=== PATIENT | female | born 1970 | race Caucasian/White ===

== ENCOUNTER 2020-06-27 12:33 | Outpatient (REF) | payer BC, SELFPAY ==
[2020-06-27 14:04] LABS: Hematocrit 41.5 % (37-47); Hemoglobin 13.4 g/dl (12.0-16.0); Mean Corpuscular HGB Conc 32.3 g/dl (31.0-35.0); Mean Corpuscular Hemoglobin 29.2 pg (27.0-33.0); Mean Corpuscular Volume 90.4 fL (80-98); Platelet Count 253 X10*3/uL (160-400); Red Blood Count 4.59 X10*6/uL (4.20-5.50); Red Cell Distribution Width 13.1 % (11.0-16.0); White Blood Count 9.5 X10*3/uL (4.8-10.8)
[2020-06-27 14:24] LABS: Glucose Urine UA NEG (NEG); Leukocyte Esterase Urine NEG (NEG); Nitrite Urine NEG (NEG); PH 6.5 (5.0-8.0); Urine Blood NEG (NEG); Urine Ketones NEG (NEG); Urine Protein NEG (NEG-TRACE)
[2020-06-27 14:28] LABS: Color Urine YELLOW
[2020-06-27 14:29] LABS: Appearance Urine CLEAR
[2020-06-27 14:31] LABS: Alanine Aminotransferase 30 U/L (0-31); Albumin Level 4.3 g/dL (3.5-5.0); Alkaline Phosphatase 77 U/L (39-117); Anion Gap 12 (12-20); Aspartate Amino Transferase 25 U/L (5-31); Bilirubin Total 0.7 mg/dL (0.0-1.0); Blood Urea Nitrogen 9 mg/dL (9-16); Calcium 8.9 mg/dL (8.4-10.2); Carbon Dioxide 28 mmol/L (22-29); Chloride 103 mmol/L (96-108); Cholesterol 233 mg/dL; Estimated Glomerular Filt Rate > 60; Glucose Fasting 87 mg/dL (60-99); HDL Cholesterol 53 mg/dL; Iron 57 mcg/dL (30-160); LDL Cholesterol Calculated 138 mg/dl; Percent Iron Saturation 12 % (15-50); Potassium 4.3 mmol/l (3.3-5.1); Sodium 139 mmol/L (135-145); Total Iron Binding Capacity 477 mcg/dL (228-428); Total Protein 7.2 g/dL (6.5-8.0); Triglycerides 210 mg/dL; Unsaturated Iron Binding 420 ug/dL
[2020-06-27 14:54] LABS: Ferritin 27 ng/mL (10-250); Free T4 (Free Thyroxine) 1.22 ng/dL (0.71-1.85)
== END 2020-06-27 12:34 | disposition home or self-care (01) ==
LOC: HO.HMGCLDS 12:33
PROVIDERS: PCP Internal Medicine; Visit Provider Internal Medicine
DX: E03.9 Hypothyroidism, unspecified (principal); I10 Essential (primary) hypertension; E78.2 Mixed hyperlipidemia
CPT/HCPCS: 36415; 80053; 80061; 81003; 82728; 83540; 84439; 84443; 85027

== ENCOUNTER 2020-10-15 10:17 | Outpatient (REF) | payer BC, SELFPAY ==
[2020-10-15 11:04] LABS: Hematocrit 41.9 % (37-47); Hemoglobin 13.3 g/dl (12.0-16.0); Mean Corpuscular HGB Conc 31.7 g/dl (31.0-35.0); Mean Corpuscular Hemoglobin 27.9 pg (27.0-33.0); Mean Corpuscular Volume 87.8 fL (80-98); Mean Platelet Volume 10.8 fL (9.4-12.3); Platelet Count 296 X10*3/uL (160-400); Red Blood Count 4.77 X10*6/uL (4.20-5.50); Red Cell Distribution Width 13.3 % (11.0-16.0); White Blood Count 9.6 X10*3/uL (4.8-10.8)
[2020-10-15 12:53] LABS: Alanine Aminotransferase 30 U/L (0-31); Albumin Level 4.3 g/dL (3.5-5.0); Alkaline Phosphatase 81 U/L (39-117); Anion Gap 14 (12-20); Aspartate Amino Transferase 25 U/L (5-31); Bilirubin Total 0.6 mg/dL (0.0-1.0); Blood Urea Nitrogen 11 mg/dL (9-16); Calcium 8.6 mg/dL (8.4-10.2); Carbon Dioxide 24 mmol/L (22-29); Chloride 105 mmol/L (96-108); Cholesterol 199 mg/dL; Estimated Glomerular Filt Rate > 60; Glucose Fasting 94 mg/dL (60-99); HDL Cholesterol 45 mg/dL; Iron 50 mcg/dL (30-160); LDL Cholesterol Calculated 112 mg/dl; Percent Iron Saturation 11 % (15-50); Potassium 4.2 mmol/L (3.3-5.1); Sodium 139 mmol/L (135-145); Total Iron Binding Capacity 461 mcg/dL (228-428); Total Protein 7.1 g/dL (6.5-8.0); Triglycerides 212 mg/dL; Unsaturated Iron Binding 411 ug/dL
[2020-10-15 12:56] LABS: TSH reflex Free T4 1.26 uIU/mL (0.32-4.0)
== END 2020-10-15 10:18 | disposition home or self-care (01) ==
LOC: HO.HMGCLDS 10:17
PROVIDERS: PCP Internal Medicine; Visit Provider Internal Medicine
DX: Z00.00 Encounter for general adult medical examination without abnormal findings (principal); E78.5 Hyperlipidemia, unspecified; I10 Essential (primary) hypertension; D50.9 Iron deficiency anemia, unspecified; E03.9 Hypothyroidism, unspecified
CPT/HCPCS: 36415; 80053; 80061; 83540; 84443; 85027

== ENCOUNTER 2021-02-25 08:42 | Outpatient (REF) | payer BC, SELFPAY ==
[2021-02-25 11:52] LABS: Alanine Aminotransferase 31 U/L (0-31); Albumin Level 4.3 g/dL (3.5-5.0); Alkaline Phosphatase 78 U/L (39-117); Anion Gap 14 (12-20); Aspartate Amino Transferase 23 U/L (5-31); Bilirubin Total 0.5 mg/dL (0.0-1.0); Blood Urea Nitrogen 12 mg/dL (9-16); Calcium 9.3 mg/dL (8.4-10.2); Carbon Dioxide 24 mmol/L (22-29); Chloride 106 mmol/L (96-108); Cholesterol 174 mg/dL; Estimated Glomerular Filt Rate > 60; Glucose Fasting 103 mg/dL (60-99); HDL Cholesterol 40 mg/dL; LDL Cholesterol Calculated 100 mg/dl; Potassium 4.2 mmol/L (3.3-5.1); Sodium 140 mmol/L (135-145); Triglycerides 172 mg/dL
[2021-02-25 12:01] LABS: TSH reflex Free T4 0.21 uIU/mL (0.32-4.0)
[2021-02-25 12:34] LABS: Free T4 (Free Thyroxine) 1.48 ng/dL (0.71-1.85)
== END 2021-02-25 08:43 | disposition home or self-care (01) ==
LOC: HO.HMGCLDS 08:42
PROVIDERS: PCP Internal Medicine; Visit Provider Internal Medicine
DX: E66.9 Obesity, unspecified (principal); E78.5 Hyperlipidemia, unspecified; I10 Essential (primary) hypertension
CPT/HCPCS: 36415; 80053; 80061; 84439; 84443

== ENCOUNTER 2021-07-02 11:32 | Outpatient (REF) | payer BC, SELFPAY ==
[2021-07-02 13:56] LABS: Hematocrit 39.8 % (37.0-47.0); Hemoglobin 12.7 g/dl (12.0-16.0); Mean Corpuscular HGB Conc 31.9 g/dl (31.0-35.0); Mean Corpuscular Hemoglobin 29.3 pg (27.0-33.0); Mean Corpuscular Volume 91.7 fL (80.0-98.0); Mean Platelet Volume 11.9 fL (9.4-12.3); Platelet Count 249 X10*3/uL (160-400); Red Blood Count 4.34 X10*6/uL (4.20-5.50); Red Cell Distribution Width 13.2 % (11.0-16.0); White Blood Count 11.1 X10*3/uL (4.8-10.8)
[2021-07-02 14:10] LABS: Estimated Average Glucose 103 mg/dL; Hemoglobin A1c % 5.2 %
[2021-07-02 14:16] LABS: Alanine Aminotransferase 24 U/L (0-31); Albumin Level 4.1 g/dL (3.5-5.0); Alkaline Phosphatase 78 U/L (39-117); Anion Gap 14 (12-20); Aspartate Amino Transferase 21 U/L (5-31); Bilirubin Total 0.9 mg/dL (0.0-1.0); Blood Urea Nitrogen 13 mg/dL (9-16); Calcium 9.8 mg/dL (8.4-10.2); Carbon Dioxide 27 mmol/L (22-29); Chloride 102 mmol/L (96-108); Cholesterol 220 mg/dL; Estimated Glomerular Filt Rate > 60; Glucose Fasting 85 mg/dL (60-99); HDL Cholesterol 54 mg/dL; LDL Cholesterol Calculated 122 mg/dl; Potassium 3.9 mmol/L (3.3-5.1); Sodium 139 mmol/L (135-145); Triglycerides 222 mg/dL
[2021-07-02 14:38] LABS: TSH reflex Free T4 2.25 uIU/mL (0.32-4.0); Vitamin D 25-OH Total 37.4 ng/mL (>30)
[2021-07-02 16:38] LABS: Appearance Urine CLEAR; Color Urine YELLOW; Glucose Urine UA NEG (NEG); Leukocyte Esterase Urine NEG (NEG); Nitrite Urine NEG (NEG); Urine Blood NEG (NEG); Urine Ketones NEG (NEG); Urine Protein NEG (NEG-TRACE)
[2021-07-02 18:35] LABS: RBC Urine 0 /HPF (0); WBC Urine 0 /HPF (0-4)
== END 2021-07-02 11:33 | disposition home or self-care (01) ==
LOC: HO.HMGCLDS 11:32
PROVIDERS: PCP Internal Medicine; Visit Provider Internal Medicine
DX: Z00.00 Encounter for general adult medical examination without abnormal findings (principal); E78.5 Hyperlipidemia, unspecified; I10 Essential (primary) hypertension
CPT/HCPCS: 36415; 80053; 80061; 81001; 82306; 83036; 84443; 85027

== ENCOUNTER 2022-03-05 08:44 | Outpatient (REF) | payer BC, SELFPAY ==
[2022-03-05 12:23] LABS: Alanine Aminotransferase 32 U/L (0-31); Albumin Level 3.8 g/dL (3.5-5.0); Alkaline Phosphatase 75 U/L (39-117); Anion Gap 16 (12-20); Aspartate Amino Transferase 24 U/L (5-31); Bilirubin Total 0.5 mg/dL (0.0-1.0); Blood Urea Nitrogen 11 mg/dL (9-16); Calcium 8.9 mg/dL (8.4-10.2); Carbon Dioxide 25 mmol/L (22-29); Chloride 102 mmol/L (96-108); Cholesterol 213 mg/dL; Estimated Glomerular Filt Rate > 60; Glucose Fasting 95 mg/dL (60-99); HDL Cholesterol 48 mg/dL; LDL Cholesterol Calculated 120 mg/dl; Potassium 4.2 mmol/L (3.3-5.1); Sodium 139 mmol/L (135-145); Total Protein 6.6 g/dL (6.5-8.0); Triglycerides 228 mg/dL
[2022-03-05 12:28] LABS: TSH reflex Free T4 2.92 uIU/mL (0.32-4.0)
== END 2022-03-05 08:45 | disposition home or self-care (01) ==
LOC: HO.HMGCLDS 08:44
PROVIDERS: PCP Internal Medicine; Visit Provider Internal Medicine
DX: E78.5 Hyperlipidemia, unspecified (principal); I10 Essential (primary) hypertension; E03.9 Hypothyroidism, unspecified
CPT/HCPCS: 36415; 80053; 80061; 84443

== ENCOUNTER 2022-03-20 10:30 | Outpatient (REF) | payer BC, SELFPAY ==
--- NOTE | ~2022-03-20 | US_ITS ---
EXAMINATION: US THYROID CLINICAL INFORMATION: Nontoxic multinodular goiter. COMPARISON: Ultrasound soft tissue head/neck thyroid dated 03/05/2020 and 03/09/2019. TECHNIQUE: Linear transducer grayscale and color Doppler examination with attention to the region of the thyroid. FINDINGS: SIZE: Measurements of the thyroid lobes and nodules are given in sagittal, anteroposterior and transverse dimensions respectively. Right Thyroid Lobe: 4.7 x 1.6 x 1.5 cm, volume 5.9 mL. Previously 4.6 x 1.6 x 1.5 cm, volume 5.8 mL. Parenchyma: The gland echotexture is heterogeneous. Thyroid vascularity is normal. Left Thyroid Lobe: 4.7 x 1.3 x 1.4 cm, volume 4.5 mL. Previously 4.7 x 1.2 x 1.4 cm, volume 4.3 mL. Parenchyma: The gland echotexture is heterogeneous. Thyroid vascularity is normal. Isthmus: 0.5 cm in maximum AP dimension. Previously 0.45 cm. Estimated total number of nodules greater than or equal to 1 cm: 1. Raise Driller nodules are described as follows: 1. Location: Right inferior. Size: 1.2 x 0.8 x 0.8 cm, volume 0.4 mL. Previously: 1.3 x 0.7 x 0.8 cm, volume 0.4 mL. Nodule characteristics: Composition: Solid/almost completely solid (2). Echogenicity: Isoechoic (1). Shape: Not taller than wide (0). Margins: Ill-defined (0). Echogenic Foci: None (0). ACR TI-RADS total points: 3 ACR TI-RADS category: 3 Significant change in size (>/= 20% in 2 dimensions and minimal increase of 2 mm or 50% or greater increase in volume): No Change in features: Yes Change in ACR TI-RADS risk category: Decreased, previously was hypoechoic in appearance (TR 4) and is now isoechoic NODES: No lymphadenopathy is seen in the tissue surrounding the thyroid gland. US/US thyroid IMPRESSION: A 1.2 cm TR 3 right thyroid nodule is unchanged in size from prior however appears more isoechoic on today's exam (previously hypoechoic, TR 4). Heterogeneous thyroid which can be seen in the setting of thyroiditis. ACR TI-RADS RECOMMENDATION REFERENCE: Ultrasound-guided fine-needle aspiration, followup ultrasound, no further follow up. * TR1 (0 point) and TR 2 (2 points): No FNA or follow up * TR3 (3 points): FNA if more than or equal to 2.5 cm in maximum dimension, followup ultrasound in 1, 3 and 5 years if 1.5 to 2.4 cm in maximum dimension. * TR4 (4-6 points): FNA if more than or equal to 1.5 cm in maximum dimension, followup ultrasound in 1, 2, 3 and 5 years if 1 to 1.4 cm in maximum dimension. * TR5 (more than or equal to 7 points): FNA if more than or equal to 1 cm in maximum dimension, followup ultrasound every year for 5 years if 0.5 to 0.9 cm in maximum dimension. * TR3, TR4 or TR5 nodules that are below the size threshold for follow up receive no follow up.
== END 2022-03-20 10:31 | disposition home or self-care (01) ==
LOC: HO.US 10:30
PROVIDERS: Visit Provider Internal Medicine Endocrinology, Diabetes & Metabolism
DX: E04.2 Nontoxic multinodular goiter (principal)
CPT/HCPCS: 76536

== ENCOUNTER 2022-04-25 13:14 | Outpatient (REF) | payer BC, SELFPAY ==
[2022-04-25 15:14] LABS: MANUAL DIFF FLAG NO
[2022-04-25 15:18] LABS: Basophils Absolute Auto 0.1 X10*3/uL (0.0-0.2); Basophils Percent Auto 0.8 % (0-2); Eosinophils Absolute Auto 0.4 X10*3/uL (0.0-0.4); Eosinophils Percent Auto 3.4 % (0-4); Hematocrit 41.2 % (37.0-47.0); Hemoglobin 13.4 g/dl (12.0-16.0); Imm Gran Abs Auto 0.08 X10*3/uL (0.00-0.03); Imm Gran Pct Auto 0.8 % (0.0-0.4); Lymphocytes Absolute Auto 2.6 X10*3/uL (1.2-4.9); Lymphocytes Percent Auto 25.3 % (20-40); Mean Corpuscular HGB Conc 32.5 g/dl (31.0-35.0); Mean Corpuscular Hemoglobin 29.6 pg (27.0-33.0); Mean Corpuscular Volume 90.9 fL (80.0-98.0); Mean Platelet Volume 11.3 fL (9.4-12.3); Monocytes Absolute Auto 0.8 X10*3/uL (0.1-1.2); Neutrophils Absolute Auto 6.5 x10*3/uL (2.0-8.3); Neutrophils Percent Auto 61.7 % (45-73); Platelet Count 243 X10*3/uL (160-400); Red Blood Count 4.53 X10*6/uL (4.20-5.50); Red Cell Distribution Width 13.7 % (11.0-16.0); White Blood Count 10.5 X10*3/uL (4.8-10.8)
[2022-04-25 15:29] LABS: Alanine Aminotransferase 47 U/L (0-31); Albumin Level 4.3 g/dL (3.5-5.0); Alkaline Phosphatase 81 U/L (39-117); Anion Gap 18 (12-20); Aspartate Amino Transferase 41 U/L (5-31); Bilirubin Direct 0.2 mg/dL (0.0-0.5); Bilirubin Total 0.4 mg/dL (0.0-1.0); Blood Urea Nitrogen 10 mg/dL (9-16); Calcium 9.3 mg/dL (8.4-10.2); Carbon Dioxide 25 mmol/L (22-29); Chloride 101 mmol/L (96-108); Estimated Glomerular Filt Rate > 60; Glucose Random 85 mg/dL (60-115); Potassium 4.1 mmol/L (3.3-5.1); Sodium 140 mmol/L (135-145); Total Protein 7.1 g/dL (6.5-8.0)
[2022-04-25 15:33] LABS: Amylase 40 U/L (28-100)
== END 2022-04-25 13:15 | disposition home or self-care (01) ==
LOC: HO.HMGCLDS 13:14
PROVIDERS: PCP Internal Medicine; Visit Provider Physician Assistant
DX: R10.9 Unspecified abdominal pain (principal)
CPT/HCPCS: 36415; 80048; 80076; 82150; 85025

== ENCOUNTER 2022-07-13 10:54 | Outpatient (REF) | payer BC, SELFPAY ==
[2022-07-13 16:49] LABS: MANUAL DIFF FLAG NO
[2022-07-13 16:54] LABS: Basophils Absolute Auto 0.1 X10*3/uL (0.0-0.2); Basophils Percent Auto 0.6 % (0-2); Eosinophils Absolute Auto 0.3 X10*3/uL (0.0-0.4); Eosinophils Percent Auto 2.7 % (0-4); Hematocrit 42.6 % (37.0-47.0); Hemoglobin 13.6 g/dl (12.0-16.0); Imm Gran Abs Auto 0.07 X10*3/uL (0.00-0.03); Imm Gran Pct Auto 0.7 % (0.0-0.4); Lymphocytes Absolute Auto 2.4 X10*3/uL (1.2-4.9); Lymphocytes Percent Auto 23.3 % (20-40); Mean Corpuscular HGB Conc 31.9 g/dl (31.0-35.0); Mean Corpuscular Hemoglobin 29.8 pg (27.0-33.0); Mean Corpuscular Volume 93.2 fL (80.0-98.0); Mean Platelet Volume 11.3 fL (9.4-12.3); Monocytes Absolute Auto 0.8 X10*3/uL (0.1-1.2); Monocytes Percent Auto 7.8 % (2-11); Neutrophils Absolute Auto 6.7 x10*3/uL (2.0-8.3); Neutrophils Percent Auto 64.9 % (45-73); Platelet Count 223 X10*3/uL (160-400); Red Blood Count 4.57 X10*6/uL (4.20-5.50); White Blood Count 10.4 X10*3/uL (4.8-10.8)
[2022-07-13 17:45] LABS: Alanine Aminotransferase 33 U/L (0-31); Albumin Level 4.1 g/dL (3.5-5.0); Alkaline Phosphatase 83 U/L (39-117); Anion Gap 14 (12-20); Aspartate Amino Transferase 28 U/L (5-31); Bilirubin Total 0.7 mg/dL (0.0-1.0); Blood Urea Nitrogen 14 mg/dL (9-16); Calcium 8.9 mg/dL (8.4-10.2); Carbon Dioxide 27 mmol/L (22-29); Chloride 101 mmol/L (96-108); Cholesterol 229 mg/dL; Estimated Glomerular Filt Rate > 60; Glucose Fasting 93 mg/dL (60-99); HDL Cholesterol 50 mg/dL; LDL Cholesterol Calculated 144 mg/dl; Potassium 4.2 mmol/L (3.3-5.1); Sodium 138 mmol/L (135-145); TSH reflex Free T4 2.14 uIU/mL (0.32-4.0); Total Protein 6.7 g/dL (6.5-8.0); Triglycerides 176 mg/dL; Vitamin D 25-OH Total 36.9 ng/mL (>30)
[2022-07-13 17:55] LABS: Folate 19.2 ng/mL (> or = 4.0); Vitamin B12 606 pg/mL (200-900)
== END 2022-07-13 10:55 | disposition home or self-care (01) ==
LOC: HO.HMGCLDS 10:54
PROVIDERS: PCP Internal Medicine; Visit Provider Internal Medicine
DX: E03.9 Hypothyroidism, unspecified (principal); E78.5 Hyperlipidemia, unspecified; I10 Essential (primary) hypertension
CPT/HCPCS: 36415; 80053; 80061; 82306; 82607; 82746; 84443; 85025

== ENCOUNTER 2022-10-01 12:24 | Outpatient (REF) | payer OTHER, SELFPAY ==
[2022-10-01 14:06] LABS: MANUAL DIFF FLAG NO
[2022-10-01 14:09] LABS: Basophils Absolute Auto 0.1 X10*3/uL (0.0-0.2); Basophils Percent Auto 0.7 % (0-2); Eosinophils Absolute Auto 0.2 X10*3/uL (0.0-0.4); Eosinophils Percent Auto 2.4 % (0-4); Hematocrit 41.8 % (37.0-47.0); Hemoglobin 13.7 g/dl (12.0-16.0); Imm Gran Abs Auto 0.04 X10*3/uL (0.00-0.03); Imm Gran Pct Auto 0.4 % (0.0-0.4); Lymphocytes Absolute Auto 2.5 X10*3/uL (1.2-4.9); Mean Corpuscular HGB Conc 32.8 g/dl (31.0-35.0); Mean Corpuscular Hemoglobin 29.5 pg (27.0-33.0); Mean Corpuscular Volume 90.1 fL (80.0-98.0); Mean Platelet Volume 11.1 fL (9.4-12.3); Monocytes Absolute Auto 0.7 X10*3/uL (0.1-1.2); Monocytes Percent Auto 7.6 % (2-11); Neutrophils Absolute Auto 5.7 x10*3/uL (2.0-8.3); Neutrophils Percent Auto 61.9 % (45-73); Platelet Count 280 X10*3/uL (160-400); Red Blood Count 4.64 X10*6/uL (4.20-5.50); Red Cell Distribution Width 12.6 % (11.0-16.0); White Blood Count 9.1 X10*3/uL (4.8-10.8)
[2022-10-01 14:14] LABS: Prothrombin Time 10.9 SEC (10.0-13.1)
[2022-10-01 15:11] LABS: Anion Gap 14 (12-20); Blood Urea Nitrogen 13 mg/dL (9-16); Carbon Dioxide 28 mmol/L (22-29); Chloride 103 mmol/L (96-108); Estimated Glomerular Filt Rate > 60; Glucose Random 83 mg/dL (60-115); Sodium 141 mmol/L (135-145)
== END 2022-10-01 12:25 | disposition home or self-care (01) ==
LOC: HO.HMGCLDS 12:24
PROVIDERS: PCP Internal Medicine; Visit Provider Nurse Practitioner Family
DX: R04.0 Epistaxis (principal)
CPT/HCPCS: 36415; 80048; 85025; 85610

== ENCOUNTER 2022-10-15 08:57 | Outpatient (REF) | payer OTHER, SELFPAY ==
--- NOTE | ~2022-10-15 | US_ITS ---
EXAMINATION: US ABDOMEN LIMITED WITH LIVER ELASTOGRAPHY CLINICAL INFORMATION: Abnormal blood chemistry. COMPARISON: None available. TECHNIQUE: Real-time imaging of the abdominal viscera. Noninvasive ultrasound liver fibrosis assessment is performed using Moiz ElastPQ point quantification shear wave elastography (2D-SWE) with a C5-2 MHz transducer. Multiple elastography samples are obtained. FINDINGS: PANCREAS: Normal. The visualized pancreatic head and body are normal in appearance. The remainder of the pancreas is obscured from visualization by the overlying bowel gas. LIVER: The liver demonstrates normal size, contour and increased echogenicity. No focal lesion or intrahepatic biliary duct dilatation. The right lobe measures 18.2 cm in length. The left lobe measures 15.8 cm in length. Portal flow is hepatopedal Shear wave liver elastography median stiffness is 1.21 m/s (reference: normal median stiffness is 1.3 m/s or less). IQR/median stiffness to assess sampling precision is 0.12 (reference: good quality data set is IQR/median stiffness of 0.15 or less). GALLBLADDER: Normal. The gallbladder is physiologically distended without evidence of stones, sludge, polyps, wall thickening or pericholecystic fluid. COMMON BILE DUCT: Normal in caliber measuring 0.5 cm in diameter. RIGHT KIDNEY: Normal. No hydronephrosis. No renal calculi or focal parenchymal lesions. The kidney measures 11.6 cm in maximum dimension. FREE FLUID: None. US/US abdomen kern w elastography IMPRESSION: 1. Mild hepatic steatosis without focal lesion. 2. Liver elastography: Median liver stiffness measures 1.21m/s corresponding to high probability normal. REFERENCE: Society of Radiologists in Ultrasound Liver Stiffness Thresholds (2020): LIVER STIFFNESS THRESHOLDS: *Liver Stiffness equal or less than 1.3 m/s: High probability of being normal. *Liver Stiffness less than 1.7 m/s: In the absence of other known clinical signs, rules out compensated advanced chronic liver disease. *Liver Stiffness 1.7-2.1 m/s: Suggestive of compensated advanced chronic liver disease but need further test for confirmation. *Liver Stiffness over 2.1 m/s: Rules in compensated advanced chronic liver disease. *Liver Stiffness over 2.4 m/s: Suggestive of clinically significant portal hypertension. QUALITY OF DATA SET: *IQR/Median value equal or less than 0.15 implies a quality data set. *IQR/Median value over 0.15 implies a poor quality data set. SIGNIFICANT CHANGE FROM PRIOR EXAM: Significant change if liver stiffness measurement is 10% or greater from prior exam. OTHER CONSIDERATIONS: The stage of liver fibrosis may be overestimated in the setting of acute hepatitis, liver inflammation, elevated liver function tests, hepatic vascular congestion, obstructive cholestasis, non-fasting state, and infiltrative diseases such as amyloidosis and lymphoma. In some patients with NAFLD, the liver stiffness thresholds for compensated advanced chronic liver disease may be lower. In causes other than viral hepatitis and NAFLD, liver stiffness thresholds are not well established.
== END 2022-10-15 08:58 | disposition home or self-care (01) ==
LOC: HO.US 08:57
PROVIDERS: PCP Internal Medicine; Visit Provider Internal Medicine
DX: R79.89 Other specified abnormal findings of blood chemistry (principal)
CPT/HCPCS: 76705; 76981

== ENCOUNTER 2023-01-05 09:51 | Outpatient (REF) | payer OTHER, SELFPAY ==
--- NOTE | ~2023-01-05 | XR_ITS ---
EXAMINATION: XR FOOT, RIGHT CLINICAL INFORMATION: Pain. COMPARISON: None available. TECHNIQUE: AP, lateral, and oblique views of the right foot. FINDINGS: Bony alignment and mineralization are normal. No fracture, desiccation right ankle joint effusion is seen. Boehler's angle is normal. There are moderate posterior and small plantar calcaneal spurs. No focal soft tissue swelling, gas or foreign body is seen. XR/XR foot RT min 3V IMPRESSION: 1. No fracture, dislocation or right ankle joint effusion is seen. 2. There are moderate posterior and small plantar right calcaneal spurs. EXAMINATION: XR FOOT, LEFT CLINICAL INFORMATION: Pain. COMPARISON: None available. TECHNIQUE: AP, lateral, and oblique views of the left foot. FINDINGS: Bony alignment and mineralization are normal. No fracture, dislocation or left ankle joint effusion is seen. Boehler's angle is normal. There are large posterior and moderate plantar calcaneal spurs. There is no focal soft tissue swelling, gas or foreign body. IMPRESSION: 1. No fracture, dislocation or left ankle joint effusion is seen. 2. There are large posterior and moderate plantar left calcaneal spurs.
--- NOTE | ~2023-01-05 | XR_ITS ---
EXAMINATION: XR FOOT, RIGHT CLINICAL INFORMATION: Pain. COMPARISON: None available. TECHNIQUE: AP, lateral, and oblique views of the right foot. FINDINGS: Bony alignment and mineralization are normal. No fracture, desiccation right ankle joint effusion is seen. Boehler's angle is normal. There are moderate posterior and small plantar calcaneal spurs. No focal soft tissue swelling, gas or foreign body is seen. XR/XR foot LT min 3V IMPRESSION: 1. No fracture, dislocation or right ankle joint effusion is seen. 2. There are moderate posterior and small plantar right calcaneal spurs. EXAMINATION: XR FOOT, LEFT CLINICAL INFORMATION: Pain. COMPARISON: None available. TECHNIQUE: AP, lateral, and oblique views of the left foot. FINDINGS: Bony alignment and mineralization are normal. No fracture, dislocation or left ankle joint effusion is seen. Boehler's angle is normal. There are large posterior and moderate plantar calcaneal spurs. There is no focal soft tissue swelling, gas or foreign body. IMPRESSION: 1. No fracture, dislocation or left ankle joint effusion is seen. 2. There are large posterior and moderate plantar left calcaneal spurs.
== END 2023-01-05 09:52 | disposition home or self-care (01) ==
LOC: HO.HMGCX 09:51
PROVIDERS: PCP Internal Medicine; Visit Provider Internal Medicine
DX: M79.671 Pain in right foot (principal); M79.672 Pain in left foot
CPT/HCPCS: 73630

== ENCOUNTER 2023-05-06 11:41 | Outpatient (AMB) | payer OTHER, SELFPAY ==
[2023-05-06 11:46] VITALS: BP 140/80; PULSE 80; TEMP 37.1; O2SAT 98; BMI 45.0
--- NOTE | 2023-05-06 11:46 | MHC.OFFWIV ---
Intake Vital Signs 05/06/23 11:46 Height 5 ft 4 in Weight 262 lb BMI 45.0 BP 140/80 H Blood Pressure Location Lt brachial Position Sitting Pulse 80 Pulse Source Pulse Oximeter Temp 98.7 F Temp Source Temporal Artery Scan Pulse Oximetry (%) 98 Oxygen Delivery Method Room Air Intake Visit Reasons: EP Fatigue/dizzy/headache Intake Note: pt is here for c/o ear pain, body pain, fatigue, dizziness, headache Patient Tobacco Use Status: Never used Tobacco Allergies meloxicam [MELOXICAM] Allergy (Intermediate, Verified 05/06/23 11:46) HYPERTENSION, flactuating BP, elevated bp Do you need a note to return to daycare/school/sports/work: Yes HPI EP Fatigue/dizzy/headache HPI Details 53-year-old female patient presents today with a 2 week history of right ear pain, and now has been having body aches, fatigue, headaches. Denies any fever, however has been getting the chills at night over the last couple of nights. Denies known exposure to any sick contacts. Denies any respiratory or GI symptoms. [facility] Medical History Thyroid nodule Nevus Annual physical exam (~02/17/22) Normal colonoscopy Hyperlipidemia Sleep apnea Menorrhagia Chronic iron deficiency anemia Multinodular goiter Hypothyroidism Anxiety and depression Obesity HTN (hypertension) Surgical History History of esophagogastroduodenoscopy (EGD) No pertinent past surgical history Family History Father No problems noted. Mother No problems noted. Sister No problems noted. Sister No problems noted. Son No problems noted. Social History Housing: House Alcohol intake: never Patient Tobacco Use Status: Never used Tobacco e-Cigarette/Vaping Use: Never Used Current occupational status: employed Cognitive needs: No Hearing needs: No Vision needs: No Review of Systems Const All systems reviewed & are unremarkable except as noted in HPI and below Physical Exam Vital Signs: Last Vital Signs Temp 98.7 F 05/06/23 11:46 Pulse 80 05/06/23 11:46 BP 140/80 H 05/06/23 11:46 Pulse Ox 98 05/06/23 11:46 Oxygen Delivery Method Room Air 05/06/23 11:46 BMI result Body Mass Index 45.0 Const General: cooperative, healthy appearing, comfortable and no acute distress HEENT Head: Yes normal to inspection Ears: hearing grossly normal bilaterally, external ears normal, TM normal on the left and TM abnormal (Erythematous, purulent effusion R TM) bulging Face and sinus: Yes normal facial exam Mouth: Normal oral and palatal mucosa present and moist mucous membranes Throat: Yes posterior oropharynx normal Neck Neck: Yes no lymphadenopathy Resp Effort & Inspection: normal respiratory effort and able to speak in complete sentences Auscultation: clear to auscultation bilaterally Cardio Jugular venous distension: no JVD Palpation: normal PMI Rate: regular rate Rhythm: regular rhythm Skin General skin exam: no rashes or lesions noted Extrem General: Yes capillary refill normal and Yes no clubbing, cyanosis or edema Psych Appearance: grossly normal Mental Status: mental status grossly normal Speech and movement: Normal speech and movement present Assessment & Plan Assessment & Plan (1) Right otitis media with effusion: Code(s): H65.91 - Unspecified nonsuppurative otitis media, right ear Plan: Augmentin for right OM. Advised to return to clinic or see PCP if she does not improve treatment. May take Tylenol/Motrin for any ongoing discomfort. She agrees to plan. Medications: New amoxicillin-pot clavulanate 875-125 mg 1 tab PO BID 14 tabs 0RF 7 days H65.91 - Unspecified nonsuppurative otitis media, right ear Coding Level of Care Code Est Pt Level 3 (39618) Diagnoses Right otitis media with effusion H65.91
== END 2023-05-06 12:22 | disposition home or self-care (01) ==
PROVIDERS: PCP Internal Medicine; Visit Provider Nurse Practitioner Family
DX: H65.91 Unspecified nonsuppurative otitis media, right ear (principal)
CPT/HCPCS: 99213

== ENCOUNTER 2023-06-30 13:25 | Outpatient (AMB) | payer OTHER, SELFPAY ==
[2023-06-30 13:26] VITALS: BP 146/90; PULSE 80; O2SAT 96; BMI 46.0
--- NOTE | 2023-06-30 13:26 | A.OFFPC_ITS ---
Vital Signs 06/30/23 13:26 Height 5 ft 4 in Weight 268 lb BMI 46.0 BP 146/90 H Blood Pressure Location Lt brachial Position Sitting Pulse 80 Pulse Source Pulse Oximeter Pulse Oximetry (%) 96 Oxygen Delivery Method Room Air Intake Visit Reasons: Ongoing cough Intake Note: Pt is here today for a follow up visit. Pt states that she has on going dry cough. Pt also c/o sinus pain and pressure and nose bleeds. Allergies meloxicam [MELOXICAM] Allergy (Intermediate, Verified 06/30/23 13:30) HYPERTENSION, flactuating BP, elevated bp Medication List - Last Reconciled 06/30/23 by Mackenzie Duncan MD cetirizine (Zyrtec) 10 mg PO DAILY PRN lorazepam 0.5 mg PO DAILY PRN metoprolol succinate ER 75 mg (1.5 x 50 mg) PO DAILY olmesartan-hydrochlorothiazide 40-25 mg 1 tab PO DAILY omega-3 acid ethyl esters PO oxymetazoline 0.05% (Afrin No Drip (oxymetazoline)) 3 sprays intranasal .q20min PRN pravastatin 20 mg PO DAILY Synthroid (levothyroxine) 175 mcg PO QAM NS Tobacco use date assessed: 06/30/23 Dental Screening Dental Screen Date: 06/30/23 Did you have a dental visit in the last 12 months?: Yes Did you have a dental problem in the last 6 months where you did not have access to dental care?: No Was dental information given to patient?: Patient has dentist HPI Ongoing cough HPI Details Pt presents for f/u HTN, hypothyroid, hyperlipid, stable on meds. Pt c/o anxiety and hot flashes, irregular menses. She gained another 10 lb and has not been physically active. [facility] Medical History Thyroid nodule Nevus Annual physical exam (~02/17/22) Normal colonoscopy Hyperlipidemia Sleep apnea Menorrhagia Chronic iron deficiency anemia Multinodular goiter Hypothyroidism Anxiety and depression Obesity HTN (hypertension) Surgical History History of esophagogastroduodenoscopy (EGD) No pertinent past surgical history Family History Father No problems noted. Mother No problems noted. Sister No problems noted. Sister No problems noted. Son No problems noted. Social History Housing: House Alcohol intake: never Patient Tobacco Use Status: Never used Tobacco e-Cigarette/Vaping Use: Never Used Current occupational status: employed Cognitive needs: No Hearing needs: No Vision needs: No Questionnaire PHQ-9 Over the last 2 weeks, how often have you been bothered by any of the following problems? 1. Little interest or pleasure in doing things: not at all 2. Feeling down, depressed, or hopeless: not at all 3. Trouble falling or staying asleep, or sleeping too much: not at all 4. Feeling tired or having little energy: not at all 5. Poor appetite or overeating: not at all 6. Feeling bad about yourself - or that you are a failure or have let yourself or your family down: not at all 7. Trouble concentrating on things, such as reading the newspaper or watching television: not at all 8. Moving or speaking so slowly that other people could have noticed. Or the opposite - being so fidgety or restless that you have been moving around a lot m ore than usual: not at all 9. Thoughts that you would be better off or of hurting yourself in some way: not at all Total score: 0 Depression Screening Interpretation: Negative Depression Screening Done: Yes 11988 - PHQ-9 Billing: Patient declined-do not bill Source: Developed by Drs. Dominik Avelar, Lauryn Royal, Sundar Mukherjee and colleagues, with an educational belia from [employer]. Thrive Questionnaire Date Thrive assessed: 06/30/23 I am a: Patient What is your living situation today?: I have a steady place to live Within the past 12 months, did the food you bought not last and you didn't have the money to get more?: Never true Within the past 12 months, did you worry whether your food would run out before you got money to buy more?: Never true Do you have trouble paying for medicines?: No Do you have trouble getting transportation to medical appointments?: No Do you have trouble paying your heating and electricity bill?: No Do you have trouble taking care of your child, family member or friend?: No Do you have trouble with day-to-day activities such as bathing, preparing meals, shopping, managing finances, etc.?: No Are you currently unemployed and looking for a job?: No Are you interested in more education?: No Please select the resources that you would like help with: None Currently or been in a relationship where the following occur: no concerns reported TITO-7 AMB Questionnaire TITO-7 Date TITO - 7 assessed: 06/30/23 Feeling nervous, anxious, or on edge: 0 = Not at all Not being able to stop or control worryin = Not at all Worrying too much about different things: 0 = Not at all Trouble relaxin = Not at all Being so restless that it is hard to sit still: 0 = Not at all Becoming easily annoyed or irritable: 0 = Not at all Feeling afraid as if something awful might happen: 0 = Not at all Total TITO-7 score (0-4 normal; 5-9 mild; 10-14 moderate; 15-21 severe): 0 Source: Developed by Drs. Dominik Avelar, Lauryn Royal, Sundar Mukherjee and colleagues, with an educational belia from [employer]. Review of Systems Const All systems reviewed & are unremarkable except as noted in HPI and below Reports no additional complaints Eyes Reports no additional complaints ENT Reports no additional complaints Card Reports no additional complaints Resp Reports no additional complaints GI Reports no additional complaints Reports no additional complaints Physical exam (Primary Care) Vital Signs: Last Vital Signs Pulse 80 06/30/23 13:26 BP 146/90 H 06/30/23 13:26 Pulse Ox 96 06/30/23 13:26 Oxygen Delivery Method Room Air 06/30/23 13:26 BMI result Body Mass Index 46.0 Tobacco/Smoking Status: Tobacco use Status Tobacco use date assessed 06/30/23 06/30/23 13:36 Patient Tobacco Use Status Never used Tobacco 06/30/23 13:30 e-Cigarette/Vaping Use Never Used 06/30/23 13:30 PHQ-9: PHQ-9 Score PHQ-9: Total score 0 06/30/23 13:38 Depression Screening Interpretation: Negative Thrive Assessment: Date of Thrive Assessment Date Thrive assessed 06/30/23 06/30/23 13:38 Currently or been in a relationship where the following occur: no concerns reported Const General: no acute distress HENMT Head: Yes normal to inspection Ears: hearing grossly normal bilaterally Face and sinus: Yes normal facial exam Mouth: Normal oral and palatal mucosa present Throat: Yes posterior oropharynx normal Eyes General: appearance normal, both eyes and all related structures Neck Neck: Yes no lymphadenopathy and Yes supple Resp Effort & Inspection: normal respiratory effort Auscultation: clear to auscultation bilaterally Cardio Rhythm: regular rhythm Heart sounds: S1 normal heart sound present and S2 normal heart sound present GI Inspection: Yes normal to inspection Palpation (GI): Soft to palpation Percussion: Yes normal to percussion Auscultation: normal bowel sounds Assessment and Plan Assessment & Plan (1) HTN (hypertension): Code(s): I10 - Essential (primary) hypertension Plan: Increase metoprolol to 100 mg a day and continue olmesartan with hydrochlorothiazide, increase physical activity weight loss discussed with the patient (2) Hyperlipidemia: Code(s): E78.5 - Hyperlipidemia, unspecified Plan: Continue statin (3) Hypothyroidism: Comment: follow up with Endo Code(s): E03.9 - Hypothyroidism, unspecified Plan: Continue levothyroxine (4) Perimenopause: Code(s): N95.1 - Menopausal and female climacteric states Plan: Patient will 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 Three sprays to each naris as needed for nosebleeds. You may repeat 3 times in a 20 minute period. Discontinued Reason: Doctor's Order 3 sprays intranasal .q20min PRN 15 mL 2RF nasal congestion Coding Level of Care Code Est Pt Level 4 (37308) Diagnoses HTN (hypertension) I10 Hyperlipidemia E78.5 Hypothyroidism E03.9 Perimenopause N95.1
== END 2023-06-30 14:33 | disposition home or self-care (01) ==
LOC: HO.HMGC 13:25
PROVIDERS: PCP Internal Medicine; Visit Provider Internal Medicine
DX: I10 Essential (primary) hypertension (principal); E78.5 Hyperlipidemia, unspecified; E03.9 Hypothyroidism, unspecified; N95.1 Menopausal and female climacteric states
CPT/HCPCS: 99214

== ENCOUNTER 2023-07-09 09:49 | Outpatient (REF) | payer OTHER, SELFPAY ==
[2023-07-09 13:28] LABS: MANUAL DIFF FLAG NO
[2023-07-09 13:38] LABS: Basophils Absolute Auto 0.1 X10*3/uL (0.0-0.2); Basophils Percent Auto 0.5 % (0-2); Eosinophils Absolute Auto 0.3 X10*3/uL (0.0-0.4); Eosinophils Percent Auto 3.2 % (0-4); Hemoglobin 12.8 g/dl (12.0-16.0); Imm Gran Abs Auto 0.07 X10*3/uL (0.00-0.03); Imm Gran Pct Auto 0.7 % (0.0-0.4); Lymphocytes Absolute Auto 2.5 X10*3/uL (1.2-4.9); Lymphocytes Percent Auto 25.1 % (20-40); Mean Corpuscular Hemoglobin 28.4 pg (27.0-33.0); Mean Corpuscular Volume 88.7 fL (80.0-98.0); Mean Platelet Volume 11.5 fL (9.4-12.3); Monocytes Absolute Auto 0.8 X10*3/uL (0.1-1.2); Neutrophils Absolute Auto 6.3 x10*3/uL (2.0-8.3); Neutrophils Percent Auto 62.5 % (45-73); Platelet Count 252 X10*3/uL (160-400); Red Blood Count 4.51 X10*6/uL (4.20-5.50); Red Cell Distribution Width 13.8 % (11.0-16.0)
[2023-07-09 13:52] LABS: Appearance Urine Clear; Color Urine Yellow; Glucose Urine UA Negative (Negative); Leukocyte Esterase Urine Trace (Negative); Nitrite Urine Negative (Negative); Specific Gravity - Urine 1.015 (1.005-1.025); UMIC TRIGGER UACC YES; Urine Blood Negative (Negative); Urine Ketones Negative (Negative); Urine Protein Negative (Neg-Trace)
[2023-07-09 13:59] LABS: Bacteria Urine None Seen (None Seen); Hyaline Casts Urine 0-2 /LPF (0-2); RBC Urine 0-2 /HPF (0-2); WBC Urine 0-5 /HPF (0-5)
[2023-07-09 14:08] LABS: Alanine Aminotransferase 14 U/L (0-31); Albumin Level 3.9 g/dL (3.5-5.0); Alkaline Phosphatase 76 U/L (39-117); Anion Gap 15 (12-20); Aspartate Amino Transferase 16 U/L (5-31); Bilirubin Total 0.5 mg/dL (0.0-1.0); Blood Urea Nitrogen 14 mg/dL (9-16); Carbon Dioxide 25 mmol/L (22-29); Chloride 104 mmol/L (96-108); Cholesterol 222 mg/dL (<200); Estimated Glomerular Filt Rate > 60; Glucose Random 91 mg/dL (60-115); HDL Cholesterol 54 mg/dL (>40); Iron 75 mcg/dL (30-160); LDL Cholesterol Calculated 121 mg/dL (<100); Percent Iron Saturation 19 % (15-50); Sodium 140 mmol/L (135-145); Total Iron Binding Capacity 392 mcg/dL (228-428); Total Protein 7.1 g/dL (6.5-8.0); Triglycerides 238 mg/dL (<150); Unsaturated Iron Binding 317 ug/dL
[2023-07-09 14:27] LABS: TSH reflex Free T4 1.28 uIU/mL (0.32-4.0)
== END 2023-07-09 09:50 | disposition home or self-care (01) ==
LOC: HO.HMGCLDS 09:49
PROVIDERS: PCP Internal Medicine; Visit Provider Internal Medicine
DX: Z00.00 Encounter for general adult medical examination without abnormal findings (principal); M79.671 Pain in right foot; M79.672 Pain in left foot; I10 Essential (primary) hypertension; D50.9 Iron deficiency anemia, unspecified; E78.5 Hyperlipidemia, unspecified
CPT/HCPCS: 36415; 80053; 80061; 81001; 83540; 84443; 85025

== ENCOUNTER 2023-08-03 13:24 | Outpatient (AMB) | payer OTHER, SELFPAY ==
[2023-08-03 14:17] VITALS: BP 140/80; PULSE 78; O2SAT 96; BMI 45.7
--- NOTE | 2023-08-03 14:17 | A.OFFPC_ITS ---
Vital Signs 08/03/23 14:17 Height 5 ft 4 in Weight 266 lb BMI 45.7 BP 140/80 H Blood Pressure Location Lt brachial Position Sitting Pulse 78 Pulse Source Pulse Oximeter Pulse Oximetry (%) 96 Oxygen Delivery Method Room Air Intake Visit Reasons: Annual PE Intake Note: Pt is here today for PE. Allergies meloxicam [MELOXICAM] Allergy (Intermediate, Verified 08/03/23 14:18) HYPERTENSION, flactuating BP, elevated bp Medication List - Last Reconciled 08/03/23 by Mackenzie Duncan MD cetirizine (Zyrtec) 10 mg PO DAILY PRN lorazepam 0.5 mg PO DAILY PRN metoprolol succinate ER 75 mg (1.5 x 50 mg) PO DAILY olmesartan-hydrochlorothiazide 40-25 mg 1 tab PO DAILY omega-3 acid ethyl esters PO pravastatin 20 mg PO DAILY Synthroid (levothyroxine) 175 mcg PO QAM NS Tobacco use date assessed: 08/03/23 Dental Screening Dental Screen Date: 08/03/23 Did you have a dental visit in the last 12 months?: Yes Did you have a dental problem in the last 6 months where you did not have access to dental care?: No Was dental information given to patient?: Patient has dentist HPI Annual PE HPI Details Patient presents for physical. She reports lower abdominal and pelvic pressure discomfort during her menses and heavy flow every other month. Patient has a history of uterine fibroids and had negative Pap smear last month by obstetrics gyn. [facility] Medical History Thyroid nodule Nevus Annual physical exam (~02/17/22) Normal colonoscopy Hyperlipidemia Sleep apnea Menorrhagia Chronic iron deficiency anemia Multinodular goiter Hypothyroidism Anxiety and depression Obesity HTN (hypertension) Surgical History History of esophagogastroduodenoscopy (EGD) No pertinent past surgical history Family History Father No problems noted. Mother No problems noted. Sister No problems noted. Sister No problems noted. Son No problems noted. Social History Housing: House Alcohol intake: never Patient Tobacco Use Status: Never used Tobacco e-Cigarette/Vaping Use: Never Used Current occupational status: employed Cognitive needs: No Hearing needs: No Vision needs: No Questionnaire PHQ-9 Over the last 2 weeks, how often have you been bothered by any of the following problems? 1. Little interest or pleasure in doing things: not at all 2. Feeling down, depressed, or hopeless: not at all 3. Trouble falling or staying asleep, or sleeping too much: not at all 4. Feeling tired or having little energy: not at all 5. Poor appetite or overeating: not at all 6. Feeling bad about yourself - or that you are a failure or have let yourself or your family down: not at all 7. Trouble concentrating on things, such as reading the newspaper or watching television: not at all 8. Moving or speaking so slowly that other people could have noticed. Or the opposite - being so fidgety or restless that you have been moving around a lot more than usual: not at all 9. Thoughts that you would be better off or of hurting yourself in some way: not at all Total score: 0 Depression Screening Interpretation: Negative Depression Screening Done: Yes Source: Developed by Drs. Dominik Avelar, Lauryn Royal, Sundar Mukherjee and colleagues, with an educational belia from [employer]. Thrive Questionnaire Date Thrive assessed: 08/03/23 I am a: Patient What is your living situation today?: I have a steady place to live Within the past 12 months, did the food you bought not last and you didn't have the money to get more?: Never true Within the past 12 months, did you worry whether your food would run out before you got money to buy more?: Never true Do you have trouble paying for medicines?: No Do you have trouble getting transportation to medical appointments?: No Do you have trouble paying your heating and electricity bill?: No Do you have trouble taking care of your child, family member or friend?: No Do you have trouble with day-to-day activities such as bathing, preparing meals, shopping, managing finances, etc.?: No Are you currently unemployed and looking for a job?: No Are you interested in more education?: No Please select the resources that you would like help with: None Currently or been in a relationship where the following occur: no concerns reported AUDIT C Alcohol Use Questionnaire (AUDIT-C) 1. How often do you have a drink containing alcohol?: Monthly or less 2. How many drinks containing alcohol do you have on a typical day when you are drinking?: 1 or 2 3. How often do you have six or more drinks on one occasion?: Never Total Score: 1 TITO-7 AMB Questionnaire TITO-7 Date TITO - 7 assessed: 08/03/23 Feeling nervous, anxious, or on edge: 2 = More than half the days Not being able to stop or control worryin = Several days Worrying too much about different things: 1 = Several days Trouble relaxin = Several days Being so restless that it is hard to sit still: 0 = Not at all Becoming easily annoyed or irritable: 1 = Several days Feeling afraid as if something awful might happen: 1 = Several days Total TITO-7 score (0-4 normal; 5-9 mild; 10-14 moderate; 15-21 severe): 7 Source: Developed by Drs. Dominik Avelar, Lauryn Royal, Sundar Mukherjee and colleagues, with an educational belia from [employer]. Review of Systems Const All systems reviewed & are unremarkable except as noted in HPI and below Reports no additional complaints Eyes Reports no additional complaints ENT Reports no additional complaints Card Reports no additional complaints Resp Reports no additional complaints GI Reports no additional complaints Reports no additional complaints Physical exam (Primary Care) Vital Signs: Last Vital Signs Pulse 78 08/03/23 14:17 BP 140/80 H 08/03/23 14:17 Pulse Ox 96 08/03/23 14:17 Oxygen Delivery Method Room Air 08/03/23 14:17 BMI result Body Mass Index 45.7 Tobacco/Smoking Status: Tobacco use Status Tobacco use date assessed 08/03/23 08/03/23 14:21 Patient Tobacco Use Status Never used Tobacco 08/03/23 14:21 e-Cigarette/Vaping Use Never Used 08/03/23 14:21 PHQ-9: PHQ-9 Score PHQ-9: Total score 0 08/03/23 14:38 Depression Screening Interpretation: Negative Thrive Assessment: Date of Thrive Assessment Date Thrive assessed 08/03/23 08/03/23 14:38 Currently or been in a relationship where the following occur: no concerns reported Const General: no acute distress HENMT Head: Yes normal to inspection Ears: hearing grossly normal bilaterally Face and sinus: Yes normal facial exam Mouth: Normal oral and palatal mucosa present Throat: Yes posterior oropharynx normal Eyes General: appearance normal, both eyes and all related structures Neck Neck: Yes no lymphadenopathy and Yes supple Resp Effort & Inspection: normal respiratory effort Auscultation: clear to auscultation bilaterally Cardio Rhythm: regular rhythm Heart sounds: S1 normal heart sound present and S2 normal heart sound present GI Inspection: Yes normal to inspection and Yes obesity Palpation (GI): Soft to palpation Percussion: Yes normal to percussion Auscultation: normal bowel sounds Assessment and Plan Assessment & Plan (1) Menorrhagia: Comment: follow up with obstetrics gyn Code(s): N92.0 - Excessive and frequent menstruation with regular cycle Plan: Obtain pelvic ultrasound to evaluate (2) Hyperlipidemia: Code(s): E78.5 - Hyperlipidemia, unspecified Plan: Continue statin low-cholesterol low-fat diet increase exercise weight loss discussed with the patient. she will continue pravastatin (3) Obesity: Code(s): E66.9 - Obesity, unspecified Plan: Weight loss discussed with the patient (4) HTN (hypertension): Code(s): I10 - Essential (primary) hypertension Plan: Add 2.5 mg of amlodipine to current medications follow-up in 2 months (5) Annual physical exam: Onset Date: ~02/17/22 Code(s): Z00.00 - Encounter for general adult medical examination without abnormal findings Plan: Well-balanced diet regular exercise weight loss discussed with the patient. She is up-to-date with the mammogram and colonoscopy (6) Normal colonoscopy: Comment: 03/2020Silas Haji, recheck 10 yrs Orders: Orders US pelvic and transvaginal Today N92.0 - Excessive and frequent menstruation with regular cycle Lipid Panel 6 Months E66.9 - Obesity, unspecified, E78.5 - Hyperlipidemia, unspecified, I10 - Essential (primary) hypertension Comprehensive [place]. Panel Fast 6 Months E66.9 - Obesity, unspecified, E78.5 - Hyperlipidemia, unspecified, I10 - Essential (primary) hypertension Medications: New amlodipine 2.5 mg PO DAILY 90 tabs 1RF Coding Level of Care Code Est Pt Prev Care 40-64y(58610) Diagnoses Menorrhagia N92.0 Hyperlipidemia E78.5 Obesity E66.9 HTN (hypertension) I10 Annual physical exam Z00.00 Normal colonoscopy
== END 2023-08-03 16:09 | disposition home or self-care (01) ==
PROVIDERS: PCP Internal Medicine; Visit Provider Internal Medicine
DX: Z00.00 Encounter for general adult medical examination without abnormal findings (principal); E66.9 Obesity, unspecified; Z68.42 Body mass index [BMI] 45.0-49.9, adult; N92.0 Excessive and frequent menstruation with regular cycle; E78.5 Hyperlipidemia, unspecified; I10 Essential (primary) hypertension
CPT/HCPCS: 99396

== ENCOUNTER 2023-08-14 13:22 | Outpatient (REF) | payer OTHER, SELFPAY ==
[2023-08-14 15:15] LABS: Appearance Urine Clear; Color Urine Yellow; Glucose Urine UA Negative (Negative); Leukocyte Esterase Urine Negative (Negative); Nitrite Urine Negative (Negative); PH 6.5 (5.0-9.0); Specific Gravity - Urine <= 1.005 (1.005-1.025); Urine Blood Negative (Negative); Urine Ketones Negative (Negative); Urine Protein Negative (Neg-Trace)
== END 2023-08-14 13:23 | disposition home or self-care (01) ==
LOC: HO.HMGCLDS 13:22
PROVIDERS: PCP Internal Medicine; Visit Provider Internal Medicine
DX: R30.0 Dysuria (principal)
CPT/HCPCS: 81003

== ENCOUNTER 2023-08-17 14:27 | Outpatient (REF) | payer OTHER, SELFPAY ==
--- NOTE | ~2023-08-17 | US_ITS ---
EXAMINATION: US PELVIS COMPLETE TRANSVAGINAL PELVIC ULTRASOUND: CLINICAL INFORMATION: Excessive and frequent menstruation COMPARISON: None TECHNIQUE: Transabdominal imaging initially performed. For more definitive evaluation of the endometrium and ovaries, transvaginal technique was employed. Limited examination due to body habitus. FINDINGS: Uterus is anteverted measuring 10.0 x 7.3 x 8.2cm. Uterine volume is 313.1 mL. 5.5 x 5.1 x 4.7 and 2.7 x 2.5 x 1.8 cm uterine fibroids are seen. Endometrium measures 1.4 cm. Multiple nabothian cysts. Right ovary measures 1.9 x 2.1 x 1.9 cm for a volume of 4.0 mL. 3.9 x 1.5 x 2.0 cm right adnexal cystic structure is seen. The left ovary was not identified transabdominally or transvaginally. There is no pelvic free fluid. US/US pelvic and transvaginal IMPRESSION: Study limitations. Fibroid uterus. Thickened endometrium measuring 1.4 cm. 3.9 cm right adnexal cyst, question paraovarian. Nonvisualization left ovary.
== END 2023-08-17 14:28 | disposition home or self-care (01) ==
LOC: HO.HMGCX 14:27
PROVIDERS: PCP Internal Medicine; Visit Provider Internal Medicine
DX: N92.0 Excessive and frequent menstruation with regular cycle (principal)
CPT/HCPCS: 76830; 76856

== ENCOUNTER 2023-08-19 14:11 | Outpatient (AMB) | payer OTHER, SELFPAY ==
[2023-08-19 14:47] VITALS: BP 126/70; PULSE 78; O2SAT 97; BMI 45.3
--- NOTE | 2023-08-19 14:47 | A.OFFPC_ITS ---
Vital Signs 08/19/23 14:47 Height 5 ft 4 in Weight 264 lb BMI 45.3 BP 126/70 Blood Pressure Location Lt brachial Position Sitting Pulse 78 Pulse Source Pulse Oximeter Pulse Oximetry (%) 97 Oxygen Delivery Method Room Air Intake Visit Reasons: abd pain Intake Note: Pt is here today for a sick visit. Pt c/o blood in her stool. Pt also states that she also noticed spots of blood in her urine. Allergies meloxicam [MELOXICAM] Allergy (Intermediate, Verified 08/19/23 14:49) HYPERTENSION, flactuating BP, elevated bp Medication List - Last Reconciled 08/19/23 by Mackenzie Duncan MD cetirizine (Zyrtec) 10 mg PO DAILY PRN dicyclomine 10 mg PO TID hydrocortisone 2.5% (Proctosol HC) 1 appl [place] BEDTIME PRN lorazepam 0.5 mg PO DAILY PRN metoprolol succinate ER 75 mg (1.5 x 50 mg) PO DAILY olmesartan-hydrochlorothiazide 40-25 mg 1 tab PO DAILY pravastatin 20 mg PO DAILY Synthroid (levothyroxine) 175 mcg PO QAM NS Tobacco use date assessed: 08/03/23 HPI abd pain HPI Details Pt complains of increased abdominal gas bloating intermittent constipation and diarrhea for 3 weeks. Patient noticed some blood on toilet paper after bowel movement but no blood mixed with the stool. The patient change her diet has been eating more vegetables like cabbage or broccoli and trying to lose weight. She denies fever chills nausea vomiting PFSH Medical History Thyroid nodule Nevus Annual physical exam (~02/17/22) Normal colonoscopy Hyperlipidemia Sleep apnea Menorrhagia Chronic iron deficiency anemia Multinodular goiter Hypothyroidism Anxiety and depression Obesity HTN (hypertension) Surgical History History of esophagogastroduodenoscopy (EGD) No pertinent past surgical history Family History Father No problems noted. Mother No problems noted. Sister No problems noted. Sister No problems noted. Son No problems noted. Social History Housing: House Alcohol intake: never Patient Tobacco Use Status: Never used Tobacco e-Cigarette/Vaping Use: Never Used Current occupational status: employed Cognitive needs: No Hearing needs: No Vision needs: No Questionnaire Thrive Questionnaire Date Thrive assessed: 08/03/23 TITO-7 AMB Questionnaire TITO-7 Date TITO - 7 assessed: 08/03/23 Source: Developed by Drs. Dominik Avelar, Lauryn Royal, Sundar Mukherjee and colleagues, with an educational belia from [employer]. Review of Systems Const All systems reviewed & are unremarkable except as noted in HPI and below Reports no additional complaints Eyes Reports no additional complaints ENT Reports no additional complaints Card Reports no additional complaints Resp Reports no additional complaints GI Reports no additional complaints Reports no additional complaints Physical exam (Primary Care) Vital Signs: Last Vital Signs Pulse 78 08/19/23 14:47 BP 126/70 08/19/23 14:47 Pulse Ox 97 08/19/23 14:47 Oxygen Delivery Method Room Air 08/19/23 14:47 BMI result Body Mass Index 45.3 Tobacco/Smoking Status: Tobacco use Status Tobacco use date assessed 08/03/23 08/19/23 14:47 Patient Tobacco Use Status Never used Tobacco 08/19/23 14:47 e-Cigarette/Vaping Use Never Used 08/19/23 14:47 Thrive Assessment: Date of Thrive Assessment Date Thrive assessed 08/03/23 08/19/23 14:47 Const General: no acute distress HENMT Head: Yes normal to inspection Resp Effort & Inspection: normal respiratory effort Auscultation: clear to auscultation bilaterally Cardio Rhythm: regular rhythm Heart sounds: S1 normal heart sound present and S2 normal heart sound present GI Inspection: Yes normal to inspection Palpation (GI): Soft to palpation Percussion: Yes normal to percussion Auscultation: normal bowel sounds Assessment and Plan Assessment & Plan (1) IBS (irritable bowel syndrome): Code(s): K58.9 - Irritable bowel syndrome without diarrhea Plan: Increasing fiber intake and probiotics was recommended, dicyclomine 10 mg 3 times a day will be tried (2) Bleeding internal hemorrhoids: Comment: COLONOSCOPY 2019 Code(s): K64.8 - Other hemorrhoids Plan: Proctocol cream and adding fiber to her diet (3) HTN (hypertension): Code(s): I10 - Essential (primary) hypertension Plan: Continue current medications Medications: New hydrocortisone 2.5% (Proctosol HC) 1 appl [place] BEDTIME PRN 30 grams 3RF hemorrhoids dicyclomine 10 mg PO TID 90 caps 1RF Coding Level of Care Code Est Pt Level 4 (88801) Diagnoses IBS (irritable bowel syndrome) K58.9 Bleeding internal hemorrhoids K64.8 HTN (hypertension) I10
== END 2023-08-19 15:37 | disposition home or self-care (01) ==
PROVIDERS: PCP Internal Medicine; Visit Provider Internal Medicine
DX: K58.9 Irritable bowel syndrome, unspecified (principal); K64.8 Other hemorrhoids; I10 Essential (primary) hypertension
CPT/HCPCS: 99214

== ENCOUNTER 2023-09-14 12:21 | Outpatient (AMB) | payer OTHER, SELFPAY ==
[2023-09-14 12:53] VITALS: BP 120/78; PULSE 78; O2SAT 97; BMI 44.5
--- NOTE | 2023-09-14 12:53 | A.OFFPC_ITS ---
Vital Signs 09/14/23 12:53 Height 5 ft 4 in Weight 259 lb BMI 44.5 BP 120/78 Blood Pressure Location Lt brachial Position Sitting Pulse 78 Pulse Source Pulse Oximeter Pulse Oximetry (%) 97 Oxygen Delivery Method Room Air Intake Visit Reasons: 6 week follow up Allergies meloxicam [MELOXICAM] Allergy (Intermediate, Verified 09/14/23 13:06) HYPERTENSION, flactuating BP, elevated bp Medication List - Last Reconciled 09/14/23 by Mackenzie Duncan MD cetirizine (Zyrtec) 10 mg PO DAILY PRN dicyclomine 10 mg PO TID hydrocortisone 2.5% (Proctosol HC) 1 appl [place] BEDTIME PRN lorazepam 0.5 mg PO DAILY PRN metoprolol succinate ER 75 mg (1.5 x 50 mg) PO DAILY olmesartan-hydrochlorothiazide 40-25 mg 1 tab PO DAILY pravastatin 20 mg PO DAILY Synthroid (levothyroxine) 175 mcg PO QAM NS Tobacco use date assessed: 08/03/23 HPI 6 week follow up HPI Details Pt presents for HTN, hyperlipid, hypothyroid stable on meds. IBS improved with probiotics. [facility] Medical History (Updated 09/14/23 @ 14:22 by Mackenzie Duncan MD) Thyroid nodule Annual physical exam (~02/17/22) Normal colonoscopy Hyperlipidemia Sleep apnea Menorrhagia Chronic iron deficiency anemia Multinodular goiter Hypothyroidism Anxiety and depression Obesity HTN (hypertension) Surgical History History of esophagogastroduodenoscopy (EGD) No pertinent past surgical history Family History Father No problems noted. Mother No problems noted. Sister No problems noted. Sister No problems noted. Son No problems noted. Social History Housing: House Alcohol intake: never Patient Tobacco Use Status: Never used Tobacco e-Cigarette/Vaping Use: Never Used Current occupational status: employed Cognitive needs: No Hearing needs: No Vision needs: No Questionnaire Thrive Questionnaire Date Thrive assessed: 08/03/23 TITO-7 AMB Questionnaire TITO-7 Date TITO - 7 assessed: 08/03/23 Source: Developed by Drs. Dominik Avelar, Lauryn Royal, Sundar Mukherjee and colleagues, with an educational belia from [employer]. Review of Systems Const All systems reviewed & are unremarkable except as noted in HPI and below Reports no additional complaints Eyes Reports no additional complaints ENT Reports no additional complaints Card Reports no additional complaints Resp Reports no additional complaints GI Reports no additional complaints Physical exam (Primary Care) Vital Signs: Last Vital Signs Pulse 78 09/14/23 12:53 BP 136/78 09/14/23 12:53 Pulse Ox 97 09/14/23 12:53 Oxygen Delivery Method Room Air 09/14/23 12:53 BMI result Body Mass Index 44.5 Tobacco/Smoking Status: Tobacco use Status Tobacco use date assessed 08/03/23 09/14/23 12:53 Patient Tobacco Use Status Never used Tobacco 09/14/23 12:53 e-Cigarette/Vaping Use Never Used 09/14/23 12:53 Thrive Assessment: Date of Thrive Assessment Date Thrive assessed 08/03/23 09/14/23 12:53 Const General: no acute distress HENMT Head: Yes normal to inspection Mouth: Normal oral and palatal mucosa present Eyes General: appearance normal, both eyes and all related structures Neck Neck: Yes no lymphadenopathy Resp Effort & Inspection: normal respiratory effort Auscultation: clear to auscultation bilaterally Cardio Rhythm: regular rhythm Heart sounds: S1 normal heart sound present and S2 normal heart sound present GI Inspection: Yes normal to inspection Palpation (GI): Soft to palpation Assessment and Plan Assessment & Plan (1) Hyperlipidemia: Code(s): E78.5 - Hyperlipidemia, unspecified Plan: Continue statin (2) HTN (hypertension): Code(s): I10 - Essential (primary) hypertension Plan: Continue current medications (3) Hypothyroidism: Comment: follow up with Endo Code(s): E03.9 - Hypothyroidism, unspecified Plan: Continue Levothyroid (4) Obesity: Code(s): E66.9 - Obesity, unspecified Plan: Increase physical activity decrease caloric intake follow-up with extractions technologist discussed with the patient follow-up in 3 months with a fasting labs before Orders: Orders Complete Blood Count Auto Diff 3 Months E03.9 - Hypothyroidism, unspecified, E78.5 - Hyperlipidemia, unspecified, I10 - Essential (primary) hypertension TSH reflex Free T4 3 Months E03.9 - Hypothyroidism, unspecified, E78.5 - Hyperlipidemia, unspecified, I10 - Essential (primary) hypertension Comprehensive [place]. Panel Fast 3 Months E03.9 - Hypothyroidism, unspecified, E78.5 - Hyperlipidemia, unspecified, I10 - Essential (primary) hypertension Lipid Panel 3 Months E03.9 - Hypothyroidism, unspecified, E78.5 - Hyperlipidemia, unspecified, I10 - Essential (primary) hypertension Medications: New ciclopirox 8% (Ciclodan) 1 appl topical BEDTIME 6.6 mL 0RF Refilled lorazepam 0.5 mg PO DAILY PRN 3 tabs 0RF anxiety Coding Level of Care Code Est Pt Level 3 (03512) Diagnoses Hyperlipidemia E78.5 HTN (hypertension) I10 Hypothyroidism E03.9 Obesity E66.9
== END 2023-09-14 14:11 | disposition home or self-care (01) ==
PROVIDERS: PCP Internal Medicine; Visit Provider Internal Medicine
DX: E78.5 Hyperlipidemia, unspecified (principal); E66.9 Obesity, unspecified; Z68.41 Body mass index [BMI] 40.0-44.9, adult; I10 Essential (primary) hypertension; E03.9 Hypothyroidism, unspecified
CPT/HCPCS: 99213

== ENCOUNTER 2023-10-15 10:50 | Outpatient (AMB) | payer OTHER, SELFPAY ==
[2023-10-15 11:02] VITALS: BMI 42.9
--- NOTE | 2023-10-15 11:02 | AM.OFFWIN_ITS ---
Intake Vital Signs 10/15/23 11:02 10/15/23 11:05 Height 5 ft 4 in Weight 250 lb 255 lb BMI 42.9 BP 126/78 Blood Pressure Location Rt brachial Position Sitting Pulse 83 Pulse Source Pulse Oximeter Pulse Oximetry (%) 96 Oxygen Delivery Method Room Air Intake Visit Reasons: EP Lft arm muscle pain (lobby) Intake Note: Patient here for left arm pain that has been present since wednesday. she states she is unable to lift arm and has been having a hard time sleeping due to pain/pulsing. no known injuries. Patient Tobacco Use Status: Never used Tobacco Allergies meloxicam [MELOXICAM] Allergy (Intermediate, Verified 10/15/23 11:07) HYPERTENSION, flactuating BP, elevated bp Do you need a note to return to daycare/school/sports/work: No HPI HPI Comments History of Present Illness Details 53 y/o female patient who presents to [facility] in clinic with c/o left arm/shoulder pain since Wednesday. Pt reports waking up in the morning and noticed Sharp pain left shoulder radiating down to arm/hand. Denies any injury or trauma to the shoulder. Limited ROM of Shoulder due to pain. Rates the pain at 8/10 on painscale. [facility] Medical History (Updated 09/14/23 @ 14:22 by Mackenzie Duncan MD) Thyroid nodule Annual physical exam (~02/17/22) Normal colonoscopy Hyperlipidemia Sleep apnea Menorrhagia Chronic iron deficiency anemia Multinodular goiter Hypothyroidism Anxiety and depression Obesity HTN (hypertension) Surgical History History of esophagogastroduodenoscopy (EGD) No pertinent past surgical history Family History Father No problems noted. Mother No problems noted. Sister No problems noted. Sister No problems noted. Son No problems noted. Social History Housing: House Alcohol intake: never Patient Tobacco Use Status: Never used Tobacco e-Cigarette/Vaping Use: Never Used Current occupational status: employed Cognitive needs: No Hearing needs: No Vision needs: No Review of Systems Const All systems reviewed & are unremarkable except as noted in HPI and below Physical Exam Vital Signs: Last Vital Signs Pulse 83 10/15/23 11:05 BP 126/78 10/15/23 11:05 Pulse Ox 96 10/15/23 11:05 Oxygen Delivery Method Room Air 10/15/23 11:05 BMI result Body Mass Index 42.9 Const General: comfortable and no acute distress Nutritional Appearance: obese Orientation/consciousness: patient oriented x3 Neuro General: patient oriented x3, gait normal and moves all extremities Extrem Right upper extremity: normal to inspection Left upper extremity: normal capillary refill and shoulder/upper arm Details: tenderness Location: of the A-C joint, of the proximal humerus and over the deltoid bursa and abnormal ROM Details: pain with active ROM and pain with passive ROM; no cyanosis and no edema Psych Speech and movement: Normal speech and movement present Attitude: cooperative Assessment & Plan Assessment & Plan (1) Left shoulder strain: Code(s): S46.912A - Strain of unspecified muscle, fascia and tendon at shoulder and upper arm level, left arm, initial encounter Qualifiers: Encounter type: initial encounter Qualified Code(s): S46.912A - Strain of unspecified muscle, fascia and tendon at shoulder and upper arm level, left arm, initial encounter Plan: - Rest the joint - Acetaminophen for pain relief -IceHot - Provided Shoulder Immobilizer Orders: Orders XR shoulder LT min 2V Today S46.919A - Strain of unspecified muscle, fascia and tendon at shoulder and upper arm level, unspecified arm, initial encounter Medications: New acetaminophen 1,000 mg (2 x 500 mg) PO Q6H PRN 60 caps 0RF pain (scale score 7- 10) S46.912A - Strain of unspecified muscle, fascia and tendon at shoulder and upper arm level, left arm, initial encounter lidocaine 5% leave on most painful area for up to 12 hrs 1 patch topical DAILY 15 ea 1RF S46.912A - Strain of unspecified muscle, fascia and tendon at shoulder and upper arm level, left arm, initial encounter cyclobenzaprine 10 mg PO BEDTIME 20 tabs 0RF S46.912A - Strain of unspecified muscle, fascia and tendon at shoulder and upper arm level, left arm, initial encounter Coding Level of Care Code Est Pt Level 3 (24116) Diagnoses Strain of left shoulder, initial encounter S46.912A Encounter type: initial encounter Time Spent (min) 15
[2023-10-15 11:05] VITALS: BP 126/78; PULSE 83; O2SAT 96
== END 2023-10-15 12:46 | disposition home or self-care (01) ==
PROVIDERS: PCP Internal Medicine; Visit Provider Nurse Practitioner Family
DX: S46.912A Strain of unspecified muscle, fascia and tendon at shoulder and upper arm level, left arm, initial encounter (principal)
CPT/HCPCS: 99213

== ENCOUNTER 2023-10-15 11:36 | Outpatient (REF) | payer OTHER, SELFPAY ==
--- NOTE | ~2023-10-15 | XR_ITS ---
EXAMINATION: XR SHOULDER, LEFT CLINICAL INFORMATION: Left shoulder pain COMPARISON: None available. TECHNIQUE: AP external rotation, Grashey, scapular Y, and axillary views of the left shoulder. FINDINGS: There is mild loss of left AC joint with inferior periarticular spurring. The glenohumeral joint space is preserved. No acute fracture, loose bodies or subluxation seen. The soft tissues are normal. XR/XR shoulder LT min 2V IMPRESSION: Mild degenerative changes left AC joint. No visible acute fracture or dislocation seen.
== END 2023-10-15 11:37 | disposition home or self-care (01) ==
LOC: HO.HMGCX 11:36
PROVIDERS: PCP Internal Medicine; Visit Provider Nurse Practitioner Family
DX: S46.912A Strain of unspecified muscle, fascia and tendon at shoulder and upper arm level, left arm, initial encounter (principal)
CPT/HCPCS: 73030

== ENCOUNTER 2023-10-29 14:36 | Outpatient (AMB) | payer OTHER, SELFPAY ==
[2023-10-29 15:16] VITALS: BP 122/86; PULSE 66; O2SAT 96
--- NOTE | 2023-10-29 15:16 | AM.OFFWIN_ITS ---
Intake Vital Signs 10/29/23 15:16 Height 5 ft 4 in BP 122/86 Blood Pressure Location Rt brachial Position Sitting Pulse 66 Pulse Source Pulse Oximeter Pulse Oximetry (%) 96 Oxygen Delivery Method Room Air Intake Visit Reasons: EP lft arm swollen/pain no strength Intake Note: pt said 10/15/23 she started with left arm pain and swelling and she was seen and now it is back and her hand is swollen again but is throbbing in her left hand and her arm and she says she has swelling in her feet Patient Tobacco Use Status: Never used Tobacco Allergies meloxicam [MELOXICAM] Allergy (Intermediate, Verified 10/29/23 15:19) HYPERTENSION, flactuating BP, elevated bp HPI HPI Comments History of Present Illness Details This is a 53-year-old female who presented to the office complaining of left hand/wrist pain and swelling. Patient was seen here on 10/15/2023 in the setting of atraumatic left shoulder pain and she was diagnosed with a muscular sprain/strain of the left shoulder and sent home with p.o. acetaminophen 1000 mg every 6 hours as needed and PO cyclobenzaprine 10 mg every night at bedtime as needed. Patient states that her left shoulder pain did improve with symptomatic management; however, she started to develop left hand/wrist pain, swelling, and erythema proximally 2 days ago. She denies any fevers or chills. She denies any trauma or injury to the left hand/wrist. She is otherwise feeling well. [facility] Medical History (Updated 09/14/23 @ 14:22 by Mackenzie Duncan MD) Thyroid nodule Annual physical exam (~02/17/22) Normal colonoscopy Hyperlipidemia Sleep apnea Menorrhagia Chronic iron deficiency anemia Multinodular goiter Hypothyroidism Anxiety and depression Obesity HTN (hypertension) Surgical History History of esophagogastroduodenoscopy (EGD) No pertinent past surgical history Family History Father No problems noted. Mother No problems noted. Sister No problems noted. Sister No problems noted. Son No problems noted. Social History Housing: House Alcohol intake: never Patient Tobacco Use Status: Never used Tobacco e-Cigarette/Vaping Use: Never Used Current occupational status: employed Cognitive needs: No Hearing needs: No Vision needs: No Review of Systems Const All systems reviewed & are unremarkable except as noted in HPI and below Reports no additional complaints Eyes Reports no additional complaints ENT Reports no additional complaints Card Reports no additional complaints Resp Reports no additional complaints GI Reports no additional complaints Reports no additional complaints Musc Reports no additional complaints Skin/Breast Reports system reviewed and no additional complaints, except as documented Neuro Reports no additional complaints Psych Reports no additional complaints Endo Reports no additional complaints Mauricio/Lymph Reports no additional complaints Aller/Immun Reports no additional complaints Physical Exam Vital Signs: Last Vital Signs Pulse 66 10/29/23 15:16 BP 122/86 10/29/23 15:16 Pulse Ox 96 10/29/23 15:16 Oxygen Delivery Method Room Air 10/29/23 15:16 Const Other: Vital signs reviewed. Constitutional: Non-toxic appearing. No acute distress. Well-developed and well-nourished. HEENT: Normocephalic and atraumatic. Skin: Warm and dry. No rashes or lesions noted. Neck: Full and painless range of motion. No cervical lymphadenopathy. Cardio: Regular rate and rhythm. No murmurs, gallops, or rubs. Minimal pedal edema bilaterally. No JVD. Pulmonary: No respiratory distress. No accessory muscle usage. Clear to auscultation bilaterally without wheezing, crackles, or rhonchi. Gastrointestinal: Soft, nontender, and nondistended in all 4 quadrants. Musculoskeletal: There is diffuse swelling and tenderness to palpation of the left hand/wrist without ecchymosis and with some erythema to the dorsal aspect of her left hand. Patient is able to flex and extend her left wrist as well as flex and extend her 5 fingers; however, she does have limited range of motion due to swelling. Neuro: Alert and oriented x4. Cranial nerves 2-12 grossly intact. No focal deficits appreciated. Psych: Normal mood and affect. Assessment & Plan Assessment & Plan (1) Acute gouty arthritis: Code(s): M10.9 - Gout, unspecified Plan: This is a 53-year-old female who presented to the walk-in clinic complaining of atraumatic left hand/wrist pain, swelling, and erythema. History and physical appears to be most consistent with an acute gouty arthritis. There does not appear to be any evidence of cellulitis or septic arthritis. I have low suspicion for fracture or sprain/strain as patient denies any trauma or injury to the left wrist/hand. Patient was sent home on a PO prednisone taper as directed. Patient was advised to follow-up here or proceed to the emergency room if she were to develop any persistent or worsening symptoms or if she were to develop any fever/chills. Patient verbalized her understanding and she is in agreement with the plan. Medications: New prednisone Take 4 tablets daily x4 days followed by 3 tablets daily x3 days followed by 2 tablets daily x3 days followed by 1 tablet daily x3 days followed by 1/2 tablet daily x2 days. 10 mg PO DIRECTED 35 tabs 0RF Coding Level of Care Code Est Pt Level 3 (56789) Diagnoses Acute gouty arthritis M10.9
== END 2023-10-29 16:32 | disposition home or self-care (01) ==
PROVIDERS: PCP Internal Medicine; Visit Provider Physician Assistant Medical
DX: M10.9 Gout, unspecified (principal)
CPT/HCPCS: 99213

== ENCOUNTER 2023-11-11 09:41 | Outpatient (REF) | payer OTHER, SELFPAY ==
[2023-11-11 13:13] LABS: MANUAL DIFF FLAG NO
[2023-11-11 13:31] LABS: Basophils Absolute Auto 0.1 X10*3/uL (0.0-0.2); Basophils Percent Auto 0.5 % (0-2); Eosinophils Absolute Auto 0.3 X10*3/uL (0.0-0.4); Eosinophils Percent Auto 2.6 % (0-4); Hematocrit 40.5 % (37.0-47.0); Hemoglobin 13.2 g/dl (12.0-16.0); Imm Gran Abs Auto 0.08 X10*3/uL (0.00-0.03); Imm Gran Pct Auto 0.8 % (0.0-0.4); Lymphocytes Absolute Auto 2.1 X10*3/uL (1.2-4.9); Lymphocytes Percent Auto 19.9 % (20-40); Mean Corpuscular HGB Conc 32.6 g/dl (31.0-35.0); Mean Corpuscular Hemoglobin 27.9 pg (27.0-33.0); Mean Corpuscular Volume 85.6 fL (80.0-98.0); Mean Platelet Volume 11.3 fL (9.4-12.3); Monocytes Absolute Auto 0.8 X10*3/uL (0.1-1.2); Monocytes Percent Auto 7.3 % (2-11); Neutrophils Absolute Auto 7.3 x10*3/uL (2.0-8.3); Neutrophils Percent Auto 68.9 % (45-73); Platelet Count 254 X10*3/uL (160-400); Red Blood Count 4.73 X10*6/uL (4.20-5.50); Red Cell Distribution Width 14.8 % (11.0-16.0); White Blood Count 10.6 X10*3/uL (4.8-10.8)
[2023-11-11 13:48] LABS: Rheumatoid Factor < 13.0 IU/mL (<15.0)
[2023-11-11 14:01] LABS: Alanine Aminotransferase 14 U/L (0-31); Alkaline Phosphatase 78 U/L (39-117); Anion Gap 9 (12-20); Aspartate Amino Transferase 16 U/L (5-31); Bilirubin Total 0.6 mg/dL (0.0-1.0); Blood Urea Nitrogen 11 mg/dL (9-16); Calcium 9.2 mg/dL (8.4-10.2); Carbon Dioxide 27 mmol/L (22-29); Chloride 106 mmol/L (96-108); Cholesterol 206 mg/dL (<200); Estimated Glomerular Filt Rate > 60; Glucose Fasting 94 mg/dL (60-99); HDL Cholesterol 47 mg/dL (>40); LDL Cholesterol Calculated 121 mg/dL (<100); Potassium 3.7 mmol/L (3.3-5.1); Sodium 138 mmol/L (135-145); Triglycerides 191 mg/dL (<150); Uric Acid 6.6 mg/dL (2.4-5.7)
[2023-11-11 14:06] LABS: TSH reflex Free T4 0.57 uIU/mL (0.32-4.0)
[2023-11-11 14:20] LABS: Erythrocyte Sedimentation Rate 23 MM/HR (0-20)
[2023-11-12 14:39] LABS: Cyclic Citrullinated Peptide <16 UNITS
== END 2023-11-11 09:42 | disposition home or self-care (01) ==
LOC: HO.HMGCLDS 09:41
PROVIDERS: PCP Internal Medicine; Visit Provider Internal Medicine
DX: I10 Essential (primary) hypertension (principal); E03.9 Hypothyroidism, unspecified; M25.50 Pain in unspecified joint; E78.5 Hyperlipidemia, unspecified
CPT/HCPCS: 36415; 80053; 80061; 84443; 84550; 85025; 85652; 86200; 86431

== ENCOUNTER 2023-11-12 11:57 | Outpatient (AMB) | payer OTHER, SELFPAY ==
--- NOTE | 2023-11-12 12:11 | MHC.PC.OV ---
Vital Signs 11/12/23 12:13 Weight 251 lb BP 130/80 Blood Pressure Location Lt brachial Position Sitting Pulse 80 Pulse Source Pulse Oximeter Pulse Oximetry (%) 95 Oxygen Delivery Method Room Air Intake Visit Reasons: Follow up after walk in and on labs Allergies meloxicam [MELOXICAM] Allergy (Intermediate, Verified 11/12/23 12:13) HYPERTENSION, flactuating BP, elevated bp amlodipine Adverse Reaction (Intermediate, Verified 11/12/23 13:07) Edema Medication List - Last Reconciled 11/12/23 by Mackenzie Duncan MD acetaminophen 1,000 mg (2 x 500 mg) PO Q6H PRN cyclobenzaprine 10 mg PO BEDTIME levothyroxine (Synthroid) 175 mcg PO DAILY lidocaine 5% 1 patch topical DAILY metoprolol tartrate 75 mg PO DAILY olmesartan-hydrochlorothiazide 40-25 mg 1 tab PO DAILY pravastatin 20 mg PO DAILY prednisone 10 mg PO DIRECTED Tobacco use date assessed: 08/03/23 Dental Screening Dental Screen Date: 08/03/23 HPI Follow up after walk in and on labs HPI Details PATIENT PRESENTS FOR THE FOLLOW-UP ON HYPERTENSION HYPERLIPIDEMIA. Patient had an episode of acute left shoulder and left wrist pain and was seen in walk in. Patient was started on Tylenol and was prescribed prednisone that she never took. The pain resolved after 24 hr. Patient reports chronic lower extremity edema worse at the end of the day. she had negative cardiac work. She was diagnosed with venous insufficiency was advised to wear compression stockings that she never does. Patient complains of bilateral feet pain intermittent tingling sensation and heaviness and follow-up with podiatry. [facility] Medical History (Updated 11/12/23 @ 13:08 by Mackenzie Duncan MD) Thyroid nodule Annual physical exam (~02/17/22) Normal colonoscopy Hyperlipidemia Sleep apnea Menorrhagia Chronic iron deficiency anemia Multinodular goiter Hypothyroidism Anxiety and depression Obesity HTN (hypertension) Surgical History History of esophagogastroduodenoscopy (EGD) No pertinent past surgical history Family History Father No problems noted. Mother No problems noted. Sister No problems noted. Sister No problems noted. Son No problems noted. Social History Housing: House Alcohol intake: never Patient Tobacco Use Status: Never used Tobacco e-Cigarette/Vaping Use: Never Used Current occupational status: employed Cognitive needs: No Hearing needs: No Vision needs: No Questionnaire Thrive Questionnaire Date Thrive assessed: 08/03/23 TITO-7 AMB Questionnaire TITO-7 Date TITO - 7 assessed: 08/03/23 Source: Developed by Drs. Dominik Avelar, Lauryn Royal, Sundar Mukherjee and colleagues, with an educational belia from [employer]. Review of Systems Const All systems reviewed & are unremarkable except as noted in HPI and below Eyes Reports no additional complaints ENT Reports no additional complaints Card Reports no additional complaints Resp Reports no additional complaints GI Reports no additional complaints Reports no additional complaints Physical exam (Primary Care) Vital Signs: Last Vital Signs Pulse 80 11/12/23 12:13 BP 130/80 11/12/23 12:13 Pulse Ox 95 11/12/23 12:13 Oxygen Delivery Method Room Air 11/12/23 12:13 Tobacco/Smoking Status: Tobacco use Status Tobacco use date assessed 08/03/23 11/12/23 12:12 Patient Tobacco Use Status Never used Tobacco 11/12/23 12:12 e-Cigarette/Vaping Use Never Used 11/12/23 12:12 Thrive Assessment: Date of Thrive Assessment Date Thrive assessed 08/03/23 11/12/23 12:12 Const General: no acute distress Eyes General: appearance normal, both eyes and all related structures Resp Effort & Inspection: normal respiratory effort Auscultation: clear to auscultation bilaterally Cardio Rhythm: regular rhythm Heart sounds: S1 normal heart sound present and S2 normal heart sound present GI Inspection: Yes normal to inspection Palpation (GI): Soft to palpation Percussion: Yes normal to percussion Auscultation: normal bowel sounds Extrem Other: Trace pitting edema bilaterally in lower extremities Assessment and Plan Assessment & Plan (1) Numbness and tingling of both feet: Comment: Normal B12 and vitamin-D Code(s): R20.0 - Anesthesia of skin; R20.2 - Paresthesia of skin Plan: Follow-up with podiatry (2) HTN (hypertension): Code(s): I10 - Essential (primary) hypertension Plan: Continue current medications (3) Obesity: Code(s): E66.9 - Obesity, unspecified Plan: Patient lost 18 lb since June, continue weight loss program (4) Hyperlipidemia: Code(s): E78.5 - Hyperlipidemia, unspecified Plan: Continue pravastatin every other other day and low-cholesterol diet (5) Arthralgia: Comment: Uric acid level 6.6 Code(s): M25.50 - Pain in unspecified joint Plan: Low purine diet increase physical activity discussed with the patient (6) Venous insufficiency of both lower extremities: Code(s): I87.2 - Venous insufficiency (chronic) (peripheral) Plan: Patient was advised to wear compression knee-highs, elevate lower extremities and lose weight Orders: Orders Comprehensive [place]. Panel Fast 3 Months E66.9 - Obesity, unspecified, E78.5 - Hyperlipidemia, unspecified, I10 - Essential (primary) hypertension, M25.50 - Pain in unspecified joint Uric Acid 3 Months E66.9 - Obesity, unspecified, E78.5 - Hyperlipidemia, unspecified, I10 - Essential (primary) hypertension, M25.50 - Pain in unspecified joint C Reactive Protein 3 Months E66.9 - Obesity, unspecified, E78.5 - Hyperlipidemia, unspecified, I10 - Essential (primary) hypertension, M25.50 - Pain in unspecified joint Vitamin D 25-OH Total 3 Months E66.9 - Obesity, unspecified, E78.5 - Hyperlipidemia, unspecified, I10 - Essential (primary) hypertension, M25.50 - Pain in unspecified joint Lipid Panel 3 Months E66.9 - Obesity, unspecified, E78.5 - Hyperlipidemia, unspecified, I10 - Essential (primary) hypertension, M25.50 - Pain in unspecified joint Vitamin B12 and Folate 3 Months E66.9 - Obesity, unspecified, E78.5 - Hyperlipidemia, unspecified, I10 - Essential (primary) hypertension, M25.50 - Pain in unspecified joint Referrals Podiatry Referral R20.0 - Anesthesia of skin, R20.2 - Paresthesia of skin Medications: Discontinued prednisone Take 4 tablets daily x4 days followed by 3 tablets daily x3 days followed by 2 tablets daily x3 days followed by 1 tablet daily x3 days followed by 1/2 tablet daily x2 days. Discontinued Reason: Doctor's Order 10 mg PO DIRECTED 35 tabs 0RF Coding Level of Care Code Est Pt Level 4 (92003) Diagnoses Numbness and tingling of both feet R20.0; R20.2 HTN (hypertension) I10 Obesity E66.9 Hyperlipidemia E78.5 Arthralgia M25.50 Venous insufficiency of both lower extremities I87.2
[2023-11-12 12:13] VITALS: BP 130/80; PULSE 80; O2SAT 95
== END 2023-11-12 13:09 | disposition home or self-care (01) ==
PROVIDERS: PCP Internal Medicine; Visit Provider Internal Medicine
DX: R20.0 Anesthesia of skin (principal); R20.2 Paresthesia of skin; I10 Essential (primary) hypertension; E66.9 Obesity, unspecified; E78.5 Hyperlipidemia, unspecified; M25.50 Pain in unspecified joint; I87.2 Venous insufficiency (chronic) (peripheral)
CPT/HCPCS: 99214

== ENCOUNTER 2023-12-24 10:34 | Outpatient (AMB) | payer OTHER, SELFPAY ==
[2023-12-24 10:36] VITALS: BP 118/68; PULSE 78; O2SAT 97; BMI 44.6
--- NOTE | 2023-12-24 10:36 | A.OFFPC_ITS ---
Vital Signs 12/24/23 10:36 Height 5 ft 4 in Weight 260 lb BMI 44.6 BP 118/68 Blood Pressure Location Rt brachial Position Sitting Pulse 78 Pulse Source Pulse Oximeter Pulse Oximetry (%) 97 Oxygen Delivery Method Room Air Intake Visit Reasons: sore throat cough Intake Note: Pt is here today for a sick visit. Pt c/o scratchy throat and cough.Pt states that she also has R ear discomfort. Pt also c/o swelling in her ankles and hands. Allergies meloxicam [MELOXICAM] Allergy (Intermediate, Verified 12/24/23 10:40) HYPERTENSION, flactuating BP, elevated bp amlodipine Adverse Reaction (Intermediate, Verified 12/24/23 10:40) Edema Medication List - Last Reconciled 12/24/23 by Mackenzie Duncan MD acetaminophen 1,000 mg (2 x 500 mg) PO Q6H PRN levothyroxine (Synthroid) 175 mcg PO DAILY lidocaine 5% 1 patch topical DAILY metoprolol tartrate 75 mg PO DAILY olmesartan-hydrochlorothiazide 40-25 mg 1 tab PO DAILY pravastatin 20 mg PO DAILY Tobacco use date assessed: 08/03/23 Dental Screening Dental Screen Date: 08/03/23 HPI sore throat cough HPI Details Patient developed feeling of a swollen sore throat and difficulty swallowing when spending time outside when there was a lot of pollen in the air. Patient denies difficulty breathing wheezing or coughing. She took Zyrtec with some relief. Patient reports persistent lower extremity swelling worse at the end of the day or after sitting or standing for long time. Hypertension is controlled on current medications. Patient denies exertional shortness or breath [facility]ND orthopnea [facility] Medical History (Updated 12/24/23 @ 11:05 by Mackenzie Duncan MD) Thyroid nodule Annual physical exam (~02/17/22) Normal colonoscopy Hyperlipidemia Sleep apnea Menorrhagia Chronic iron deficiency anemia Multinodular goiter Hypothyroidism Anxiety and depression Obesity HTN (hypertension) Surgical History History of esophagogastroduodenoscopy (EGD) No pertinent past surgical history Family History Father No problems noted. Mother No problems noted. Sister No problems noted. Sister No problems noted. Son No problems noted. Social History Housing: House Alcohol intake: never Patient Tobacco Use Status: Never used Tobacco e-Cigarette/Vaping Use: Never Used Current occupational status: employed Cognitive needs: No Hearing needs: No Vision needs: No Questionnaire Thrive Questionnaire Date Thrive assessed: 08/03/23 TITO-7 AMB Questionnaire TITO-7 Date TITO - 7 assessed: 08/03/23 Source: Developed by Drs. Dominik Avelar, Lauryn Royal, Sundar Mukherjee and colleagues, with an educational belia from [employer]. Review of Systems Const All systems reviewed & are unremarkable except as noted in HPI and below Eyes Reports no additional complaints ENT Reports no additional complaints Card Reports no additional complaints Resp Reports no additional complaints GI Reports no additional complaints Physical exam (Primary Care) Vital Signs: Last Vital Signs Pulse 78 12/24/23 10:36 BP 118/68 12/24/23 10:36 Pulse Ox 97 12/24/23 10:36 Oxygen Delivery Method Room Air 12/24/23 10:36 BMI result Body Mass Index 44.6 Tobacco/Smoking Status: Tobacco use Status Tobacco use date assessed 08/03/23 12/24/23 10:42 Patient Tobacco Use Status Never used Tobacco 12/24/23 10:42 e-Cigarette/Vaping Use Never Used 12/24/23 10:42 Thrive Assessment: Date of Thrive Assessment Date Thrive assessed 08/03/23 12/24/23 10:42 Const General: no acute distress HENMT Head: Yes normal to inspection Ears: hearing grossly normal bilaterally Face and sinus: Yes normal facial exam Mouth: Normal oral and palatal mucosa present, lip normal, tongue normal and oropharynx normal Throat: Yes posterior oropharynx normal Eyes General: appearance normal, both eyes and all related structures Neck Neck: Yes no lymphadenopathy and Yes supple Resp Effort & Inspection: normal respiratory effort Auscultation: clear to auscultation bilaterally Cardio Rhythm: regular rhythm Heart sounds: S1 normal heart sound present and S2 normal heart sound present GI Inspection: Yes normal to inspection Palpation (GI): Soft to palpation Auscultation: normal bowel sounds Extrem Other: 1+ no pitting edema bilaterally Assessment and Plan Assessment & Plan (1) Allergic rhinitis: Code(s): J30.9 - Allergic rhinitis, unspecified Plan: Patient was advised to continue taking Zyrtec and will 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 chipping 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 (2) CALDERA (dyspnea on exertion): Code(s): R06.09 - Other forms of dyspnea Plan: Obtain echocardiogram (3) Venous insufficiency of both lower extremities: Code(s): I87.2 - Venous insufficiency (chronic) (peripheral) Plan: Try furosemide 20 mg as needed, patient was advised to elevate lower extremities and were compression pantyhose (4) HTN (hypertension): Code(s): I10 - Essential (primary) hypertension Plan: Continue current medications Orders: Orders CA echo transthoracic complete Today R06.09 - Other forms of dyspnea Referrals Allergy & Immunology Referral J30.9 - Allergic rhinitis, unspecified Medications: New furosemide (Lasix) 20 mg PO Q OTHER DAY 90 tabs 0RF Coding Level of Care Code Est Pt Level 4 (77159) Diagnoses Allergic rhinitis J30.9 CALDERA (dyspnea on exertion) R06.09 Venous insufficiency of both lower extremities I87.2 HTN (hypertension) I10
== END 2023-12-24 11:24 | disposition home or self-care (01) ==
PROVIDERS: PCP Internal Medicine; Visit Provider Internal Medicine
DX: J30.9 Allergic rhinitis, unspecified (principal); R06.09 Other forms of dyspnea; I87.2 Venous insufficiency (chronic) (peripheral); I10 Essential (primary) hypertension
CPT/HCPCS: 99214

== ENCOUNTER 2024-01-10 09:58 | Outpatient (AMB) | payer OTHER, SELFPAY ==
[2024-01-10 09:58] VITALS: BP 138/78; PULSE 86; TEMP 36.3; O2SAT 96; BMI 45.0
--- NOTE | 2024-01-10 09:58 | AM.OFFWIN_ITS ---
Intake Vital Signs 01/10/24 09:58 Height 5 ft 4 in Weight 262 lb BMI 45.0 BP 138/78 Blood Pressure Location Lt brachial Position Sitting Pulse 86 Pulse Source Pulse Oximeter Temp 97.4 F Temp Source Temporal Artery Scan Pulse Oximetry (%) 96 Oxygen Delivery Method Room Air Intake Visit Reasons: EP ?Right Eye Pain/Sinus pressure Intake Note: pt is here today for rt eye pain sinus pressure started Patient Tobacco Use Status: Never used Tobacco Allergies meloxicam [MELOXICAM] Allergy (Intermediate, Verified 01/10/24 10:06) HYPERTENSION, flactuating BP, elevated bp amlodipine Adverse Reaction (Intermediate, Verified 01/10/24 10:06) Edema Do you need a note to return to daycare/school/sports/work: Yes HPI HPI Comments History of Present Illness Details presents to the walkin today for sick visit Complaining of irritation to the right eye for last 2 days. Also endorses recent URI symptoms including nasal congestion, sinus pressure, dental pressure Has been using saline nasal spray Last week had sore throat and right-sided earache which has since resolved Has inflammation to right lower eyelid, has been using warm tea bags without improvement Denies vision changes, foreign body sensation, trauma, injury or pain with extraocular movements [facility] Medical History (Updated 01/10/24 @ 11:02 by Katherine Stein APRN, IRON CASTER) Thyroid nodule Annual physical exam (~02/17/22) Normal colonoscopy Hyperlipidemia Sleep apnea Menorrhagia Chronic iron deficiency anemia Multinodular goiter Hypothyroidism Anxiety and depression Obesity HTN (hypertension) Surgical History History of esophagogastroduodenoscopy (EGD) No pertinent past surgical history Family History Father No problems noted. Mother No problems noted. Sister No problems noted. Sister No problems noted. Son No problems noted. Social History Housing: House Alcohol intake: never Patient Tobacco Use Status: Never used Tobacco e-Cigarette/Vaping Use: Never Used Current occupational status: employed Cognitive needs: No Hearing needs: No Vision needs: No Review of Systems Const All systems reviewed & are unremarkable except as noted in HPI and below Physical Exam Vital Signs: Last Vital Signs Temp 97.4 F 01/10/24 09:58 Pulse 86 01/10/24 09:58 BP 138/78 01/10/24 09:58 Pulse Ox 96 01/10/24 09:58 Oxygen Delivery Method Room Air 01/10/24 09:58 BMI result Body Mass Index 45.0 General: awake, alert, oriented. Answers questions appropriately. Fully engaged in examination. Skin: warm, dry, intact HEENT: Normocephalic. Hearing intact. right eye: + lower lid hordeolum. Bilateral TMs intact. Tenderness to percussion right frontal and ethmoid sinuses Cardiac: External chest normal in appearance. Respiratory: No cough, audible wheezing or stridor. Abdomen: without gross distension. MS: No obvious swelling or deformities. Neurological: Oriented to person, place, time and situation. Thought process intact. Psychiatric: Appropriate mood and affect. Good judgment and insight. Assessment & Plan Assessment & Plan (1) Sinusitis: Code(s): J32.9 - Chronic sinusitis, unspecified (2) Hordeolum externum of right lower eyelid: Code(s): H00.012 - Hordeolum externum right lower eyelid Plan Z-Eliazar as prescribed Antibiotic eyedrops as prescribed Continue with warm compresses to the right eye Avoid touching, rubbing the eye Follow up with PCP or return here for any new or worsening symptoms Medications: New azithromycin For 250 mg dose pack: take 500 mg today (day 1), then 250 mg for 4 days (days 2-5) PO 6 tabs 0RF polymyxin B sulf-trimethoprim 10,000 unit- 1 mg/mL while awake; do not exceed 6 doses in 24 hours 1 drp ophthalmic (eye) QID 7 days 10 mL 0RF Coding Level of Care Code Est Pt Level 3 (35930) Diagnoses Sinusitis J32.9 Hordeolum externum of right lower eyelid H00.012
== END 2024-01-10 11:21 | disposition home or self-care (01) ==
PROVIDERS: PCP Internal Medicine; Visit Provider Registered Nurse Emergency
DX: J32.9 Chronic sinusitis, unspecified (principal); H00.012 Hordeolum externum right lower eyelid
CPT/HCPCS: 99213

== ENCOUNTER → 2024-01-20 10:02 | Outpatient (REF) | payer OTHER, SELFPAY ==
--- NOTE | 2024-01-20 10:05 | CA_ITS ---
Transthoracic Echocardiogram Patient (Last, First, Middle): Denisse Schmitt, Gender: Female Date of : 1970 Age: 54 Procedure Date: 01/20/2024 Procedure Type: Transthoracic Echocardiogram Location: OP Height: 162.56 cm Weight: 117.03 kg BSA: 2.18 m2 Heart Rate: bpm BP: 130 / 80 mmHg Inside Sales Representative: TO Referring MD: Mackenzie Duncan MD Symptoms: R06.09 - Other forms of dyspnea Study Quality: Fair/Contrast Conclusions: - 1. Normal LV ejection fraction with impaired relaxation filling pattern next 2. Cardiac valvular Doppler within normal limits 3. Upper limits of normal RV systolic pressure 4. No gross pericardial effusion Findings Procedure Information Contrast agent, definity, is being given per protocol without apparent complications. Left Ventricle Normal left ventricular size, thickness, and systolic function. The visually estimated ejection fraction is between 60-65%. Spectral Doppler is indicative of an impaired relaxation filling pattern. E/E prime ratio is between 8 and 15 consistent with indeterminate filling pressures. Right Ventricle The right ventricle was not well visualized. Atria The left atrium is normal in size. Interatrial shunt cannot be excluded. The right atrium was not well visualized. Aortic Valve The aortic valve structure and function is likely normal. There is no aortic valve stenosis. There is no aortic valve regurgitation. Mitral Valve Normal mitral valve structure and function. There is trace mitral valve regurgitation. There is no mitral valve stenosis. Pulmonic Valve The pulmonic valve was not well visualized. Tricuspid Valve Likely normal tricuspid valve structure and function. Tricuspid regurgitation envelope is inadequate for calculation of right ventricular systolic pressure. Normal right atrial pressure. Great Vessels All visible segments of the aorta are normal in size. The pulmonary artery was not well visualized. There is no dilatation of the ascending aorta measuring 3.50 cm. Venous The inferior vena cava is normal in size and collapses greater than 50% with inspiration. Pericardium/Pleural There is no evidence of pericardial effusion. Measurements 2D Linear Measurements IVSd: 1.19 0.6-0.9/0.6-1.0 cm LVIDd: 4.38 3.9-5.3/4.2-5.9 cm LVIDd Index: 2.01 2.4-3.2/2.2-3.1 cm/m2 LVIDs: 2.80 2.0-3.6 cm LVPWd: 0.95 0.7-1.1 cm LA Diam: 4.00 2.7-3.8/3.0-4.0 cm LAIDs Index: 1.83 1.5-2.3 cm/m2 LV Mass: 200.20 67-162/88-224 g LV Mass Index: 91.84 43-95/49-115 g/m2 LVOT Diam: 2.30 3.0+(-)1.3 cm 2D Systolic Function EF 4C: 56.50 >55% Mitral Valve MV Pk E: 0.74 MV PK A: 0.86 MV Decel Time: 215.00 E/A: 0.90 E'Lateral: 7.40 E'Medial: 6.64 E/E' Med: 11.10 E/E' Lat: 10.00 PHT: 63.00 MVA PHT: 3.49 Decel [place]: 3.43 Aortic Valve AoV Pk Cooper: 1.76 AoV Mn Cooper: 1.18 AoV VTI: 0.34 AoV Pk Grad: 12.00 Aov Mn Grad: 6.00 SHREE Cont.VTI: 3.64 LVOT LVOT Pk Cooper: 1.47 LVOT Mn Cooper: 0.97 LVOT VTI: 0.30 LVOT Pk Grad: 9.00 LVOT Mn Grad: 4.00 LVOT Diam: 2.30 LVOT Area: 4.15 Diastolic Function MV Pk E: 0.74 MV Pk A: 0.86 E/A: 0.90 E'Medial: 6.64 E/E' Med: 11.10 E' Laterial: 7.40 E/E' Lat: 10.00 Right Ventricle TAPSE (mm): 21.70 TVS' Cooper: 11.90 Tricuspid Valve RA Press: 8.00 Great Vessels Aorta Sinus of Valsalva: 3.23 2.0-3.5 cm Ao Asc: 3.50 2.1-3.4 cm Ao Arch: 3.10 Updated in Other Vendor System with Status of Final Shane Resendez MD electronically signed on 01/21/2024 9:29:45 AM with status of Final
== END ==
LOC: HO.CARD 10:02
PROVIDERS: PCP Internal Medicine; Visit Provider Internal Medicine
DX: R06.09 Other forms of dyspnea (principal)
CPT/HCPCS: 93306; Q9957

== ENCOUNTER → 2024-01-20 10:05 | Outpatient (BNV) | payer OTHER, SELFPAY | PROVIDERS: PCP Internal Medicine; Visit Provider Internal Medicine Cardiovascular Disease | DX: R06.09 Other forms of dyspnea (principal) | CPT/HCPCS: 93306 ==

== ENCOUNTER 2024-02-17 08:17 | Outpatient (REF) | payer OTHER, SELFPAY ==
[2024-02-17 11:55] LABS: Alanine Aminotransferase 20 U/L (0-31); Albumin Level 4.1 g/dL (3.5-5.0); Alkaline Phosphatase 80 U/L (39-117); Anion Gap 16 (12-20); Aspartate Amino Transferase 19 U/L (5-31); Bilirubin Total 0.6 mg/dL (0.0-1.0); Blood Urea Nitrogen 13 mg/dL (9-16); C Reactive Protein 0.78 mg/dL (< or = 0.50); Calcium 10.1 mg/dL (8.4-10.2); Carbon Dioxide 24 mmol/L (22-29); Chloride 103 mmol/L (96-108); Cholesterol 233 mg/dL (<200); Estimated Glomerular Filt Rate > 60; Glucose Fasting 109 mg/dL (60-99); HDL Cholesterol 54 mg/dL (>40); LDL Cholesterol Calculated 145 mg/dL (<100); Potassium 4.3 mmol/L (3.3-5.1); Sodium 139 mmol/L (135-145); Total Protein 7.3 g/dL (6.5-8.0); Triglycerides 170 mg/dL (<150); Uric Acid 6.9 mg/dL (2.4-5.7); Vitamin D 25-OH Total 49.2 ng/mL (>30)
[2024-02-17 12:10] LABS: Folate 9.4 ng/mL (> or = 4.0); Vitamin B12 361 pg/mL (200-900)
== END 2024-02-17 08:18 | disposition home or self-care (01) ==
LOC: HO.HMGCLDS 08:17
PROVIDERS: PCP Internal Medicine; Visit Provider Internal Medicine
DX: I10 Essential (primary) hypertension (principal); E78.5 Hyperlipidemia, unspecified; E66.9 Obesity, unspecified; M25.50 Pain in unspecified joint
CPT/HCPCS: 36415; 80053; 80061; 82306; 82607; 82746; 84550; 86140

== ENCOUNTER 2024-02-18 11:58 | Outpatient (AMB) | payer OTHER, SELFPAY ==
--- NOTE | 2024-02-18 12:18 | MHC.PC.OV ---
Vital Signs 02/18/24 12:25 Height 5 ft 4 in Weight 260 lb BMI 44.6 BP 122/84 Blood Pressure Location Rt brachial Position Sitting Pulse 81 Pulse Source Pulse Oximeter Pulse Oximetry (%) 96 Oxygen Delivery Method Room Air Intake Visit Reasons: 3 month follow up Allergies meloxicam [MELOXICAM] Allergy (Intermediate, Verified 02/18/24 12:26) HYPERTENSION, flactuating BP, elevated bp amlodipine Adverse Reaction (Intermediate, Verified 02/18/24 12:26) Edema Medication List - Last Reconciled 02/18/24 by Mackenzie Duncan MD acetaminophen 1,000 mg (2 x 500 mg) PO Q6H PRN doxycycline hyclate 50 mg PO DAILY levothyroxine (Synthroid) 175 mcg PO DAILY lidocaine 5% 1 patch topical DAILY metoprolol tartrate 75 mg PO DAILY olmesartan-hydrochlorothiazide 40-25 mg 1 tab PO DAILY polymyxin B sulf-trimethoprim 10,000 unit- 1 mg/mL 1 drp ophthalmic (eye) QID 7 days pravastatin 20 mg PO DAILY Wegovy (semaglutide (weight loss)) 0.25 mg (0.5 mL) subcut QWEEK NS Tobacco use date assessed: 08/03/23 Dental Screening Dental Screen Date: 08/03/23 HPI 3 month follow up HPI Details Pt presents for HTN, hyperlipid, stable on meds. Pt has been decreasing caloric intake and increasing physical activity for the last 6 months and has not been able to lose weight. She is interested in trying Wegovy to facilitate weight loss FORMERLY [facility] Medical History Thyroid nodule Annual physical exam (~02/17/22) Normal colonoscopy Hyperlipidemia Sleep apnea Menorrhagia Chronic iron deficiency anemia Multinodular goiter Hypothyroidism Anxiety and depression Obesity HTN (hypertension) Surgical History History of esophagogastroduodenoscopy (EGD) No pertinent past surgical history Family History Father No problems noted. Mother No problems noted. Sister No problems noted. Sister No problems noted. Son No problems noted. Social History Housing: House Alcohol intake: never Patient Tobacco Use Status: Never used Tobacco e-Cigarette/Vaping Use: Never Used Current occupational status: employed Cognitive needs: No Hearing needs: No Vision needs: No Questionnaire PHQ-9 Over the last 2 weeks, how often have you been bothered by any of the following problems? 1. Little interest or pleasure in doing things: not at all 2. Feeling down, depressed, or hopeless: not at all 3. Trouble falling or staying asleep, or sleeping too much: not at all 4. Feeling tired or having little energy: several days 5. Poor appetite or overeating: not at all 6. Feeling bad about yourself - or that you are a failure or have let yourself or your family down: not at all 7. Trouble concentrating on things, such as reading the newspaper or watching television: not at all 8. Moving or speaking so slowly that other people could have noticed. Or the opposite - being so fidgety or restless that you have been moving around a lot more than usual: not at all 9. Thoughts that you would be better off or of hurting yourself in some way: not at all Total score: 1 Depression Screening Interpretation: Negative Depression Screening Done: Yes 68358 - PHQ-9 Billing: Yes Source: Developed by Drs. Dominik Avelar, Lauryn Royal, Sundar Mukherjee and colleagues, with an educational belia from [employer]. Thrive Questionnaire Date Thrive assessed: 02/18/24 I am a: Patient What is your living situation today?: I have a steady place to live Within the past 12 months, did the food you bought not last and you didn't have the money to get more?: I choose not to answer this question Within the past 12 months, did you worry whether your food would run out before you got money to buy more?: Never true Do you have trouble paying for medicines?: No Do you have trouble getting transportation to medical appointments?: No Do you have trouble paying your heating and electricity bill?: No Do you have trouble taking care of your child, family member or friend?: No Do you have trouble with day-to-day activities such as bathing, preparing meals, shopping, managing finances, etc.?: No Are you currently unemployed and looking for a job?: No Are you interested in more education?: I choose not to answer this question Please select the resources that you would like help with: Housing/Fdc Currently or been in a relationship where the following occur: No concerns reported THRIVE Score: 0 AUDIT C Alcohol Use Questionnaire (AUDIT-C) 1. How often do you have a drink containing alcohol?: Monthly or less 2. How many drinks containing alcohol do you have on a typical day when you are drinking?: 1 or 2 3. How often do you have six or more drinks on one occasion?: Never Total Score: 1 TITO-7 AMB Questionnaire TITO-7 Date TITO - 7 assessed: 02/18/24 Feeling nervous, anxious, or on edge: 0 = Not at all Not being able to stop or control worryin = Not at all Worrying too much about different things: 0 = Not at all Trouble relaxin = Not at all Being so restless that it is hard to sit still: 0 = Not at all Becoming easily annoyed or irritable: 0 = Not at all Feeling afraid as if something awful might happen: 0 = Not at all Total TITO-7 score (0-4 normal; 5-9 mild; 10-14 moderate; 15-21 severe): 0 Source: Developed by Drs. Dominik Avelar, Lauryn Royal, Sundar Mukherjee and colleagues, with an educational belia from [employer]. TITO-7 Assessment Billing TITO-7 Assessment Tool: TITO-7 Assessment 34362 Review of Systems Const All systems reviewed & are unremarkable except as noted in HPI and below ENT Reports no additional complaints Card Reports no additional complaints Resp Reports no additional complaints GI Reports no additional complaints Reports no additional complaints Physical exam (Primary Care) Vital Signs: Last Vital Signs Pulse 81 02/18/24 12:25 BP 122/84 02/18/24 12:25 Pulse Ox 96 02/18/24 12:25 Oxygen Delivery Method Room Air 02/18/24 12:25 BMI result Body Mass Index 44.6 Tobacco/Smoking Status: Tobacco use Status Tobacco use date assessed 08/03/23 02/18/24 12:19 Patient Tobacco Use Status Never used Tobacco 02/18/24 12:19 e-Cigarette/Vaping Use Never Used 07/26/24 12:19 PHQ-9: PHQ-9 Score PHQ-9: Total score 1 02/18/24 12:19 Depression Screening Interpretation: Negative Thrive Assessment: Date of Thrive Assessment Date Thrive assessed 02/18/24 02/18/24 12:19 Currently or been in a relationship where the following occur: No concerns reported Const General: no acute distress Resp Effort & Inspection: normal respiratory effort Auscultation: clear to auscultation bilaterally Cardio Rhythm: regular rhythm Heart sounds: S1 normal heart sound present and S2 normal heart sound present GI Inspection: Yes normal to inspection Palpation (GI): Soft to palpation Percussion: Yes normal to percussion Auscultation: normal bowel sounds Assessment and Plan Assessment & Plan (1) HTN (hypertension): Code(s): I10 - Essential (primary) hypertension Plan: Continue current medications (2) Obesity: Code(s): E66.9 - Obesity, unspecified Plan: Continue decreasing caloric intake well-balanced diet regular exercise Wegovy 0.25 mg weekly will be tried 1st. Side effects discussed with the patient. She will follow-up in 1-2 month to monitor weight and increase the dose if indicated (3) Hypothyroidism: Comment: follow up with Endo Code(s): E03.9 - Hypothyroidism, unspecified Plan: Continue Levothyroxine (4) Hyperlipidemia: Code(s): E78.5 - Hyperlipidemia, unspecified Plan: Continue statin Orders: Orders Complete Blood Count Auto Diff 6 Months E03.9 - Hypothyroidism, unspecified, E66.9 - Obesity, unspecified, E78.5 - Hyperlipidemia, unspecified, I10 - Essential (primary) hypertension Hemoglobin A1c 6 Months E03.9 - Hypothyroidism, unspecified, E66.9 - Obesity, unspecified, E78.5 - Hyperlipidemia, unspecified, I10 - Essential (primary) hypertension Comprehensive [place]. Panel Fast 6 Months E03.9 - Hypothyroidism, unspecified, E66.9 - Obesity, unspecified, E78.5 - Hyperlipidemia, unspecified, I10 - Essential (primary) hypertension Lipid Panel 6 Months E03.9 - Hypothyroidism, unspecified, E66.9 - Obesity, unspecified, E78.5 - Hyperlipidemia, unspecified, I10 - Essential (primary) hypertension TSH reflex Free T4 6 Months E03.9 - Hypothyroidism, unspecified, E66.9 - Obesity, unspecified, E78.5 - Hyperlipidemia, unspecified, I10 - Essential (primary) hypertension Medications: New Wegovy (semaglutide (weight loss)) administer weeks 1 through 4 of therapy 0.25 mg (0.5 mL) subcut QWEEK 2 mL 3RF NS Coding Level of Care Code Est Pt Level 4 (29960) Diagnoses HTN (hypertension) I10 Obesity E66.9 Hypothyroidism E03.9 Hyperlipidemia E78.5 Additional Codes TITO-7 Assessment Billing - TITO-7 Assessment Tool: TITO-7 Assessment 65511 ([id number])
[2024-02-18 12:25] VITALS: BP 122/84; PULSE 81; O2SAT 96; BMI 44.6
== END 2024-02-18 13:44 | disposition home or self-care (01) ==
PROVIDERS: PCP Internal Medicine; Visit Provider Internal Medicine
DX: I10 Essential (primary) hypertension (principal); E66.9 Obesity, unspecified; Z68.41 Body mass index [BMI] 40.0-44.9, adult; E03.9 Hypothyroidism, unspecified; E78.5 Hyperlipidemia, unspecified
CPT/HCPCS: 99214

== ENCOUNTER 2024-03-16 10:24 | Outpatient (AMB) | payer OTHER, SELFPAY ==
--- NOTE | 2024-03-16 10:23 | MHC.PC.OV ---
Vital Signs 03/16/24 10:24 Height 5 ft 4 in Weight 254 lb BMI 43.6 BP 126/80 Blood Pressure Location Lt brachial Position Sitting Pulse 81 Pulse Source Pulse Oximeter Pulse Oximetry (%) 96 Oxygen Delivery Method Room Air Intake Visit Reasons: Was seen at [facility] for High BP Allergies meloxicam [MELOXICAM] Allergy (Intermediate, Verified 03/16/24 10:25) HYPERTENSION, flactuating BP, elevated bp amlodipine Adverse Reaction (Intermediate, Verified 03/16/24 10:25) Edema Medication List - Last Reconciled 03/16/24 by Mackenize Duncan MD acetaminophen 1,000 mg (2 x 500 mg) PO Q6H PRN amlodipine 2.5 mg PO DAILY metoprolol succinate ER 50 mg PO DAILY metoprolol tartrate 75 mg PO DAILY olmesartan-hydrochlorothiazide 40-25 mg 1 tab PO DAILY polymyxin B sulf-trimethoprim 10,000 unit- 1 mg/mL 1 drp ophthalmic (eye) QID 7 days pravastatin 20 mg PO DAILY Synthroid (levothyroxine) 175 mcg PO QAM NS Wegovy (semaglutide (weight loss)) 0.25 mg (0.5 mL) subcut QWEEK NS Tobacco use date assessed: 03/16/24 Dental Screening Dental Screen Date: 03/16/24 Did you have a dental visit in the last 12 months?: Yes Did you have a dental problem in the last 6 months where you did not have access to dental care?: No Was dental information given to patient?: Patient has dentist HPI Was seen at [facility] for High BP HPI Details pt presents for f/u hospitalization for elevated BP and chest pain, due to medication noncompliance. Cardiac w/u including Echo was normal. Patient reports blood pressure well controlled at home while taking her blood pressure medications. She has not been using her CPAP machine and would like to sleep medicine specialist for evaluation. [facility]LY [facility] Medical History Thyroid nodule Annual physical exam (~02/17/22) Normal colonoscopy Hyperlipidemia Sleep apnea Menorrhagia Chronic iron deficiency anemia Multinodular goiter Hypothyroidism Anxiety and depression Obesity HTN (hypertension) Surgical History History of esophagogastroduodenoscopy (EGD) No pertinent past surgical history Family History Father No problems noted. Mother No problems noted. Sister No problems noted. Sister No problems noted. Son No problems noted. Social History Housing: House Alcohol intake: never Patient Tobacco Use Status: Never used Tobacco e-Cigarette/Vaping Use: Never Used service: No Current occupational status: employed Cognitive needs: No Hearing needs: No Vision needs: No Questionnaire Thrive Questionnaire Date Thrive assessed: 02/18/24 AUDIT C Alcohol Use Questionnaire (AUDIT-C) 1. How often do you have a drink containing alcohol?: Never 3. How often do you have six or more drinks on one occasion?: Never Total Score: 0 TITO-7 AMB Questionnaire TITO-7 Date TITO - 7 assessed: 02/18/24 Source: Developed by Drs. Dominik Avelar, Lauryn Royal, Sundar Mukherjee and colleagues, with an educational belia from [employer]. Review of Systems Const All systems reviewed & are unremarkable except as noted in HPI and below Eyes Reports no additional complaints ENT Reports no additional complaints Card Reports no additional complaints Resp Reports no additional complaints GI Reports no additional complaints Reports no additional complaints Physical exam (Primary Care) Vital Signs: Last Vital Signs Pulse 81 03/16/24 10:24 BP 126/80 03/16/24 10:24 Pulse Ox 96 03/16/24 10:24 Oxygen Delivery Method Room Air 03/16/24 10:24 BMI result Body Mass Index 43.6 Tobacco/Smoking Status: Tobacco use Status Tobacco use date assessed 03/16/24 03/16/24 10:29 Patient Tobacco Use Status Never used Tobacco 03/16/24 10:29 e-Cigarette/Vaping Use Never Used 03/16/24 10:24 Thrive Assessment: Date of Thrive Assessment Date Thrive assessed 02/18/24 03/16/24 10:24 Const General: no acute distress HENMT Face and sinus: Yes normal facial exam Mouth: Normal oral and palatal mucosa present Throat: Yes posterior oropharynx normal Eyes General: appearance normal, both eyes and all related structures Neck Neck: Yes supple Resp Effort & Inspection: normal respiratory effort Auscultation: clear to auscultation bilaterally Cardio Rhythm: regular rhythm Heart sounds: S1 normal heart sound present and S2 normal heart sound present GI Inspection: Yes normal to inspection Palpation (GI): Soft to palpation Percussion: Yes normal to percussion Auscultation: normal bowel sounds Assessment and Plan Assessment & Plan (1) HTN (hypertension): Code(s): I10 - Essential (primary) hypertension Plan: cont meds, medication compliance discussed (2) Hyperlipidemia: Code(s): E78.5 - Hyperlipidemia, unspecified Plan: cont Pravastatin (3) Sleep apnea: Comment: not compliant with CPAP Code(s): G47.30 - Sleep apnea, unspecified Plan: Referred to sleep Medicine (4) Obesity: Code(s): E66.9 - Obesity, unspecified Plan: Decrease caloric intake increase physical activity discussed with the patient. She has been trying to lose weight for at least 6 months unsuccessfully. She is contemplating to try Wegovy Orders: Orders Vitamin B12 and Folate 1 Month E78.5 - Hyperlipidemia, unspecified, I10 - Essential (primary) hypertension Complete Blood Count Auto Diff 1 Month E78.5 - Hyperlipidemia, unspecified, I10 - Essential (primary) hypertension Comprehensive [place]. Panel Fast 1 Month E78.5 - Hyperlipidemia, unspecified, I10 - Essential (primary) hypertension Lipid Panel 1 Month E78.5 - Hyperlipidemia, unspecified, I10 - Essential (primary) hypertension Referrals Sleep Medicine Referral G47.30 - Sleep apnea, unspecified Medications: New metoprolol succinate ER 75 mg PO DAILY Changed From Wegovy (semaglutide (weight loss)) administer weeks 1 through 4 of therapy 0.25 mg (0.5 mL) subcut QWEEK 2 mL 3RF NS To Wegovy (semaglutide (weight loss)) administer weeks 1 through 4 of therapy, then 0.5 mg weekly 0.25 mg (0.5 mL) subcut QWEEK 2 mL 3RF NS Coding Level of Care Code Est Pt Level 4 (37092) Complex EM visit Add On G2211 Diagnoses HTN (hypertension) I10 Hyperlipidemia E78.5 Sleep apnea G47.30 Obesity E66.9
[2024-03-16 10:24] VITALS: BP 126/80; PULSE 81; O2SAT 96; BMI 43.6
--- OUTSIDE RECORDS SUMMARY | 2024-03-18 23:41 | XMS_ITS | Continuity of Care Document ---
Author Organization [facility] ter Address [address] [place] [id number] Care Team Providers Care Baker Chef Name Role Phone Mackenzie Duncan MD Primary Care Physician Encounter [facility] Date(s): 03/13/24 - 03/15/[address] [id number]- Encounter Diagnosis Pulmonary edema(Final) - 03/13/24 Discharge Disposition: A-D/C Home Attending Physician: Emerson Connor MD, Nga Admitting Physician: Emerald Ramsey MD Referring Physician: Not on Staff, Referring MD Allergies, Adverse Reactions, Alerts Substance Reaction Severity Status lisinopril ?reaction Active Serevent chest pain Active Augmentin ?reaction Active meloxicam blood pressure changes Activ e Medications amLODIPine 2.5 mg oral tablet 2.5 mg, 1, tablet, By Mouth, Daily, # 30 tablet, Refills 0, Tot. Refills 0, Maintenance, 03/15/24 10:28:00 EDT, Route to Pharmacy Electronically, [facility], Partial fill upon patient request if the prescription is for a schedule II opio... Start Date: 03/15/24 Status: Ordered hydrochlorothiazide-olmesartan 25 mg-40 mg oral tablet TAKE 1 TABLET BY MOUTH EVERY DAY Start Date: 03/14/24 Status: Ordered losartan 50 mg oral tablet 100 mg, Tablet, By Mouth, 03/15/24 9:00:00 EDT Start Date: 03/15/24 Stop Date: 03/15/24 Status: Completed Metoprolol Succinate ER 100 mg oral tablet, extended release 100 mg, XL Tablet, By Mouth, 03/15/24 9:00:00 EDT Start Date: 03/15/24 Stop Date: 03/15/24 Status: Completed Metoprolol Succinate ER 50 mg oral tablet, extended release TAKE 1 + 1/2 TABLETS (75 MG) BY MOUTH EVERY DAY Start Date: 03/14/24 Status: Ordered pravastatin 20 mg oral tablet TAKE 1 TABLET BY MOUTH EVERY DAY Start Date: 03/14/24 Status: Ordered Refresh - solution 1 drops, Eyes, Both, Daily, PRN for dry eyes, 0 Refills, Maintenance, 03/14/24 11:01:00 EDT, Solution, Partial fill upon patient request if the prescription is for a schedule II opioid drug. Start Date: 03/14/24 Status: Ordered Synthroid 0.175 mg oral tablet 1 tablet = 175 mcg, By Mouth, Daily, # 30 tablet, 0 Refills, Maintenance, 03/14/24 3:00:00 EDT, Tablet, Partial fill upon patient request if the prescription is for a schedule II opioid drug. Start Date: 03/14/24 Status: Ordered Problem List Condition Confirmation Course Effective Dates Status Health St atus Informant Hypothyroidism Confirmed Active Nodular goiter Confirmed Active Severe obesity Confirmed Active Results Radiology Reports * Exam Date Time Procedure Performing Provider Status 03/13/24 2:25 PM Chest 2 Views Frontal and Lat Shelly Clay; Raoul (Verified) Notes: (Chest 2 Views Frontal and Lat) Reason For Exam: CHF RESULT: Chest 2 Views Frontal and Lat Examination: Chest performed on 03/13/2024. History: Sudden onset chest pain. Findings: Frontal and lateral views of the chest are compared to a prior study dated 09/18/2006. The cardiac and mediastinal silhouettes are within normal limits. Pulmonary vascular congestion is noted. The osseous and soft tissue structures are unremarkable. Impression: Pulmonary vascular congestion. WSN: [id number] Ordering Physician: Fortino Hawkins Dictated By: Margot Diaz MD Dictated Date/Time: 03/13/24 2:28 pm Reviewed By: Margot Diaz MD Signed By: Margot Diaz MD Signed Date/Time: 03/13/24 2:28 pm Transcribed By: KERI Transcribed Date/Time: 03/13/24 2:28 pm Vital Signs Most recent to oldest [Reference Range]: 1 2 3 Height 164 cm (03/15/24 8:50 AM) 164 cm (03/14/24 3:09 PM) 164 cm (03/14/24 12:41 PM) Weight 115.9 kg (03/14/24 12:38 PM) Oxygen Saturation [94-100 %] 99 % (03/15/24 8:50 AM) 98 % (03/15/24 3:00 AM) 98 % (03/14/24 11:00 PM) Pulse Rate [55-90 bpm] 70 bpm (03/15/24 8:50 AM) 100 bpm *H* (03/15/24 8:44 AM) 73 bpm (03/15/24 3:00 AM) Body Mass Index [18.5-24.99 kg/m2] 43.09 kg/m2 *>HHI* (03/14/24 12:38 PM) Blood Pressure [90-138/55-84 mm Hg] 137/99mm Hg (03/15/24 8:50 AM) 121/75mm Hg (03/15/24 8:44 AM) 121/75mm Hg (03/15/24 8:44 AM) Respiratory Rate [16-30 br/min] 20 br/min (03/15/24 8:50 AM) 18 br/min (03/15/24 3:00 AM) 20 br/min (03/14/24 11:00 PM) Temperature [96.8-100.4 DegF] 97.7 DegF (03/15/24 8:50 AM) 98.1 DegF (03/15/24 3:00 AM) 98 DegF (03/14/24 11:00 PM) Mode of Delivery (Oxygen) Room air (03/15/24 8:50 AM) Room air (03/15/24 3:00 AM) Room air (03/14/24 11:00 PM) Blood pressure sites Arm, right (03/15/24 8:50 AM) Arm, right (03/15/24 3:00 AM) Arm, left (03/14/24 11:00 PM) Temperature Route Oral (03/15/24 8:50 AM) Oral (03/15/24 3:00 AM) Oral (03/14/24 11:00 PM) Dry Weight 115.9 kg (03/14/24 12:38 PM) 117.8 kg (03/14/24 5:04 AM) 117.8 kg (03/14/24 2:24 AM) Weight Obtained Via Standing scale (03/14/24 12:38 PM) Dry Weight Obtained Via Standing scale (03/14/24 12:38 PM) Admission evaluation note * Triston DACOSTA, Renee Cobian: PERFORM, MODIFY, MODIFY, MODIFY Event Display: Admission Note Authored Date: [id number] Patient: ??DENISSE DERAS ? Age:??54 Years?Sex:??Female?:??1970?? Chief Complaint/Reason for Consultation Was at work when she had sudden onset of 5/10 chest pain. states she became cool, pale, diaphoreticat the time. BP was in the 170's. History of Present Illness 54-year-old female with PMH of HTN, HLD, has a diagnosis of obstructive sleep apnea but not compliant with CPAP, obesity came to the ED with complaints of elevated blood pressure with an episode of chest pain and shortness of breath. ?? Patient's medical chart reviewed, seen and examined at bedside.?? Patient states that she is compliant with her medications but yesterday forgot to take 1 dose of her blood pressure medication and later on when she checked it she found to have high blood pressures in the 180s and 190s.?? She did not feel good at that time with some malaise and uneasy sensation in her chest and abdomen with some headache and felt very clammy and so came to the ED for evaluation.?? Also endorses mild shortness ofbreath with exertion and recently has been noticing worsening bilateral lower extremity swellings.?? Patient by time of my evaluation sleeping with loud snoring and apneic spells.?? When asked if she mentions that she has a diagnosis of GUY but not able to tolerate CPAP in the past.?? She also endorses that she is going through menstrual irregularities likely approaching menopause since last 2 months.?? Denies having any recent fevers, chills, cough, sore throat, runny nose, nausea, vomiting, palpitations, dizziness, weakness, abdominal pain, constipation, diarrhea, dysuria, hematuria, hematochezia/melena.?? Compliant with her medications. ?? Initially in the ED patient was afebrile, HR 79, RR 16, BP 127/80 saturation 96% on room air.?? No leukocytosis, H&H stable, platelets 213, electrolytes normal, BUN/creatinine 13/0.70, blood glucose 92, magnesium 2.1, alk phos 81, AST/ALT 24/24, T. bili 0.5, troponin x 2 negative, proBNP normal, TSH normal.?? Patient was given Lasix 20 mg IV once and lorazepam 1 mg.?? Patient will be admitted to inpatient medicine service for further management Review of Systems All systems reviewed and are negative except as mentioned in HPI Objective Measurements?? Height: 164 cm (03/14/24) Dry Weight: 117.8 kg (03/14/24) ? Vital Signs?? Temperature: 98.6 DegF (03/13/24 13:30:00) Temperature Route: Oral (03/13/24 13:30:00) Pulse Rate: 69 bpm (03/14/24 02:24:00) Respiratory Rate: 24 br/min (03/14/24 02:24:00) Systolic Blood Pressure: 114 mm Hg (03/14/24 02:24:00) Diastolic Blood Pressure: 61 mm Hg (03/14/24 02:24:00) Blood pressure sites: Arm, right (03/13/24 19:37:00) Mean Arterial Pressure: 79 mm Hg (03/14/24 02:24:00) Pulse Pressure: 53 mm Hg (03/14/24 02:24:00) Oxygen Saturation:??93 %??Low (03/14/24 02:24:00) Mode of Delivery (Oxygen): Room air (03/14/24 02:24:00) Early Warning Score: 4 (03/14/24 02:25:11) ? Pain Scores 1 - 10 Pain Scale Score: 0 (14:17) ?? Intake/Output? No Data Available ?? Precautions No Precautions documented.? Physical Exam Gen- not in acute distress,comfortabily lying on bed, speaking in full sentences. HEENT- Normocephalic, Atraumatic, No pallor, icterus Neck-supple, no JVD Heart-S1S2(+),??regular, no murmurs. lungs- Clear, b/l air entry, no wheezing. Abdomen-soft, nontender,nondistended,??bowel sounds present, No guarding. Extremities-pulses palpable. ??1+ pitting edema, no calf tenderness Neurological- AAO??3. No gross focal neurological deficits noted. Psychiatric-patient???s mood is stable. ? (03/13/2024 14:25 EDT Chest 2 Views Frontal and Lat) mpression: ?? Pulmonary vascular congestion. Assessment/Plan 54-year-old female with PMH of HTN, HLD, has a diagnosis of obstructive sleep apnea but not compliant with CPAP, obesity came to the ED with complaints of elevated blood pressure with an episode of chest pain and shortness of breath.Initially in the ED patient was afebrile, HR 79, RR 16, BP 127/80 s aturation 96% on room air.?? No leukocytosis, H&H stable, platelets 213, electrolytes normal, BUN/creatinine 13/0.70, blood glucose 92, magnesium 2.1, alk phos 81, AST/ALT 24/24, T. bili 0.5, troponin x 2 negative, proBNP normal, TSH normal.?? Patient was given Lasix 20 mg IV once and lorazepam1 mg.?? Patient will be admitted to inpatient medicine service for further management ?? 1.shortness of breath 2. ??Pulmonary edema ??(J81.1) 3. ??Hypertension ??(I10)??patient states SBP in 180s to 190s. ??Stable blood pressures all night Vitals as per unit standards Telemetry monitoring S/p Lasix 20 mg IV once I's and O's Daily weights Echocardiogram to assess??EF and for any valvular or wall motion abnormalities Outpatient cardiology follow-up??if needed??after echocardiogram Dose Lasix accordingly Will continue with hydrochlorothiazide 25 mg daily, olmesartan 40 mg daily Metoprolol succinate milligrams daily ?? 4. ??Obstructive sleep apnea ??(G47.33)??definitely??important contributor for??hypertension and??pulmonary edema. ??Discussed the importance of compliant with CPAP, patient verbalized understanding and??request follow-up with pulmonology/sleep medicine??to??readdress her sleep apnea ??diet controlled obesity management. ??Patient was prescribed with Wegovy??but was hesitant to start??treatment??with a concern for??side effects.?? Addressed her issues and patient??states she willconsider and??discuss with??PCP 5. ??Hyperlipidemia ??(E78.5)??pravastatin 20 mg daily 6. ??Hypothyroidism ??(E03.9)??levothyroxine 100 mcg daily ?? Code Status:??Full resuscitation, confirmed with patient ?Order Code Status:??Code Status Ordered ?? VTE Prophylaxis:??Subcu Lovenox ?VTE Prophylaxis Assessment:??VTE Prophylaxis Ordered ?? Diet???cardiac diet ?? Patient seen and examined on 03/13/2024 ? Histories Allergies Allergies ?(Active and Proposed Allergies Only) meloxicam? (Severity: Unknown severity, Onset: Unknown) ?Reactions: blood pressure changes Serevent? (Severity: Unknown severity, Onset: Unknown) ?Reactions: chest pain Augmentin? (Severity: Unknown severity, Onset: Unknown) ?Reactions: ?reaction lisinopril? (Severity: Unknown severity, Onset: Unknown) ?Reactions: ?reaction ? Past Medical History/Problem List Active Problems(2) Hypothyroidism Nodular goiter ? Past Surgical History No surgery history documented. ? Social History No social history documented. ? Family History No Family History documented. ? Medications Home Medications hydrochlorothiazide-olmesartan (hydrochlorothiazide-olmesartan 25 mg-40 mg oral tablet)?TAKE 1 TABLET BY MOUTH EVERY DAY Levothyroxine (Synthroid 0.175 mg oral tablet)?1?tab(s)?175?Microgram?By Mouth?Daily Metoprolol (Metoprolol Succinate ER 50 mg oral tablet, extended release)?TAKE 1 + 1/2 TABLETS (75 MG) BY MOUTH EVERY DAY Pravastatin (pravastatin 20 mg oral tablet)?TAKE 1 TABLET BY MOUTH EVERY DAY ? Inpatient Medications Medications (15) Active SCHEDULED: (7) Enoxaparin 40 mg Inj (Enoxaparin Inj) ??40 mg 0.4 mL, Subcutaneous Injection, Daily Hydrochlorothiazide 25 mg Tablet (hydrochlorothiazide 25 mg oral tablet) ??25 mg, By Mouth, Daily Levothyroxine 175 mcg Tablet (Synthroid 0.175 mg oral tablet) ??175 mcg, By Mouth, Daily Metoprolol 25 mg XL Tablet (Metoprolol Succinate ER 50 mg oral tablet, extended release) ??75 mg, By Mouth, Daily NaCl 0.9% Flush 3ml (NaCL 0.9% Flush) ??3 mL, IV Push, Every 8 hours Pravastatin (pravastatin 20 mg oral tablet) ??20 mg/24hr, By Mouth, Daily Vitamin B-12 ??1000 mcg Tablet (Vitamin B12 1000 mcg oral tablet) ??1,000 mcg, By Mouth, Daily CONTINUOUS: (0) PRN: (8) Acetaminophen 325 mg Tablet (Acetaminophen Tablet) ??650 mg, By Mouth, Every 4 hours Dextromethorphan-Guaifenesin 20 mg-200 mg/10 mL Liqu UD (Robitussin DM Liquid) ??10 mL, By Mouth, Every 4 hours Docusate Sodium 100 mg Capsule (Docusate Sodium Capsule) ??100 mg 1 capsule, By Mouth, 2 times a day Melatonin 3 mg Tablet (Melatonin Tablet) ??3 mg, By Mouth, Daily at bedtime NaCl 0.9% Flush 3ml (NaCL 0.9% Flush) ??3 mL, IV Push, Every 8 hours Polyethylene Glycol 17 Gm Powder (MiraLax Powder) ??17 Gm 1 pack/packet, By Mouth, Daily Senna Tablet ??8.6 mg 1 tablet, By Mouth, 2 times a day Simethicone 80 mg Chewable Tablet (Simethicone Tablet) ??80 mg, Chew, 3 times a day ? Results Recent Labs BLOOD COUNT & DIFF WBC 10.6 k/mm3 ()?? 03/13/2024 13:45 RBC 4.72 m/mm3 ()?? 03/13/2024 13:45 Hgb 13.6 Gm/dL ()?? 03/13/2024 13:45 Hct 41.9 % ()?? 03/13/2024 13:45 MCV 88.8 femtoliters ()?? 03/13/2024 13:45 MCH 28.8 pg ()?? 03/13/2024 13:45 MCHC 32.5 g/dL (Low)?? 03/13/2024 13:45 Platelet Count 213 k/mm3 ()?? 03/13/2024 13:45 RDW-SD 46.5 femtoliters ()?? 03/13/2024 13:45 MPV 10.7 femtoliters ()?? 03/13/2024 13:45 Nucleated RBC (Automated) 0.0 #/100 WBC'S ()?? 03/13/2024 13:45 Abs. NRBC 0.0 k/mm3 ()?? 03/13/2024 13:45 Abs. Neut 7.1 k/mm3 (High)?? 03/13/2024 13:45 Abs. Lymph 2.2 k/mm3 ()?? 03/13/2024 13:45 Abs. Taylor 1.0 k/mm3 (High)?? 03/13/2024 13:45 Abs. Eo 0.3 k/mm3 ()?? 03/13/2024 13:45 Abs. Baso 0.0 k/mm3 ()?? 03/13/2024 13:45 Neut % 66.8 % ()?? 03/13/2024 13:45 Lymph % 20.5 % ()?? 03/13/2024 13:45 Taylor % 8.9 % ()?? 03/13/2024 13:45 Eos % 2.5 % ()?? 03/13/2024 13:45 Baso % 0.4 % ()?? 03/13/2024 13:45 Imm Gran 0.9 % ()?? 03/13/2024 13:45 Abs. Imm Gran 0.1 k/mm3 ()?? 03/13/2024 13:45 ?? CARDIAC Nt-Probnp 46 pg/mL ()?? 03/13/2024 13:45 High Sensitivity Troponin (HSTnT) <6 ng/L ()?? 03/13/2024 16:34 ?? CHEM GENERAL Sodium 137 mmol/L ()?? 03/13/2024 13:45 Potassium 3.9 mmol/L ()?? 03/13/2024 13:45 Chloride 100 mmol/L ()?? 03/13/2024 13:45 Bicarbonate Level 25 mmol/L ()?? 03/13/2024 13:45 Anion Gap 12 ()?? 03/13/2024 13:45 Glucose Level 92 mg/dL ()?? 03/13/2024 13:45 BUN 13 mg/dL ()?? 03/13/2024 13:45 Creatinine-Blood 0.70 mg/dL ()?? 03/13/2024 13:45 Estimated GFR Creatinine 103 ML/MIN/1.73 M2 ()?? 03/13/2024 13:45 Calcium 9.0 mg/dL ()?? 03/13/2024 13:45 Magnesium 2.1 mg/dL ()?? 03/13/2024 13:45 Protein, Total 6.9 Gm/dL ()?? 03/13/2024 13:45 Albumin 4.4 Gm/dL ()?? 03/13/2024 13:45 AG Ratio 1.8 ()?? 03/13/2024 13:45 Alkaline Phosphatase 81 units/L ()?? 03/13/2024 13:45 AST (SGOT) 24 units/L ()?? 03/13/2024 13:45 ALT (SGPT) 24 units/L ()?? 03/13/2024 13:45 Bilirubin, Total 0.5 mg/dL ()?? 03/13/2024 13:45 ?? ENDOCRINE/TUMOR MARKER TSH 1.11 uIU/mL ()?? 03/13/2024 13:45 ?? HEME OTHER Hold Blue Top SPECIMEN DISCARDED AFTER 4 HOURS. ()?? 03/13/2024 13:45 ?? URINE OTHER Est Creatinine Clearance 81.23 mL/min ()?? 03/13/2024 14:32 ? Urinalysis Est Creatinine Clearance: 81.23 mL/min (14:32) ? Cardiology Labs Nt-Probnp: 46 pg/mL (03/13/24 13:45:00) High Sensitivity Troponin (HSTnT): <6 (03/13/24 16:34:00) High Sensitivity Troponin (HSTnT): <6 (03/13/24 13:45:00) ? [1]??Chest 2 Views Frontal and Lat; Margot Diaz MD 03/13/2024 14:25 EDT EKG study * Event Display: ECG 12-Lead Authored Date: [id number] Please click on pdf link to open report * Event Display: ECG 12-Lead Authored Date: [id number] Ventricular Rate: 66 BPM Atrial Rate: 66 BPM P-R Interval: 180 ms QRS Duration: 94 ms Q-T Interval: 404 ms QTC Calculation(Bazett): 423 ms P Sumrall: 47 degrees R Sumrall: 13 degrees T Sumrall: 13 degrees Normal sinus rhythm Normal ECG When compared with ECG of 02-JUN-2012 09:38, No significant change was found Confirmed by RONALD MOLINA ([id number]) on 03/13/2024 4:36:47 PM [facility] [place]: RONALD MOLINA Heart * Event Display: Echocardiogram - Complete Authored Date: [id number] Transthoracic Echocardiography Report (TTE) Patient Demographics Patient Name DENISSE DERAS Date of Study 03/14/2024 Corporate Gender Female Facility Race .[id number] Ethnicity Date of 1970 Height: 64.57 inches Age 54 year(s) Weight: 233.69 pounds Accession Number [id number] BSA: 2.1 m2 Room Number [id number] BMI: 39.41 kg/m2 Referring Not on Staff Referring Interpreting Fortino Physician Triston Cobian MD Physician MD [facility] Prashant Lee Indications Heart failure. Clinical History Hypertension. Hyperlipidemia. obesity Study Data Type of Study TTE procedure:Echo Complete-(Doppler, Colorflow) with Contrast. Procedure Information:Definity was administered by Stem Crusher . Study Date03/14/2024 Start Time: 08:20 AM Study Location: [facility] Adult Echo Study Status: Echo lab Patient Status: Routine Technical Quality: Technically difficult due to body habitus. Blood Pressure:158/68 mmHg EKG: Normal sinus rhythm HR: 71 bpm Contrast Medium: Definity. Amount - 2 ml 2D Measurements LV Diastolic Dimension: 4.3 cm LV Systolic Dimension: 2.3 cm LV Septum Diastolic: 1 cm LV PW Diastolic: 0.9 cm AO Root Dimension: 2.9 cm LA Dimension: 4.3 cm LA ESV (BP):67.7 ml LVOT Stroke Volume: 106.28 ml LA ESV Index: 32 ml/m2 Stroke Volume Index50.61 ml/m2 LVOT: 2.1 cm Cardiac Index:3.6 l/min/m2 Ascending Aorta:3.4 cm Doppler Measurements AV Peak Velocity: 183 cm/s MV Peak E-Wave: 91.2 cm/s AV Peak Gradient: 13.4 mmHg MV Peak A-Wave: 87.9 cm/s AV Mean Gradient: 7 mmHg MV E/A Ratio: 1.04 AV VTI:38.7 cm MV P1/2t: 67 msec LVOT Peak Velocity: 137 cm/s LVOT VTI30.7 cm MV Deceleration Time: 230 msec AV Area (Continuity):2.75 cm2 MV Area (PHT): 3.28 cm2 PV Peak Velocity: 98.7 cm/s PV Peak Gradient: 3.9 mmHg E' Septal Velocity: 9.14 cm/s E' Lateral Velocity: 10 cm/s E/Med E':[id number] E/Lat E':9.12 Cardiac Anatomy Left Ventricle/Interventricular Septum The left ventricle is normal in size and wall thickness. Overall left ventricular systolic function is vigorous. LVEF visually estimated at 70-75%. There are no definite wall motion abnormalities. Normal diastolic function. Left Atrium/Interatrial Septum The left atrial size is at the upper limit of normal. Aortic Valve The aortic valve is poorly visualized. No significant aortic stenosis or regurgitation. Mitral Valve The mitral valve appears mildly thickened. Mitral valve opening is normal. No significant mitral stenosis or regurgitation. Aorta The ascending aorta and aortic root are normal in size (for age and sex when indexed to body surface area). Right Ventricle The right ventricle is normal in size and systolic function. Right Atrium The right atrium is normal in size. Pulmonic Valve The pulmonic valve is poorly visualized. Tricuspid Valve The tricuspid valve is poorly visualized. There is trace tricuspid regurgitation. Pumonary Artery Unable to estimate pulmonary artery systolic pressure. Venous Structures The inferior vena cava size is normal with normal inspiratory collapse. The central venous pressure estimation is normal, 3mmHg. Pericardium/Extracardiac There is no significant pericardial effusion. Summary Technically difficult study. The left ventricle is normal in size and wall thickness. Overall left ventricular systolic function is vigorous. LVEF visually estimated at 70-75%. There are no definite wall motion abnormalities. Normal diastolic function. The right ventricle is normal in size and systolic function. Normal biatrial size. No obvious valve dysfunction on available images. The central venous pressure estimation is normal, 3mmHg. Unable to estimate pulmonary artery systolic pressure. Comparison No prior study available for comparison. Signature * Event Display: Echocardiogram - Complete Authored Date: [facility] Progress note * Apoorva Lou RN: PERFORM, SIGN, VERIFY, MODIFY, SIGN Event Display: Progress Note Hospital Authored Date: Patient: DENISSE DERAS Age: 54 years Sex: Female : 1970 Associated Diagnoses: None Author: Apoorva Lou RN Findings Problem Related to Alteration in Cardiac Function (new) : Alteration in Cardiac Function/new 03/14/2024 17:00 EDT Alteration in Cardiac Status Related to Hypertension Goals & Outcomes, Cardiac Status Pt will resume/maintain adequate cardiac output, Pt will resume/maintain adequate hemodynamic status, Pt will resume/maintain adequate respiratory function, Pt/caregiver will state strategies to reduce risk factors Cardiac Interventions Implemented Assess/monitor cardiac status, Assess/monitor respiratory status,Call/Report variances in ECG to provider, Document & Monitor O2 Sats; Administer O2 as ordered Goals/Interventions, Cardiac Yes Cardiac, Problem Start 03/14/2024 17:42 Reviewed Plan with, Cardiac Status Patient Patient Progression, Cardiac Status Plan Initiation . Alteration in Respiratory Function (new) : Alteration in Respiratory Function/new 03/14/2024 17:00 EDT Alteration in Resp Status Related to Other: pulmonary edema Goals & Outcomes, Respiratory Pt will maintain/resume baseline physical assessment Interventions, Respiratory Assess for and report S&S of respiratory distress Goals/Interventions, Respiratory Yes Respiratory, Problem Start 03/14/2024 17:43 Reviewed Plan with, Respiratory Patient Patient Progression, Respiratory Plan Initiation . Narrative/Incidental Pt arrived to W4 from ED, pt is AOx4. Pt denies any chest pain or SOB. Upon arriving on the floor, BP was 164/88. MD was notified and losartan, metoprolol, and hydrocholorothiazide was given as ordered. Rechecked BP 1 hour later, it was 137/71. Pt is on tele, NSR and continuous O2 monitoring at 97%. Maintain comfort and safety. Call locke within reach. See CIS for full assessment. . * Sandrine DACOSTA, Rox: PERFORM Event Display: Progress Note Hospital Authored Date: Patient: ??DENISSE DERAS ? Age:??54 Years?Sex:??Female?:??1970?? Subjective seen and examined at bedside BP better, though slightly high no chest pain or sob still feels off bp high later in the day and c/o some dizziness ?? Review of Systems Objective Vital Signs?? Temperature: 98.1 DegF (03/14/24 15:09:00) Temperature Route: Oral (03/14/24 15:09:00) Pulse Rate: 75 bpm (03/14/24 15:09:00) Respiratory Rate: 18 br/min (03/14/24 15:09:00) Systolic Blood Pressure: 137 mm Hg (03/14/24 15:09:00) Diastolic Blood Pressure: 71 mm Hg (03/14/24 15:09:00) Blood pressure sites: Arm, left (03/14/24 15:09:00) Mean Arterial Pressure: 93 mm Hg (03/14/24 15:09:00) Pulse Pressure: 66 mm Hg (03/14/24 15:09:00) Oxygen Saturation: 97 % (03/14/24 15:09:00) Mode of Delivery (Oxygen): Room air (03/14/24 15:09:00) Early Warning Score: 0 (03/14/24 15:10:11) ? Intake/Output? No Data Available ? Physical Exam General:??No acute distress, AAOx3. HEENT:??Atruamatic/normocephalic Cardio:??Regular rate, no r/g/m, JVD not appreciated.?? Respiratory:??CTA bilaterally w/ no audible wheezes or rales. Abdomen:??Soft, NT, nondistended, Extremities:??No peripheral cyanosis or edema. Skin:??No rashes or hematomas appreciated. Vascular:??Pulses present and equal distally. Neuro:??No focal deficits Results Recent Labs BLOOD COUNT & DIFF WBC 10.6 k/mm3 ()?? 03/13/2024 13:45 RBC 4.72 m/mm3 ()?? 03/13/2024 13:45 Hgb 13.6 Gm/dL ()?? 03/13/2024 13:45 Hct 41.9 % ()?? 03/13/2024 13:45 MCV 88.8 femtoliters ()?? 03/13/2024 13:45 MCH 28.8 pg ()?? 03/13/2024 13:45 MCHC 32.5 g/dL (Low)?? 03/13/2024 13:45 Platelet Count 213 k/mm3 ()?? 03/13/2024 13:45 RDW-SD 46.5 femtoliters ()?? 03/13/2024 13:45 MPV 10.7 femtoliters ()?? 03/13/2024 13:45 Nucleated RBC (Automated) 0.0 #/100 WBC'S ()?? 03/13/2024 13:45 Abs. NRBC 0.0 k/mm3 ()?? 03/13/2024 13:45 Abs. Neut 7.1 k/mm3 (High)?? 03/13/2024 13:45 Abs. Lymph 2.2 k/mm3 ()?? 03/13/2024 13:45 Abs. Taylor 1.0 k/mm3 (High)?? 03/13/2024 13:45 Abs. Eo 0.3 k/mm3 ()?? 03/13/2024 13:45 Abs. Baso 0.0 k/mm3 ()?? 03/13/2024 13:45 Neut % 66.8 % ()?? 03/13/2024 13:45 Lymph % 20.5 % ()?? 03/13/2024 13:45 Taylor % 8.9 % ()?? 03/13/2024 13:45 Eos % 2.5 % ()?? 03/13/2024 13:45 Baso % 0.4 % ()?? 03/13/2024 13:45 Imm Gran 0.9 % ()?? 03/13/2024 13:45 Abs. Imm Gran 0.1 k/mm3 ()?? 03/13/2024 13:45 ?? CARDIAC Nt-Probnp 46 pg/mL ()?? 03/13/2024 13:45 High Sensitivity Troponin (HSTnT) <6 ng/L ()?? 03/13/2024 16:34 ?? CHEM GENERAL Sodium 138 mmol/L ()?? 03/14/2024 05:22 Potassium 3.5 mmol/L (Low)?? 03/14/2024 05:22 Chloride 100 mmol/L ()?? 03/14/2024 05:22 Bicarbonate Level 24 mmol/L ()?? 03/14/2024 05:22 Anion Gap 14 ()?? 03/14/2024 05:22 Glucose Level 99 mg/dL ()?? 03/14/2024 05:22 BUN 13 mg/dL ()?? 03/14/2024 05:22 Creatinine-Blood 0.67 mg/dL ()?? 03/14/2024 05:22 Estimated GFR Creatinine 104 ML/MIN/1.73 M2 ()?? 03/14/2024 05:22 Calcium 8.9 mg/dL ()?? 03/14/2024 05:22 Phosphorus 4.1 mg/dL ()?? 03/14/2024 05:22 Magnesium 2.2 mg/dL ()?? 03/14/2024 05:22 Protein, Total 6.9 Gm/dL ()?? 03/13/2024 13:45 Albumin 4.4 Gm/dL ()?? 03/13/2024 13:45 AG Ratio 1.8 ()?? 03/13/2024 13:45 Alkaline Phosphatase 81 units/L ()?? 03/13/2024 13:45 AST (SGOT) 24 units/L ()?? 03/13/2024 13:45 ALT (SGPT) 24 units/L ()?? 03/13/2024 13:45 Bilirubin, Total 0.5 mg/dL ()?? 03/13/2024 13:45 ?? ENDOCRINE/TUMOR MARKER TSH 1.11 uIU/mL ()?? 03/13/2024 13:45 ?? HEME OTHER Hold Blue Top SPECIMEN DISCARDED AFTER 4 HOURS. ()?? 03/13/2024 13:45 ?? URINE OTHER Est Creatinine Clearance 84.87 mL/min ()?? 03/14/2024 06:09 ? Assessment/Plan Diagnoses 2. ??Pulmonary edema ??(J81.1) 3. ??Hypertension ??(I10) 4. ??Obstructive sleep apnea ??(G47.33) 5. ??Hyperlipidemia ??(E78.5) 6. ??Hypothyroidism ??(E03.9) ?? Denisse Deras is a 54-year-old female with PMH of HTN, HLD, has a diagnosis of obstructive sleep apnea but not compliant with CPAP, obesity came to the ED with complaints of elevated blood pressure with an episode of chest pain and shortness of breath.Initially in the ED patient was afebrile, HR 79, RR 16, BP 127/80 saturation 96% on room air.?? No leukocytosis, H&H stable, platelets 213, electrolytes normal, BUN/creatinine 13/0.70, blood glucose 92, magnesium 2.1, alk phos 81, AST/ALT 24/24, T. bili 0.5, troponin x 2 negative, proBNP normal, TSH normal.?? Patient was given Lasix 20 mg IV once and lorazepam 1 mg.?? Patient will be admitted to inpatient medicine service for further management ?? Shortness of of breath resolved Pulmonary edema ??(J81.1) Hypertension ??(I10)??patient states SBP in 180s to 190s. ??Stable blood pressures all night Vitals as per unit standards Telemetry monitoring S/p Lasix 20 mg IV once I's and O's Daily weights Echocardiogram without abnormalities Holding off further lasix, lungs are clear today BPs labile, when elevated patient is symptomatic Adjusting meds - increased HCTZ to 37.5, Metoprolol to 100mg . Olmesartan non formulary, will give Losartan while here PUlm edema likely 2/2 uncontrolled HTN, patient did also mention she missed meds and likely has severe sleep apnea on top of it. ?? Obstructive sleep apnea ??(G47.33)??definitely??important contributor for??hypertension and??pulmonary edema. ??Discussed the importance of compliant with CPAP, patient verbalized understanding and??request follow-up with pulmonology/sleep medicine??to??readdress her sleep apnea ??diet controlled obesity management. ??Patient was prescribed with Wegovy??but was hesitant to start??treatment??with a concern for??side effects.?? Addressed her issues and patient??states she willconsider and??discuss with??PCP While here, will put on O2 monitoring while asleep to assess for nighttime hypoxia episodes ?? Hyperlipidemia ??(E78.5)??pravastatin 20 mg daily Hypothyroidism ??(E03.9)??levothyroxine 100 mcg daily ?? Code Status:??Full resuscitation, confirmed with patient ?Order Code Status:??Code Status Ordered ?? VTE Prophylaxis:??Subcu Lovenox ?VTE Prophylaxis Assessment:??VTE Prophylaxis Ordered ?? Diet???cardiac diet ?? d/c home tomorrow if BP remains stable ?? Note * Chadd Royal RN: PERFORM Event Display: Discharge/Transfer Note Hospital Authored Date: [id number] Nursing Discharge Note Entered On: 03/15/2024 12:11 EDT Performed On: 03/15/2024 12:10 EDT by Chadd Royal RN Nursing Discharge Note 2 Discharge Time : 03/15/2024 11:45 EDT Discharge Level of Care at Discharge : Home/Skilled Nursing/Foster Care Patient Left Unit Via : Ambulatory Patient Accompanied Off Unit with : Significant other DC Instructions Provided & Signed by Pt : Yes Patient Understands D/C Instructions : Yes Patient Instructions Discharge Signed : Yes Did Pt have Specialty Bed or Wound Vac : No Chadd Royal RN - 03/15/2024 12:10 EDT * Nga Schwab MD: PERFORM Event Display: Discharge/Transfer Note Hospital Authored Date: [id number] Patient: ??DENISSE DERAS ? Age:??54 Years?Sex:??Female?:??1970?? Patient Information Discharge Location: Primary Care Physician: Mackenzie Duncan MD Admit Date/Time: 03/13/24 17:56 Discharge Disposition Discharge Disposition: Home: No Services Discharge Diagnosis Pulmonary edema (J81.1) Hypertension (I10) Obstructive sleep apnea (G47.33) Hyperlipidemia (E78.5) Hypothyroidism (E03.9) _ Discharge Medications Amlodipine (amLODIPine 2.5 mg oral tablet)?2.5?Milligram?1?tablet?By Mouth?Daily hydrochlorothiazide-olmesartan (hydrochlorothiazide-olmesartan 25 mg-40 mg oral tablet)?TAKE 1 TABLET BY MOUTH EVERY DAY Levothyroxine (Synthroid 0.175 mg oral tablet)?1?tab(s)?175?Microgram?By Mouth?Daily Metoprolol (Metoprolol Succinate ER 50 mg oral tablet, extended release)?TAKE 1 + 1/2 TABLETS (75 MG) BY MOUTH EVERY DAY Ocular Lubricant (Refresh - solution)?1?Drops?Eyes, Both?Daily?as needed?for dry eyes Pravastatin (pravastatin 20 mg oral tablet)?TAKE 1 TABLET BY MOUTH EVERY DAY ?? Medications Started amlodipine Medications Discontinued None Doses Changed None PCP Follow-Up/Heads-Up Follow-up in about 1 to 2 weeks Objective 54-year-old female with PMH of HTN, HLD, has a diagnosis of obstructive sleep apnea but not compliant with CPAP, obesity came to the ED with complaints of elevated blood pressure with an episode of chest pain and shortness of breath .Initially in the ED patient was afebrile, HR 79, RR 16, BP 127/80saturation 96% on room air.?? No leukocytosis, H&H stable, platelets 213, electrolytes normal, BUN/creatinine 13/0.70, blood glucose 92, magnesium 2.1, alk phos 81, AST/ALT 24/24, T. bili 0.5, troponin x 2 negative, proBNP normal, TSH normal.?? Patient was given Lasix 20 mg IV once and lorazepam 1 mg.?? Patient will be admitted to inpatient medicine service for further management ?? Shortness of of breath resolved Pulmonary edema ??(J81.1) Hypertension ??(I10)?? PUlm edema likely 2/2 uncontrolled HTN (SBP in 180s to 190s on admission) owing to missed meds and severe sleep apnea Telemetry monitoring -no signs of dysrhythmia. Echo without abnormality BPs labile, when elevated patient is symptomatic Patient required 1 dose of IV Lasix on admission. Holding off further lasix, lungs are clear today Resume home medication which includes metoprolol, thiazide- olmesartan combination. ?? Added 2.5 mg of amlodipine daily. PCP follow up 1-2 weeks Outpatient??sleep study eval ?? Obstructive sleep apnea ??(G47.33)?? Definitely??important contributor for??hypertension and??pulmonary edema. Discussed the importance of compliant with CPAP, patient verbalized understanding and??request follow-up with pulmonology/sleep medicine??to??readdress her sleep apnea Diet controlled obesity management. ??Patient was prescribed with Wegovy??but was hesitant to start??treatment??with a concern for??side effects.?? Addressed her issues and patient??states she will consider and??discuss with??PCP ?? Hyperlipidemia ??(E78.5)??pravastatin 20 mg daily Hypothyroidism ??(E03.9)??levothyroxine 100 mcg daily ?? Code Status:??Full resuscitation, confirmed with patient ?Order Code Status:??Code Status Ordered ?? D/c home today PCP- sep 6 follow up ? Vital Signs?? Temperature: 97.7 DegF (03/15/24 08:50:00) Temperature Route: Oral (03/15/24 08:50:00) Pulse Rate: 70 bpm (03/15/24 08:50:00) Respiratory Rate: 20 br/min (03/15/24 08:50:00) Systolic Blood Pressure: 137 mm Hg (03/15/24 08:50:00) Diastolic Blood Pressure:??99 mm Hg??High (03/15/24 08:50:00) Blood pressure sites: Arm, right (03/15/24 08:50:00) Mean Arterial Pressure: 112 mm Hg (03/15/24 08:50:00) Pulse Pressure: 38 mm Hg (03/15/24 08:50:00) Oxygen Saturation: 99 % (03/15/24 08:50:00) Mode of Delivery (Oxygen): Room air (03/15/24 08:50:00) Early Warning Score: 2 (03/15/24 10:02:49) ? . Physical Exam General: Well nourished, appears stated age, anxious in moderate distress. HEENT: moist oral mucosa. PERRLA, EOMI.?? NECK: No JVD. No bruits. Heart: Regular rate. S1 and s2 heard. No murmer, rub or gallop. Lungs: Clear to auscultation. No wheeze, crackles or rhonchi Abdomen : Soft, nondistended, nontender and bowel sounds are active. ??No organomegaly.?? Extremities: No pedal edema, swelling or cyanosis. peripheral pulses 2+ Neurological : grossly non focal. AA0 X3.? Pscy: Mood and affect appropriate.? Pending Results Add On Lab Order ordered on 03/13/2024 Follow-Up Appointments Added Follow Up ?Time Frame ?Comments Mackenzie Duncan?1 to 2 days Patient Instructions Maintain a blood pressure log. Please take your blood pressure log to primary care appointment??on March 31. Amlodipine 2.5 mg daily??is a new blood pressure medicine??added. Please??take your blood pressure medicine??regularly. Post Discharge Care Diet: ??Low Sodium (2 Gram) Diet ?? Activity: ??Ambulate with assistance 3 times a day unless otherwise specified ?? Code Status: ??Full Resuscitation ?? Discharge ?03/15/24 10:27:00 EDT Discharge Prescriptions ?ePrescribed, 03/15/24 10:27:00 EDT Home Health Face to Face ^HomeHealthFTF Results Discharge Labs BLOOD COUNT & DIFF WBC 10.6 k/mm3 ()?? 03/13/2024 13:45 RBC 4.72 m/mm3 ()?? 03/13/2024 13:45 Hgb 13.6 Gm/dL ()?? 03/13/2024 13:45 Hct 41.9 % ()?? 03/13/2024 13:45 MCV 88.8 femtoliters ()?? 03/13/2024 13:45 MCH 28.8 pg ()?? 03/13/2024 13:45 MCHC 32.5 g/dL (Low)?? 03/13/2024 13:45 Platelet Count 213 k/mm3 ()?? 03/13/2024 13:45 RDW-SD 46.5 femtoliters ()?? 03/13/2024 13:45 MPV 10.7 femtoliters ()?? 03/13/2024 13:45 Nucleated RBC (Automated) 0.0 #/100 WBC'S ()?? 03/13/2024 13:45 Abs. NRBC 0.0 k/mm3 ()?? 03/13/2024 13:45 Abs. Neut 7.1 k/mm3 (High)?? 03/13/2024 13:45 Abs. Lymph 2.2 k/mm3 ()?? 03/13/2024 13:45 Abs. Taylor 1.0 k/mm3 (High)?? 03/13/2024 13:45 Abs. Eo 0.3 k/mm3 ()?? 03/13/2024 13:45 Abs. Baso 0.0 k/mm3 ()?? 03/13/2024 13:45 Neut % 66.8 % ()?? 03/13/2024 13:45 Lymph % 20.5 % ()?? 03/13/2024 13:45 Taylor % 8.9 % ()?? 03/13/2024 13:45 Eos % 2.5 % ()?? 03/13/2024 13:45 Baso % 0.4 % ()?? 03/13/2024 13:45 Imm Gran 0.9 % ()?? 03/13/2024 13:45 Abs. Imm Gran 0.1 k/mm3 ()?? 03/13/2024 13:45 ?? CARDIAC Nt-Probnp 46 pg/mL ()?? 03/13/2024 13:45 High Sensitivity Troponin (HSTnT) <6 ng/L ()?? 03/13/2024 16:34 ?? CHEM GENERAL Sodium 140 mmol/L ()?? 03/15/2024 09:00 Potassium 3.9 mmol/L ()?? 03/15/2024 09:00 Chloride 100 mmol/L ()?? 03/15/2024 09:00 Bicarbonate Level 24 mmol/L ()?? 03/15/2024 09:00 Anion Gap 16 ()?? 03/15/2024 09:00 Glucose Level 99 mg/dL ()?? 03/14/2024 05:22 BUN 13 mg/dL ()?? 03/14/2024 05:22 Creatinine-Blood 0.67 mg/dL ()?? 03/14/2024 05:22 Estimated GFR Creatinine 104 ML/MIN/1.73 M2 ()?? 03/14/2024 05:22 Calcium 8.9 mg/dL ()?? 03/14/2024 05:22 Phosphorus 4.1 mg/dL ()?? 03/14/2024 05:22 Magnesium 2.2 mg/dL ()?? 03/14/2024 05:22 Protein, Total 6.9 Gm/dL ()?? 03/13/2024 13:45 Albumin 4.4 Gm/dL ()?? 03/13/2024 13:45 AG Ratio 1.8 ()?? 03/13/2024 13:45 Alkaline Phosphatase 81 units/L ()?? 03/13/2024 13:45 AST (SGOT) 24 units/L ()?? 03/13/2024 13:45 ALT (SGPT) 24 units/L ()?? 03/13/2024 13:45 Bilirubin, Total 0.5 mg/dL ()?? 03/13/2024 13:45 ? ENDOCRINE/TUMOR MARKER TSH 1.11 uIU/mL ()?? 03/13/2024 13:45 ? HEME OTHER Hold Lavender Top SPECIMEN DISCARDED AFTER 24 HOURS. ()?? 03/15/2024 09:00 Hold Blue Top SPECIMEN DISCARDED AFTER 4 HOURS. ()?? 03/13/2024 13:45 ?? URINE OTHER Est Creatinine Clearance 84.87 mL/min ()?? 03/14/2024 06:09 ? VIROLOGY COVID-19 by RT-PCR NEGATIVE ()?? 03/15/2024 01:03 ? 45 minutes spent on discharge * Lele CHONG, Chadd: PERFORM Event Display: Patient Education/Instruction Authored Date: [id number] Inpatient Adult Discharge Instructions. [address] [address] Name: DENISSE COMERKATHERINCORINE : 1970?? Visit: 03/13/2024 17:56?? Current Date: 03/15/2024 10:55 ?? Account: [id number]?? Inpatient Adult Discharge Instructions We would like to thank you for allowing us to assist you with your healthcare needs. The following includes patient education materials and information regarding your injury/illness. Our entire staffstrives to provide an excellent experience for our patients and their families. PLEASE ENSURE YOU FOLLOW-UP PER THE INSTRUCTIONS BELOW! ?? YOUR OPINION IS IMPORTANT TO US! Please complete the survey you may receive by mail or email. Your feedback will be used to make improvements to the healthcare experiences of our patients and their families. Surveys are administered by [employer] ?? If further treatment with your primary care physician or another doctor is recommended, it is important for you to keep the appointment. Call your primary care physician or return to the Emergency Department immediately if your condition worsens, fails to improve, or new symptoms develop. If you need to find a doctor, you can call [facility] Link for a referral at [phone] or toll free at [phone] or log in to [email or web address].. ?? [facility], in keeping with [facility] guidance, no longer requires face masks for staff, patientsor visitors in most situations. Similiar to time spent indoors at other locations, there is the chance that you were exposed to repiratory viruses during your time with us (such as flu or COVID-19). If you develop symptoms concerning for a viral respiratory infection, please seek testing (and treatment if indicated) from your medical provider or home test kit. ?? You can view and manage your care through the patient portal or by using a health care sangita of your choosing. [email or web address] is a website that allows you to securely view your medical information including your hospital discharge summary, office visit summaries, medications and follow-up visits. You can also request appointments, renew medications, and request access to your medical information using a health care sangita of your choosing, or just ask a question. You can enroll at [email or web address] or register during your next office visit. You have been discharged from [facility], Patient Care Unit: W4??. If you have any questions regarding these instructions, including results of studies pending, afteryou leave, please call us and we will be happy to assist you 15/02. [facility] Your Care Team Attending Physician Nga Schwab MD?? Consulting Providers Nga Schwab MD?? Discharging Providers Nga Schwab MD Reason for Your Visit Was at work when she had sudden onset of 5/10 chest pain. states she became cool, pale, diaphoreticat the time. BP was in the 170's.?? Your Diagnosis Shortness of breath Hypertension Obstructive sleep apnea Hyperlipidemia Hypothyroidism Tests Performed Below is a partial list of the tests performed during your hospitalization. You may have had other tests and procedures not included in this list. Please discuss all test results with your provider. Basic Metabolic Panel CBC w/ Differential Comprehensive Metabolic Panel COVID-19 (Novel Coronavirus), Rapid PCR Electrolytes High??Sensitivity??Troponin T Hold Blue Top Tube HOLD LAVENDER TUBE Magnesium Level Phosphorus Level ProBNP TSH CXR W/ Frontal and Lat Add On Lab Order?? B Type Natriuretic Peptide (ProBNP)?? Basic Metabolic Panel?? CBC w/ Differential?? COVID-19 (Novel Coronavirus), Rapid PCR?? Comprehensive Metabolic Panel?? Electrolytes?? High??Sensitivity??Troponin T?? Hold Blue Top Tube?? Hold Lavender Top Tube (HOLD LAVENDER TUBE)?? Magnesium Level?? Phosphorus Level?? TSH?? Chest 2 Views Frontal and Lat (CXR W/ Frontal and Lat)?? Primary Care Provider Mackenzie Duncan MD? Advance Directive Health Care Proxy on File No Patient refuses to discuss Discharge Vitals Temperature: 97.7 DegF Height: 164 cm Pulse Rate: 70 bpm Weight: 115.9 kg Respiratory Rate: 20 br/min Body Mass Index:??43.09 kg/m2??Critical Systolic Blood Pressure: 137 mm Hg Body surface area: 2.3 Diastolic Blood Pressure:??99 mm Hg??High ?? Oxygen Saturation: 99 % ?? Studies Pending All studies ordered during this hospital stay have been completed unless listed below. Please discuss all pending results with your provider listed above in these instructions. ?? Add On Lab Order?? What to do next Instructions From Your Doctor Maintain a blood pressure log. Please take your blood pressure log to primary care appointment??on March 31. Amlodipine 2.5 mg daily??is a new blood pressure medicine??added. Please??take your blood pressure medicine??regularly. ?? Orders??:Low Sodium (2 Gram) Diet :Ambulate with assistance ??3 times a day ??unless otherwise specified Status: ??Full Resuscitation? 03/15/24 10:27:00 EDT?? Prescriptions??, ??03/15/24 10:27:00 EDT?? You Need to Schedule the Following Appointments Follow Up with??Mackenzie Duncan When:??Within 1 to 2 days Where: [address] [place] [address]- Business (1) Discharge Medications DENISSE DERAS :1970 Visit Date:03/13/2024 Medications: Please continue your medications until treatment is completed or stopped by your provider. Medications not listed below should be discontinued. Discuss any questions related to medications with your provider. What How Much When Instructions Next Dose New Amlodipine (amLODIPine 2.5 mg oral tablet) 1 tab(s) Oral Daily 9am Pickup at [facility] 3 03/16/24 9am Changed Levothyroxine (Synthroid 0.175 mg oral tablet) 1 tab(s) Oral Daily Changed Metoprolol (Metoprolol Succinate ER 50 mg oral tablet, extended release) daily 9am TAKE 1 + 1/ 2 TABLETS (75 MG) BY MOUTH EVERY DAY ?? 03/16/24 9am Changed hydrochlorothiazide-olmesartan (hydrochlorothiazide-olmesartan 25 mg-40 mg oral tablet) Daily 9am TAKE 1 TABLET BY MOUTH EVERY DAY ?? 03/16/24 9am Unchanged Ocular Lubricant (Refresh - solution) 1 Drops Both eyes Daily as needed for for dry eyes Unchanged Pravastatin (pravastatin 20 mg oral tablet) TAKE 1 TABLET BY MOUTH EVERY DAY ?? Pharmacy Information [facility] 3: [address], [place] [id number] [phone] ?? What How Much When Comments Stop Taking Ascorbic Acid (Vitamin C) Oral Daily Stop Taking Lorazepam (Ativan Tablet) Oral Daily as needed for as needed for anxiety Stop Taking Multivitamin Oral Daily Stop Taking Multivitamin (B-Complex with B-12 oral tablet) 1 tab(s) Oral Daily Stop Taking Ogden-3 Polyunsaturated Fatty Acids ([employer] Red Krill Oil) 1,000 Milligram Oral Twice a day Stop Taking Ubiquinone (Co Q-10) 100 Milligram Oral Daily Prescription Given During Visit Amlodipine (amLODIPine 2.5 mg oral tablet) - 1 tablet = 2.5 mg, By Mouth, Daily, # 30 tablet, 0 Refills, [facility] 3, [address] [place] [phone]?? Laboratory Results Below is a partial list of the most recent Laboratory test results done prior to this discharge. You may have had other tests and procedures not included in this list. Please discuss all test resultswith your provider. Est Creatinine Clearance - 84.87 mL/min (03/14/2024) Basic Metabolic Panel (03/14/2024) ???Sodium - 138 mmol/L???Potassium - 3.5 mmol/L???Chloride - 100 mmol/L???Bicarbonate Level - 24 mmol/L???Anion Gap - 14???Glucose Level - 99 mg/dL???BUN - 13 mg/dL???Creatinine-Blood - 0.67 mg/dL???Estimated GFR Creatinine - 104 ML/MIN/1.73 M2???Calcium - 8.9 mg/dL CBC w/ Differential (03/13/2024) ???WBC - 10.6 k/mm3???RBC - 4.72 m/mm3???Hgb - 13.6 Gm/dL???Hct - 41.9 %???MCV - 88.8 femtoliters???MCH - 28.8 pg???MCHC - 32.5 g/dL???Platelet Count - 213 k/mm3???RDW-SD - 46.5 femtoliters???MPV - 10.7 femtoliters???Nucleated RBC (Automated) - 0.0 #/100 WBC'S???Abs. NRBC - 0.0 k/mm3???Abs. Neut - 7.1 k/mm3???Abs. Lymph - 2.2 k/mm3???Abs. Taylor - 1.0 k/mm3???Abs. Eo - 0.3 k/mm3???Abs. Baso - 0.0 k/mm3???Neut % - 66.8 %???Lymph % - 20.5 %???Taylor % - 8.9 %???Eos % - 2.5 %???Baso % - 0.4 %???Imm Gran - 0.9 %???Abs. Imm Gran - 0.1 k/mm3 Comprehensive Metabolic Panel (03/13/2024) ???Sodium - 137 mmol/L???Potassium - 3.9 mmol/L???Chloride - 100 mmol/L???Bicarbonate Level - 25 mmol/L???Anion Gap - 12???Glucose Level - 92 mg/dL???BUN - 13 mg/dL???Creatinine-Blood - 0.70 mg/dL???Estimated GFR Creatinine - 103 ML/MIN/1.73 M2???Calcium - 9.0 mg/dL???Protein, Total - 6.9 Gm/dL???Albumin - 4.4 Gm/dL???AG Ratio - 1.8???Alkaline Phosphatase - 81 units/L???AST (SGOT) - 24 units/L???ALT (SGPT) - 24 units/L???Bilirubin, Total - 0.5 mg/dL COVID-19 (Novel Coronavirus), Rapid PCR (03/15/2024) ???COVID-19 by RT-PCR - NEGATIVE Electrolytes (03/15/2024) ???Sodium - 140 mmol/L???Potassium - 3.9 mmol/L???Chloride - 100 mmol/L???Bicarbonate Level - 24 mmol/L???Anion Gap - 16 High??Sensitivity??Troponin T (03/13/2024) ? ?High Sensitivity Troponin (HSTnT) - <6 ng/L Hold Blue Top Tube (03/13/2024) ???Hold Blue Top - SPECIMEN DISCARDED AFTER 4 HOURS. HOLD LAVENDER TUBE (03/15/2024) ???Hold Lavender Top - SPECIMEN DISCARDED AFTER 24 HOURS. Magnesium Level (03/14/2024) ???Magnesium - 2.2 mg/dL Phosphorus Level (03/14/2024) ???Phosphorus - 4.1 mg/dL ProBNP (03/13/2024) ???Nt-Probnp - 46 pg/mL TSH (03/13/2024) ???TSH - 1.11 uIU/mL You will be contacted within 72 hours with your results. Allergies (NKA means No Known Allergies) Augmentin??(?reaction) Serevent??(chest pain) lisinopril??(?reaction) meloxicam??(blood pressure changes) Problems Active Problems??(3) Hypothyroidism?? Nodular goiter?? Severe obesity?? Education Materials Below is the list of Educational Leaflet Providered with your Discharge Instructions. Valuables and Belongings I fully understand and agree that [facility] accepts no responsibility for all my personal property including clothing, toilet articles, radios, jewelry, dentures, hearing aids, rings, money, or any other property that is in my possession or is brought to me after admission. I understand certain valuables may be placed in a hospital safe for a short period of time. I understand that the hospital is not liable for loss or damage due to accident, fire, or other natural occurrence while said property is in the safe. I accept full responsibility for any personal property that I keep with me, and will not hold the hospital responsible in case of loss or disappearance. I acknowledge that i have been encouraged to send valuables and belongings home. ?? Review of Valuable and Belonging List: With patient Date for Pt to Sign Valuables/Belongings: 03/14/24 12:44:00 ?? Other Discharge Information ? Pulmonary Rehab Status?? Pulmonary Rehab Discharge Status?? Respiratory Rate: 20 br/min ? Common Emergency Awareness Tips IS IT A STROKE? Act FAST and Check for these signs: FACE Does the face look uneven? ARM Does one arm drift down? SPEECH Does their speech sound strange? TIME Call at any sign of stroke ?? Heart Attack Signs Chest discomfort: Most heart attacks involve discomfort in the center of the chest and lasts more than a few minutes, or goes away and comes back. It can feel like uncomfortable pressure, squeezing, fullness or pain. Discomfort in upper body: Symptoms can include pain or discomfort in one or both arms, back, neck, jaw or stomach. Shortness of breath: With or without discomfort. Other signs: Breaking out in a cold sweat, nausea, or lightheaded. Remember, MINUTES DO MATTER. If you experience any of these heart attack warning signs, call to get immediate medical attention! ?? Smoking can increase your chances of developing chronic health problems and can cause harmful effects to other family members in your house. If you smoke, you are strongly encouraged to quit. Please call [facility] [employer] [facility] at [phone] or [phone] or log in to [email or web address] for referrals to smoking cessation programs. ?? 790 Suicide & Crisis Lifeline is available 15/02 if you or someone you know needs to find a reason to keep living. By calling 459 you'll be connected to a skilled, trained counselor at a crisis center in your area. INPATIENT DISCHARGE INSTRUCTIONS SIGNATURE PAGE DENISSE DERAS Location:[facility] Registration Date and Time:03/13/2024 17:56 EDT Primary Care Physician: Mackenzie Duncan MD, Attending Physician: Emerson Connor MD, [facility], I DENISSE DERAS, have received the above patient education materials/instructions and have verbalized understanding. If ambulance or transport services are being used I further acknowledge being given a choice of service. ?? If you need to contact me, please call me at this number: . Patient/Employment Service Specialist Name: Patient/Employment Service Specialist Signature: Relationship to Patient: Witness Name/Signature: Date: * Emerson Connor MD, Nga: PERFORM, SIGN, VERIFY Event Display: Patient Education Handout Authored Date: Patient Care team information Care Team Personnel Name: Guevara Elizalde MD Position: [facility] WIDE LOAD ESCORT MD Member Role: [employer]etime WIDE LOAD ESCORT Physician Address: Address: [address] [place], [place] [address] [place], [place] [address] Name: Mackenzie Duncan MD Position: [facility] Physician - Primary Care Member Role: PCP Address: Address: [address] [place], [place] [address] Name: Tad Michelle RN Position: [facility] RN Member Role: Primary Care Nurse Name: Chadd Royal RN Position: [facility] RN Member Role: Primary Care Nurse Care Team Related Persons Name: MALENA DERAS Address: [address] [address] Name: SAJAN RAY Address: [place] [address]
--- OUTSIDE RECORDS SUMMARY | 2024-03-18 23:41 | XMS_ITS | Continuity of Care Document ---
Author Organization [facility] Address [address] [facility] [place] [address]- Care Team Providers Care Dairy Husbandry Worker Name Role Phone Dakota DACOSTA, Mackenzie Primary Care Physician [phone] Encounter 07/22/21 - 07/29/21 [facility] [address], [address] [place] [address]- Attending Physician: Mackenzie Duncan MD Admitting Physician: Mackenzie Duncan MD Referring Physician: Mackenzie Duncan MD Allergies, Adverse Reactions, Alerts Substance Reaction Severity Status lisinopril ?reaction Active Serevent chest pain Active Augmentin ?reaction Active meloxicam blood pressure changes Activ e Medications Ativan Tablet By Mouth, Daily, PRN as needed for anxiety, 0 Refills, Maintenance Start Date: 06/30/12 Status: Ordered B-Complex with B-12 oral tablet 1 tablet, By Mouth, Daily, # 30 tablet, 0 Refills, Maintenance, 05/18/19 11:53:46 EDT, Tablet Start Date: 05/18/19 Status: Ordered Co Q-10 = 100 mg, By Mouth, Daily, 0 Refills, Maintenance, 05/18/19 11:54:50 EDT Start Date: 05/18/19 Status: Ordered hydrochlorothiazide-olmesartan 25 mg-40 mg oral tablet 1 tablet, By Mouth, Daily, # 30 tablet, 0 Refills, Maintenance, 05/18/19 11:40:24 EDT, Tablet Start Date: 05/18/19 Status: Ordered levothyroxine 0.1 mg oral tablet 1 tablet = 0.1 mg, By Mouth, Daily, Please call [facility] [phone] to schedule a follow up appointment, # 30 tablet, 1 Refills, Maintenance, 10/15/14 9:33:20, Tablet, 1 tablet By Mouth Daily,x30 days,Instr:Please call [facility]... Start Date: 10/15/14 Stop Date: 12/14/14 Status: Ordered metoprolol 50 mg oral tablet 50 mg, 1, tablet, By Mouth, Daily before breakfast, Refills 0, Maintenance, 05/18/19 11:38:47 EDT Start Date: 05/18/19 Status: Ordered Multivitamin By Mouth, Daily, 0 Refills, Maintenance Start Date: 06/30/12 Status: Ordered Nature's Bounty Red Krill Oil = 1,000 mg, By Mouth, 2 times a day, 0 Refills, Maintenance, 05/18/19 11:54:04 EDT Start Date: 05/18/19 Status: Ordered Vitamin C By Mouth, Daily, 0 Refills, Maintenance, 05/18/19 11:54:38 EDT Start Date: 05/18/19 Status: Ordered Problem List Condition Effective Dates Status Health Status Inform ant Hypothyroidism(Confirmed) Active Nodular goiter(Confirmed) Active
== END 2024-03-16 11:17 | disposition home or self-care (01) ==
PROVIDERS: PCP Internal Medicine; Visit Provider Internal Medicine
DX: I10 Essential (primary) hypertension (principal); E66.9 Obesity, unspecified; Z68.41 Body mass index [BMI] 40.0-44.9, adult; E78.5 Hyperlipidemia, unspecified; G47.30 Sleep apnea, unspecified
CPT/HCPCS: 99214; G2211

== ENCOUNTER 2024-04-27 11:37 | Outpatient (REF) | payer OTHER, SELFPAY ==
[2024-04-27 13:04] LABS: MANUAL DIFF FLAG NO
[2024-04-27 13:08] LABS: Basophils Absolute Auto 0.1 X10*3/uL (0.0-0.2); Basophils Percent Auto 0.6 % (0-2); Eosinophils Absolute Auto 0.4 X10*3/uL (0.0-0.4); Hematocrit 42.4 % (37.0-47.0); Hemoglobin 13.9 g/dl (12.0-16.0); Imm Gran Abs Auto 0.09 X10*3/uL (0.00-0.03); Imm Gran Pct Auto 0.8 % (0.0-0.4); Lymphocytes Absolute Auto 2.4 X10*3/uL (1.2-4.9); Mean Corpuscular HGB Conc 32.8 g/dl (31.0-35.0); Mean Corpuscular Hemoglobin 28.7 pg (27.0-33.0); Mean Corpuscular Volume 87.6 fL (80.0-98.0); Mean Platelet Volume 11.1 fL (9.4-12.3); Monocytes Absolute Auto 0.8 X10*3/uL (0.1-1.2); Monocytes Percent Auto 7.1 % (2-11); Neutrophils Absolute Auto 7.8 x10*3/uL (2.0-8.3); Neutrophils Percent Auto 67.5 % (45-73); Platelet Count 224 X10*3/uL (160-400); Red Blood Count 4.84 X10*6/uL (4.20-5.50); Red Cell Distribution Width 14.1 % (11.0-16.0); White Blood Count 11.6 X10*3/uL (4.8-10.8)
[2024-04-27 13:21] LABS: Alanine Aminotransferase 19 U/L (0-31); Albumin Level 4.1 g/dL (3.5-5.0); Alkaline Phosphatase 81 U/L (39-117); Anion Gap 13 (12-20); Aspartate Amino Transferase 17 U/L (5-31); Bilirubin Total 0.7 mg/dL (0.0-1.0); Blood Urea Nitrogen 11 mg/dL (9-16); Calcium 9.5 mg/dL (8.4-10.2); Carbon Dioxide 26 mmol/L (22-29); Chloride 103 mmol/L (96-108); Cholesterol 245 mg/dL (<200); Estimated Glomerular Filt Rate > 60; Glucose Fasting 107 mg/dL (60-99); HDL Cholesterol 55 mg/dL (>40); LDL Cholesterol Calculated 152 mg/dL (<100); Potassium 3.9 mmol/L (3.3-5.1); Sodium 138 mmol/L (135-145); Total Protein 7.3 g/dL (6.5-8.0); Triglycerides 193 mg/dL (<150)
[2024-04-27 13:55] LABS: Folate 7.5 ng/mL (> or = 4.0); Vitamin B12 314 pg/mL (200-900)
== END 2024-04-27 11:38 | disposition home or self-care (01) ==
LOC: HO.HMGCLDS 11:37
PROVIDERS: PCP Internal Medicine; Visit Provider Internal Medicine
DX: E78.5 Hyperlipidemia, unspecified (principal); I10 Essential (primary) hypertension
CPT/HCPCS: 36415; 80053; 80061; 82607; 82746; 85025

== ENCOUNTER 2024-04-28 12:58 | Outpatient (AMB) | payer OTHER, SELFPAY ==
--- NOTE | 2024-04-28 12:58 | MHC.PC.OV ---
Vital Signs 04/28/24 13:00 Height 5 ft 4 in Weight 260 lb BMI 44.6 BP 122/72 Blood Pressure Location Lt brachial Position Sitting Pulse 87 Pulse Source Pulse Oximeter Pulse Oximetry (%) 98 Oxygen Delivery Method Room Air Intake Visit Reasons: Follow up Allergies meloxicam [MELOXICAM] Allergy (Intermediate, Verified 04/28/24 13:04) HYPERTENSION, flactuating BP, elevated bp amlodipine Adverse Reaction (Intermediate, Verified 04/28/24 13:04) Edema Medication List - Last Reconciled 04/28/24 by Mackenzie Duncan MD acetaminophen 1,000 mg (2 x 500 mg) PO Q6H PRN amlodipine 2.5 mg PO DAILY lorazepam 0.5 mg PO DAILY PRN metoprolol succinate ER 75 mg PO DAILY olmesartan-hydrochlorothiazide 40-25 mg 1 tab PO DAILY polymyxin B sulf-trimethoprim 10,000 unit- 1 mg/mL 1 drp ophthalmic (eye) QID 7 days pravastatin 20 mg PO DAILY semaglutide (weight loss) (Wegovy) 0.25 mg subcut QWEEK Synthroid (levothyroxine) 175 mcg PO QAM NS Tobacco use date assessed: 04/28/24 Dental Screening Dental Screen Date: 03/16/24 HPI Follow up HPI Details Patient presents for the follow-up on hypertension hyperlipidemia hypothyroidism. Patient has a very high copayment for We[employer] but has been trying to decrease caloric intake, increase physical activity to facilitate weight loss PFSH Medical History Thyroid nodule Annual physical exam (~02/17/22) Normal colonoscopy Hyperlipidemia Sleep apnea Menorrhagia Chronic iron deficiency anemia Multinodular goiter Hypothyroidism Anxiety and depression Obesity HTN (hypertension) Surgical History History of esophagogastroduodenoscopy (EGD) No pertinent past surgical history Family History Father No problems noted. Mother No problems noted. Sister No problems noted. Sister No problems noted. Son No problems noted. Social History Housing: House Alcohol intake: never Patient Tobacco Use Status: Never used Tobacco e-Cigarette/Vaping Use: Never Used service: No Current occupational status: employed Cognitive needs: No Hearing needs: No Vision needs: No Questionnaire Thrive Questionnaire Date Thrive assessed: 02/18/24 I am a: Patient What is your living situation today?: I have a steady place to live Within the past 12 months, did the food you bought not last and you didn't have the money to get more?: I choose not to answer this question Within the past 12 months, did you worry whether your food would run out before you got money to buy more?: Never true Do you have trouble paying for medicines?: No Do you have trouble getting transportation to medical appointments?: No Do you have trouble paying your heating and electricity bill?: No Do you have trouble taking care of your child, family member or friend?: No Do you have trouble with day-to-day activities such as bathing, preparing meals, shopping, managing finances, etc.?: No Are you currently unemployed and looking for a job?: No Are you interested in more education?: I choose not to answer this question Please select the resources that you would like help with: None Currently or been in a relationship where the following occur: No concerns reported THRIVE Score: 0 TITO-7 AMB Questionnaire TITO-7 Date TITO - 7 assessed: 02/18/24 Source: Developed by Drs. Dominik Avelar, Lauryn [place], Sundar Mukherjee and colleagues, with an educational belia from [employer]. Review of Systems Const All systems reviewed & are unremarkable except as noted in HPI and below ENT Reports no additional complaints Card Reports no additional complaints Resp Reports no additional complaints GI Reports no additional complaints Reports no additional complaints Physical exam (Primary Care) Vital Signs: Last Vital Signs Pulse 87 04/28/24 13:00 BP 122/72 04/28/24 13:00 Pulse Ox 98 04/28/24 13:00 Oxygen Delivery Method Room Air 04/28/24 13:00 BMI result Body Mass Index 44.6 Tobacco/Smoking Status: Tobacco use Status Tobacco use date assessed 04/28/24 04/28/24 13:07 Patient Tobacco Use Status Never used Tobacco 04/28/24 12:59 e-Cigarette/Vaping Use Never Used 04/28/24 12:59 Thrive Assessment: Date of Thrive Assessment Date Thrive assessed 02/18/24 04/28/24 12:59 Currently or been in a relationship where the following occur: No concerns reported Const General: no acute distress HENMT Head: Yes normal to inspection Face and sinus: Yes normal facial exam Resp Effort & Inspection: normal respiratory effort Auscultation: clear to auscultation bilaterally Cardio Rhythm: regular rhythm Heart sounds: S1 normal heart sound present and S2 normal heart sound present GI Inspection: Yes normal to inspection Palpation (GI): Soft to palpation Coding Level of Care Code Est Pt Level 4 (51701) Diagnoses Hypothyroidism E03.9 HTN (hypertension) I10 Hyperlipidemia E78.5 Assessment & Plan Assessment & Plan (1) Hypothyroidism: Comment: follow up with Endo Code(s): E03.9 - Hypothyroidism, unspecified Category: Medical Plan: Continue levothyroxine (2) HTN (hypertension): Code(s): I10 - Essential (primary) hypertension Category: Medical Plan: Continue current medications (3) Hyperlipidemia: Code(s): E78.5 - Hyperlipidemia, unspecified Category: Medical Plan: Pravastatin is not effective. Crestor 20 mg daily will be prescribed and patient will continue low-cholesterol diet and will return for physical in 3 months with a fasting labs before Orders: Orders Lipid Panel 3 Months E03.9 - Hypothyroidism, unspecified, E78.5 - Hyperlipidemia, unspecified, I10 - Essential (primary) hypertension, R73.9 - Hyperglycemia, unspecified TSH reflex Free T4 3 Months E03.9 - Hypothyroidism, unspecified, E78.5 - Hyperlipidemia, unspecified, I10 - Essential (primary) hypertension, R73.9 - Hyperglycemia, unspecified Vitamin B12 and Folate 3 Months E03.9 - Hypothyroidism, unspecified, E78.5 - Hyperlipidemia, unspecified, I10 - Essential (primary) hypertension, R73.9 - Hyperglycemia, unspecified Comprehensive [place]. Panel Fast 3 Months E03.9 - Hypothyroidism, unspecified, E78.5 - Hyperlipidemia, unspecified, I10 - Essential (primary) hypertension, R73.9 - Hyperglycemia, unspecified Complete Blood Count Auto Diff 3 Months E03.9 - Hypothyroidism, unspecified, E78.5 - Hyperlipidemia, unspecified, I10 - Essential (primary) hypertension, R73.9 - Hyperglycemia, unspecified Hemoglobin A1c 3 Months E03.9 - Hypothyroidism, unspecified, E78.5 - Hyperlipidemia, unspecified, I10 - Essential (primary) hypertension, R73.9 - Hyperglycemia, unspecified UA w Microscopic 3 Months E03.9 - Hypothyroidism, unspecified, E78.5 - Hyperlipidemia, unspecified, I10 - Essential (primary) hypertension, R73.9 - Hyperglycemia, unspecified Medications: New rosuvastatin 20 mg PO DAILY 90 tabs 3RF
[2024-04-28 13:00] VITALS: BP 122/72; PULSE 87; O2SAT 98; BMI 44.6
== END 2024-04-28 13:50 | disposition home or self-care (01) ==
PROVIDERS: PCP Internal Medicine; Visit Provider Internal Medicine
DX: E03.9 Hypothyroidism, unspecified (principal); I10 Essential (primary) hypertension; E78.5 Hyperlipidemia, unspecified

== ENCOUNTER → 2024-04-28 12:58 | Outpatient (BNVA) | payer OTHER, SELFPAY | PROVIDERS: PCP Internal Medicine; Visit Provider Internal Medicine ==

== ENCOUNTER 2024-08-11 08:38 | Outpatient (REF) | payer OTHER, SELFPAY ==
[2024-08-11 10:20] LABS: MANUAL DIFF FLAG NO
[2024-08-11 10:23] LABS: Appearance Urine Clear; Color Urine Yellow; Glucose Urine UA Negative (Negative); Leukocyte Esterase Urine Negative (Negative); Nitrite Urine Negative (Negative); Urine Blood Negative (Negative); Urine Ketones Negative (Negative); Urine Protein Negative (Neg-Trace)
[2024-08-11 10:29] LABS: Bacteria Urine None Seen (None Seen); Hyaline Casts Urine 0-2 /LPF (0-2); RBC Urine 0-2 /HPF (0-2); Squamous Epithelial Cell Urine 0-2 /HPF (0-2); WBC Urine 0-5 /HPF (0-5)
[2024-08-11 10:29] LABS: Basophils Absolute Auto 0.1 X10*3/uL (0.0-0.2); Basophils Percent Auto 0.7 % (0-2); Eosinophils Absolute Auto 0.3 X10*3/uL (0.0-0.4); Eosinophils Percent Auto 3.5 % (0-4); Hematocrit 41.7 % (37.0-47.0); Hemoglobin 13.6 g/dl (12.0-16.0); Imm Gran Abs Auto 0.05 X10*3/uL (0.00-0.03); Imm Gran Pct Auto 0.6 % (0.0-0.4); Lymphocytes Absolute Auto 2.2 X10*3/uL (1.2-4.9); Lymphocytes Percent Auto 24.8 % (20-40); Mean Corpuscular HGB Conc 32.6 g/dl (31.0-35.0); Mean Corpuscular Hemoglobin 28.8 pg (27.0-33.0); Mean Corpuscular Volume 88.3 fL (80.0-98.0); Mean Platelet Volume 10.6 fL (9.4-12.3); Monocytes Absolute Auto 0.8 X10*3/uL (0.1-1.2); Monocytes Percent Auto 9.5 % (2-11); Neutrophils Absolute Auto 5.3 x10*3/uL (2.0-8.3); Neutrophils Percent Auto 60.9 % (45-73); Platelet Count 213 X10*3/uL (160-400); Red Blood Count 4.72 X10*6/uL (4.20-5.50); Red Cell Distribution Width 13.3 % (11.0-16.0); White Blood Count 8.7 X10*3/uL (4.8-10.8)
[2024-08-11 10:37] LABS: Estimated Average Glucose 114 mg/dL; Hemoglobin A1C 134.2884 umol/L; Hemoglobin A1c % 5.6 % (<6.0); Total Hemoglobin (HGBA1C) 3566.8084 umol/L
[2024-08-11 10:45] LABS: Alanine Aminotransferase 15 U/L (0-31); Albumin Level 3.9 g/dL (3.5-5.0); Alkaline Phosphatase 85 U/L (39-117); Anion Gap 10 (12-20); Aspartate Amino Transferase 22 U/L (5-31); Bilirubin Total 0.7 mg/dL (0.0-1.0); Blood Urea Nitrogen 14 mg/dL (9-16); Calcium 8.6 mg/dL (8.4-10.2); Carbon Dioxide 28 mmol/L (22-29); Chloride 103 mmol/L (96-108); Cholesterol 182 mg/dL (<200); Estimated Glomerular Filt Rate > 60; Glucose Fasting 101 mg/dL (60-99); HDL Cholesterol 42 mg/dL (>40); LDL Cholesterol Calculated 82 mg/dL (<100); Potassium 3.9 mmol/L (3.3-5.1); Sodium 137 mmol/L (135-145); Total Protein 7.2 g/dL (6.5-8.0); Triglycerides 291 mg/dL (<150)
[2024-08-11 11:09] LABS: Folate 7.6 ng/mL (> or = 4.0); Vitamin B12 359 pg/mL (200-900)
== END 2024-08-11 08:39 | disposition home or self-care (01) ==
LOC: HO.HMGCLDS 08:38
PROVIDERS: PCP Internal Medicine; Visit Provider Internal Medicine
DX: E03.9 Hypothyroidism, unspecified (principal); I10 Essential (primary) hypertension; E78.5 Hyperlipidemia, unspecified; R73.9 Hyperglycemia, unspecified
CPT/HCPCS: 36415; 80053; 80061; 81001; 82607; 82746; 83036; 84443; 85025

== ENCOUNTER 2024-08-18 12:54 | Outpatient (REF) | payer OTHER, SELFPAY ==
--- NOTE | ~2024-08-18 | XR_ITS ---
EXAMINATION: XR CHEST CLINICAL INFORMATION: R05.9 - Cough, unspecified COMPARISON: None available. TECHNIQUE: 2 views of the chest were obtained. FINDINGS: The lungs are well-expanded and clear acute process. Heart size and pulmonary vascularity is normal. No gross bony abnormality seen. XR/XR chest 2V IMPRESSION: Unremarkable chest exam. Electronically signed by: Usman Wilks MD 08/21/2024 07:19 AM [facility]
--- OUTSIDE RECORDS SUMMARY | 2024-08-18 15:25 | XMS_ITS ---
Author Organization [facility] Address [address] [place] [address] Care Team Providers Care Special Police Name Role Phone Mackenzie Duncan MD Primary Care Provider Unavaila timothy Rodriguez Amy Unavailable [phone] REASON FOR VISIT BUY Pedag Mini #[id number] / [id number] Encounters Encounter Location Date Provider Diagnosis [address] [address] 04/27/2024 Amy Rodriguez Plan Of Treatment Next Appt Details Provider Name:Amy Rodriguez , 09/21/2024 01:45:00 PM, [address] [place], [address], Progress Notes * Denisse SCHMITTDOB: (54 yo F)Acc No.[id number]:04/27/2024 Patient:?Gómez Schmitt :1970???Age:54 Y???Sex:Female Address:[address] [place], [address] * true * Date:? Generated for Printi ng/Faxing/eTransmitting on:?08/18/2024 03:25 PM EST
--- OUTSIDE RECORDS SUMMARY | 2024-08-18 15:26 | XMS_ITS | Patient Health Record ---
[facility] Address [address] [facility] [place] [address] Care Team Providers Care Bpm Architect Name Role Phone Mackenzie Duncan MD Primary Care Provider Unavaila ble Black, Amy Unavailable [phone] Allergies Allergen (clinical drug ingredient) Drug/Non Drug Allergy documented on EMR Reaction Allergy Type Onset Date Status amoxicillin / clavulanate Augmentin rash Drug Allergy Active lisinopril Lisinopril cough Drug Allergy Activ e meloxicam Meloxicam elevated hypertension Drug Allergy Active salmeterol Serevent Diskus chest pain/sob Drug Allergy Active amlodipine Amlodipine edema Drug Allergy Activ e Results Component Value Reference Range Notes X ray : Foot, left 3V Reviewed date:04/27/2024 12:42:13 PM Interpretation:See Examination above Performing Lab: Notes/Report: See Examination above X ray : Foot, right 3V Reviewed date:04/27/2024 12:42:04 PM Interpretation:See Examination above Performing Lab: Notes/Report: See Examination above Reason For Referral No Information Medications Medication SIG (Take, Route, Frequency, Duration) Notes Start Date End Date Status Pravastatin Sodium 20 MG 1 tablet Orally Once a day Active Olmesartan Medoxomil-HCTZ 40-25 MG 1 tablet Orally Once a day Active Levothyroxine Sodium 175 MCG 1 tablet in the morning on an empty stomach Orally Once a day for 30 day(s) 02/07/2024 Active Gabapentin 300 MG 1 capsule Orally at bedtime for 30 days 08/10/2024 Active amLODIPine Besylate 2.5 MG Oral for 30 Days Active Metoprolol & Diet Manage Prod Active Social History Tobacco Use: Social History Observation Description Date Details (start date - stop date) Never Smoker NA - NA Tobacco Use/Smoking Question Answer Notes Are you a: nonsmoker Additional Findings: Tobacco Non-User Current no n-smoker Alcohol Screen Question Answer Notes Did you have a drink containing alcohol in the p ast year? No Points 0 Interpretation Negative Problems Problem Type SNOMED Code ICD Code Onset Dates Problem Status W/U Status Risk Notes Problem Acquired hammer toe of right foot (4859775157454819) Hammer toe of right foot (M20.41) Active confirmed Problem Acquired hammer toe of left foot (7430352277105513) Hammer toe of left foot (M20.42) Active confirmed Problem 443938257 Neuropathy (G62.9) Active confirmed Problem Mononeuropathy of lower limb (506678257) Neuritis of left foot (G57.92) Active confirmed Vital Signs Blood pressure diastolic 80 mm Hg 08/10/2024 Height 5ft4in in 08/10/2024 Blood pressure systolic 140 mm Hg 08/10/2024 Weight 265 lbs 08/10/2024 BMI 45.48 kg/m2 08/10/2024 Encounters Encounter Location Date Provider Diagnosis [facility] [address] [address] 04/27/2024 Amy Black Ingrown nail L60.0 ; Neuritis M79.2 ; Metatarsalgia of left foot M77.42 ; Metatarsalgia of right foot M77.41 ; Hammer toe of left foot M20.42 ; Hammer toe of right foot M20.41 ; Pain in right foot M79.671 ; Pain in left toe(s) M79.675 ; Pain in right toe(s) M79.674 and Pain in left foot M79.672 [facility] [address] [address] 08/10/2024 Amy Black Neuritis M79.2 ; Neuropathy G62.9 ; Pain in right foot M79.671 ; Pain in left foot M79.672 ; Neuropathic pain M79.2 ; Metatarsalgia of left foot M77.42 and Metatarsalgia of right foot M77.41 [facility] [address] [place] [address] 01/13/2024 Amy Rodriguez [facility] [address] [address] 04/27/2024 Amy Rodriguez Assessments Encounter Date Diagnosis (ICD Code) Assessment Notes Treatment Notes Treatment Clinical Notes Section Notes 04/27/2024 Ingrown nail (ICD-10 - L60.0) 04/27/2024 Neuritis (ICD-10 - M79.2) 08/10/2024 Neuritis (ICD-10 - M79.2) 08/10/2024 Neuropathy (ICD-10 - G62.9) 04/27/2024 Metatarsalgia of left foot (ICD-10 - M77.42) 08/10/2024 Pain in right foot (ICD-10 - M79.671) 04/27/2024 Metatarsalgia of right foot (ICD-10 - M77.41) 08/10/2024 Pain in left foot (ICD-10 - M79.672) 08/10/2024 Neuropathic pain (ICD-10 - M79.2) 04/27/2024 Hammer toe of left foot (ICD-10 - M20.42) 04/27/2024 Hammer toe of right foot (ICD-10 - M20.41) 08/10/2024 Metatarsalgia of left foot (ICD-10 - M77.42) 08/10/2024 Metatarsalgia of right foot (ICD-10 - M77.41) 04/27/2024 Pain in right foot (ICD-10 - M79.671) 04/27/2024 Pain in left toe(s) (ICD-10 - M79.675) 04/27/2024 Pain in right toe(s) (ICD-10 - M79.674) 04/27/2024 Pain in left foot (ICD-10 - M79.672) Plan Of Treatment Pending Test Test Name Order Date [id number] Plate 05/02/2013 82030-Objdwker Plate 11/22/2013 49435-Nymhebdv Plate 02/01/2014 31470- Debride <25 sq cm 05/15/2013 80731 I&D ABSCESS- SIMPLE,SINGLE 014 77999 I&D ABSCESS- SIMPLE,SINGLE 013 Next Appt Details Provider Name:Amy Rodriguez , 09/21/2024 01:45:00 PM, [address] [place], [address], Insurance Providers Payer Name Payer Address Payer Phone Subscriber Number Group Number Insured Name Patient Relationship to Insured Coverage Start Date Coverage End Date [facility] [address] [place] [address] [id number] Luc Hurley Spouse - patient is the spouse of the insured Medical (General) History Medical History History ICD Code gall bladder problems hypertension thyroid disorder chicken pox Anemia Knee Pain covid-19 Surgical History Surgery Date(Month/Year) gall stones 06/2012 gall bladder 2020
--- OUTSIDE RECORDS SUMMARY | 2024-08-18 15:26 | XMS_ITS ---
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 Role Phone Mackenzie Duncan MD Primary Care Provider Unavaila ble Black, Amy Unavailable [phone] Allergies Allergen (clinical drug ingredient) Drug/Non Drug Allergy documented on EMR Reaction Allergy Type Onset Date Status amoxicillin / clavulanate Augmentin rash Drug Allergy Active lisinopril Lisinopril cough Drug Allergy Activ e meloxicam Meloxicam elevated hypertension Drug Allergy Active salmeterol Serevent Diskus chest pain/sob Drug Allergy Active amlodipine Amlodipine edema Drug Allergy Activ e REASON FOR VISIT Foot pain Medications Medication SIG (Take, Route, Frequency, Duration) Notes Start Date End Date Status Olmesartan Medoxomil-HCTZ 40-25 MG 1 tablet Orally Once a day Active Levothyroxine Sodium 175 MCG 1 tablet in the morning on an empty stomach Orally Once a day for 30 day(s) 02/07/2024 Active Gabapentin 300 MG 1 capsule Orally at bedtime for 30 days 08/10/2024 Active amLODIPine Besylate 2.5 MG Oral for 30 Days Active Metoprolol & Diet Manage Prod Active Pravastatin Sodium 20 MG 1 tablet Orally Once a day Active Social History Tobacco Use: Social History Observation Description Date Details (start date - stop date) Never Smoker NA - NA Tobacco Use/Smoking Question Answer Notes Are you a: nonsmoker Additional Findings: Tobacco Non-User Current no n-smoker Problems Problem Type SNOMED Code ICD Code Onset Dates Problem Status W/U Status Risk Notes Problem [id number] Neuropathy (G62.9) Active confirmed Vital Signs Height 5ft4in in 08/10/2024 Weight 265 lbs 08/10/2024 BMI 45.48 kg/m2 08/10/2024 Blood pressure systolic 140 mm Hg 08/10/19 25 Blood pressure diastolic 80 mm Hg 025 Encounters Encounter Location Date Provider Diagnosis [facility] [address] [place] [address] 08/10/2024 Amy Rodriguez Neuritis M79.2 ; Neuropathy G62.9 ; Pain in right foot M79.671 ; Pain in left foot M79.672 ; Neuropathic pain M79.2 ; Metatarsalgia of left foot M77.42 and Metatarsalgia of right foot M77.41 Assessments Encounter Date Diagnosis (ICD Code) Assessment Notes Treatment Notes Treatment Clinical Notes Section Notes 08/10/2024 Neuritis (ICD-10 - M79.2) 08/10/2024 Neuropathy (ICD-10 - G62.9) 08/10/2024 Pain in right foot (ICD-10 - M79.671) 08/10/2024 Pain in left foot (ICD-10 - M79.672) 08/10/2024 Neuropathic pain (ICD-10 - M79.2) 08/10/2024 Metatarsalgia of left foot (ICD-10 - M77.42) 08/10/2024 Metatarsalgia of right foot (ICD-10 - M77.41) Plan Of Treatment Medication Medication Name Sig Start Date Stop Date Notes Gabapentin 300 MG 1 capsule Orally at bedtime for 30 days 08/10/2024 Next Appt Details Follow Up: 2 Months, Reason: Provider Name:Amy Rodriguez , 09/21/2024 01:45:00 PM, [address] [place], [address], Progress Notes * Gorge SCHMITT: (54 yo F)Acc No.[id number]:08/10/2024 Progress Note Patient:?Gómez SCHMITT Provider:?DAMIÁN Barfield:1970???Age:54 Y???Sex:Female D ate:08/10/2024 Address:[address], [place] , [place]-[id number] Pcp:Mackenzie Duncan MD Subjective: * Chief Complaints: * ???Foot pain * HPI: ???Foot Pain:?Nature:?burning, tingling, shooting, radiating.?Location:?, B/L , Ball of foot.?Duration:?, several months.?Onset:?unknown.?Course:?worse.?Aggravated:?any pressure.?Treatments:?rest/alter normal daily activity,pedag inserts,topical pain medication (voltaren gel and biofreeze).?Severity/Quality:?severe.?Misc:?Pt States Last PCP Visit -01/28/2024.? Pt relates pain did start after a reoccurrence of back pain Hx of herniated disc. * ROS:?General/Constitutional:?Nausea?denies.?Vomiting?denies.?Hunger Thirst?denies.?Loss appetite?denies.?Chills?denies.?Fatigue?denies.?Fever?denies.?Night Sweats?admits.?Unexplained weight loss?denies.?Unexplained weight gain?denies.?HEENTM:?Dentures?denies.?Dizziness?denies.?Glasses/contacts?denies.?Retinopathy?de nies.?Blurred/double vision?denies.?TMJ?denies.?Discharge/drainage?denies.?Implants?denies.?Sore throat?denies.?Dental implants?admits.?Hard of hearing ?denies.?Difficulty chewing/swallowing/speaking?denies.?Nose bleeds?admits.?Sore mouth?denies.?Respiratory:?On Oxygen?denies.?Pneumonia/pleurisy?denies.?Bronchitis?denies.?Emphysema?denies.?C oughing?denies.?Cough blood?denies.?Shortness of breath?denies.?Wheezing?denies.?Cardiovascular:?Pacemaker?denies.?MVP?denies.?WPW?denies.?CHF?denies.?Heart attack?denies.?Septal defect?denies.?Rapid beat?denies.?Chest pain ?denies.?Atrial Fib.?denies.?Murmur/Palpitations?denies.?Gastrointestinal:?Hemorrhoids?denies.?Stomach/Abdominal pain?denies.?Dark blood stool?denies.?Irritable bowel ?denies.?Constipation?denies.?Diarrhea?denies.?Hematology:?Swelling?denies.?Clots?denies.?Varicose Veins?denies.?Bruising?denies.?Bleeding problem?denies.?Genitourinary:?Blood urine?denies.?Frequent/Painfu/urination/bladder control?denies.?Kidney stones?denies.?Infection (UTI)?denies.?Nephropathy?denies.?sex trans dis (STD)?denies.?Prostate?denies.?Musculoskeletal:?Hammertoes?denies.?Bunions?denies.?Back Pain?denies.?Muscle Cramps/ Resting?denies.?Muscle cramps / walking?denies.?Generalized aches and pains?admits.?Weakness?denies.?Integ.:?Cloud?denies.?Scars?denies.?Corns/calluses?denies.?Ingrown nails?admits.?Painful nails?admits.?Open Sores?denies.?Rashes?denies.?Neurologic:?Difficulty sleeping?denies.?Brain disorder?denies.?Numbness?denies.?Balance trouble?denies.?Confusion?denies.?Fainting/blackouts?denies.?Tingling?denies.?Tr emors?denies.? * Medical History:? * Surgical History:?gall stone s 06/2012gall bladder 2019 * Hospitalization/Major Diagno stic Procedure:?Denies Past Hospitalization * Family History:?Mother: nava ordonez, poor circulation, diagnosed with Diabetic - NIDDM, Unspecified essential hypertension, Unspecified cerebral artery occlusion with cerebral infarction.?Father: , diagnosed with Unspecified essential hypertension.?Siblings: hypertension, cancer.?Spouse: diagnosed with Other malignant neoplasm of unspecified site, Unspecified essential hypertension.? * Social History:?Tobacco Use:?Tobacco Use/Smoking?Are you a:?nonsmoker ?Additional Findings: Tobacco Non-User?Current non-smoker * Medications:?TakingPravastat in Sodium 20 MG Tablet 1 tablet Orally Once a day Olmesartan Medoxomil-HCTZ 40-25 MG Tablet 1 tablet Orally Once a day Metoprolol & Diet Manage Prod Levothyroxine Sodium 175 MCG Tablet 1 tablet in the morning on an empty stomach Orally Once a day amLODIPine Besylate 2.5 MG Tablet Oral Medication List reviewed and reconciled with the patientTaking Pravastatin Sodium 20 MG Tablet 1 tablet Orally Once a day Taking Olmesartan Medoxomil-HCTZ 40-25 MG Tablet 1 tablet Orally Once a day Taking Metoprolol & Diet Manage Prod Taking Levothyroxine Sodium 175 MCG Tablet 1 tablet in the morning on an empty stomach Orally Once a day Taking amLODIPine Besylate 2.5 MG Tablet Oral Medication List reviewed and reconciled with the patient * Allergies:?Lisinopril: cough Serevent Diskus: chest pain/sobAugmentin: rashAmlodipine: edemaMeloxicam: elevated hypertensionyes[Allergies Verified] Objective: * Vitals:?Ht: 5ft4in, Wt:265, BMI:45.48, Shoe size: 8-8.5, BP:140/80mm Hg, Ht-cm: 162.56 cm, Wt-k.2 kg. * Examination: ???General Examination: ?GENERAL APPEARANCE:?Reveals a pleasant, alert, well nourished, well- developed, well hydrated individual, who demonstrates proper attention to hygiene/body habitus, and is in no acute distress, Pt serves as own historian for office visit today.?ORIENTED:?person, place, and time.?Neurological: ?SENSORY:?Neurological exam demonstrates reduced sharp/dull pin prick discrimination reduced light touch sensation reduced vibration sensation reduced proprioception sensation in a stocking fashion 5.07 monofilament test performed at plantar aspects of 5 varied sites per foot shows sensation plantar aspects absent at Forefoot B/L, burning, hyperesthesia, paresthesia, pins and needles sensation, shooting/radiating sensation, B/L.?TINEL'S COMPRESSION:? Positive, Medial dorsal cutaneous nerve distribution, Intermediate dorsal cutaneous nerve distribution, Left.?Neuroma Pain: ?PALPATION:?No interspace pain noted on palpation.?Orthopedic: ?MUSCLE STRENGTH:?5/5 all groups in a symmetrical fashion, B/L.?GAIT ABNORMALITY:?Pronated , abducted angle and base of gate , B/L.?FOOT MORPHOLOGY:?Pes Planus structure , , Semi-rigid , B/L.?DIGITAL DEFORMITIES:?Digital contracture, PIPJ, 2-5 B/L, incompl-reducible with WB, or to push-up test, no over, nor underlapping.?MPJ PATHOLOGY:?Pain, swelling, and inflammation to plantar MPJ(s) 2-5 b/l.?FOOTWEAR:?shoe gear properties exacerbate patients foot/toe deformity.? Assessment: * Assessment: 1.?Neuritis - M79.2???Specif y :Acute problem, Complicated w/ Multiple Tx Options(4)???2.?Neuropathy - G62.9 (Primary)???3.?Pain in right foot - M79.671???4.?Pain in left foot - M79.672???5.?Neuropathic pain - M79.2???6.?Metatarsalgia of left foot - M77.42???Specify :Response to treatment - Improvement???7.?Metatarsalgia of right foot - M77.41???Specify :Response to treatment - Improvement??? Plan: * Treatment: * Procedure Codes:? * Preventive Medicine:? ??Counseling:?Discussion:?-14: Office or other outpatient visit for the evaluation and management of an established patient, which required a medically appropriate history and/or examination and MODERATE level of DECISION MAKING for: 1 OR MORE CHRONIC PROBLEM(S) THATS WORSENING, 2 STABLE CHRONIC PROBLEMS, A NEWLY DIAGNOSED PROBLEM WITH UNCERTAIN PROGNOSIS, AN ACUTE COMPLICATED INJURY WITH MULTIPLE TREATMENT OPTIONS, OR AN ACUTE PROBLEM WITH ACCOMPANYING SYSTEMIC SYMPTOMS, THAT POSE(S) A MODERATE RISK OF MORBIDITY. THIS CONDITION MAY ALSO INCLUDE RX DRUG MANAGEMENT, OR A DECISON FOR MINOR SURGERY. The visit on the day of the encounter encompassed interpreting the data and educating the patient as to the nature of their condition, treatment options available according to their individual PMH, meds, allergies, and overall health/living conditions, as well as any potential risks or complications that may occur from a failure to adhere to, and participate in, the recommended course of therapy. The discussion included a complete verbal, and/or written explanation of the examination results, any x-rays taken, the proposed diagnosis, and outline of the treatment plan. A schedule for future care needs was also explained. The patient verbalized an understanding of the instructions at this time and agreed to be an active participant in their treatment. If the patient should think of any questions or concerns after the visit, I have encouraged the patient to call the office.?Metatarsalgea:?Discussed other tx options for the patients condition, given recent successful results to treatment, the patient wishes to continue with the present plan for their condition.?Neuritis/Neuropathy:?The patient was counseled on the diagnosis, possible etiologies (including mechanical stress, injury, entrapment, chemotherapy, diabetes, vertebral disk herniation if hx), treatment options, and importance for adherence to recommendations in order to address the patients Neuritis/Neuropathy. The advantages and disadvantages re: Accomidative mechanical support/offloading, Topical vs PO analgesics including aspercream/Voltaren gel/Lidoderm patches/Neurontin/Lyrica along with their potential side effects were discussed with the patient to their satisfaction. Also discussed the use of therapeutic injectable cortisone if needed. Surgical treatment, if considered an option, was discussed as well. If surgery is warranted, we discussed the potential successful outcomes as well as the possible complications such as failure, painful scar, permanent tingling/numbness/neuralgea/or intractable pain. Patient questions re: medication use, dosage, and possible side effects and drug interactions were reviewed and the answers to each understood. If the condition worsens, the patient was instructed to contact the office for an appointment. The patient verbally confirmed a full understanding of the above, Discussed that neuropathy could be related to back arthritis/injury, recommend follow up with PCP, Discussed Neurontin.? * Follow Up:?2 Months * Images: * Sign off status: Completed true * Provider:?Amy Rodriguez DPM Date:?2024 Generated for Zan lopez/Valentin/Sanjana on:?08/18/2024 03:25 PM EST History and Physical Notes * HPI (History of Present Illness) Category Sub-Category Detail Notes Category Not es Foot Pain Nature: burning, tingling, shooting, radiating Pt relates pain did start after a reoccurrence of back pain Hx of herniated disc Location: , B/L , Ball of foot Duration: , several months Onset: unknown Course: worse Aggravated: any pressure Treatments: rest/alter normal da ariel activity,pedag inserts,topical pain medication (voltaren gel and biofreeze) Severity/Quality: severe Misc: Pt States Last PCP V isit -01/28/2024 Examination Category Sub-Category Detail Notes Category Not es Ingrown Nail INSPECTION: Neuroma Pain PALPATION: No interspace pain noted on palpation Neurological SENSORY: Neurological exa m demonstrates reduced sharp/dull pin prick discrimination reduced light touch sensation reduced vibration sensation reduced proprioception sensation in a stocking fashion 5.07 monofilament test performed at plantar aspects of 5 varied sites per foot shows sensation plantar aspects absent at Forefoot B/L, burning, hyperesthesia, paresthesia, pins and needles sensation, shooting/radiating sensation, B/L TINEL'S COMPRESSION: Positive, Medial do rsal cutaneous nerve distribution, Intermediate dorsal cutaneous nerve distribution, Left Orthopedic GAIT ABNORMALITY: Pronated , abducted ang le and base of gate , B/L FOOT MORPHOLOGY: Pes Planus structure , , Semi-rigid , B/L FOOTWEAR: shoe gear properties exacerbate patients foot/toe deformity DIGITAL DEFORMITIES: Digital contracture , PIPJ, 2-5 B/L, incompl-reducible with WB, or to push-up test, no over, nor underlapping MPJ PATHOLOGY: Pain, swelling, and inflammation to plantar MPJ(s) 2-5 b/l MUSCLE STRENGTH: 5/5 all groups in a symmetrical fashion, B/L General Examination GENERAL APPEARANCE: Reveals a pleasant, alert, well nourished, well-developed, well hydrated individual, who demonstrates proper attention to hygiene/body habitus, and is in no acute distress, Pt serves as own historian for office visit today ORIENTED: person, place, and t neida
--- OUTSIDE RECORDS SUMMARY | 2024-08-18 15:26 | XMS_ITS ---
Author Organization [facility] [employer] [facility] [employer] [facility] Address [address] [place] [address] Care Team Providers Care Custodial Aide Name Role Phone Mackenzie Duncan MD Primary Care Provider Unavaila ble Black, Amy Unavailable [phone] Allergies Allergen (clinical drug ingredient) Drug/Non Drug [...] above Performing Lab: Notes/Report: See Examination above REASON FOR VISIT Pcp-11/16, Ingrown nail(s), Foot pain Medications Medication SIG (Take, Route, Frequency, Duration) Notes Start Date End Date Status amLODIPine Besylate 2.5 MG Oral for 30 Days Active Levothyroxine Sodium 175 MCG 1 tablet in the morning on an empty stomach Orally Once a day for 30 day(s) 02/07/2024 Active Olmesartan Medoxomil-HCTZ 40-25 MG 1 tablet Orally Once a day Active Metoprolol & Diet Manage Prod Active [...] Problem Status W/U Status Risk Notes Problem Mononeuropathy of lower limb (610313311) Neuritis of left foot (G57.92) Active confirmed Problem Acquired hammer toe of left foot ([id number]) Hammer toe of left foot (M20.42) Active confirmed Problem Acquired hammer toe of right foot (4169348684204928) Hammer toe of right foot (M20.41) Active confirmed Vital Signs Height 5 ft 4 in in 04/27/2024 Weight 256 lbs lbs 04/27/2024 BMI 43.94 kg/m2 04/27/2024 Blood pressure systolic 120 mm Hg 04/27/20 24 Blood pressure diastolic 80 mm Hg 024 Encounters Encounter Location Date Provider Diagnosis [facility] [address] [address] 04/27/2024 Amy Black Ingrown nail L60.0 ; Neuritis M79.2 ; Metatarsalgia of left foot M77.42 ; Metatarsalgia of right foot M77.41 ; Hammer toe of left foot M20.42 ; Hammer toe of right foot M20.41 ; Pain in right foot M79.671 ; Pain in left toe(s) M79.675 ; Pain in right toe(s) M79.674 and Pain in left foot M79.672 Assessments Encounter Date Diagnosis (ICD Code) Assessment Notes Treatment Notes Treatment Clinical Notes Section Notes 04/27/2024 Ingrown nail (ICD-10 - L60.0) 04/27/2024 Neuritis (ICD-10 - M79.2) 04/27/2024 Metatarsalgia of left foot (ICD-10 - M77.42) 04/27/2024 Metatarsalgia of right foot (ICD-10 - M77.41) 04/27/2024 Hammer toe of left foot (ICD-10 - M20.42) 04/27/2024 Hammer toe of right foot (ICD-10 - M20.41) 04/27/2024 Pain in right foot (ICD-10 - M79.671) 04/27/2024 Pain in left toe(s) (ICD-10 - M79.675) 04/27/2024 Pain in right toe(s) (ICD-10 - M79.674) 04/27/2024 Pain in left foot (ICD-10 - M79.672) Plan Of Treatment Next Appt Details Follow Up: 2 Months, Reason: Provider Name:Amy Rodriguez , 09/21/2024 01:45:00 PM, [address] [place] [address], [id number], Progress Notes * Naty SCHMITTB: (54 yo F)Acc No.[id number]:04/27/2024 Progress Notes Patient:?Gómez Schmitt Provider:?Amy Rodriguez DPM :1970???Age:54 Y???Sex:Female D ate:04/27/2024 Address: [facility] Pcp:Mackenzie Duncan MD Subjective: * Chief Complaints: * ???Pcp-11/16Ingrown nail(s)F oot pain * HPI: ???Foot Pain:?Nature:?burning, tingling, shooting, radiating.?Location:?, B/L , Ball of foot.?Duration:?, several months.?Onset:?unknown.?Course:?worse.?Aggravated:?any pressure.?Treatments:?rest/alter normal daily activity.? * ROS:?General/Constitutional:?Nausea?denies.?Vomiting?denies.?Hunger Thirst?denies.?Loss appetite?denies.?Chills?denies.?Fatigue?denies.?Fever?denies.?Night Sweats?admits.?Unexplained weight loss?denies.?Unexplained [...] Unspecified essential hypertension.?Siblings: hypertension, cancer.?Spouse: diagnosed with Unspecified essential hypertension, Other malignant neoplasm of unspecified site.? * Social History:?Tobacco Use:?Tobacco Use/Smoking?Are you a:?nonsmoker ?Additional Findings: Tobacco Non-User?Current non-smoker ???Drugs/Alcohol:?Drugs?Have you used drugs other than those for medical reasons in the past 12 months??No ?Alcohol Screen?Did you have a drink containing alcohol in the past year??No ?Points?0 ?Interpretation?Negative ???Miscellaneous:?Caffeine: yes. ?Children: yes, One. ?no Exercise, none. ?Marital status: . 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 * Medications:?TakingPravastat in Sodium 20 MG Tablet 1 tablet Orally Once a dayOlmesartan Medoxomil-HCTZ 40-25 MG Tablet 1 tablet Orally Once a dayMetoprolol & Diet Manage Prod Levothyroxine Sodium 175 MCG Tablet 1 tablet in the morning on an empty stomach Orally Once a dayamLODIPine Besylate 2.5 MG Tablet Oral Medication List reviewed and reconciled with the patientTaking Pravastatin Sodium 20 MG Tablet 1 tablet Orally Once a dayTaking Olmesartan Medoxomil-HCTZ 40-25 MG Tablet 1 tablet Orally Once a dayTaking Metoprolol & Diet Manage Prod Taking Levothyroxine Sodium 175 MCG Tablet 1 tablet in the morning on an empty stomach Orally Once a dayTaking amLODIPine Besylate 2.5 MG Tablet Oral Medication List reviewed and reconciled with the patient * Allergies:?Lisinopril: cough Serevent Diskus: chest pain/sobAugmentin: rashAmlodipine: edemaMeloxicam: elevated hypertensionyes[Allergies Verified] Objective: * Vitals:?Ht: 5 ft 4 in, Wt:25 6 lbs, BMI:43.94, Shoe size: 8 - 8.5, BP:120/80 mm Hg, Ht-cm: 162.56 cm, Wt-k.12 kg. * Examination: ???General Examination: ?GENERAL APPEARANCE:?Reveals a pleasant, alert, well nourished, well- developed, well hydrated individual, who demonstrates proper attention to hygiene/body habitus, and is in no acute distress, Pt serves as own historian for office visit today.?ORIENTED:?person, place, and time.?Ingrown Nail: ?INSPECTION:?Reveals nail incurvation, pain on palpation, groove hypertrophy , groove ischemia , Bilateral nail borders , TA , T5.?Neurological: ?SENSORY:?Neurological exam reveals intact sensorium, pain sensation normal, vibration sensation intact, pinprick sensation is normal in the lower extremities, , Pt relates , burning , pins and needles sensation , shooting/radiating sensation , B/L.?TINEL'S COMPRESSION:? Positive, Medial dorsal cutaneous nerve [...] 2-5 b/l.?FOOTWEAR:?shoe gear properties exacerbate patients foot/toe deformity.?X-Rays - IMAGING REPORT: ?Clinical Indication(s):?Evaluate Biomechanical Deformity , Evaluate for Fracture.?Views:? 3 views of Foot, AP, LAT, LO,, B/L.?Findings:?normal bone and soft tissue density consistent for patients age and sex, dorsal degenerative changes of the tarsal joints , positive infra-calcaneal exostosis , positive retro-calcaneal exostosis.?Foot structure:?reveals excess pronation with , anterior break in cyme line.?Digits:?show asymmetrical joint space narrowing at the PIPJ consistent with clinical finding of hammertoe deformity, show enlarged/hypertrophied phalangeal head(s) consistent for clinical finding of hammertoe deformity.?Fracture:?Negative fractures identified.?Nails: ?NAILS are:?Elongated, overgrown, dystrophic , , TA , T5.? * Physical Examination:?L2999 Supplies:?Insoles-pedag?#39.? Assessment: * Assessment: 1.?Ingrown nail - L60.0?2.?N euritis - M79.2?3.?Metatarsalgia of left foot - M77.42?4.?Metatarsalgia of right foot - M77.41?5.?Hammer toe of left foot - M20.42?6.?Hammer toe of right foot - M20.41?7.?Pain in right foot - M79.671?8.?Pain in left toe(s) - M79.675?9.?Pain in right toe(s) - M79.674?10.?Pain in left foot - M79.672? Plan: * Treatment: 2.?Pain in left foot?Imaging: X ray : Foot, left 3V?See Examination above * Procedure Codes:?59323 X-RAY EXAM OF LEFT FOOT 3V, Modifiers: 26 , [id number] X- RAY EXAM OF RIGHT FOOT 3V, Modifiers: 26 , RT * Preventive Medicine:? ??Counseling:?Discussion:?-04: Office or other outpatient visit for the evaluation and management of a new patient, which required a medically appropriate history [...] have encouraged the patient to call the office.?Abscess/Paraonychia/Ingrown Nails:?We discussed the possible etiologies (genetic, improper nail care, shoe gear, nail trauma) which may lead to ingrown nails and/or paronychial infections. We discussed and reviewed palliative/nonsurgical/deferring definitive treatment (vs) undergoing the treatment procedures of nail avulsion(s) or PNA, which may prevent recurrence and give more lasting results. The possible risks/complications such as worsened condition/delayed healing/nonhealing/failure/recurrence/infection, the potential benefits/advantages of decreased pain/deformity, as well as alterative treatment options including applying nail softening agents/nail groove packing were discussed. No guarantees were given regarding any outcome for any procedure. The patient was educated in the length of time for the affected nail to regrow once completely healed from a nail avulsion procedure. Once the condition has completely healed, the patient was consulted on proper nail care. Patient questions such as details of each procedure, varying time to heal, activity post procedure, and shoe gear were discussed and the answers were verbally confirmed fully understood, Pt will consider PNA if nail cont to regrow ingrown. recomm. Urea nail gel 40 %.?BioMech.:?I discussed the Pts foot biomechanics with them and how it relates to their problem, Discussed and reviewed the X-rays with the patient. We discussed how the findings relate to the patients symptoms/complaints. Answered any and all questions., Pt is fitted for an OC orthotic to help address their issues., The patient and I reviewed the types of shoes they should be wearing; my recommendation includes obtaining a shoe with a good firm sole, plenty of toe room, and proper arch support, Recommended Topical analgesics including biofreeze/aspercream/Voltaren gel.?Metatarsalgea:?I explained to the patient the possible etiologies of their Metatarsalgea Foot pain, including foot type/shoegear/activity level/exercise routine and the risks/benefits of all the different treatment options for pain including: No treatment at all, Rest, Ice, NSAIDs(only if well tolerated after meals), New/supportive Shoegear, Strappings and Tapings, Foot/Ankle AFO Bracing, Stretching exercises, Deep Tissue Massage, Arch support/shoe inserts, Custom orthoses, Topical analgesics including Aspercream/Voltaren gel, Physical Therapy, Cortisone injection therapy, EPAT/ESWT. Advantages and disadvantages of each option were discussed and the patients questions re: shoegear, custom vs prefabricated inserts, activity level, PO vs Topical medications (and their respective potential complications/drug interactions/side effects), and consistency in home treatment regimens for optimal success were answered to their verbally confirmed satisfaction.?Neuritis/Neuropathy:?Discussed that neuritis could be related to back arthritis/injury, recommend follow up with PCP.?Orthotic Dispensing:?The OTC inserts are properly fitted to the patient's feet in both weight-bearing and non-weight bearing attitudes. The patient was instructed to gradually increase the amount of time they are wearing the orthoses, starting with one hour the first day and thereon progressively increasing the amount of time used until they are comfortable to be worn all day and with all activities. They were asked to call the office if any signs of skin irritation were noted including redness, blistering or callous formation. The patient verbally indicated a full understanding of all the above information.? * Follow Up:?2 Months * Images: * Sign off status: Completed true * Provider:?Amy Rodriguez DPM Date:?2023 Generated for Zan lopez/Valentin/Sanjana on:?08/18/2024 03:25 PM EST History and Physical Notes * HPI (History of Present Illness) Category Sub-Category Detail Notes Category Not es Foot Pain Nature: burning, tingling, shooting, radiating Location: , B/L , Ball of foot Duration: , several months Onset: unknown Course: worse Aggravated: any pressure Treatments: rest/alter normal da ariel activity Physical Examination Category Sub-Category Detail Notes Section Note s L2999 Supplies Insoles-pedag #39 Examination Category Sub-Category Detail Notes Category Not es Ingrown Nail INSPECTION: Reveals nail inc urvation, pain on palpation, groove hypertrophy , groove ischemia , Bilateral nail borders , TA , T5 Neuroma Pain PALPATION: No interspace pain noted on palpation Neurological SENSORY: Neurological exa m reveals intact sensorium, pain sensation normal, vibration sensation intact, pinprick sensation is normal in the lower extremities, , Pt relates , burning , pins and needles sensation , shooting/radiating sensation , B/L TINEL'S COMPRESSION: Positive, Medial do rsal [...] today ORIENTED: person, place, and t neida Nails NAILS are: Elongated, overgrown, dystro phic , , TA , T5 X-Rays - IMAGING REPORT Findings: normal b one and soft tissue density consistent for patients age and sex, dorsal degenerative changes of the tarsal joints , positive infra-calcaneal exostosis , positive retro-calcaneal exostosis Fracture: Negative fractures i dentified Digits: show asymmetrical sophia int space narrowing at the PIPJ consistent with clinical finding of hammertoe deformity, show enlarged/hypertrophied phalangeal head(s) consistent for clinical finding of hammertoe deformity Foot structure: reveals excess prona tion with , anterior break in cyme line Views: 3 views of Foot, AP, LAT, LO,, B/L Clinical Indication(s): Evaluate Biomech anical Deformity , Evaluate for Fracture
== END 2024-08-18 12:55 | disposition home or self-care (01) ==
LOC: HO.HMGCX 12:54
PROVIDERS: PCP Internal Medicine; Visit Provider Internal Medicine
DX: Z00.01 Encounter for general adult medical examination with abnormal findings (principal); R05.9 Cough, unspecified; R73.9 Hyperglycemia, unspecified; E03.9 Hypothyroidism, unspecified; I10 Essential (primary) hypertension; E78.5 Hyperlipidemia, unspecified; R20.0 Anesthesia of skin; R20.2 Paresthesia of skin
CPT/HCPCS: 71046; 96127

== ENCOUNTER → 2024-08-18 13:46 | Outpatient (BNV) | payer OTHER, SELFPAY | PROVIDERS: PCP Internal Medicine; Visit Provider Radiology Diagnostic Radiology | DX: R05.9 Cough, unspecified (principal) | CPT/HCPCS: 71046 ==

== ENCOUNTER 2024-10-25 | Outpatient (REF) | payer OTHER, SELFPAY ==
--- NOTE | ~2024-10-25 | XR_ITS ---
EXAMINATION: XR LUMBOSACRAL SPINE CLINICAL INFORMATION: M25.562 - Pain in left knee COMPARISON: None available. TECHNIQUE: Three views of the lumbosacral spine. FINDINGS: Endplate sclerosis at L5-S1. Facet joint hypertrophy at L5-S1. No acute cortical disruption. No gross malalignment. Vascular calcifications, abdominal aorta. Vascular clips right hemiabdomen. No lytic or blastic lesions. XR/XR lumbar spine 2-3V IMPRESSION: Spondylosis, L5-S1. Electronically signed by: Prem Patton MD 10/26/2024 02:49 PM EDT
--- NOTE | ~2024-10-25 | XR_ITS ---
EXAMINATION: XR KNEES ANTEROPOSTERIOR STANDING BILATERAL HISTORY: M25.561 - Pain in right knee COMPARISON: Comparison is made with the prior examination dated 10/25/2018. FINDINGS: Three standing views of each knee are submitted. Osseous mineralization is normal. There is no fracture or dislocation. There is moderate narrowing of the medial compartment of the right knee and mild narrowing of the medial compartment of the left knee. There is a small left knee joint effusion. XR/XR knee standing BI IMPRESSION: Narrowing of the medial compartments of both knees, moderate on the right and mild on the left. Small left knee joint effusion. Electronically signed by: Dominik Bui MD 10/27/2024 08:27 AM EDT
--- OUTSIDE RECORDS SUMMARY | 2025-01-18 17:53 | XMS_ITS | Patient Health Record ---
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 Name Role Phone Mackenzie Duncan MD Primary Care Provider Unavaila ble Black, Amy Unavailable [phone] Allergies Allergen (clinical drug ingredient) Drug/Non Drug [...] Gabapentin 300 MG 1 capsule Orally at bedtime; Duration: 30 days 08/10/2024 Not-Taking Vitamin B12 3000 MCG/ML as directed Sublingual Active Vitamin D3 Active amLODIPine Besylate 2.5 MG Oral; Duration: 30 Days Acti ve Levothyroxine Sodium 175 MCG 1 tablet in the morning on an empty stomach Orally Once a day; Duration: 30 day(s) 02/07/2024 Active Metoprolol & Diet Manage Prod Active Medrol 4 MG as directed Orally daily; Duration: 6 days 09/21/2024 Active Ciclopirox 8 % 1 application Externally Once a day- remove mediation once a week with nail german remover or rubbing alcohol; Duration: 30 days 09/21/2024 Active Olmesartan Medoxomil-HCTZ 40-25 [...] Problem Acquired hammer toe of right foot (0808364891638049) Hammer toe of right foot (M20.41) Active confirmed Problem Acquired hammer toe of left foot (9012703608767202) Hammer toe of left foot (M20.42) Active confirmed Problem Neuropathy (454308031) Neuropathy (G62.9) Active confirmed Problem Mononeuropathy of lower limb (755899020) Neuritis of left foot (G57.92) Active confirmed Vital Signs Blood pressure diastolic 85 mm Hg 12/05/2024 Height 5ft 4in in 12/05/2024 Blood pressure systolic 135 mm Hg 12/05/2024 Weight 265 lbs 12/05/2024 BMI 45.48 kg/m2 12/05/2024 Procedures Procedure Date Ordered Date Performed Result Body Sit e 64260-QMJBAXZ NAIL, 6 OR MORE 12/05/2024 N/A Encounters Encounter Location Date Provider Diagnosis [facility] [place] [address] [place] [address] 04/27/2024 Amy Black Ingrown nail L60.0 ; Neuritis M79.2 ; Metatarsalgia of left foot M77.42 ; Metatarsalgia of right foot M77.41 ; Hammer toe of left foot M20.42 ; Hammer toe of right foot M20.41 ; Pain in right foot M79.671 ; Pain in left toe(s) M79.675 ; Pain in right toe(s) M79.674 and Pain in left foot M79.[address] [address] 08/10/2024 Amy Black Neuritis M79.2 ; Neuropathy G62.9 ; Pain in right foot M79.671 ; Pain in left foot M79.672 ; Neuropathic pain M79.2 ; Metatarsalgia of left foot M77.42 and Metatarsalgia of right foot M77.[address] [address] 09/21/2024 Amy Black Neuritis M79.2 ; Neuropathy G62.9 ; Pain in right foot M79.671 ; Pain in left foot M79.672 ; Neuropathic pain M79.2 ; Pain in right toe(s) M79.674 ; Onychomycosis B35.1 ; Pain in left toe(s) M79.675 ; Metatarsalgia of left foot M77.42 and Metatarsalgia of right foot M77.[address] [address] 12/05/2024 Amy Black Neuritis M79.2 ; Neuropathy G62.9 ; Pain in right foot M79.671 ; Pain in left foot M79.672 ; Neuropathic pain M79.2 ; Pain in right toe(s) M79.674 ; Onychomycosis B35.1 ; Pain in left toe(s) M79.675 and Ingrown nail L60.[address] [address] 04/27/2024 Amy Black [address] [address] 09/21/2024 Amy Black Assessments Encounter Date Diagnosis [...] Treatment Pending Test Test Name Order Date [id number] NAIL, 6 OR MORE 12/05/2024 87327-Whwymprf Plate 11/22/2013 73954-Ijddczwg Plate 02/01/2014 49932-Pbazvlvs Plate 05/02/2013 83609- Debride <25 sq cm 05/15/2013 01213 I&D ABSCESS- SIMPLE,SINGLE 014 09123 I&D ABSCESS- SIMPLE,SINGLE 013 Next Appt Details Provider Name:Amy Rodriguez , 03/15/2025 09:30:00 AM, [address] [place], [address], Insurance Providers Payer Name Payer Address Payer Phone Subscriber Number Group Number Insured Name Patient Relationship to Insured Coverage Start Date Coverage End Date [facility] [address] [place] More[place] [phone] [id number] Luc Hurley Spouse - patient is the spouse of the insured Medical (General) History Medical History History ICD Code gall bladder problems hypertension thyroid disorder chicken pox Anemia Knee Pain covid-19 Surgical History Surgery Date(Month/Year) gall stones 06/2012 gall bladder 2020
== END 2024-10-25 00:01 | disposition home or self-care (01) ==
LOC: HO.CHCLR
PROVIDERS: PCP Internal Medicine; Visit Provider Internal Medicine
DX: M25.561 Pain in right knee (principal); M25.562 Pain in left knee; M47.817 Spondylosis without myelopathy or radiculopathy, lumbosacral region
CPT/HCPCS: 72100; 73565

== ENCOUNTER 2024-10-25 11:23 | Outpatient (AMB) | payer OTHER, SELFPAY ==
[2024-10-25 11:24] VITALS: BP 132/80; PULSE 76; RESP 20; TEMP 36.7; O2SAT 97; BMI 45.7
--- NOTE | 2024-10-25 11:24 | A.OFFPC_ITS ---
Vital Signs 10/25/24 11:24 Height 5 ft 4 in Weight 266 lb BMI 45.7 BP 132/80 Blood Pressure Location Lt brachial Position Sitting Respiration 20 Pulse 76 Pulse Source Pulse Oximeter Temp 98.1 F Temp Source Oral Pulse Oximetry (%) 97 Oxygen Delivery Method Room Air Intake Visit Reasons: knee pain Intake Note: Pt is here today for a sick visit. Pt c/o L knee pain. Pt also c/o pain in her feet. Allergies meloxicam [MELOXICAM] Allergy (Intermediate, Verified 10/25/24 11:32) HYPERTENSION, flactuating BP, elevated bp amlodipine Adverse Reaction (Intermediate, Verified 10/25/24 11:32) Edema Medication List - Last Reconciled 10/25/24 by Mackenzie Duncan MD acetaminophen 1,000 mg (2 x 500 mg) PO Q6H PRN amlodipine 2.5 mg PO DAILY lorazepam 0.5 mg PO DAILY PRN metoprolol succinate ER 75 mg (1.5 x 50 mg) PO DAILY olmesartan-hydrochlorothiazide 40-25 mg 1 tab PO DAILY rosuvastatin 20 mg PO DAILY rosuvastatin (Crestor) 10 mg PO DAILY Synthroid (levothyroxine) 175 mcg PO QAM NS [vitamin b12 1,000 mg 5 tablets a day] Zepbound (tirzepatide (weight loss)) 2.5 mg (0.5 mL) subcut QWEEK NS Tobacco use date assessed: 10/25/24 Dental Screening Dental Screen Date: 10/25/24 Did you have a dental visit in the last 12 months?: Yes Did you have a dental problem in the last 6 months where you did not have access to dental care?: No Was dental information given to patient?: Patient has dentist HPI knee pain HPI Details Pt c/o new onset L knee pain x 3 weeks. She denies any injury joint swelling erythema or warmth but reports stiffness and worse pain when walking. Patient complains of bilateral feet numbness tingling sensation worse in the morning when getting up patient denies any difficulty with the balance. She reports chronic lower back pain occasionally radiating to lower extremities but denies weakness in extremities change in bowel or bladder function. Patient complains of lower extremity pain worse after walking longer distance relief with the rest. She has been increasing physical activity decreasing caloric intake and has been trying to lose weight for over 6 months unsuccessfully. She would like to try GLP 1 agonist to facilitate weight loss. [facility] Medical History Thyroid nodule Annual physical exam (~02/17/22) Normal colonoscopy Hyperlipidemia Sleep apnea Menorrhagia Chronic iron deficiency anemia Multinodular goiter Hypothyroidism Anxiety and depression Obesity HTN (hypertension) Surgical History History of esophagogastroduodenoscopy (EGD) No pertinent past surgical history Family History Father No problems noted. Mother No problems noted. Sister No problems noted. Sister No problems noted. Son No problems noted. Social History Housing: House Alcohol intake: never Patient Tobacco Use Status: Never used Tobacco e-Cigarette/Vaping Use: Never Used service: No Current occupational status: employed Cognitive needs: No Hearing needs: No Vision needs: No Questionnaire Thrive Questionnaire Date Thrive assessed: 08/18/24 I am a: Patient What is your living situation today?: I have a steady place to live Within the past 12 months, did the food you bought not last and you didn't have the money to get more?: I choose not to answer this question Within the past 12 months, did you worry whether your food would run out before you got money to buy more?: I choose not to answer this question Do you have trouble paying for medicines?: I choose not to answer this question Do you have trouble getting transportation to medical appointments?: No Do you have trouble paying your heating and electricity bill?: No Do you have trouble taking care of your child, family member or friend?: No Do you have trouble with day-to-day activities such as bathing, preparing meals, shopping, managing finances, etc.?: No Are you currently unemployed and looking for a job?: No Are you interested in more education?: No Please select the resources that you would like help with: None Currently or been in a relationship where the following occur: I choose not to answer THRIVE Score: 0 TITO-7 AMB Questionnaire TITO-7 Date TITO - 7 assessed: 08/18/24 Source: Developed by Drs. Dominik Avelar, Lauryn Royal, Sundar Mukherjee and colleagues, with an educational belia from [employer]. Review of Systems Const All systems reviewed & are unremarkable except as noted in HPI and below Eyes Reports no additional complaints ENT Reports no additional complaints Resp Reports no additional complaints GI Reports no additional complaints Reports no additional complaints Physical exam (Primary Care) Vital Signs: Last Vital Signs Temp 98.1 F 10/25/24 11:24 Pulse 76 10/25/24 11:24 Resp 20 10/25/24 11:24 BP 132/80 10/25/24 11:24 Pulse Ox 97 10/25/24 11:24 Oxygen Delivery Method Room Air 10/25/24 11:24 BMI result Body Mass Index 45.7 Tobacco/Smoking Status: Tobacco use Status Tobacco use date assessed 10/25/24 10/25/24 11:34 Patient Tobacco Use Status Never used Tobacco 10/25/24 11:24 e-Cigarette/Vaping Use Never Used 10/25/24 11:24 Thrive Assessment: Date of Thrive Assessment Date Thrive assessed 08/18/24 10/25/24 11:24 Currently or been in a relationship where the following occur: I choose not to answer Const General: no acute distress HENMT Head: Yes normal to inspection Throat: Yes posterior oropharynx normal Resp Effort & Inspection: normal respiratory effort Auscultation: clear to auscultation bilaterally Cardio Rhythm: regular rhythm Heart sounds: S1 normal heart sound present and S2 normal heart sound present Back/Spine/Pelvis Other: Lower lumbar spinal paraspinal tenderness slight right rising 90 degrees bilaterally. There is decreased range of motion and crepitus in left knee no soft tissue swelling erythema or warmth Coding Level of Care Code Est Pt Level 4 (68044) Diagnoses Knee pain, bilateral M25.561; M25.562 Knee pain, left M25.562 DJD (degenerative joint disease), lumbosacral M47.817 Neuropathy of both feet G57.93 Obesity E66.9 Assessment & Plan Assessment & Plan (1) Knee pain, bilateral: Code(s): M25.561 - Pain in right knee; M25.562 - Pain in left knee Category: Medical Plan: Obtain x-rays of both knees (2) Knee pain, left: Code(s): M25.562 - Pain in left knee Category: Medical Plan: Check x-ray patient has advanced osteoarthritis she will 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 orthopedic surgeon for cortisone injection, otherwise physical therapy was recommended, meloxicam 7.5 mg daily as prescribed (3) DJD (degenerative joint disease), lumbosacral: Code(s): M47.817 - Spondylosis without myelopathy or radiculopathy, lumbosacral region Category: Medical Plan: Check x-ray of lumbar spine patient declined physical therepy (4) Neuropathy of both feet: Code(s): G57.93 - Unspecified mononeuropathy of bilateral lower limbs Category: Medical Plan: Check nerve conduction study to evaluate for peripheral neuropathy (5) Obesity: Comment: BMI 45.7 10/2024 Code(s): E66.9 - Obesity, unspecified Category: Medical Plan: For morbid obesity Zepbound 2.5 mg weekly will be started. Side effects discussed with the patient. Orders: Orders XR knee standing BI Today M25.561 - Pain in right knee, M25.562 - Pain in left knee XR lumbar spine 2-3V Today M25.562 - Pain in left knee, M47.817 - Spondylosis without myelopathy or radiculopathy, lumbosacral region US arterial duplex LE BI Today M25.561 - Pain in right knee, M25.562 - Pain in left knee XR knee LT 3V Today M25.562 - Pain in left knee, M47.817 - Spondylosis without myelopathy or radiculopathy, lumbosacral region Vitamin B12 and Folate Today E53.8 - Deficiency of other specified B group vitamins NE nerve conduction velocity Today G57.93 - Unspecified mononeuropathy of bilateral lower limbs Medications: New Zepbound (tirzepatide (weight loss)) 2.5 mg (0.5 mL) subcut QWEEK 2 mL 1RF NS meloxicam 7.5 mg PO DAILY 30 tabs 0RF
--- OUTSIDE RECORDS SUMMARY | 2024-10-25 13:56 | XMS_ITS | Patient Health Record ---
Author Organization [facility] Address [address] [facility] [place] [address] Care Team Providers Care Bacteriology Research Assistant Name Role Phone Mackenzie Duncan MD Primary Care Provider Unavaila ble Black, Amy Unavailable [phone] Allergies Allergen (clinical drug ingredient) Drug/Non Drug [...] 2.5 MG Oral for 30 Days Active Gabapentin 300 MG 1 capsule Orally at bedtime for 30 days 08/10/2024 Not-Taking Metoprolol & Diet Manage Prod Active Levothyroxine Sodium 175 MCG 1 tablet in the morning on an empty stomach Orally Once a day for 30 day(s) 02/07/2024 Active Pravastatin Sodium 20 MG 1 tablet Orally Once a day Active Olmesartan Medoxomil-HCTZ 40-25 MG 1 tablet Orally Once a day Active Ciclopirox 8 % 1 application Externally Once a day- remove mediation once a week with nail sinhala remover or rubbing alcohol for 30 days 09/21/2024 Active Medrol 4 MG as directed Orally daily for 6 days 09/21/2024 Active Social History Tobacco Use: Social History [...] Problem Acquired hammer toe of right foot (3190956580453606) Hammer toe of right foot (M20.41) Active confirmed Problem Acquired hammer toe of left foot (7784156248460122) Hammer toe of left foot (M20.42) Active confirmed Problem [id number] Neuropathy (G62.9) Active confirmed Problem Mononeuropathy of lower limb (967484796) Neuritis of left foot (G57.92) Active confirmed Vital Signs Blood pressure diastolic 80 mm Hg 09/21/2024 Height 5ft4in in 09/21/2024 Blood pressure systolic 140 mm Hg 09/21/2024 Weight 265 lbs 09/21/2024 BMI 45.48 kg/m2 09/21/2024 Encounters Encounter Location Date Provider Diagnosis [facility] [address] 04/27/2024 Amy Black Ingrown nail L60.0 ; Neuritis M79.2 ; Metatarsalgia of left foot M77.42 ; Metatarsalgia of right foot M77.41 ; Hammer toe of left foot M20.42 ; Hammer toe of right foot M20.41 ; Pain in right foot M79.671 ; Pain in left toe(s) M79.675 ; Pain in right toe(s) M79.674 and Pain in left foot M79.[address] [facility] [address] 08/10/2024 Amy Black Neuritis M79.2 ; Neuropathy G62.9 ; Pain in right foot M79.671 ; Pain in left foot M79.672 ; Neuropathic pain M79.2 ; Metatarsalgia of left foot M77.42 and Metatarsalgia of right foot M77.[address] [facility] [address] 09/21/2024 Amy Black Neuritis M79.2 ; Neuropathy G62.9 ; Pain in right foot M79.671 ; Pain in left foot M79.672 ; Neuropathic pain M79.2 ; Pain in right toe(s) M79.674 ; Onychomycosis B35.1 ; Pain in left toe(s) M79.675 ; Metatarsalgia of left foot M77.42 and Metatarsalgia of right foot M77.[address] [address] 01/13/2024 Amyjosé luis Rodriguez [address] [address] 04/27/2024 Amyjosé luis Rodriguez [address] [address] 09/21/2024 Amy Rodriguez Assessments Encounter Date Diagnosis (ICD Code) Assessment Notes Treatment Notes Treatment Clinical Notes Section Notes 04/27/2024 Ingrown nail (ICD-10 - L60.0) 04/27/2024 Neuritis (ICD-10 - M79.2) 08/10/2024 Neuritis (ICD-10 - M79.2) 08/10/2024 Neuropathy (ICD-10 - G62.9) 09/21/2024 Neuritis (ICD-10 - M79.2) 09/21/2024 Neuropathy (ICD-10 - G62.9) 04/27/2024 Metatarsalgia of left foot (ICD-10 - M77.42) 09/21/2024 Pain in right foot (ICD-10 - M79.671) 08/10/2024 Pain in right foot (ICD-10 - M79.671) 04/27/2024 Metatarsalgia of right foot (ICD-10 - M77.41) 08/10/2024 Pain in left foot (ICD-10 - M79.672) 09/21/2024 Pain in left foot (ICD-10 - M79.672) 08/10/2024 Neuropathic pain (ICD-10 - M79.2) 04/27/2024 Hammer toe of left foot (ICD-10 - M20.42) 09/21/2024 Neuropathic pain (ICD-10 - M79.2) 04/27/2024 Hammer toe of right foot (ICD-10 - M20.41) 08/10/2024 Metatarsalgia of left foot (ICD-10 - M77.42) 09/21/2024 Pain in right toe(s) (ICD-10 - M79.674) 09/21/2024 Onychomycosis (ICD-10 - B35.1) 08/10/2024 Metatarsalgia of right foot (ICD-10 - M77.41) 04/27/2024 Pain in right foot (ICD-10 - M79.671) 04/27/2024 Pain in left toe(s) (ICD-10 - M79.675) 09/21/2024 Pain in left toe(s) (ICD-10 - M79.675) 09/21/2024 Metatarsalgia of left foot (ICD-10 - M77.42) 04/27/2024 Pain in right toe(s) (ICD-10 - M79.674) 04/27/2024 Pain in left foot (ICD-10 - M79.672) 09/21/2024 Metatarsalgia of right foot (ICD-10 - M77.41) Plan Of Treatment Pending Test Test Name Order Date 31905-Azylzosv Plate 05/02/2013 [id number]-Ndyclpco Plate 11/22/2013 [id number]-Qfvgzvwt Plate 02/01/2014 94828- Debride <25 sq cm 05/15/2013 96054 I&D ABSCESS- SIMPLE,SINGLE 014 78318 I&D ABSCESS- SIMPLE,SINGLE 013 Next Appt Details Provider Name:Amy Campbell Michael , 12/05/2024 03:30:00 PM, [address] [place] [address], [place], [address], Insurance Providers Payer Name Payer Address Payer Phone Subscriber Number Group Number Insured Name Patient Relationship to Insured Coverage Start Date Coverage End Date [facility] [address] [place] [phone] [id number] Luc Hurley Spouse - patient is the spouse of the insured Medical (General) History Medical History History ICD Code gall bladder problems hypertension thyroid disorder chicken pox Anemia Knee Pain covid-19 Surgical History Surgery Date(Month/Year) gall stones 06/2012 gall bladder 2020
--- OUTSIDE RECORDS SUMMARY | 2024-10-25 13:56 | XMS_ITS ---
Author Organization [facility] Address [address] [facility] [address] Care Team Providers Care Pulverizing And Sifting Operator Name Role Phone Mackenzie Duncan MD Primary Care Provider Unavaila Amy Michelle Unavailable [phone] REASON FOR VISIT BUY Pedag Viva Mini (moss) #39 / L9 Encounters Encounter Location Date Provider Diagnosis [facility] [address] [place] [address] 09/21/2024 Amy Rodriguez Plan Of Treatment Next Appt Details Provider Name:Amy Rodriguez , 12/05/2024 03:30:00 PM, [address], [place], [address], Progress Notes * Denisse SCHMITTDOB: (54 yo F)Acc No.[id number]:09/21/2024 Patient:?Gómez SCHMITT :1970???Age:54 Y???Sex:Female [address] [place], [address] * true * Date:? Generated for Printi ng/Faxing/eTransmitting on:?10/25/2024 01:56 PM EDT
--- OUTSIDE RECORDS SUMMARY | 2024-10-25 13:56 | XMS_ITS ---
Author Organization [facility] Address [address] [facility] [address] Care Team Providers Care Breastfeeding Educator Name Role Phone Mackenzie Duncan MD Primary Care Provider Unavaila ble Black, Amy Unavailable [phone] Allergies Allergen (clinical drug ingredient) Drug/Non Drug Allergy documented on EMR Reaction Allergy Type Onset Date Status amoxicillin / clavulanate Augmentin rash Drug Allergy Active lisinopril Lisinopril cough Drug Allergy Activ e meloxicam Meloxicam elevated hypertension Drug Allergy Active salmeterol Serevent Diskus chest pain/sob Drug Allergy Active amlodipine Amlodipine edema Drug Allergy Activ e REASON FOR VISIT Foot pain, Painful Nail(s) aggrevated by shoes and causing difficulty standing/walking. Medications Medication SIG (Take, Route, Frequency, Duration) [...] 1 tablet Orally Once a day Active Pravastatin Sodium 20 MG 1 tablet Orally Once a day Active Ciclopirox 8 % 1 application Externally Once a day- remove mediation once a week with nail andorran remover or rubbing alcohol for 30 days 09/21/2024 Active Medrol 4 MG as directed Orally daily for 6 days 09/21/2024 Active Social History Tobacco Use: Social History Observation Description Date Details (start date - stop date) Never Smoker NA - NA Tobacco Use/Smoking Question Answer Notes Are you a: nonsmoker Additional Findings: Tobacco Non-User Current no n-smoker Vital Signs Height 5ft4in in 09/21/2024 Weight 265 lbs 09/21/2024 BMI 45.48 kg/m2 09/21/2024 Blood pressure systolic 140 mm Hg 09/21/19 25 Blood pressure diastolic 80 mm Hg 025 Encounters Encounter Location Date Provider Diagnosis [facility] [address] [place] [address] 09/21/2024 Amy Black Neuritis M79.2 ; Neuropathy [...] Treatment Notes Treatment Clinical Notes Section Notes 09/21/2024 Neuritis (ICD-10 - M79.2) 09/21/2024 Neuropathy (ICD-10 - G62.9) 09/21/2024 Pain in right foot (ICD-10 - M79.671) 09/21/2024 Pain in left foot (ICD-10 - M79.672) 09/21/2024 Neuropathic pain (ICD-10 - M79.2) 09/21/2024 Pain in right toe(s) (ICD-10 - M79.674) 09/21/2024 Onychomycosis (ICD-10 - B35.1) 09/21/2024 Pain in left toe(s) (ICD-10 - M79.675) 09/21/2024 Metatarsalgia of left foot (ICD-10 - M77.42) 09/21/2024 Metatarsalgia of right foot (ICD-10 - M77.41) Plan Of Treatment Medication Medication Name Sig Start Date Stop Date Notes Ciclopirox 8 % 1 application [employer] Associate ally Once a day- remove mediation once a week with nail andorran remover or rubbing alcohol for 30 days 09/21/2024 Medrol 4 MG as directed Orally daily for 6 days 09/21/2024 Next Appt Details Follow Up: 6 Weeks, Reason: Provider Name:Amy Rodriguez , 12/05/2024 03:30:00 PM, [address], [place], [address], Progress Notes * Denisse SCHMITTDOB: (54 yo F)Acc No.[id number]:09/21/2024 Progress Notes Patient:?Gómez SCHMITT Provider:?Amy Rodriguez DPM :1970???Age:54 Y???Sex:Female D ate:09/21/2024 Address: [address] [facility] Pcp:Mackenzie Duncan MD Subjective: * Chief Complaints: * ???Foot painPainful Nail(s) aggrevated by shoes and causing difficulty standing/walking. * HPI: ???Foot Pain:?Nature:?burning, tingling, shooting, radiating.?Location:?, B/L , Ball of foot.?Duration:?, several months.?Onset:?unknown.?Course:?worse.?Aggravated:?any pressure.?Treatments:?rest/alter normal daily activity,pedag inserts,topical pain medication (voltaren gel and biofreeze) Pt did not take recomm. gabapentin(due to her PCP did not advise it) Pt not wearing her inserts.?Severity/Quality:?severe.?Misc:?Pt States Last PCP Visit -01/28/2024.?Bcck pain still present. ???Painful Nails:?Pt States Last PCP Visit:?Date:?08/09/2024 * ROS:?General/Constitutional:?Nausea?denies.?Vomiting?denies.?Hunger Thirst?denies.?Loss appetite?denies.?Chills?denies.?Fatigue?denies.?Fever?denies.?Night Sweats?admits.?Unexplained weight loss?denies.?Unexplained [...] Procedure:?Denies Past Hospitalization * Family History:?Mother: nava e, poor circulation, diagnosed with Unspecified essential hypertension, Unspecified cerebral artery occlusion with cerebral infarction, Diabetic - NIDDM.?Father: , diagnosed with Unspecified essential hypertension.?Siblings: hypertension, cancer.?Spouse: diagnosed with Other malignant neoplasm of unspecified site, Unspecified essential hypertension.? * Social History:?Tobacco Use:?Tobacco Use/Smoking?Are you a:?nonsmoker ?Additional Findings: Tobacco Non-User?Current non-smoker ???Miscellaneous:?Caffeine: yes. ?Children: yes, One. ?Exercise: no, none. ?Marital status: . 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 * Medications:?TakingPravastat in Sodium 20 MG Tablet 1 tablet Orally Once a day Olmesartan Medoxomil-HCTZ 40-25 MG Tablet 1 tablet Orally Once a day Metoprolol & Diet Manage Prod Levothyroxine Sodium 175 MCG Tablet 1 tablet in the morning on an empty stomach Orally Once a day amLODIPine Besylate 2.5 MG Tablet Oral Taking Pravastatin Sodium 20 MG Tablet 1 tablet Orally Once a day Taking Olmesartan Medoxomil-HCTZ 40-25 MG Tablet 1 tablet Orally Once a day Taking Metoprolol & Diet Manage Prod Taking Levothyroxine Sodium 175 MCG Tablet 1 tablet in the morning on an empty stomach Orally Once a day Taking amLODIPine Besylate 2.5 MG Tablet Oral Not-Taking/PRNGabapentin 300 MG Capsule 1 capsule Orally at bedtime Medication List reviewed and reconciled with the patientNot-Taking/PRN Gabapentin 300 MG Capsule 1 capsule Orally at bedtime Medication List reviewed and reconciled with the [...] 2-5 b/l.?FOOTWEAR:?shoe gear properties exacerbate patients foot/toe deformity.?Nails: ?NAILS are:?Elongated, overgrown, dystrophic, lytic, greater than 3mm thick, discolored and friable with crumbly malodorous subungual debris, with pain on palpation, TA, T1, T2, T3, T4, T5, T6, T7, T8, T9.? Assessment: * Assessment: 1.?Neuritis - M79.2???Specif y :Acute problem, Complicated w/ Multiple Tx Options(4)???2.?Neuropathy - G62.9 (Primary)???3.?Pain in right foot - M79.671???Specify :Chronic problem, Worse (4) Rx Management (4)???4.?Pain in left foot - M79.672???5.?Neuropathic pain - M79.2???6.?Pain in right toe(s) - M79.674???7.?Onychomycosis - B35.1???8.?Pain in left toe(s) - M79.675???9.?Metatarsalgia of left foot - M77.42???Specify :Nonadherent to recommendations???10.?Metatarsalgia of right foot - M77.41???Specify :Nonadherent to recommendations??? Plan: * Treatment: 2.?Onychomycosis? Start Ciclopirox Solution, 8 %, 1 application, Externally, Once a day- remove mediation once a week with nail andorran remover or rubbing alcohol, 30 days, 6.6, Refills 3.?? * Procedure Codes:? * Preventive Medicine:? ??Counseling:?Discussion:?-14: [...] have encouraged the patient to call the office.?Fungal Nail Counseling:?The patient was counseled on the diagnosis, potential etiologies (including, but not limited to, environmental factors, genetic, immune deficiency), and the multiple treatment options for Onychomycosis. We discussed the risks and benefits of each option from performing no treatment, to ultraviolet light shoe treatment, to laser nail treatment, to applying topical antifungals, to taking oral antifungal medication, to surgical removal of the involved nail(s) with or without performing a matricectomy, or any combination thereof. We discussed the advantages and disadvantages of each of possible treatment and importance for adherence to all the recommended therapies for optimum success. This includes the necessity for weekly emery board self nail home debridements, and control the nail and skin environment as much as possible by only using a fresh, dry pair of shoes/socks each day, as well as keeping the skin as dry as possible through the use of sprays/powders if necessary. The patient was instructed to discard the emery board after use to prevent reinfection of the involved nail(s). We discussed the mycological and visual clinical effectiveness of topical vs oral antifungal treatments as well as each ones potential side effects and/or any patient- specific medication interactions. We discussed the reasons behind the important requirement of regular liver function testing with oral antifungal therapy for safety. Patient questions regarding use, dosage, successful outcomes, blood tests, and possible pharmaceutical interactions were reviewed and the patient verbalized that all answers were clearly understood, Ciclopirox Solution 8 percent 1 application daily, remove once a week was sent to the pharmacy.?Neuritis/Neuropathy:?Discussed other tx options for the patients condition, given recent successful results to treatment, the patient wishes to continue with the present plan for their condition, Recommended Topical analgesics including aspercream/Voltaren gel/Lidoderm patches.?Orthotics:?I explained to the patient the benefits of OT use. I explained that orthoses are medically necessary to decrease the foot pain through proper mechanical control, support of their foot, decrease pain under the painful metatarsal by supplementing the soft tissue, possibly prevent surgery. Pt is refitted for inserts due to she lost them.?Treatment:?The plan is to treat this patient with conservative and restorative nonsurgical treatment to help alleviate the patient's symptomatology by utilizing some or all of the standard podiatric medical care - e.g.- palliation, orthotics, injections, physical therapy and the use of padding and strapping.Short term goals: Our plan is to decrease pain and inflammation, to improve ambulation, to allow the patient to return to normal activities and work, and to prevent further disability.oysterman goals: Our plan is for the patient to resume normal foot function, be weight bearing, and to prevent surgical intervention. We will reevaluate the patients progress as needed until symptoms complex subsides or is resolved.? ??Screening/Special Tests:?Fall Risk?Screening:?No falls in the past year ?FALLS: Screening for Future Fall Risk?Have you had any falls with injury in the past year??No * Follow Up:?6 Weeks * Images: * Sign off status: Completed true * Provider:?Amy Rodriguez DPM Date:?2024 Generated for Zan lopez/Valentin/Sanjana on:?10/25/2024 01:56 PM EDT History and Physical Notes * HPI (History of Present Illness) Category Sub-Category Detail Notes Category Not es Painful Nails Pt States Last PCP Visit: Date:: 08/09/2024 Foot Pain Nature: burning, tinglin g, shooting, radiating Bcck pain still present Location: , B/L , Ball of foot Duration: , several months Onset: unknown Course: worse Aggravated: any pressure Treatments: rest/alter normal da ariel activity,pedag inserts,topical pain medication (voltaren gel and biofreeze) Pt did not take recomm. gabapentin(due to her PCP did not advise it) Pt not wearing her inserts Severity/Quality: severe Misc: Pt States Last PCP [...] Planus structure , , Semi-rigid , B/L FOOTWEAR EVALUATION: shoe gear propertie s exacerbate patients foot/toe deformity DIGITAL DEFORMITIES: Digital [...] and t neida Nails NAILS are: Elongated, overg rown, dystrophic, lytic, greater than 3mm thick, discolored and friable with crumbly malodorous subungual debris, with pain on palpation, TA, T1, T2, T3, T4, T5, T6, T7, T8, T9
--- OUTSIDE RECORDS SUMMARY | 2024-10-25 13:57 | XMS_ITS ---
Author Organization [facility] Address [address] [facility] [place] [address] Care Team Providers Care Administration Vice President Name Role Phone Mackenzie Duncan MD Primary Care Provider Unavaila ble Black, Amy Unavailable [phone] Allergies Allergen (clinical drug ingredient) Drug/Non Drug [...] Problem Status W/U Status Risk Notes Problem [id number] Neuropathy (G62.9) Active confirmed Vital Signs Height 5ft4in in 08/10/2024 Weight 265 lbs 08/10/2024 BMI 45.48 kg/m2 08/10/2024 Blood pressure systolic 140 mm Hg 08/10/19 25 Blood pressure diastolic 80 mm Hg 025 Encounters Encounter Location Date Provider Diagnosis [facility] [address] [address] 08/10/2024 Amy Rodriguez Neuritis M79.2 ; Neuropathy [...] 2 Months, Reason: Provider Name:Amy Rodriguez , 12/05/2024 03:30:00 PM, [address] [facility], [place], [address], Progress Notes * Gorge SCHMITT: (54 yo F)Acc No.[id number]:08/10/2024 Progress Note Patient:?Gómez SCHMITT Provider:?Amy Rodriguez DPM :1970???Age:54 Y???Sex:Female D ate:08/10/2024 Address:[address], [place] , [place] Pcp:Mackenzie Duncan MD Subjective: * Chief Complaints: [...]
== END 2024-10-25 12:31 | disposition home or self-care (01) ==
LOC: HO.HMCC 11:23
PROVIDERS: PCP Internal Medicine; Visit Provider Internal Medicine
DX: M25.561 Pain in right knee (principal); M25.562 Pain in left knee; E66.9 Obesity, unspecified; Z68.42 Body mass index [BMI] 45.0-49.9, adult; M47.817 Spondylosis without myelopathy or radiculopathy, lumbosacral region; G57.93 Unspecified mononeuropathy of bilateral lower limbs

== ENCOUNTER → 2024-10-25 11:23 | Outpatient (BNVA) | payer OTHER, SELFPAY | PROVIDERS: PCP Internal Medicine; Visit Provider Internal Medicine ==

== ENCOUNTER → 2024-10-25 16:47 | Outpatient (BNV) | payer OTHER, SELFPAY | PROVIDERS: PCP Internal Medicine; Visit Provider Radiology Diagnostic Radiology | DX: M47.817 Spondylosis without myelopathy or radiculopathy, lumbosacral region (principal) | CPT/HCPCS: 72100 ==

== ENCOUNTER 2024-11-16 14:21 | Outpatient (REF) | payer OTHER, SELFPAY ==
[2024-11-16 16:15] LABS: Uric Acid 5.4 mg/dL (2.4-5.7)
[2024-11-16 16:47] LABS: Folate 8.5 ng/mL (> or = 4.0); Vitamin B12 717 pg/mL (200-900)
--- OUTSIDE RECORDS SUMMARY | 2024-11-16 16:52 | XMS_ITS ---
Author Organization [facility] Address [address] [facility] [place] [address] Care Team Providers Care Pulley Maintainer Name Role Phone Mackenzie Duncan MD Primary Care Provider Unavaila Amy Michelle Unavailable [phone] REASON FOR VISIT BUY Pedag Viva Mini (moss) #39 / L9 Encounters Encounter Location Date Provider Diagnosis [facility] [address] [place] [address] 09/21/2024 Amy Rodriguez Plan Of Treatment Next Appt Details Provider Name:Amy Rodriguez , 12/05/2024 03:30:00 PM, [address] [facility], [place], [address], Progress Notes * Denisse SCHMITTDOB: (54 yo F)Acc No.[id number]:09/21/2024 Patient:?Gómez SCHMITT :1970???Age:54 Y???Sex:Female [address] [place], [address] * true * Date:? Generated for Printi ng/Faxing/eTransmitting on:?11/16/2024 04:52 PM EDT
--- OUTSIDE RECORDS SUMMARY | 2024-11-16 16:52 | XMS_ITS ---
Author Organization [facility] Address [address] [facility] [place] [address] Care Team Providers Care Study Hall Supervisor Name Role Phone Mackenzie Duncan MD Primary Care Provider Unavaila ble Black, Amy Unavailable [phone] Allergies Allergen (clinical drug ingredient) Drug/Non Drug Allergy documented on EMR Reaction Allergy Type Onset Date Status amoxicillin / clavulanate Augmentin rash Drug Allergy Active Lisinopril cough Drug Allergy Active meloxicam Meloxicam elevated hypertension Drug Allergy Active [...] remove mediation once a week with nail kosovan remover or rubbing alcohol for 30 days [...] 025 Encounters Encounter Location Date Provider Diagnosis [facility] [address] [place] [address] 09/21/2024 Amy Black Neuritis M79.2 ; Neuropathy [...] Date Notes Ciclopirox 8 % 1 application Recorder Helper [employer] ally Once a day- remove mediation once a week with nail kosovan remover or rubbing alcohol for 30 days 09/21/2024 Medrol 4 MG as directed Orally daily for 6 days 09/21/2024 Next Appt Details Follow Up: 6 Weeks, Reason: Provider Name:Amy Rodriguez , 12/05/2024 03:30:00 PM, [address] [facility], [place], [address], Progress Notes * Denisse SCHMITTDOB: (54 yo F)Acc No.[id number]:09/21/2024 Progress Notes Patient:?Gómez SCHMITT ta Provider:?Amy DAMIÁN Rodriguez :1970???Age:54 Y???Sex:Female D ate:09/21/2024 Address:[address] [place] [address] [address] [facility] Pcp:Mackenzie Duncan MD Subjective: * Chief [...] stic Procedure:?Denies Past Hospitalization * Family History:?Mother: aliester e, poor circulation, diagnosed with Unspecified essential hypertension, Unspecified cerebral artery occlusion with cerebral infarction, Diabetic - NIDDM.?Father: , diagnosed with Unspecified essential hypertension.?Siblings: hypertension, cancer.?Spouse: diagnosed with Other malignant neoplasm of unspecified site, Unspecified essential hypertension.? * Social History:?Tobacco Use:?Tobacco Use/Smoking?Are you a:?nonsmoker ?Additional Findings: Tobacco Non-User?Current non-smoker ???Miscellaneous:?Caffeine: yes. ?Children: yes, One. ?Exercise: no, none. ?Marital status: . 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 * Medications:?TakingPravastat in Sodium 20 MG Tablet [...] remove mediation once a week with nail kosovan remover or rubbing alcohol, 30 days, 6.6, [...] activities and work, and to prevent further disability.keno terminal operator goals: Our plan is for the patient [...] Rodriguez DPM Date:?2024 Generated for Zan lopez/Valentin/Sanjana on:?11/16/2024 04:52 PM EDT History and Physical Notes * [...]
--- OUTSIDE RECORDS SUMMARY | 2024-11-16 16:53 | XMS_ITS | Patient Health Record ---
Author Organization [facility] Address [address] [facility] [place] [address] Care Team Providers Care English And Reading Instructor Name Role Phone Mackenzie Duncan MD Primary Care Provider Unavaila ble Black, Amy Unavailable [phone] Allergies Allergen (clinical drug ingredient) Drug/Non Drug Allergy documented on EMR Reaction Allergy Type Onset Date Status amoxicillin / clavulanate Augmentin rash Drug Allergy Active Lisinopril cough Drug Allergy Active meloxicam Meloxicam elevated hypertension Drug Allergy Active salmeterol Serevent Diskus chest pain/sob Drug Allergy Active amlodipine Amlodipine edema Drug Allergy Activ e Results Component Value Reference Range Notes X ray : Foot, right 3V Reviewed date:04/27/2024 12:42:04 PM Interpretation:See Examination above Performing Lab: Notes/Report: See Examination above X ray : Foot, left 3V Reviewed [...] remove mediation once a week with nail australian remover or rubbing alcohol for 30 days [...] Problem Acquired hammer toe of right foot (7529147798466186) Hammer toe of right foot (M20.41) Active confirmed Problem Acquired hammer toe of left foot (3490329137176356) Hammer toe of left foot (M20.42) Active confirmed Problem 812758653 Neuropathy (G62.9) Active confirmed Problem Mononeuropathy of lower limb (459038042) Neuritis of left foot (G57.92) Active confirmed Vital Signs Blood pressure diastolic 80 mm Hg 09/21/2024 Height 5ft4in in 09/21/2024 Blood pressure systolic 140 mm Hg 09/21/2024 Weight 265 lbs 09/21/2024 BMI 45.48 kg/m2 09/21/2024 Encounters Encounter Location Date Provider Diagnosis [facility] [address] 04/27/2024 Amy Black Ingrown nail L60.0 ; Neuritis M79.2 ; Metatarsalgia of left foot M77.42 ; Metatarsalgia of right foot M77.41 ; Hammer toe of left foot M20.42 ; Hammer toe of right foot M20.41 ; Pain in right foot M79.671 ; Pain in left toe(s) M79.675 ; Pain in right toe(s) M79.674 and Pain in left foot M79.[address] [facility] [address] 08/10/2024 Amy Black Neuritis M79.2 ; Neuropathy G62.9 ; Pain in right foot M79.671 ; Pain in left foot M79.672 ; Neuropathic pain M79.2 ; Metatarsalgia of left foot M77.42 and Metatarsalgia of right foot M77.[address] [facility] [address] 09/21/2024 Amy Black Neuritis M79.2 ; Neuropathy G62.9 ; Pain in right foot M79.671 ; Pain in left foot M79.672 ; Neuropathic pain M79.2 ; Pain in right toe(s) M79.674 ; Onychomycosis B35.1 ; Pain in left toe(s) M79.675 ; Metatarsalgia of left foot M77.42 and Metatarsalgia of right foot M77.[address] [address] 01/13/2024 Amyjosé luis Rodriguez [address] [address] 04/27/2024 Amy Rodriguez [address] [address] 09/21/2024 Amy Rodriguez Assessments Encounter Date Diagnosis [...] Treatment Pending Test Test Name Order Date 88810-Fmhphffq Plate 05/02/2013 48843-Chbagocp Plate 11/22/2013 25652-Iabciftv Plate 02/01/2014 64095- Debride <25 sq cm 05/15/2013 16054 I&D ABSCESS- SIMPLE,SINGLE 014 40990 I&D ABSCESS- SIMPLE,SINGLE 013 Next Appt Details Provider Name:Amy Campbell Michael , 12/05/2024 03:30:00 PM, [address] [place] [address], [place], [address], Insurance Providers Payer Name Payer Address Payer Phone Subscriber Number Group Number Insured Name Patient Relationship to Insured Coverage Start Date Coverage End Date [facility] [address] TOSIN Moreno [phone] [id number] Luc Hurley Spouse - patient is the spouse of the insured Medical (General) History Medical History History ICD Code gall bladder problems hypertension thyroid disorder chicken pox Anemia Knee Pain covid-19 Surgical History Surgery Date(Month/Year) gall stones 06/2012 gall bladder 2020
--- OUTSIDE RECORDS SUMMARY | 2024-11-16 16:53 | XMS_ITS ---
Author Organization [facility] Address [address] [facility] [place] [address] Care Team Providers Care Catalyst Plant Supervisor Name Role Phone Mackenzie Duncan MD Primary Care Provider Unavaila ble Black, Amy Unavailable [phone] Allergies Allergen (clinical drug ingredient) Drug/Non Drug [...] Problem Status W/U Status Risk Notes Problem 875608466 Neuropathy (G62.9) Active confirmed Vital Signs Height 5ft4in in 08/10/2024 Weight 265 lbs 08/10/2024 BMI 45.48 kg/m2 08/10/2024 Blood pressure systolic 140 mm Hg 08/10/19 25 Blood pressure diastolic 80 mm Hg 025 Encounters Encounter Location Date Provider Diagnosis [facility] [place] [address] [place] [address] 08/10/2024 Amy Rodriguez Neuritis M79.2 ; Neuropathy [...] Name:Amy Rodriguez , 12/05/2024 03:30:00 PM, [address] [facility], [place], [address], Progress Notes * Gorge SCHMITT: (54 yo F)Acc No.[id number]:08/10/2024 Progress Note Patient:?Gómez SCHMITT Provider:?Amy Rodriguez DPM :1970???Age:54 Y???Sex:Female D ate:08/10/2024 Address:[address], [place] , [id number] Pcp:Mackenzie Duncan MD Subjective: * Chief Complaints: [...] stic Procedure:?Denies Past Hospitalization * Family History:?Mother: nvaa ordonez, poor circulation, diagnosed with Diabetic - [...]
== END 2024-11-16 14:22 | disposition home or self-care (01) ==
LOC: HO.HMGCLDS 14:21
PROVIDERS: PCP Internal Medicine; Visit Provider Internal Medicine
DX: E53.8 Deficiency of other specified B group vitamins (principal); M10.9 Gout, unspecified
CPT/HCPCS: 36415; 82607; 82746; 84550

== ENCOUNTER 2024-11-30 13:23 | Outpatient (REF) | payer OTHER, SELFPAY ==
--- NOTE | ~2024-11-30 | XR_ITS ---
EXAMINATION: XR KNEE, LEFT CLINICAL INFORMATION: M25.562 - Pain in left knee COMPARISON: 10/25/2024 TECHNIQUE: Three views of the left knee. FINDINGS: Normal bone mineralization. No fracture, dislocation, or suspicious bone lesion. Normal alignment. There is minimal medial patellofemoral compartment osteoarthrosis. The lateral compartment appears preserved. There is mild lateral patellar tilt present. There is a prominent suprapatellar joint effusion. Soft tissues otherwise appear normal. XR/XR knee LT 3V IMPRESSION: 1. No acute bony abnormalities. Suprapatellar joint effusion. 2. Mild osteoarthrosis in the medial and patellofemoral compartments. Electronically signed by: Michale Dumont MD 11/30/2024 02:28 PM EDT
--- NOTE | ~2024-11-30 | US_ITS ---
EXAMINATION: COLOR-FLOW DUPLEX IMAGING OF THE BILATERAL LOWER EXTREMITY ARTERIAL SYSTEM. VELOCITY MEASUREMENTS THROUGHOUT THE FEMORAL ARTERIES. CLINICAL INFORMATION: Pain in right knee. Hypertension, hyperlipidemia. FINDINGS: Atheromatous Plaque: Plaque is evident in the left common femoral artery. RIGHT FEMORAL RUNOFF VELOCITIES: The right common femoral artery measures 134 cm/s and triphasic. The right profunda femoral artery is 62 cm/s and is triphasic. The right proximal superficial femoral artery measures 87 cm/s and triphasic. The right mid superficial femoral artery is 77 cm/s and triphasic. The right distal right superficial femoral artery measures 109 cm/s and is triphasic. The right popliteal velocity measures 88 cm/s and is triphasic. The right posterior tibial artery velocity measures 110 cm/s and is biphasic. The right peroneal artery velocity measures 59 cm/s and is biphasic. The right anterior tibial artery velocity measures 41 cm/s, and is biphasic. The right dorsalis pedis artery measures 94 cm/s, and is biphasic. LEFT FEMORAL RUNOFF VELOCITIES: The left common femoral artery measures 134 cm/s and triphasic. The left profunda femoral artery is 83 cm/s and is likely biphasic. The left proximal superficial femoral artery measures 117 cm/s and triphasic. The left mid superficial femoral artery is 110 cm/s and triphasic. The left distal right superficial femoral artery measures 109 cm/s and is triphasic. The left popliteal velocity measures 80 cm/s and is triphasic. The left posterior tibial artery velocity measures 106 cm/s and is monophasic. The left peroneal artery measures 43 cm/s, and is triphasic. The left anterior tibial artery velocity measures 93 cm/s and is triphasic. The left dorsalis pedis artery measures 79 cm/s and is triphasic. US/US arterial duplex LE BI IMPRESSION: 1. Mild atheromatous plaque identified in the left common femoral artery. 2. No hemodynamically significant arterial stenosis bilaterally based upon velocity measurements and waveforms. See above for details. Electronically signed by: Michael Dumont MD 11/30/2024 03:28 PM EDT
--- OUTSIDE RECORDS SUMMARY | 2024-11-30 14:27 | XMS_ITS ---
Author Organization [facility] Address [address] [place] [address] Care Team Providers Care Tight Barrel Inspector Name Role Phone Mackenzie Duncan MD Primary Care Provider Unavaila ble Black, Amy Unavailable [phone] Allergies Allergen (clinical drug ingredient) Drug/Non Drug [...] Problem Status W/U Status Risk Notes Problem 513843571 Neuropathy (G62.9) Active confirmed Vital Signs Height 5ft4in in 08/10/2024 Weight 265 lbs 08/10/2024 BMI 45.48 kg/m2 08/10/2024 Blood pressure systolic 140 mm Hg 08/10/19 25 Blood pressure diastolic 80 mm Hg 025 Encounters Encounter Location Date Provider Diagnosis [facility] [address] [address] 08/10/2024 Amy Rodriguez Neuritis M79.2 ; Neuropathy [...] Name:Amy Rodriguez , 12/05/2024 03:30:00 PM, [address] [facility], [place], [address], Progress Notes * Gorge SCHMITT: (54 yo F)Acc No.[id number]:08/10/2024 Progress Note Patient:?Gómez SCHMITT Provider:?Amy Rodriguez DPM :1970???Age:54 Y???Sex:Female D ate:08/10/2024 Address:[address], [place] , [id number] Pcp:Mackenzie Duncan MD Subjective: * Chief Complaints: [...] Rodriguez DPM Date:?2024 Generated for Zan lopez/Valentin/Sanjana on:?11/30/2024 02:27 PM EDT History and Physical Notes * [...]
--- OUTSIDE RECORDS SUMMARY | 2024-11-30 14:27 | XMS_ITS | Patient Health Record ---
Author Organization [facility] Address [address] [facility] [place] [address] Care Team Providers Care Shoe Clerk Name Role Phone Mackenzie Duncan MD Primary Care Provider Unavaila ble Black, Amy Unavailable [phone] Allergies Allergen (clinical drug ingredient) Drug/Non Drug [...] remove mediation once a week with nail slovak remover or rubbing alcohol for 30 days [...] Problem Acquired hammer toe of right foot (1950185800205468) Hammer toe of right foot (M20.41) Active confirmed Problem Acquired hammer toe of left foot (1725107630226113) Hammer toe of left foot (M20.42) Active confirmed Problem 208160520 Neuropathy (G62.9) Active confirmed Problem Mononeuropathy of lower limb (196982992) Neuritis of left foot (G57.92) Active confirmed Vital Signs Blood pressure diastolic 80 mm Hg 09/21/2024 Height 5ft4in in 09/21/2024 Blood pressure systolic 140 mm Hg 09/21/2024 Weight 265 lbs 09/21/2024 BMI 45.48 kg/m2 09/21/2024 Encounters Encounter Location Date Provider Diagnosis [facility] [address] 04/27/2024 Amy Black Ingrown nail L60.0 ; Neuritis M79.2 ; Metatarsalgia of left foot M77.42 ; Metatarsalgia of right foot M77.41 ; Hammer toe of left foot M20.42 ; Hammer toe of right foot M20.41 ; Pain in right foot M79.671 ; Pain in left toe(s) M79.675 ; Pain in right toe(s) M79.674 and Pain in left foot M79.[address] [facility] [address] 08/10/2024 Amy Black Neuritis M79.2 ; Neuropathy G62.9 ; Pain in right foot M79.671 ; Pain in left foot M79.672 ; Neuropathic pain M79.2 ; Metatarsalgia of left foot M77.42 and Metatarsalgia of right foot M77.[address] [facility] [address] 09/21/2024 Amy Black Neuritis M79.2 ; Neuropathy G62.9 ; Pain in right foot M79.671 ; Pain in left foot M79.672 ; Neuropathic pain M79.2 ; Pain in right toe(s) M79.674 ; Onychomycosis B35.1 ; Pain in left toe(s) M79.675 ; Metatarsalgia of left foot M77.42 and Metatarsalgia of right foot M77.[address] [address] 01/13/2024 Amyjosé luis Rodriguez [address] [address] 04/27/2024 Amyjosé luis Rodriguez [address] [address] 09/21/2024 Amy Rodriguez Assessments Encounter Date Diagnosis [...] Treatment Pending Test Test Name Order Date [id number]-Nlbtnkzn Plate 05/02/2013 80751-Vgurbobq Plate 11/22/2013 90935-Vxaeehtj Plate 02/01/2014 21551- Debride <25 sq cm 05/15/2013 47425 I&D ABSCESS- SIMPLE,SINGLE 014 06775 I&D ABSCESS- SIMPLE,SINGLE 013 Next Appt Details Provider Name:Amy Campbell Michael , 12/05/2024 03:30:00 PM, [address] [place] [address], [place], [address], Insurance Providers Payer Name Payer Address Payer Phone Subscriber Number Group Number Insured Name Patient Relationship to Insured Coverage Start Date Coverage End Date [facility] [address] T[place] More[place] [phone] [id number] Luc Hurley Spouse - patient is the spouse of the insured Medical (General) History Medical History History ICD Code gall bladder problems hypertension thyroid disorder chicken pox Anemia Knee Pain covid-19 Surgical History Surgery Date(Month/Year) gall stones 06/2012 gall bladder 2020
--- OUTSIDE RECORDS SUMMARY | 2024-11-30 14:27 | XMS_ITS ---
Author Organization [facility] Address [address] [facility] [address] Care Team Providers Care Party Plan Sales Director Name Role Phone Mackenzie Duncan MD Primary Care Provider Unavaila ble Black, Amy Unavailable [phone] Allergies Allergen (clinical drug ingredient) Drug/Non Drug [...] remove mediation once a week with nail lao remover or rubbing alcohol for 30 days [...] 025 Encounters Encounter Location Date Provider Diagnosis [facility] [place] [address] [place] [address] 09/21/2024 Amy Black Neuritis M79.2 ; Neuropathy [...] Date Notes Ciclopirox 8 % 1 application Scrubber Operator ally Once a day- remove mediation once a week with nail lao remover or rubbing alcohol for 30 days 09/21/2024 Medrol 4 MG as directed Orally daily for 6 days 09/21/2024 Next Appt Details Follow Up: 6 Weeks, Reason: Provider Name:Amy Rodriguez , 12/05/2024 03:30:00 PM, [address], [place], [address], Progress Notes * Denisse SCHMITTDOB: (54 yo F)Acc No.[id number]:09/21/2024 Progress Notes Patient:?Gómez SCHMITT Provider:?Amy Rodriguez DPM :1970???Age:54 Y???Sex:Female D ate:09/21/2024 Address: [address], [facility] Pcp:Mackenzie Duncan MD Subjective: * Chief [...] ?Exercise: no, none. ?Marital status: . 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 * Medications:?TakingPravastat in Sodium 20 MG Tablet [...] remove mediation once a week with nail lao remover or rubbing alcohol, 30 days, 6.6, [...] activities and work, and to prevent further disability.FDC goals: Our plan is for the patient [...]
--- OUTSIDE RECORDS SUMMARY | 2024-11-30 14:27 | XMS_ITS ---
Author Organization [facility] Address [address] [facility] [place] [address] Care Team Providers Care Winch Stripper Name Role Phone Mackenzie Duncan MD Primary Care Provider Unavaila Amy Michelle Unavailable [phone] REASON FOR VISIT BUY Pedag Viva Mini (moss) #[id number] / L9 Encounters Encounter Location Date Provider Diagnosis [facility] [address] [place] [address] 09/21/2024 Amy Rodriguez Plan Of Treatment Next Appt Details Provider Name:Amy Rodriguez , 12/05/2024 03:30:00 PM, [address] [facility], [place], [address], Progress Notes * Denisse SCHMITTDOB: (54 yo F)Acc No.[id number]:09/21/2024 Patient:?Gómez SCHMITT :1970???Age:54 Y???Sex:Female [address] [place], [address] * true * Date:? Generated for Printi ng/Faxing/eTransmitting on:?11/30/2024 02:27 PM EDT
== END 2024-11-30 13:24 | disposition home or self-care (01) ==
LOC: HO.US 13:23
PROVIDERS: PCP Internal Medicine; Visit Provider Internal Medicine
DX: G57.93 Unspecified mononeuropathy of bilateral lower limbs (principal); M25.561 Pain in right knee; M25.562 Pain in left knee; M47.817 Spondylosis without myelopathy or radiculopathy, lumbosacral region; I70.202 Unspecified atherosclerosis of native arteries of extremities, left leg
CPT/HCPCS: 73562; 93925

== ENCOUNTER → 2024-11-30 13:29 | Outpatient (BNV) | payer OTHER, SELFPAY | PROVIDERS: PCP Internal Medicine; Visit Provider Radiology Diagnostic Radiology | DX: M25.562 Pain in left knee (principal); I10 Essential (primary) hypertension; E78.5 Hyperlipidemia, unspecified | CPT/HCPCS: 73562; 93925 ==

== ENCOUNTER 2024-12-07 13:56 | Outpatient (AMB) | payer OTHER, SELFPAY ==
--- NOTE | 2024-12-07 14:02 | MHC.OFFVIS ---
Vital Signs 12/07/24 14:03 Height 5 ft 4 in Weight 266 lb BMI 45.7 Intake Visit Reasons: Bilateral knee pain Intake Note: Denisse is a 54 year female who presents with complaints of bilateral knee pains, left greater than right. She describes her pains as sharp in nature. Her pain is worse when she is sitting or standing for long periods of time. She has tried physical therapy, Tylenol and naproxen which gave her mild relief. She has not had an injection. She is going to [place] next week for vacation. Allergies meloxicam [MELOXICAM] Allergy (Intermediate, Verified 12/07/24 14:03) HYPERTENSION, flactuating BP, elevated bp amlodipine Adverse Reaction (Intermediate, Verified 12/07/24 14:03) Edema Medication List - Last Reconciled 12/07/24 by Holland Monahan MD acetaminophen 1,000 mg (2 x 500 mg) PO Q6H PRN amlodipine 2.5 mg PO DAILY metoprolol succinate ER 75 mg (1.5 x 50 mg) PO DAILY naproxen 500 mg PO BID olmesartan-hydrochlorothiazide 40-25 mg 1 tab PO DAILY rosuvastatin (Crestor) 10 mg PO DAILY Synthroid (levothyroxine) 175 mcg PO QAM NS [vitamin b12 1,000 mg 5 tablets a day] Zepbound (tirzepatide (weight loss)) 2.5 mg (0.5 mL) subcut QWEEK NS [facility] Medical History Thyroid nodule Annual physical exam (~02/17/22) Normal colonoscopy Hyperlipidemia Sleep apnea Menorrhagia Chronic iron deficiency anemia Multinodular goiter Hypothyroidism Anxiety and depression Obesity HTN (hypertension) Surgical History History of esophagogastroduodenoscopy (EGD) No pertinent past surgical history Family History Father No problems noted. Mother No problems noted. Sister No problems noted. Sister No problems noted. Son No problems noted. 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 [employer] Cognitive needs: No Hearing needs: No Vision needs: No Physical Exam Vital Signs: BMI result Body Mass Index 45.7 Const Other: Well-nourished well-developed very friendly female awake alert and oriented x3 in no acute distress Extrem Other: Bilateral lower extremity examination shows good capillary refill, no skin lesions noted, normal sensation light touch Bilateral knee examination shows minimal effusions, palpable crepitus with range of motion, positive Betty's test Results Reviewed Results Reviewed: X-rays of the patient's bilateral knee show mild diffuse joint space narrowing, no acute bony abnormalities Assessment & Plan Assessment & Plan (1) Knee pain, bilateral: Code(s): M25.561 - Pain in right knee; M25.562 - Pain in left knee Category: Medical Plan Denisse presents with bilateral knee pains due to early degenerative joint disease as well as possible meniscus tearing. I had a lengthy discussion with the patient regarding the treatment options. We will hold off on a cortisone injection at this time. I did give her a prescription for a Medrol Dosepak. She will follow up with me after her trip to [place]. Feel free to call me at any time should questions regarding her orthopedic management arise. I spent 21 minutes in reviewing the patient's records and imaging studies, seeing the patient and documenting in the medical record. Medications: New methylprednisolone (Medrol (Eliazar)) PO PER PKG DIR 21 ea 0RF Coding Level of Care Code New Pt Level 3 (89067) Complex EM visit Add On G2211 Diagnoses Knee pain, bilateral M25.561; M25.562
[2024-12-07 14:03] VITALS: BMI 45.7
--- OUTSIDE RECORDS SUMMARY | 2024-12-07 14:37 | XMS_ITS ---
Author [facility] Address [address] [facility] [place] [address] Care Team Providers Care Production Sound Mixer Name Role Phone Mackenzie Duncan MD Primary Care Provider Unavaila ble Black, Amy Unavailable [phone] Allergies Allergen (clinical drug ingredient) Drug/Non Drug [...] remove mediation once a week with nail swazi remover or rubbing alcohol for 30 days [...] 025 Encounters Encounter Location Date Provider Diagnosis [facility] [place] [address] [place] [address] 09/21/2024 Amy Black Neuritis M79.2 ; Neuropathy [...] Date Notes Ciclopirox 8 % 1 application Fire Boat Engineer ally Once a day- remove mediation once a week with nail swazi remover or rubbing alcohol for 30 days 09/21/2024 Medrol 4 MG as directed Orally daily for 6 days 09/21/2024 Next Appt Details Follow Up: 6 Weeks, Reason: Provider Name:Amy Rodriguez , 03/15/2025 09:30:00 AM, [address] [place], [address], Progress Notes * Denisse SCHMITTDOB: (54 yo F)Acc No.[id number]:09/21/2024 Progress Notes Patient:?Gómez SCHMITT Provider:?Amy Rodriguez DPM :1970???Age:54 Y???Sex:Female D ate:09/21/2024 [facility] Pcp:Mackenzie Duncan MD Subjective: * Chief Complaints: [...] ?Exercise: no, none. ?Marital status: . 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 * Medications:?TakingPravastat in Sodium 20 MG Tablet [...] remove mediation once a week with nail swazi remover or rubbing alcohol, 30 days, 6.6, [...] activities and work, and to prevent further disability.residential goals: Our plan is for the patient [...] Rodriguez DPM Date:?2024 Generated for Zan lopez/Valentin/Sanjana on:?12/07/2024 02:37 PM EDT History and Physical Notes * [...]
--- OUTSIDE RECORDS SUMMARY | 2024-12-07 14:38 | XMS_ITS ---
[facility] Organization [facility] Address [address] [facility] [place] [address] Care Team Providers Care Cryptologic Support Specialist Name Role Phone Mackenzie Duncan MD Primary Care Provider Unavaila ble Black, Amy Unavailable [phone] Allergies Allergen (clinical drug ingredient) Drug/Non Drug [...] Duration) Notes Start Date End Date Status Gabapentin 300 MG 1 capsule Orally at bedtime for 30 days 08/10/2024 Not-Taking amLODIPine Besylate 2.5 MG Oral for 30 Days Active Levothyroxine Sodium 175 MCG 1 tablet in the morning on an empty stomach Orally Once a day for 30 day(s) 02/07/2024 Active Metoprolol & Diet Manage Prod Active Olmesartan Medoxomil-HCTZ 40-25 MG 1 tablet Orally Once a day Active Vitamin B12 3000 MCG/ML as directed Sublingual Active Vitamin D3 Active Medrol 4 MG as directed Orally daily for 6 days 09/21/2024 Active Ciclopirox 8 % 1 application Externally Once a day- remove mediation once a week with nail syrian remover or rubbing alcohol for 30 days 09/21/2024 Active Pravastatin Sodium 20 MG 1 tablet Orally Once a day Active Social History Tobacco Use: Social History Observation Description Date Details (start date - stop date) Never Smoker NA - NA Tobacco use other than smoking: Question Answer Notes Are you an other tobacco user? No Tobacco Control (Standard) Question Answer Notes Tobacco use: Nonsmoker Additional Findings: Tobacco non-user Current no nsmoker AUDIT-C (Standard) Question Answer Notes Did you have a drink containing alcohol in the p ast year? No Points 0 Interpretation Negative Vital Signs Height 5ft 4in in 12/05/2024 Weight 265 lbs 12/05/2024 BMI 45.48 kg/m2 12/05/2024 Blood pressure systolic 135 mm Hg 12/06/19 25 Blood pressure diastolic 85 mm Hg 025 Procedures Procedure Date Ordered Date Performed Result Body Sit e 49394-SBGPCFW NAIL, 6 OR MORE 12/05/2024 N/A Encounters Encounter Location Date Provider Diagnosis [facility] [address] 12/05/2024 Amy Black Neuritis M79.2 ; Neuropathy G62.9 ; Pain in right foot M79.671 ; Pain in left foot M79.672 ; Neuropathic pain M79.2 ; Pain in right toe(s) M79.674 ; Onychomycosis B35.1 ; Pain in left toe(s) M79.675 and Ingrown nail L60.0 Assessments Encounter Date Diagnosis (ICD Code) Assessment Notes Treatment Notes Treatment Clinical Notes Section Notes 12/05/2024 Neuritis (ICD-10 - M79.2) 12/05/2024 Neuropathy (ICD-10 - G62.9) 12/05/2024 Pain in right foot (ICD-10 - M79.671) 12/05/2024 Pain in left foot (ICD-10 - M79.672) 12/05/2024 Neuropathic pain (ICD-10 - M79.2) 12/05/2024 Pain in right toe(s) (ICD-10 - M79.674) 12/05/2024 Onychomycosis (ICD-10 - B35.1) 12/05/2024 Pain in left toe(s) (ICD-10 - M79.675) 12/05/2024 Ingrown nail (ICD-10 - L60.0) Plan Of Treatment Pending Test Test Name Order Date [id number] NAIL, 6 OR MORE 12/05/2024 Next Appt Details Follow Up: 6 Weeks, Reason: Provider Name:Amy Rodriguez , 03/15/2025 09:30:00 AM, [address] [place] [address], [phone], Procedure Notes * Category Sub-Category Detail Notes Debride Nail 6-10 Nail debridement Due to the cl inical pathology outlined in the exam findings, performance of this nail treatment is medically necessary as its management by an unskilled/untrained nonprofessional would put this patients foot and overall health at risk. Therefore, debridement to affected nail(s), as described in exam ( TA, T1, T2, T3, T4, T5, T6, T7, T8, T9, ___ ), was performed exclusively by the physician of record to reduce/remove overall nail length, girth, thickness, subungual debris, and necrotic tissue, by manual and/or electrical means through the use of a nail nipper and/or dremel-type lens grinder apprentice, to a more viable healthy nail plate or bed tissue 6-10 nails in total. Silver nitrate was used for any petechial bleeding as necessary. Definitive antifungal treatment options, both pharmaceutical and surgical, have been reviewed and discussed with the patient. The patient solely prefers the use of intermittent/as needed professional debridement services for their nail condition and understands the need for additional periodic treatments to maintain effectiveness in symptomatic relief - Progress Notes * Denisse SCHMITTDOB: (54 yo F)Acc No.[id number]:12/05/2024 Progress Note Patient:?Gómez SCHMITT Provider:Cayetano Rodriguez DPM :1970???Age:54 Y???Sex:Female D ate:12/05/2024 Address: [address], [facility] Pcp:Mackenzie Duncan MD Subjective: * Chief Complaints: * ???Foot painPainful Nail(s) aggrevated by shoes and causing difficulty standing/walking. * HPI: ???Painful Nails:?Pt States Last PCP Visit:?Date:?12/01/2024 ???Foot Pain:?Nature:?burning, tingling, shooting, radiating.?Location:?, B/L , Ball of foot.?Duration:?, several months.?Onset:?unknown.?Course:?, improved.?Aggravated:?any pressure.?Treatments:?rest/alter normal daily activity,pedag inserts,topical pain medication (voltaren gel and biofreeze)in serts, physical therapy, - Vitamins (B12, D,K ,magnesium) Spondylosis L5-S1, medrol nena helped when she was taking it pain returned after.?Severity/Quality:?, moderate.?Misc:?Pt has a nerve conduction test scheduled for December 29.? * ROS:?General/Constitutional:?Nausea?denies.?Vomiting?denies.?Hunger Thirst?denies.?Loss appetite?denies.?Chills?denies.?Fatigue?denies.?Fever?denies.?Night Sweats?admits.?Unexplained weight loss?denies.?Unexplained [...] Unspecified essential hypertension.? * Social History:?Tobacco Use:?Tobacco use other than smoking?Are you an other tobacco user??No ?Tobacco Control (Standard)?Tobacco use:?Nonsmoker ?Additional Findings: Tobacco non-user?Current nonsmoker ???Drugs/Alcohol:?Drugs?Have you used drugs other than those for medical reasons in the past 12 months??No ???Miscellaneous:?Caffeine: yes. ?Children: yes, One. ?Exercise: no, none. ?Marital status: . 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 ???Drug/Alcohol:?AUDIT-C (Standard)?Did you have a drink containing alcohol in the past year??No ?Points?0 ?Interpretation?Negative * Medications:?TakingVitamin D 3 Vitamin B12 3000 MCG/ML Liquid as directed Sublingual Ciclopirox 8 % Solution 1 application Externally Once a day- remove mediation once a week with nail syrian remover or rubbing alcohol Medrol 4 MG Tablet Therapy Pack as directed Orally daily Pravastatin Sodium 20 MG Tablet 1 tablet Orally Once a day Olmesartan Medoxomil-HCTZ 40-25 MG Tablet 1 tablet Orally Once a day Metoprolol & Diet Manage Prod Levothyroxine Sodium 175 MCG Tablet 1 tablet in the morning on an empty stomach Orally Once a day amLODIPine Besylate 2.5 MG Tablet Oral Taking Vitamin D3 Taking Vitamin B12 3000 MCG/ML Liquid as directed Sublingual Taking Ciclopirox 8 % Solution 1 application Externally Once a day- remove mediation once a week with nail syrian remover or rubbing alcohol Taking Medrol 4 MG Tablet Therapy Pack as directed Orally daily Taking Pravastatin Sodium 20 MG Tablet 1 [...] edemaMeloxicam: elevated hypertensionyes[Allergies Verified] Objective: * Vitals:?Ht: 5ft 4in, Wt:265, BMI:45.48, Shoe size: 8-8.5, BP:135/85mm Hg, Ht-cm: 162.56 cm, Wt-k.2 kg. * [...] swelling, and inflammation to plantar MPJ(s) 2-5 b/l.?FOOTWEAR EVALUATION:?shoe gear properties exacerbate patients foot/toe deformity.?Nails: ?NAILS are:?Elongated, overgrown, dystrophic, lytic, greater than 3mm thick, discolored and friable with crumbly malodorous subungual debris, with pain on palpation, TA, T1, T2, T3, T4, T5, T6, T7, T8, T9.?Ingrown Nail: ?INSPECTION:?Reveals nail incurvation, pain on palpation, groove hypertrophy, groove ischemia, Medial nail border, TA, T5.? Assessment: * Assessment: 1.?Neuritis - M79.2???2.?Francisco Javier ropathy - G62.9 (Primary)???3.?Pain in right foot - M79.671???4.?Pain in left foot - M79.672???5.?Neuropathic pain - M79.2???6.?Pain in right toe(s) - M79.674? ?7.?Onychomycosis - B35.1???8.?Pain in left toe(s) - M79.675???9.?Ingrown nail - L60.0??? Plan: * Treatment: * Procedures:?Debride Nail 6-10:?Nail debridement?Due to the clinical pathology outlined in the exam findings, performance of this nail treatment is medically necessary as its management by an unskilled/untrained nonprofessional would put this patients foot and overall health at risk. Therefore, debridement to affected nail(s), as described in exam ( TA, T1, T2, T3, T4, T5, T6, T7, T8, T9, ___ ), was performed exclusively by the physician of record to reduce/remove overall nail length, girth, thickness, subungual debris, and necrotic tissue, by manual and/or electrical means through the use of a nail nipper and/or dremel-type lens grinder apprentice, to a more viable healthy nail plate or bed tissue 6- 10 nails in total. Silver nitrate was used for any petechial bleeding as necessary. Definitive antifungal treatment options, both pharmaceutical and surgical, have been reviewed and discussed with the patient. The patient solely prefers the use of intermittent/as needed professional debridement services for their nail condition and understands the need for additional periodic treatments to maintain effectiveness in symptomatic relief - 26714.? * Procedure Codes:?20775 DEBRI DE NAIL, 6 OR MORE, Modifiers: XS * Preventive Medicine:? ??Counseling:?Discussion:?-13: Office or other outpatient visit for the evaluation and management of an established patient, which required a medically appropriate history and/or examination and LOW level of DECISION MAKING for: 1 STABLE ACUTE UNCOMPLICATED PROBLEM, 2 OR MORE MINOR PROBLEMS, OR 1 STABLE CHRONIC PROBLEM, THAT POSE(S) A LOW RISK FOR MORBIDITY/MORTALITY. The visit on the day of the [...] the answers were verbally confirmed fully understood, slant back performed with good relief of pain, pt to monitor for any signs of infection, pt should soak in warm water and epsom salts and apply antibotic ointment, call with any issues, Pt defers PNA at this time due to vacatrion scheduled for next week.?Neuritis/Neuropathy:?Discussed other tx options for the patients condition, Reviewed x-ray reort - recomm pt continue with Physical therapy and scheduled nerve conduction test.? * Follow Up:?6 Weeks * Images: * Sign off status: Completed true * Provider:?Amy Rodriguez DPM Date:?2024 Generated for Zan lopez/Valentin/Edisonitting on:?12/07/2024 02:37 PM EDT History and Physical Notes * HPI (History of Present Illness) Category Sub-Category Detail Notes Category Not es Painful Nails Pt States Last PCP Visit: Date:: 12/01/2024 Foot Pain Nature: burning, tinglin g, shooting, radiating Location: , B/L , Ball of foot Duration: , several months Onset: unknown Course: , improved Aggravated: any pressure Treatments: rest/alter normal da ariel activity,pedag inserts,topical pain medication (voltaren gel and biofreeze)in serts, physical therapy, - Vitamins (B12, D,K ,magnesium) Spondylosis L5-S1, medrol nena helped when she was taking it pain returned after Severity/Quality: , moderate Misc: Pt has a nerve condu ction test scheduled for December 29 Examination Category Sub-Category Detail Notes Category Not es Ingrown Nail INSPECTION: Reveals nail inc urvation, pain on palpation, groove hypertrophy, groove ischemia, Medial nail border, TA, T5 Neuroma Pain PALPATION: No interspace pain [...]
--- OUTSIDE RECORDS SUMMARY | 2024-12-07 14:38 | XMS_ITS ---
Author Organization [facility] Address [address] [place] [address] Care Team Providers Care Foot Orthopedist Name Role Phone Mackenzie Duncan MD Primary Care Provider Unavaila timothy Rodriguez Amy Unavailable [phone] REASON FOR VISIT BUY Pedag Viva Mini (moss) #39 / L9 Encounters Encounter Location Date Provider Diagnosis [address] [address] 09/21/2024 Amy Rodriguez Plan Of Treatment Next Appt Details Provider Name:Amy Rodriguez , 03/15/2025 09:30:00 AM, [address] [place], [address], Progress Notes * Denisse SCHMITTDOB: (54 yo F)Acc No.[id number]:09/21/2024 Patient:?Gómez SCHMITT :1970???Age:54 Y???Sex:Female Address:[address] [place] [place], [address] * true * Date:? Generated for Printi ng/Faxing/eTransmitting on:?12/07/2024 02:37 PM EDT
--- OUTSIDE RECORDS SUMMARY | 2024-12-07 14:38 | XMS_ITS | Patient Health Record ---
Author [facility] Address [address] [facility] [place] [address] Care Team Providers Care Director [employer] Name Role Phone Mackenzie Duncan MD Primary Care Provider Unavaila ble Black, Amy Unavailable [phone] Allergies Allergen (clinical drug ingredient) Drug/Non Drug [...] at bedtime for 30 days 08/10/2024 Not-Taking Vitamin B12 3000 MCG/ML as directed Sublingual Active Vitamin D3 Active amLODIPine Besylate 2.5 MG Oral for 30 Days Active Levothyroxine Sodium 175 MCG 1 tablet in the morning on an empty stomach Orally Once a day for 30 day(s) 02/07/2024 Active Metoprolol & Diet Manage Prod Active Medrol 4 MG as directed Orally daily for 6 days 09/21/2024 Active Ciclopirox 8 % 1 application Externally Once a day- remove mediation once a week with nail citizen of [place] remover or rubbing alcohol for 30 days 09/21/2024 Active Olmesartan Medoxomil-HCTZ 40-25 MG 1 tablet [...] Problem Acquired hammer toe of right foot ([id number]) Hammer toe of right foot (M20.41) Active confirmed Problem Acquired hammer toe of left foot (2459228314394740) Hammer toe of left foot (M20.42) Active confirmed Problem [id number] Neuropathy (G62.9) Active confirmed Problem Mononeuropathy of lower limb (505597620) Neuritis of left foot (G57.92) Active confirmed Vital Signs Blood pressure diastolic 85 mm Hg 12/05/2024 Height 5ft 4in in 12/05/2024 Blood pressure systolic 135 mm Hg 12/05/2024 Weight 265 lbs 12/05/2024 BMI 45.48 kg/m2 12/05/2024 Procedures Procedure Date Ordered Date Performed Result Body Sit e 85459-LENBWOS NAIL, 6 OR MORE 12/05/2024 N/A Encounters Encounter Location Date Provider Diagnosis [facility] [place] [address] [place] [address] 04/27/2024 Amy Black Ingrown nail L60.0 ; Neuritis M79.2 ; Metatarsalgia of left foot M77.42 ; Metatarsalgia of right foot M77.41 ; Hammer toe of left foot M20.42 ; Hammer toe of right foot M20.41 ; Pain in right foot M79.671 ; Pain in left toe(s) M79.675 ; Pain in right toe(s) M79.674 and Pain in left foot M79.[address] [address] 08/10/2024 Amy Black Neuritis M79.2 ; Neuropathy G62.9 ; Pain in right foot M79.671 ; Pain in left foot M79.672 ; Neuropathic pain M79.2 ; Metatarsalgia of left foot M77.42 and Metatarsalgia of right foot M77.[address] [address] 09/21/2024 Amy Black Neuritis M79.2 ; Neuropathy G62.9 ; Pain in right foot M79.671 ; Pain in left foot M79.672 ; Neuropathic pain M79.2 ; Pain in right toe(s) M79.674 ; Onychomycosis B35.1 ; Pain in left toe(s) M79.675 ; Metatarsalgia of left foot M77.42 and Metatarsalgia of right foot M77.[address] [address] 12/05/2024 Amy Black Neuritis M79.2 ; Neuropathy G62.9 ; Pain in right foot M79.671 ; Pain in left foot M79.672 ; Neuropathic pain M79.2 ; Pain in right toe(s) M79.674 ; Onychomycosis B35.1 ; Pain in left toe(s) M79.675 and Ingrown nail L60.[address] [address] 01/13/2024 Amy Black [address] [address] 04/27/2024 Amy Black [address] [address] 09/21/2024 Amy Black Assessments Encounter Date Diagnosis (ICD Code) Assessment Notes Treatment Notes Treatment Clinical Notes Section Notes 04/27/2024 Ingrown nail (ICD-10 - L60.0) 04/27/2024 Neuritis (ICD-10 - M79.2) 08/10/2024 Neuritis (ICD-10 - M79.2) 08/10/2024 Neuropathy (ICD-10 - G62.9) 09/21/2024 Neuritis (ICD-10 - M79.2) 12/05/2024 Neuritis (ICD-10 - M79.2) 12/05/2024 Neuropathy (ICD-10 - G62.9) 12/05/2024 Pain in right foot (ICD-10 - M79.671) 09/21/2024 Neuropathy (ICD-10 - G62.9) 04/27/2024 Metatarsalgia of left foot (ICD-10 - M77.42) 09/21/2024 Pain in right foot (ICD-10 - M79.671) 08/10/2024 Pain in right foot (ICD-10 - M79.671) 04/27/2024 Metatarsalgia of right foot (ICD-10 - M77.41) 08/10/2024 Pain in left foot (ICD-10 - M79.672) 09/21/2024 Pain in left foot (ICD-10 - M79.672) 12/05/2024 Pain in left foot (ICD-10 - M79.672) 09/21/2024 Neuropathic pain (ICD-10 - M79.2) 12/05/2024 Neuropathic pain (ICD-10 - M79.2) 08/10/2024 Neuropathic pain (ICD-10 - M79.2) 04/27/2024 Hammer toe of left foot (ICD-10 - M20.42) 04/27/2024 Hammer toe of right foot (ICD-10 - M20.41) 08/10/2024 Metatarsalgia of left foot (ICD-10 - M77.42) 09/21/2024 Pain in right toe(s) (ICD-10 - M79.674) 12/05/2024 Pain in right toe(s) (ICD-10 - M79.674) 12/05/2024 Onychomycosis (ICD-10 - B35.1) 09/21/2024 Onychomycosis (ICD-10 - B35.1) 08/10/2024 Metatarsalgia of right foot (ICD-10 - M77.41) 04/27/2024 Pain in right foot (ICD-10 - M79.671) 04/27/2024 Pain in left toe(s) (ICD-10 - M79.675) 09/21/2024 Pain in left toe(s) (ICD-10 - M79.675) 12/05/2024 Pain in left toe(s) (ICD-10 - M79.675) 12/05/2024 Ingrown nail (ICD-10 - L60.0) 09/21/2024 Metatarsalgia of left foot (ICD-10 - M77.42) 04/27/2024 Pain in right toe(s) (ICD-10 - M79.674) 04/27/2024 Pain in left foot (ICD-10 - M79.672) 09/21/2024 Metatarsalgia of right foot (ICD-10 - M77.41) Plan Of Treatment Pending Test Test Name Order Date [id number] NAIL, 6 OR MORE 12/05/2024 53388-Adwmoffx Plate 11/22/2013 [id number]-Fgjfzwcs Plate 02/01/2014 46887-Kmsbkohk Plate 05/02/2013 00856- Debride <25 sq cm 05/15/2013 61954 I&D ABSCESS- SIMPLE,SINGLE 014 69219 I&D ABSCESS- SIMPLE,SINGLE 013 Next Appt Details Provider Name:Amy Rodriguez , 03/15/2025 09:30:00 AM, [address] [place] [address], [phone], Insurance Providers Payer Name Payer Address Payer Phone Subscriber Number Group Number Insured Name Patient Relationship to Insured Coverage Start Date Coverage End Date [facility] [address] [place] [phone] [id number] Luc Hurley Spouse - patient is the spouse of the insured Medical (General) History Medical History History ICD Code gall bladder problems hypertension thyroid disorder chicken pox Anemia Knee Pain covid-19 Surgical History Surgery Date(Month/Year) gall stones 06/2012 gall bladder 2020
== END 2024-12-07 14:23 | disposition home or self-care (01) ==
LOC: HO.HOS 13:57
PROVIDERS: PCP Internal Medicine; Visit Provider Orthopaedic Surgery
DX: M25.561 Pain in right knee (principal); M25.562 Pain in left knee
CPT/HCPCS: 99203; G2211

== ENCOUNTER 2024-12-26 15:49 | Outpatient (AMB) | payer OTHER, SELFPAY ==
--- NOTE | 2024-12-26 15:55 | AM.OFFWIN_ITS ---
Intake Vital Signs 12/26/24 15:57 Weight 263 lb BP 122/80 Blood Pressure Location Rt brachial Position Sitting Pulse 78 Pulse Source Pulse Oximeter Temp 98.4 F Temp Source Oral Pulse Oximetry (%) 98 Oxygen Delivery Method Room Air Intake Visit Reasons: EP cough, wheezing Intake Note: Patient here for cough, wheezing, chest discomfort and chills that has been present for a couple of days. Patient Tobacco Use Status: Never used Tobacco Allergies meloxicam [MELOXICAM] Allergy (Intermediate, Verified 12/26/24 15:57) HYPERTENSION, flactuating BP, elevated bp amlodipine Adverse Reaction (Intermediate, Verified 12/26/24 15:57) Edema Do you need a note to return to daycare/school/sports/work: Yes HPI HPI Comments History of Present Illness Details History of Present Illness The patient is a 54-year-old female presenting with an acute respiratory infection following a return from a 14-day cruise. The illness began appr oximately seven days ago and manifests with symptoms initially triggered by exposure to a sick roommate. She reported fever-like symptoms, chest discomfort, wheezing, and cough. Her condition shows gradual improvement with the use of Mucinex and DayQuil, but symptoms persist, impacting her sleep and daily activities. The patient also experiences ear pressure and decreased hearing, having first noticed the latter while on the cruise. She denies any sore throat or ear pain, but the ear pressure remains notable. She has been cautious in managing her symptoms, choosing to rest and utilize home remedies. The patient has had two COVID-19 vaccinations but has not received any influenza vaccine. Her family history is significant for asthma and emphysema, although she has not required inhaler treatment herself. She denies fever, chills, CP, SOB, abd pain, n/v/d, smoking. Physical Exam General: Cooperative, healthy appearing, comfortable, no acute distress and well developed Neck: Normal visual inspection and Yes full ROM. No carotid bruits noted. Respiratory: Normal respiratory effort and able to speak in complete sentences. Clear to auscultation bilaterally, no wheezes, rales, or rhonchi Cardiovascular: Regular rate and rhythm. Normal S1 and S2 GI: Normal to inspection. Soft to palpation and nontender. No guarding or rebound tenderness noted. Skin: No rashes or lesions noted Neuro: Patient oriented x3 Patient was informed and verbally consented to the use of an ambient scribe for clinic note documentation during this visit. [facility] Medical History Thyroid nodule Annual physical exam (~02/17/22) Normal colonoscopy Hyperlipidemia Sleep apnea Menorrhagia Chronic iron deficiency anemia Multinodular goiter Hypothyroidism Anxiety and depression Obesity HTN (hypertension) Surgical History History of esophagogastroduodenoscopy (EGD) No pertinent past surgical history Family History Father No problems noted. Mother No problems noted. Sister No problems noted. Sister No problems noted. Son No problems noted. 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, [employer] Cognitive needs: No Hearing needs: No Vision needs: No Review of Systems Const All systems reviewed & are unremarkable except as noted in HPI and below Assessment & Plan Assessment & Plan (1) Cough: Code(s): R05.9 - Cough, unspecified Plan Most likely URI vs bronchitis vs asthma exacerbation vs viral illness vs covid vs flu Plan The patient is prescribed an antibiotic to address any underlying bacterial infection that could be complicating the acute respiratory infection. Alongside, an inhaler and cough medication are provided to relieve symptoms. The ear discomfort is likely due to altered Eustachian tube function, expected to resol ve as the infection improves. An absence note for work is prepared, allowing her to rest and manage symptoms. Further evaluation will be necessary if the condition persists, and the patient should consider future influenza vaccination. Medications: New albuterol sulfate 90 mcg/actuation 2 puffs inhalation Q6H PRN 8.5 grams 0RF shortness of breath or wheezing or cough azithromycin For 250 mg dose pack: take 500 mg today (day 1), then 250 mg for 4 days (days 2-5) PO 6 tabs 0RF benzonatate 100 mg PO bid-tid 7 days PRN 21 caplets 0RF Cough Coding Level of Care Code Est Pt Level 3 (94036) Diagnoses Cough R05.9
[2024-12-26 15:57] VITALS: BP 122/80; PULSE 78; TEMP 36.9; O2SAT 98
--- OUTSIDE RECORDS SUMMARY | 2024-12-26 17:03 | XMS_ITS | Patient Health Record ---
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 Name Role Phone Mackenzie Duncan MD Primary Care Provider Unavaila ble Black, Amy Unavailable [phone] Allergies Allergen (clinical drug ingredient) Drug/Non Drug [...] Problem Acquired hammer toe of right foot (7335412928182996) Hammer toe of right foot (M20.41) Active confirmed Problem Acquired hammer toe of left foot (0814625004453227) Hammer toe of left foot (M20.42) Active confirmed Problem [id number] Neuropathy (G62.9) Active confirmed Problem Mononeuropathy of lower limb (003600010) Neuritis of left foot (G57.92) Active confirmed Vital Signs Blood pressure diastolic 85 mm Hg 12/05/2024 Height 5ft 4in in 12/05/2024 Blood pressure systolic 135 mm Hg 12/05/2024 Weight 265 lbs 12/05/2024 BMI 45.48 kg/m2 12/05/2024 Procedures Procedure Date Ordered Date Performed Result Body Sit e 03314-ZJHNSFL NAIL, 6 OR MORE 12/05/2024 N/A Encounters Encounter Location Date Provider Diagnosis [facility] [place] [address] [place] [address] 04/27/2024 Amy Black Ingrown nail L60.0 ; Neuritis M79.2 ; Metatarsalgia of left foot M77.42 ; Metatarsalgia of right foot M77.41 ; Hammer toe of left foot M20.42 ; Hammer toe of right foot M20.41 ; Pain in right foot M79.671 ; Pain in left toe(s) M79.675 ; Pain in right toe(s) M79.674 and Pain in left foot M79.[address] [address] 08/10/2024 Amy Black Neuritis M79.2 ; Neuropathy G62.9 ; Pain in right foot M79.671 ; Pain in left foot M79.672 ; Neuropathic pain M79.2 ; Metatarsalgia of left foot M77.42 and Metatarsalgia of right foot M77.[address] [address] 09/21/2024 Amy Black Neuritis M79.2 ; Neuropathy G62.9 ; Pain in right foot M79.671 ; Pain in left foot M79.672 ; Neuropathic pain M79.2 ; Pain in right toe(s) M79.674 ; Onychomycosis B35.1 ; Pain in left toe(s) M79.675 ; Metatarsalgia of left foot M77.42 and Metatarsalgia of right foot M77.[address] [address] 12/05/2024 Amy Black Neuritis M79.2 ; Neuropathy G62.9 ; Pain in right foot M79.671 ; Pain in left foot M79.672 ; Neuropathic pain M79.2 ; Pain in right toe(s) M79.674 ; Onychomycosis B35.1 ; Pain in left toe(s) M79.675 and Ingrown nail L60.[address] [address] 01/13/2024 Amy Black [address] [address] 04/27/2024 Amy Black [address] [address] 09/21/2024 Amy Black Assessments Encounter Date Diagnosis [...] Treatment Pending Test Test Name Order Date [id number] NAIL, 6 OR MORE 12/05/2024 24640-Rkfnssgo Plate 11/22/2013 79611-Dkskxjde Plate 02/01/2014 74204-Jayqatzd Plate 05/02/2013 33420- Debride <25 sq cm 05/15/2013 47077 I&D ABSCESS- SIMPLE,SINGLE 014 06749 I&D ABSCESS- SIMPLE,SINGLE 013 Next Appt Details Provider Name:Amy Campbell Michael , 03/15/2025 09:30:00 AM, [address] [place], [address], Insurance Providers Payer Name Payer Address Payer Phone Subscriber Number Group Number Insured Name Patient Relationship to Insured Coverage Start Date Coverage End Date [facility] [address] [place] [phone] [id number] Luc Hurley Spouse - patient is the spouse of the insured Medical (General) History Medical History History ICD Code gall bladder problems hypertension thyroid disorder chicken pox Anemia Knee Pain covid-19 Surgical History Surgery Date(Month/Year) gall stones 06/2012 gall bladder 2020
== END 2024-12-26 16:59 | disposition home or self-care (01) ==
PROVIDERS: PCP Internal Medicine; Visit Provider Physician Assistant Medical
DX: R05.9 Cough, unspecified (principal)

== ENCOUNTER → 2024-12-26 15:49 | Outpatient (BNVA) | payer OTHER, SELFPAY | PROVIDERS: PCP Internal Medicine; Visit Provider Physician Assistant Medical ==

== ENCOUNTER 2025-01-07 16:51 | Emergency (ER) | payer OTHER, SELFPAY ==
--- NOTE | ~2025-01-07 | CT_ITS ---
CLINICAL HISTORY: headache, head injury CT cervical spine without contrast Comparison: None Findings: Vertebral alignment is within normal limits. Multilevel disc space narrowing and endplate osteophyte formation, as well as facet hypertrophy. No acute fractures or dislocations. Visualized intracranial contents are unremarkable. Soft tissues of the neck are normal. No consolidation or effusion at the lung apices. IMPRESSION: No acute findings. This document has been electronically signed by: Moses Cartwright MD on 01/07/2025 18:31:19
--- NOTE | ~2025-01-07 | CT_ITS ---
CLINICAL HISTORY: head injury, headache CT head without contrast Comparison: None Findings: No intra-axial mass, midline shift, hydrocephalus, or acute hemorrhage. Age appropriate cerebral volume loss. Patchy low-density within the periventricular and subcortical white matter. The visualized paranasal sinuses and mastoid air cells are normal. The orbits are unremarkable. There is no acute fracture. IMPRESSION: 1. No acute intracranial findings. This document has been electronically signed by: Moses Cartwright MD on 01/07/2025 18:30:49
[2025-01-07 17:02] VITALS: BP 159/70; PULSE 69; RESP 18; TEMP 37; O2SAT 97; BMI 24.4
--- NOTE | 2025-01-07 17:03 | ED_ITS ---
HPI - General Adult General Chief complaint: Fall Stated complaint: cat scan of head-sent from Time Seen by Provider: 01/07/25 17:23 Source: patient, RN notes reviewed and other (RME) Mode of arrival: ambulatory Limitations: no limitations History of Present Illness ED Provider: Margot Arango PA-C HPI narrative: 54-year-old female with past medical history significant for degenerative joint disease presenting to the emergency department today for evaluation of both the headache and neck pain. Last night patient states that she had a glass of water and she was heading up the stairs to go to bed when she made it to the top she lost her balance causing her to at least at the same time but her water down and tried to grab the railing and she rolled backwards down the full flight. She did not experience any loss of consciousness this was heard by her who came by her side. She reports having pain at the top of her head but no other immediate injuries. She did ice it and still go to bed when she woke up this morning her head still hurts so she took ibuprofen. She also has some generalized neck soreness as well but reports she can freely move it. She has no pain radiating into her limbs and no paresthesias or weakness. She has not had any visual changes or dizziness denies feeling nauseous she has not had any vomiting. She has no prior history of head injuries in the past. Denies any low back pain saddle anesthesia change or loss in her bladder or bowel function. She has not any history of IV drug use, cancer, chronic steroid use, night sweats or unintentional weight loss. She has no shortness of breath and no abdominal discomfort. She attempted to get seen by urgent care 1st who told her she had a reassuring nonfocal exam however based on her mechanism of the injury they recommend she go to the ED for at the very least the TT scan so she came here Severity: mild Treatments prior to arrival: NSAID and cold therapy Related Data Home Medications ?Medication ?Instructions ?Recorded ?Confirmed vitamin b12 PO 10/25/24 12/07/24 Previous Rx's ?Medication ?Instructions ?Recorded acetaminophen 500 mg capsule 1,000 mg (2 x 500 mg) PO Q6H PRN 11/05/23 pain (scale score 7-10) #60 caps Synthroid 175 mcg tablet 175 mcg PO QAM #90 tabs 02/23 12/16 (levothyroxine) olmesartan 40 1 tab PO DAILY #90 tabs 05/26 11/16 mg-hydrochlorothiazide 25 mg tablet amlodipine 2.5 mg tablet 2.5 mg PO DAILY #90 tabs metoprolol succinate 50 mg 75 mg (1.5 x 50 mg) PO CHRIS Y #135 09/11/24 tablet,extended release 24 hr tabs rosuvastatin 10 mg tablet (Crestor) 10 mg PO DAILY #90 tabs 09/11/24 Zepbound 2.5 mg/0.5 mL 2.5 mg (0.5 mL) subcut QWEEK #2 mL 10/25/24 subcutaneous pen injector (tirzepatide (weight loss)) naproxen 500 mg tablet 500 mg PO BID #20 tabs 10/26 albuterol sulfate 90 mcg/actuation 2 puff inhalation Q 6H PRN 12/26/24 aerosol inhaler shortness of breath or wheez ing or cough #8.5 grams azithromycin 250 mg tablet See Rx Instructions PO .COM PLEX #6 12/26/24 tabs benzonatate 100 mg capsule 100 mg PO bid-tid PRN Cough 7 days 12/26/24 #21 caplets benzonatate 200 mg capsule 200 mg PO BID-TID PRN cough #30 12/26/24 caps carbamide peroxide 6.5 % ear drops 5 drp otic (ears) D AILY 4 days #15 01/07/25 (Debrox) mL cyclobenzaprine 10 mg tablet 10 mg PO BEDTIME PRN musc le spasm 01/07/25 #7 tabs meloxicam 15 mg tablet 15 mg PO DAILY #14 tabs 12/24 12/17 Allergies Allergy/AdvReac Type Severity Reaction Status Date / Time meloxicam (MELOXICAM) Allergy Intermediate HYPERTENSION, Verified 01/07/25 17:03 flactuating BP, elevated bp amlodipine AdvReac Intermediate Edema Verified 01/07/25 17:03 Review of Systems Review of Systems: Yes all other systems are reviewed and are negative [facility] Past Medical History Attestation statement: The following information was validated with the patient. Source: old records reviewed and nursing notes reviewed Medical History Thyroid nodule Annual physical exam (~02/17/22) Normal colonoscopy Hyperlipidemia Sleep apnea Menorrhagia Chronic iron deficiency anemia Multinodular goiter Hypothyroidism Anxiety and depression Obesity HTN (hypertension) Surgical History History of esophagogastroduodenoscopy (EGD) No pertinent past surgical history Family History Family History Father No problems noted. Mother No problems noted. Sister No problems noted. Sister No problems noted. Son No problems noted. Social History 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, [employer] at [employer] Cognitive needs: No Hearing needs: No Vision needs: No Physical Exam ED Vital Signs: Vital Signs - 24 hr 01/07/25 17:02 01/07/25 17:56 Temperature 98.6 F Pulse Rate 69 78 Respiratory Rate 18 17 Blood Pressure 159/70 H 153/84 H Pulse Oximetry 97 100 Oxygen Delivery Method Room Air Room Air BMI result Body Mass Index 24.4 Const General: cooperative, healthy appearing, comfortable, no acute distress, well developed, alert, awake and Physically active Nutritional Appearance: obese Orientation/consciousness: patient oriented x3 Limitations: no limitations [facility] Head: Yes No palpable skull fracture present, Yes contusion (midparietal front region, scant ecchymosis, TTP no scalp hematoma), Yes raccoon eyes (no raccoon eyes or chow sign, no septal hematoma) and Yes other (no midfacial instability, cerumen imp b/l, hearing intact, no chow signs) Ears: hearing grossly normal bilaterally and external ears normal General nose exam: Normal external nose present Face and sinus: Yes normal facial exam Mouth: Normal oral and palatal mucosa present, lip normal, tongue normal, oropharynx normal and moist mucous membranes Teeth and gingiva: dentition normal Eyes General: appearance normal, both eyes and all related structures Visual Alston: normal visual alston by confrontation Alignment and Position: alignment normal Periorbital: periorbital findings normal Eyelids: Yes eyelids normal Conjunctivae: conjunctivae normal Sclerae: sclerae normal Corneas: corneas normal Pupils: Equal, round and reactive pupils present EOM: EOMs intact bilaterally Neck Neck: Yes normal visual inspection, Yes full ROM, Yes no lymphadenopathy, Yes no meningeal signs, Yes trachea midline, Yes supple (Able to rotate neck 45 degrees in each direction) and Yes other (No midline tenderness step-offs or deformities of entire spine) Lymphatic: no lymphadenopathy noted Chest Chest palpation & inspection: normal inspection of the chest Resp Effort & Inspection: normal respiratory effort and able to speak in complete sentences Auscultation: clear to auscultation bilaterally Cardio Jugular venous distension: no JVD Palpation: normal PMI Rate: regular rate Rhythm: regular rhythm Peripheral pulses: Peripheral pulses 2+ throughout GI Inspection: Yes normal to inspection Palpation (GI): Soft to palpation Auscultation: normal bowel sounds Rectal Exam - Female: deferred Skin General skin exam: no rashes or lesions noted (other top of scalp) Lesions: no lesions Rashes: no rashes Wounds: no wounds Nails: normal Neuro Other: Cranial nerves II through XII intact, speech fluent and appropriate, no gkuutq-[id number] ataxia, no vngz-ti-qwyh ataxia, no palmar drift, strength 4+ throughout, sensory intact throughout to soft touch and equal bilaterally General: patient oriented x3 and no meningeal signs Cranial nerves: Yes Equal, round and reactive pupils present Cognition (Neuro): normal cognition Gait exam (Neuro): Normal gait present Motor exam (neuro): Pronator motor function not present, no tremor noted, no asterixis and Motor fasciculations not present Extrem General: Yes normal to inspection, Yes full ROM and Yes capillary refill normal Course Course Course Narrative: Allison Goncalves APRN This is a rapid medical exam. Deferred additional HPI, ROS, PE to primary provider. 54 yo female here after fall yesterday down stairs (13). No LOC. Now has had VELAZQUEZ since. Went to and referred in to the ER for further eval. NO AC therapy use. Will obtain CT head/cervical spine VSS Medical Decision Making Medical Decision Making MDM Narrative: 54-year-old female with past medical history significant for degenerative joint disease presenting to emergency department today for evaluation of head and neck pain status post a fall down a flight of stairs that occurred last night. She does not present with evidence of ICH or concussion clinically however given her mechanism injury both head CT and neck CT were ordered. She is low risk for cervical spine fracture by nexus criteria. She took analgesics prior to arrival. Secondary trauma exam is not clinically significant for any other injuries and otherwise has a benign reassuring exam other than her mild scalp ecchymosis. As she is not on any anticoagulation blood work is not indicated today. CT of the head shows no acute intracranial findings and CT of the neck is without any acute fractures dislocation has normal alignment. These findings were discussed with the patient I have recommended that she likely follow up with Orthopedics for potential physical therapy referral was as though she has good range of motion today it is likely that her muscles were tight and and can worsen this. There is no evidence of neurovascular compromise she was discharged home stable with strict instructions to return she demonstrated verbal understanding the plan and agreed. Differential Diagnosis Differential Diagnoses: The differential diagnosis associated with the presentation includes ICH/ concussion cervical spine fracture Admission/Observation Consideration of admission/observation: Escalation of care including admission/o bservation considered Patient would have been admitted to the hospital had her work up had any findings where hospital admission was appropriate and their clinical presentation warranted hospital admission. Independent Interpretation I performed an independent interpretation of an: CT Scan Interpretation: CT scan of both the head and the neck but no obvious intracranial findings or cervical spine fracture Radiology Impression Radiologist Impression: No acute intracranial findings. Vertebral alignment is within normal limits no acute fractures or dislocations soft tissues of the neck are normal. Tests considered The following testing was considered but not selected: Would consider lab work had patient been on anticoagulation but not present. But also considered further imaging had or secondary trauma exam insignificant for any other injuries Prescription Management I considered prescription management with: Pain Medication Chronic Conditions Patient?s care impacted by: Other (obesity) Discharge Plan Discharge Clinical Impression: Contusion of scalp, Acute cervical myofascial strain, Bilateral impacted cerumen Patient Disposition: Home, Self-Care Instructions: Cervical Sprain (ED), Scalp Contusion in Adults (ED) Additional Instructions: You were evaluated for the head and neck injury. You had imaging that shows no acute intracranial findings such as a brain bleed in her imaging of your neck shows no abnormal alignment fracture or dislocation. Your neurologic exam was normal here. You have sustained an injury to your head.??You have a small contusion which is a bruise. This will heal in time Although you do not have have symptoms of a concussion today it is still recommended that you do head rest. We have found no evidence to indicate that your head injury was serious, however, new symptoms and unexpected complications can develop hours or even days after the injury. The first 24 hours are the most crucial and you should remain with a reliable director of online merchandising at least during this period. If any of the following signs develop please go to the ER immediately. - Drowsiness/increased difficulty arousing the patient - Vomiting - Convulsions or fits - Bleeding or watery drainage from the nose or ear - Severe headache - Weakness or loss of feeling in the arm or leg - Confusion or strange behavior - One pupil (black part of the eye) becomes much larger than the other; peculiar eye movements, double vision, or other visual disturbances Please contact your PCP to arrange a followup appointment for reevaluation.?? Sometimes it can take more than a week for complete recovery. No strenuous exercise.? Avoid activity that requires higher level of concentration (reading, staring at screens - ie computer, cell phones). You should avoid any activity that you feel exacerbates your headache. As you begin to feel better you can slowly begin to introduce new activities until you are feeling well and are able to perform your usual activity without symptoms. ABSOLUTELY NO ACTIVITY WHERE YOU COULD HAVE ANOTHER HEAD INJURY, until you have been cleared by you PCP or a neurologist.? You may eat or drink as usual if you so desire, however, you should not drink alcoholic beverages while experiencing concussive symptoms as this may exacerbate your symptoms. Do not use any pain medications stronger than Acetaminophen (Tylenol) for the first 24 hours. For your ears: Advise use of DEBROX over the counter drops. Place 5-10 drops into the affected ear. Place loose large cotton ball on the outside to retain drops. Allow to soak for 2 hours for the next 4 days. At this point, cerumen should be softened enough to allow a more successful chance of ear lavage, please follow up with primary care provider or urgent care to have this done. Prescriptions: New cyclobenzaprine 10 mg tablet 10 mg PO BEDTIME PRN (Reason: muscle spasm) Qty: 7 0RF meloxicam 15 mg tablet 15 mg PO DAILY Qty: 14 0RF Debrox 6.5 % drops 5 drp otic (ears) DAILY 4 Days Qty: 15 0RF Rx Instructions: Use in both ears, allow to soak for 2 hours daily No Action acetaminophen 500 mg capsule 1,000 mg PO Q6H PRN (Reason: pain (scale score 7-10)) Qty: 60 0RF levothyroxine [Synthroid] 175 mcg tablet 175 mcg PO QAM Qty: 90 3RF olmesartan-hydrochlorothiazide 40-25 mg tablet 1 tab PO DAILY Qty: 90 3RF amlodipine 2.5 mg tablet 2.5 mg PO DAILY Qty: 90 1RF metoprolol succinate 50 mg tablet extended release 24 hr 75 mg PO DAILY Qty: 135 3RF rosuvastatin [Crestor] 10 mg tablet 10 mg PO DAILY Qty: 90 3RF naproxen 500 mg tablet 500 mg PO BID Qty: 20 0RF benzonatate 200 mg capsule 200 mg PO BID-TID PRN (Reason: cough) Qty: 30 0RF vitamin b12 PO Rx Instructions: 1,000 mg 5 tablets a day Zepbound 2.5 mg/0.5 mL pen injector 2.5 mg subcut QWEEK Qty: 2 1RF albuterol sulfate 90 mcg/actuation HFA aerosol inhaler 2 puff inhalation Q6H PRN (Reason: shortness of breath or wheezing or cough) Qty: 8.5 0RF azithromycin 250 mg tablet See Rx Instructions PO .COMPLEX Qty: 6 0RF Rx Instructions: For 250 mg dose pack: take 500 mg today (day 1), then 250 mg for 4 days (days 2-5) PO benzonatate 100 mg capsule 100 mg PO bid-tid PRN (Reason: Cough) 7 Days Qty: 21 0RF Referrals: [facility] [Provider Group] - 1 week Referral Note: consider PT referral if needed Stand Alone Forms: Work/School Release Interventions: ED Discharge Assessment Last Done: 01/07/25 19:38 Discharge Date/Time: 01/07/25 19:38 Print Language: Yoruba
[2025-01-07 17:56] VITALS: BP 153/84; PULSE 78; RESP 17; O2SAT 100
--- NOTE | 2025-01-07 18:28 | PC.NURSE ---
patient a&ox3, vss, pt c/o 11/02 headache but was medicated with tylenol at the urgent care, pt awaiting results from radiology, call locke within reach, plan of care ongoing
[2025-01-07 19:38] VITALS: BP 153/84; PULSE 78; RESP 17; TEMP 36.8; O2SAT 100
== END 2025-01-07 19:38 | disposition home or self-care (01) ==
PROVIDERS: Emergency Provider Internal Medicine; PCP Internal Medicine
DX: S00.03XA Contusion of scalp, initial encounter (principal); S16.1XXA Strain of muscle, fascia and tendon at neck level, initial encounter; W10.8XXA Fall (on) (from) other stairs and steps, initial encounter; H61.23 Impacted cerumen, bilateral; Y93.89 Activity, other specified; Y92.018 Other place in single-family (private) house as the place of occurrence of the external cause; Y99.9 Unspecified external cause status
CPT/HCPCS: 70450; 72125; 99284

== ENCOUNTER → 2025-01-07 17:05 | Outpatient (BNV) | payer OTHER, SELFPAY | PROVIDERS: Emergency Provider Internal Medicine; PCP Internal Medicine; Visit Provider Radiology Diagnostic Radiology | DX: S09.90XA Unspecified injury of head, initial encounter (principal); R51.9 Headache, unspecified | CPT/HCPCS: 70450; 72125 ==

== ENCOUNTER 2025-01-25 12:49 | Outpatient (AMB) | payer OTHER, SELFPAY ==
--- NOTE | 2025-01-25 12:51 | MHC.PC.OV ---
Vital Signs 01/25/25 12:53 Height 5 ft 6 in Weight 256 lb BMI 41.3 BP 116/74 Blood Pressure Location Lt brachial Position Sitting Respiration 20 Pulse 82 Pulse Source Pulse Oximeter Temp 98.1 F Temp Source Oral Pulse Oximetry (%) 96 Oxygen Delivery Method Room Air Intake Visit Reasons: ER follow up Intake Note: Pt is here today for ER follow up visit. Pt states that she has been having blocked ears. Allergies meloxicam (MELOXICAM) Allergy (Intermediate, Verified 01/25/25 12:54) HYPERTENSION, flactuating BP, elevated bp amlodipine Adverse Reaction (Intermediate, Verified 01/25/25 12:54) Edema Medication List - Last Reconciled 01/25/25 by Mackenzie Duncan MD acetaminophen 1,000 mg (2 x 500 mg) PO Q6H PRN albuterol sulfate 90 mcg/actuation 2 puffs inhalation Q6H PRN amlodipine 2.5 mg PO DAILY carbamide peroxide 6.5% (Debrox) 5 drps otic (ears) DAILY 4 days metoprolol succinate ER 75 mg (1.5 x 50 mg) PO DAILY naproxen 500 mg PO BID olmesartan-hydrochlorothiazide 40-25 mg 1 tab PO DAILY rosuvastatin (Crestor) 10 mg PO DAILY Synthroid (levothyroxine) 175 mcg PO QAM NS [vitamin b12 1,000 mg 5 tablets a day] vitamin D3-vitamin K2 125 mcg (5,000 unit)-100 mcg caps PO Zepbound (tirzepatide (weight loss)) 2.5 mg (0.5 mL) subcut QWEEK NS Tobacco use date assessed: 01/25/25 Dental Screening Dental Screen Date: 10/25/24 HPI ER follow up HPI Details Pt presents for f/u ER visit after a fall from stairs. Patient had a workup for with negative CT of the brain and C-spine. She recovered well. HTN, hyperlipid, hypothyroid, are stable on meds. Pt started Zepbound 2 weeks ago and has not noticed any side effects patient has been decreasing caloric intake trying to be more physically active. She complains of chronic left knee pain x-rays showed mild osteoarthritis patient had a cortisone shot without significant relief she declined a physical therapy due to the high cost [facility] Medical History Thyroid nodule Annual physical exam (~02/17/22) Normal colonoscopy Hyperlipidemia Sleep apnea Menorrhagia Chronic iron deficiency anemia Multinodular goiter Hypothyroidism Anxiety and depression Obesity HTN (hypertension) Surgical History History of esophagogastroduodenoscopy (EGD) No pertinent past surgical history Family History Father No problems noted. Mother No problems noted. Sister No problems noted. Sister No problems noted. Son No problems noted. 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, [employer] at [employer] Cognitive needs: No Hearing needs: No Vision needs: No Questionnaire Thrive Questionnaire Date Thrive assessed: 08/18/24 I am a: Patient What is your living situation today?: I have a steady place to live Within the past 12 months, did the food you bought not last and you didn't have the money to get more?: I choose not to answer this question Within the past 12 months, did you worry whether your food would run out before you got money to buy more?: I choose not to answer this question Do you have trouble paying for medicines?: I choose not to answer this question Do you have trouble getting transportation to medical appointments?: No Do you have trouble paying your heating and electricity bill?: No Do you have trouble taking care of your child, family member or friend?: No Do you have trouble with day-to-day activities such as bathing, preparing meals, shopping, managing finances, etc.?: No Are you currently unemployed and looking for a job?: No Are you interested in more education?: No Please select the resources that you would like help with: None Currently or been in a relationship where the following occur: I choose not to answer THRIVE Score: 0 TITO-7 AMB Questionnaire TITO-7 Date TITO - 7 assessed: 08/18/24 Source: Developed by Drs. Dominik Avelar, Lauryn Royal, Sundar Mukherjee and colleagues, with an educational belia from [employer]. Review of Systems Const All systems reviewed & are unremarkable except as noted in HPI and below Eyes Reports no additional complaints ENT Reports no additional complaints Card Reports no additional complaints Resp Reports no additional complaints GI Reports no additional complaints Reports no additional complaints Physical exam (Primary Care) Vital Signs: Last Vital Signs Temp 98.1 F 01/25/25 12:53 Pulse 82 01/25/25 12:53 Resp 20 01/25/25 12:53 BP 116/74 01/25/25 12:53 Pulse Ox 96 01/25/25 12:53 Oxygen Delivery Method Room Air 01/25/25 12:53 BMI result Body Mass Index 41.3 Tobacco/Smoking Status: Tobacco use Status Tobacco use date assessed 01/25/25 01/25/25 13:00 Patient Tobacco Use Status Never used Tobacco 01/25/25 12:51 e-Cigarette/Vaping Use Never Used 01/25/25 12:51 Thrive Assessment: Date of Thrive Assessment Date Thrive assessed 08/18/24 01/25/25 12:51 Currently or been in a relationship where the following occur: I choose not to answer Const General: no acute distress HENMT Head: Yes normal to inspection Eyes General: appearance normal, both eyes and all related structures Neck Neck: Yes supple Resp Effort & Inspection: normal respiratory effort Auscultation: clear to auscultation bilaterally Cardio Rhythm: regular rhythm Heart sounds: S1 normal heart sound present and S2 normal heart sound present GI Palpation (GI): Soft to palpation Percussion: Yes normal to percussion Auscultation: normal bowel sounds Coding Level of Care Code Est Pt Level 4 (00231) Complex EM visit Add On G2211 Diagnoses HTN (hypertension) I10 Hyperlipidemia E78.5 Obesity E66.9 Assessment & Plan Assessment & Plan (1) HTN (hypertension): Code(s): I10 - Essential (primary) hypertension Category: Medical Plan: Continue current medications (2) Hyperlipidemia: Code(s): E78.5 - Hyperlipidemia, unspecified Category: Medical Plan: Continue statin (3) Obesity: Comment: BMI 45.7 10/2024 Code(s): E66.9 - Obesity, unspecified Category: Medical Plan: Continue decreasing caloric intake increasing physical activity, continue Zepbound 2.5 mg and follow-up in 1 month
[2025-01-25 12:53] VITALS: BP 116/74; PULSE 82; RESP 20; TEMP 36.7; O2SAT 96; BMI 41.3
--- OUTSIDE RECORDS SUMMARY | 2025-01-25 12:55 | XMS_ITS | Patient Health Record ---
[facility] Organization [facility] Address [address] [facility] [place] [address] Care Team Providers Care Mortgage Manager Name Role Phone Mackenzie Duncan MD Primary Care Provider Unavaila ble Black, Amy Unavailable [phone] Allergies Allergen (clinical drug ingredient) Drug/Non Drug [...] remove mediation once a week with nail indian remover or rubbing alcohol; Duration: 30 days [...] Problem Acquired hammer toe of right foot (8889962802384704) Hammer toe of right foot (M20.41) Active confirmed Problem Acquired hammer toe of left foot (8083686903638185) Hammer toe of left foot (M20.42) Active confirmed Problem Neuropathy (093064327) Neuropathy (G62.9) Active confirmed Problem Mononeuropathy of lower limb (311262234) Neuritis of left foot (G57.92) Active confirmed Vital Signs Blood pressure diastolic 85 mm Hg 12/05/2024 Height 5ft 4in in 12/05/2024 Blood pressure systolic 135 mm Hg 12/05/2024 Weight 265 lbs 12/05/2024 BMI 45.48 kg/m2 12/05/2024 Procedures Procedure Date Ordered Date Performed Result Body Sit e 51252-ZNNFBUR NAIL, 6 OR MORE 12/05/2024 N/A Encounters Encounter Location Date Provider Diagnosis [facility] [place] [address] [place] [address] 04/27/2024 Amy Black Ingrown nail L60.0 ; Neuritis M79.2 ; Metatarsalgia of left foot M77.42 ; Metatarsalgia of right foot M77.41 ; Hammer toe of left foot M20.42 ; Hammer toe of right foot M20.41 ; Pain in right foot M79.671 ; Pain in left toe(s) M79.675 ; Pain in right toe(s) M79.674 and Pain in left foot M79.[address] [address] 08/10/2024 Amy Black Neuritis M79.2 ; Neuropathy G62.9 ; Pain in right foot M79.671 ; Pain in left foot M79.672 ; Neuropathic pain M79.2 ; Metatarsalgia of left foot M77.42 and Metatarsalgia of right foot M77.[address] [address] 09/21/2024 Amy Black Neuritis M79.2 ; Neuropathy G62.9 ; Pain in right foot M79.671 ; Pain in left foot M79.672 ; Neuropathic pain M79.2 ; Pain in right toe(s) M79.674 ; Onychomycosis B35.1 ; Pain in left toe(s) M79.675 ; Metatarsalgia of left foot M77.42 and Metatarsalgia of right foot M77.[address] [address] 12/05/2024 Amy Black Neuritis M79.2 ; Neuropathy G62.9 ; Pain in right foot M79.671 ; Pain in left foot M79.672 ; Neuropathic pain M79.2 ; Pain in right toe(s) M79.674 ; Onychomycosis B35.1 ; Pain in left toe(s) M79.675 and Ingrown nail L60.[address] [address] 04/27/2024 Amy Black [address] [address] 09/21/2024 Amy Black Assessments Encounter Date Diagnosis [...] Treatment Pending Test Test Name Order Date [id number] NAIL, 6 OR MORE 12/05/2024 48958-Ruvsfezm Plate 11/22/2013 53769-Suxjistf Plate 02/01/2014 82152-Jadwqdcb Plate 05/02/2013 69049- Debride <25 sq cm 05/15/2013 69286 I&D ABSCESS- SIMPLE,SINGLE 014 61070 I&D ABSCESS- SIMPLE,SINGLE 013 Next Appt Details Provider Name:Amy Rodriguez , 03/15/2025 09:30:00 AM, [address] [place], [address], Insurance Providers Payer Name Payer Address Payer Phone Subscriber Number Group Number Insured Name Patient Relationship to Insured Coverage Start Date Coverage End Date [facility] [address] [place] [phone] [id number] Luc Hurley Spouse - patient is the spouse of the insured Medical (General) History Medical History History ICD Code gall bladder problems hypertension thyroid disorder chicken pox Anemia Knee Pain covid-19 Surgical History Surgery Date(Month/Year) gall stones 06/2012 gall bladder 2020
== END 2025-01-25 14:01 | disposition home or self-care (01) ==
LOC: HO.HMCC 12:50
PROVIDERS: PCP Internal Medicine; Visit Provider Internal Medicine
DX: I10 Essential (primary) hypertension (principal); E78.5 Hyperlipidemia, unspecified; E66.9 Obesity, unspecified; Z68.41 Body mass index [BMI] 40.0-44.9, adult

== ENCOUNTER 2025-02-09 14:28 | Outpatient (REF) | payer OTHER, SELFPAY ==
--- NOTE | 2025-02-09 14:32 | EMG_ITS ---
Chief complaint: Bilateral feet pain but denies numbness Reason for referral: Evaluate for neuropathy Referred by: Dr. Duncan Procedure done: Bilateral lower extremity NCS/EMG Precautions and/or limitations: None The limb temperature was monitored continuously and remained between 32-36 degrees C during the performance of the NCS. Nerve Conduction Studies Anti Sensory Summary Table ?Stim Site NR Onset (ms) Norm Onset (ms) Peak (ms) Norm Peak (ms) O-P Amp (?V) Norm O-P Amp Site1 Site2 Delta-0 (ms) Dist (cm) Cooper (m/s) Norm Cooper (m/s) Left Sural Anti Sensory (Lat Mall) Calf ? 2.8 3.4 <4.0 8.2 >5.0 Calf Lat Mall 2.8 14.0 50 Right Sural Anti Sensory (Lat Mall) Calf ? 2.2 3.1 <4.0 7.0 >5.0 Calf Lat Mall 2.2 14.0 64 Motor Summary Table ?Stim Site NR Onset (ms) Norm Onset (ms) O-P Amp (mV) Norm O-P Amp iAmp (mV) Amp (1st) (%) Site1 Site2 Delta-0 (ms) Dist (cm) Cooper (m/s) Norm Cooper (m/s) Right Peroneal Motor (Ext Dig Brev) Ankle ? 3.8 <4.0 7.1 >2.5 8.3 100.0 Ankle Ext Dig Brev 3.8 0.0 B Fib ? 9.5 6.1 7.2 85.9 B Fib Ankle 5.7 28.5 50 >40 Poplt ? 10.4 8.2 9.5 115.5 Poplt B Fib 0.9 6.5 72 >40 Left Tibial Motor (Abd Glynn Brev) Ankle ? 2.8 <5 6.8 >2.5 9.5 100.0 Ankle Abd Glynn Brev 2.8 0.0 Knee ? 10.9 7.8 11.0 114.7 Knee Ankle 8.1 35.0 43 >40 Right Tibial Motor (Abd Glynn Brev) Ankle ? 3.4 <5 6.2 >2.5 8.5 100.0 Ankle Abd Glynn Brev 3.4 0.0 Knee ? 11.3 5.8 8.4 93.5 Knee Ankle 7.9 36.0 46 >40 EMG ?Side Muscle Nerve Root Ins Act Fibs Psw Amp Dur Poly Recrt Int Pat Comment Right AbdHallucis MedPlantar S1-2 Nml Nml Nml Nml Nml 0 Nml Complete Right AntTibialis Dp Br Peron L4-5 Nml Nml Nml Nml Nml 0 Nml Complete Right PostTibialis Tibial L5, S1 Nml Nml Nml Nml Nml 0 Nml Complete Right MedGastroc Tibial S1-2 Nml Nml Nml Nml Nml 0 Nml Complete Right VastusMed Femoral L2-4 Nml Nml Nml Nml Nml 0 Nml Complete Left AbdHallucis MedPlantar S1-2 Nml Nml Nml Nml Nml 0 Nml Complete Left AntTibialis Dp Br Peron L4-5 Nml Nml Nml Nml Nml 0 Nml Complete Left PostTibialis Tibial L5, S1 Nml Nml Nml Nml Nml 0 Nml Complete Left MedGastroc Tibial S1-2 Nml Nml Nml Nml Nml 0 Nml Complete Left VastusMed Femoral L2-4 Nml Nml Nml Nml Nml 0 Nml Complete FINDINGS: All motor and sensory nerves tested showed normal latencies, amplitudes and conduction velocities. Concentric needle EMG was performed in selected muscles of the bilateral lower extremity. Study did not reveal signs of electric abnormalities as shown in the table above. IMPRESSION: 1. This is a normal study. 2. There is no electrodiagnostic evidence for peroneal neuropathy, tibial neuropathy, lumbosacral plexopathy, lumbar radiculopathy, or peripheral neuropathy. Thank you for your kind referral. Shae Ramirez MD, CAITLYN Board Certified, [place] Board [employer] Physical [employer] and Rehabilitation (ABPMR) Board Certified, [place] Board of Electrodiagnostic Medicine (ABEM) CODIN 49443 x 2 MTDD
--- OUTSIDE RECORDS SUMMARY | 2025-02-09 14:32 | XMS_ITS | Patient Health Record ---
Author Organization [facility] Address [address] [place] [address] Care Team Providers Care Technical Clerk Name Role Phone Mackenzie Duncan MD Primary Care Provider Unavaila ble Black, Amy Unavailable [phone] Allergies Allergen (clinical drug ingredient) Drug/Non Drug [...] remove mediation once a week with nail turkish remover or rubbing alcohol; Duration: 30 days [...] Problem Acquired hammer toe of right foot (3014526612415254) Hammer toe of right foot (M20.41) Active confirmed Problem Acquired hammer toe of left foot (6027382166303410) Hammer toe of left foot (M20.42) Active confirmed Problem Neuropathy (898084882) Neuropathy (G62.9) Active confirmed Problem Mononeuropathy of lower limb (905409671) Neuritis of left foot (G57.92) Active confirmed Vital Signs Blood pressure diastolic 85 mm Hg 12/05/2024 Height 5ft 4in in 12/05/2024 Blood pressure systolic 135 mm Hg 12/05/2024 Weight 265 lbs 12/05/2024 BMI 45.48 kg/m2 12/05/2024 Procedures Procedure Date Ordered Date Performed Result Body Sit e 27671-GCJEQKO NAIL, 6 OR MORE 12/05/2024 N/A Encounters Encounter Location Date Provider Diagnosis [facility] [place] [address] [place] [address] 04/27/2024 Amy Black Ingrown nail L60.0 ; Neuritis M79.2 ; Metatarsalgia of left foot M77.42 ; Metatarsalgia of right foot M77.41 ; Hammer toe of left foot M20.42 ; Hammer toe of right foot M20.41 ; Pain in right foot M79.671 ; Pain in left toe(s) M79.675 ; Pain in right toe(s) M79.674 and Pain in left foot M79.[address] [address] 08/10/2024 Amy Black Neuritis M79.2 ; Neuropathy G62.9 ; Pain in right foot M79.671 ; Pain in left foot M79.672 ; Neuropathic pain M79.2 ; Metatarsalgia of left foot M77.42 and Metatarsalgia of right foot M77.[address] [address] 09/21/2024 Amy Black Neuritis M79.2 ; Neuropathy G62.9 ; Pain in right foot M79.671 ; Pain in left foot M79.672 ; Neuropathic pain M79.2 ; Pain in right toe(s) M79.674 ; Onychomycosis B35.1 ; Pain in left toe(s) M79.675 ; Metatarsalgia of left foot M77.42 and Metatarsalgia of right foot M77.[address] [address] 12/05/2024 Amy Black Neuritis M79.2 ; Neuropathy G62.9 ; Pain in right foot M79.671 ; Pain in left foot M79.672 ; Neuropathic pain M79.2 ; Pain in right toe(s) M79.674 ; Onychomycosis B35.1 ; Pain in left toe(s) M79.675 and Ingrown nail L60.[address] [address] 04/27/2024 Amy Black [address] [address] 09/21/2024 Amy Black Assessments Encounter Date Diagnosis [...] Treatment Pending Test Test Name Order Date [id number] NAIL, 6 OR MORE 12/05/2024 89530-Qrwdtrdc Plate 11/22/2013 82981-Ekgeqxkj Plate 02/01/2014 19835-Fgelpvpt Plate 05/02/2013 63239- Debride <25 sq cm 05/15/2013 84700 I&D ABSCESS- SIMPLE,SINGLE 014 24230 I&D ABSCESS- SIMPLE,SINGLE 013 Next Appt Details Provider Name:Amy Rodriguez , 03/15/2025 09:30:00 AM, [address] [place], [address], Insurance Providers Payer Name Payer Address Payer Phone Subscriber Number Group Number Insured Name Patient Relationship to Insured Coverage Start Date Coverage End Date [facility] [address] [place] [phone] [id number] Luc Hurley Spouse - patient is the spouse of the insured Medical (General) History Medical History History ICD Code gall bladder problems hypertension thyroid disorder chicken pox Anemia Knee Pain covid-19 Surgical History Surgery Date(Month/Year) gall stones 06/2012 gall bladder 2020
== END 2025-02-09 14:29 | disposition home or self-care (01) ==
LOC: HO.NEURO 14:28
PROVIDERS: PCP Internal Medicine; Visit Provider Internal Medicine
DX: G57.93 Unspecified mononeuropathy of bilateral lower limbs (principal)
CPT/HCPCS: 95886; 95909

== ENCOUNTER → 2025-02-09 14:32 | Outpatient (BNV) | payer OTHER, SELFPAY | PROVIDERS: PCP Internal Medicine; Visit Provider Physical Medicine & Rehabilitation | DX: M79.671 Pain in right foot (principal); M79.672 Pain in left foot | CPT/HCPCS: 95886; 95908 ==

== ENCOUNTER 2025-02-16 10:55 | Outpatient (REF) | payer OTHER, SELFPAY ==
--- OUTSIDE RECORDS SUMMARY | 2025-02-16 11:05 | XMS_ITS | Patient Health Record ---
Author Organization [facility] Address [address] [facility] [place] [address] Care Team Providers Care Smoke Room Operator Name Role Phone Mackenzie Duncan MD Primary Care Provider Unavaila ble Black, Amy Unavailable [phone] Allergies Allergen (clinical drug ingredient) Drug/Non Drug [...] remove mediation once a week with nail tajik remover or rubbing alcohol; Duration: 30 days [...] Problem Acquired hammer toe of right foot (7921254285472603) Hammer toe of right foot (M20.41) Active confirmed Problem Acquired hammer toe of left foot (3455461550762483) Hammer toe of left foot (M20.42) Active confirmed Problem Neuropathy (615143849) Neuropathy (G62.9) Active confirmed Problem Mononeuropathy of lower limb (910597131) Neuritis of left foot (G57.92) Active confirmed Vital Signs Blood pressure diastolic 85 mm Hg 12/05/2024 Height 5ft 4in in 12/05/2024 Blood pressure systolic 135 mm Hg 12/05/2024 Weight 265 lbs 12/05/2024 BMI 45.48 kg/m2 12/05/2024 Procedures Procedure Date Ordered Date Performed Result Body Sit e 52116-IWLWXCM NAIL, 6 OR MORE 12/05/2024 N/A Encounters Encounter Location Date Provider Diagnosis [facility] [place] [address] [place] [address] 04/27/2024 Amy Black Ingrown nail L60.0 ; Neuritis M79.2 ; Metatarsalgia of left foot M77.42 ; Metatarsalgia of right foot M77.41 ; Hammer toe of left foot M20.42 ; Hammer toe of right foot M20.41 ; Pain in right foot M79.671 ; Pain in left toe(s) M79.675 ; Pain in right toe(s) M79.674 and Pain in left foot M79.[address] [address] 08/10/2024 Amy Black Neuritis M79.2 ; Neuropathy G62.9 ; Pain in right foot M79.671 ; Pain in left foot M79.672 ; Neuropathic pain M79.2 ; Metatarsalgia of left foot M77.42 and Metatarsalgia of right foot M77.[address] [address] 09/21/2024 Amy Black Neuritis M79.2 ; Neuropathy G62.9 ; Pain in right foot M79.671 ; Pain in left foot M79.672 ; Neuropathic pain M79.2 ; Pain in right toe(s) M79.674 ; Onychomycosis B35.1 ; Pain in left toe(s) M79.675 ; Metatarsalgia of left foot M77.42 and Metatarsalgia of right foot M77.[address] [address] 12/05/2024 Amy Black Neuritis M79.2 ; Neuropathy G62.9 ; Pain in right foot M79.671 ; Pain in left foot M79.672 ; Neuropathic pain M79.2 ; Pain in right toe(s) M79.674 ; Onychomycosis B35.1 ; Pain in left toe(s) M79.675 and Ingrown nail L60.[address] [address] 04/27/2024 Amy Black [address] [address] 09/21/2024 Amy Black Assessments Encounter Date Diagnosis [...] Treatment Pending Test Test Name Order Date [id number] NAIL, 6 OR MORE 12/05/2024 49518-Txcpsvzx Plate 11/22/2013 44431-Gqlvlmva Plate 02/01/2014 76925-Cuqlmyke Plate 05/02/2013 87569- Debride <25 sq cm 05/15/2013 02330 I&D ABSCESS- SIMPLE,SINGLE 014 81373 I&D ABSCESS- SIMPLE,SINGLE 013 Next Appt Details Provider Name:Amy Rodriguez , 03/15/2025 09:30:00 AM, [address] [place], [address], Insurance Providers Payer Name Payer Address Payer Phone Subscriber Number Group Number Insured Name Patient Relationship to Insured Coverage Start Date Coverage End Date [facility] [address] [place] [phone] [id number] Luc Hurley Spouse - patient is the spouse of the insured Medical (General) History Medical History History ICD Code gall bladder problems hypertension thyroid disorder chicken pox Anemia Knee Pain covid-19 Surgical History Surgery Date(Month/Year) gall stones 06/2012 gall bladder 2020
[2025-02-16 13:00] LABS: MANUAL DIFF FLAG NO
[2025-02-16 13:08] LABS: Hematocrit 43.0 % (37.0-47.0); Hemoglobin 14.3 g/dl (12.0-16.0); Imm Gran Abs Auto 0.05 X10*3/uL (0.00-0.03); Imm Gran Pct Auto 0.5 % (0.0-0.4); Lymphocytes Absolute Auto 2.7 X10*3/uL (1.2-4.9); Mean Corpuscular HGB Conc 33.3 g/dl (31.0-35.0); Mean Corpuscular Hemoglobin 29.1 pg (27.0-33.0); Mean Corpuscular Volume 87.4 fL (80.0-98.0); NRBC Abs Auto 0.000 X10*3/uL (0.0-0.012); NRBC Pct Auto 0.0 /100WBC (0.0-0.2); Platelet Count 225 X10*3/uL (160-400); Red Blood Count 4.92 X10*6/uL (4.20-5.50); White Blood Count 10.3 X10*3/uL (4.8-10.8)
[2025-02-16 13:23] LABS: Alanine Aminotransferase 15 U/L (0-31); Albumin Level 4.2 g/dL (3.5-5.0); Alkaline Phosphatase 86 U/L (39-117); Anion Gap 14 (12-20); Aspartate Amino Transferase 20 U/L (5-31); Blood Urea Nitrogen 12 mg/dL (9-16); Calcium 8.6 mg/dL (8.4-10.2); Carbon Dioxide 25 mmol/L (22-29); Chloride 104 mmol/L (96-108); Cholesterol 200 mg/dL (<200); Estimated Glomerular Filt Rate > 60; HDL Cholesterol 53 mg/dL (>40); Potassium 3.7 mmol/L (3.3-5.1); Sodium 139 mmol/L (135-145); Total Protein 6.9 g/dL (6.5-8.0); Triglycerides 230 mg/dL (<150)
[2025-02-16 13:27] LABS: Hemoglobin A1C 141.1247 umol/L; Total Hemoglobin (HGBA1C) 3782.5481 umol/L
[2025-02-16 13:39] LABS: Microalbum/Creatinine Ratio Ur 7.0 ug/mg cr (<30)
== END 2025-02-16 10:56 | disposition home or self-care (01) ==
LOC: HO.HMGCLDS 10:55
PROVIDERS: PCP Internal Medicine; Visit Provider Internal Medicine
DX: I10 Essential (primary) hypertension (principal); R20.0 Anesthesia of skin; R20.2 Paresthesia of skin; E03.9 Hypothyroidism, unspecified; E78.5 Hyperlipidemia, unspecified; R73.9 Hyperglycemia, unspecified
CPT/HCPCS: 36415; 80053; 80061; 82043; 82570; 83036; 84443; 85025

== ENCOUNTER 2025-02-19 09:08 | Outpatient (AMB) | payer OTHER, SELFPAY ==
--- NOTE | 2025-02-19 09:18 | MHC.PC.OV ---
Vital Signs 02/19/25 09:19 Height 5 ft 6 in Weight 260 lb BMI 42.0 BP 118/70 Blood Pressure Location Lt brachial Position Sitting Respiration 18 Pulse 82 Pulse Source Pulse Oximeter Temp 98.4 F Temp Source Oral Pulse Oximetry (%) 95 Oxygen Delivery Method Room Air Intake Visit Reasons: 6 months f/up Intake Note: Pt is here today for 6 months follow up visit on labs. Allergies meloxicam (MELOXICAM) Allergy (Intermediate, Verified 02/19/25 09:22) HYPERTENSION, flactuating BP, elevated bp amlodipine Adverse Reaction (Intermediate, Verified 02/19/25 09:22) Edema Medication List - Last Reconciled 02/19/25 by Mackenzie Duncan MD acetaminophen 1,000 mg (2 x 500 mg) PO Q6H PRN albuterol sulfate 90 mcg/actuation 2 puffs inhalation Q6H PRN amlodipine 2.5 mg PO DAILY carbamide peroxide 6.5% (Debrox) 5 drps otic (ears) DAILY 4 days ccryssgd-kcsql-fklpt-CF borate ([facility] [employer] [facility]) PO metoprolol succinate ER 75 mg (1.5 x 50 mg) PO DAILY naproxen 500 mg PO BID olmesartan-hydrochlorothiazide 40-25 mg 1 tab PO DAILY rosuvastatin (Crestor) 10 mg PO DAILY Synthroid (levothyroxine) 175 mcg PO QAM NS [vitamin b12 1,000 mg 5 tablets a day] vitamin D3-vitamin K2 125 mcg (5,000 unit)-100 mcg caps PO Zepbound (tirzepatide (weight loss)) 2.5 mg (0.5 mL) subcut QWEEK NS Tobacco use date assessed: 02/19/25 Dental Screening Dental Screen Date: 10/25/24 HPI 6 months f/up HPI Details Pt presents for HTN, hyperlipid, hypothyroid. Patient has been taking Zepbound for 6 weeks and has been tolerating medication well. She has been decreasing caloric intake increasing physical activity [facility] Medical History Thyroid nodule Annual physical exam (~02/17/22) Normal colonoscopy Hyperlipidemia Sleep apnea Menorrhagia Chronic iron deficiency anemia Multinodular goiter Hypothyroidism Anxiety and depression Obesity HTN (hypertension) Surgical History History of esophagogastroduodenoscopy (EGD) No pertinent past surgical history Family History Father No problems noted. Mother No problems noted. Sister No problems noted. Sister No problems noted. Son No problems noted. 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 [employer] Cognitive needs: No Hearing needs: No Vision needs: No Questionnaire Thrive Questionnaire Date Thrive assessed: 08/18/24 I am a: Patient What is your living situation today?: I have a steady place to live Within the past 12 months, did the food you bought not last and you didn't have the money to get more?: I choose not to answer this question Within the past 12 months, did you worry whether your food would run out before you got money to buy more?: I choose not to answer this question Do you have trouble paying for medicines?: I choose not to answer this question Do you have trouble getting transportation to medical appointments?: No Do you have trouble paying your heating and electricity bill?: No Do you have trouble taking care of your child, family member or friend?: No Do you have trouble with day-to-day activities such as bathing, preparing meals, shopping, managing finances, etc.?: No Are you currently unemployed and looking for a job?: No Are you interested in more education?: No Please select the resources that you would like help with: None Currently or been in a relationship where the following occur: I choose not to answer THRIVE Score: 0 TITO-7 AMB Questionnaire TITO-7 Date TITO - 7 assessed: 08/18/24 Source: Developed by Drs. Dominik Avelar, Lauryn Royal, Sundar Mukherjee and colleagues, with an educational belia from [employer] Review of Systems Const All systems reviewed & are unremarkable except as noted in HPI and below Eyes Reports no additional complaints ENT Reports no additional complaints Card Reports no additional complaints Resp Reports no additional complaints GI Reports no additional complaints Reports no additional complaints Physical exam (Primary Care) Vital Signs: Last Vital Signs Temp 98.4 F 02/19/25 09:19 Pulse 82 02/19/25 09:19 Resp 18 02/19/25 09:19 BP 118/70 02/19/25 09:19 Pulse Ox 95 02/19/25 09:19 Oxygen Delivery Method Room Air 02/19/25 09:19 BMI result Body Mass Index 42.0 Tobacco/Smoking Status: Tobacco use Status Tobacco use date assessed 02/19/25 02/19/25 09:25 Patient Tobacco Use Status Never used Tobacco 02/19/25 09:25 e-Cigarette/Vaping Use Never Used 02/19/25 09:25 Thrive Assessment: Date of Thrive Assessment Date Thrive assessed 08/18/24 02/19/25 09:25 Currently or been in a relationship where the following occur: I choose not to answer Const General: no acute distress HENMT Head: Yes normal to inspection Neck Neck: Yes supple Resp Effort & Inspection: normal respiratory effort Auscultation: clear to auscultation bilaterally Cardio Rhythm: regular rhythm Heart sounds: S1 normal heart sound present and S2 normal heart sound present GI Inspection: Yes normal to inspection Coding Level of Care Code Est Pt Level 4 (45496) Diagnoses HTN (hypertension) I10 Venous insufficiency of both lower extremities I87.2 Hyperglycemia R73.9 Hypothyroidism E03.9 Obesity E66.9 Assessment & Plan Assessment & Plan (1) HTN (hypertension): Code(s): I10 - Essential (primary) hypertension Category: Medical Plan: Continue current medications (2) Venous insufficiency of both lower extremities: Comment: Chronic lower extremity edema Code(s): I87.2 - Venous insufficiency (chronic) (peripheral) Category: Medical Plan: Continue compression knee-highs, continue furosemide as needed (3) Hyperglycemia: Code(s): R73.9 - Hyperglycemia, unspecified Category: Medical Plan: ADA diet increase exercise weight loss discussed with the patient (4) Hypothyroidism: Comment: follow up with Endo Code(s): E03.9 - Hypothyroidism, unspecified Category: Medical Plan: Continue Synthyroid (5) Obesity: Comment: BMI 45.7 10/2024 Code(s): E66.9 - Obesity, unspecified Category: Medical Plan: Increase Zepbound to 5 mg weekly. Decreasing caloric intake increasing physical activity weight loss discussed with the patient. she will follow-up in 2 months Medications: New Zepbound (tirzepatide (weight loss)) 5 mg (0.5 mL) subcut QWEEK 2 mL 1RF NS furosemide (Lasix) 20 mg PO Q OTHER DAY 30 tabs 0RF Discontinued Zepbound (tirzepatide (weight loss)) Discontinued Reason: Doctor's Order 2.5 mg (0.5 mL) subcut QWEEK 2 mL 1RF NS
[2025-02-19 09:19] VITALS: BP 118/70; PULSE 82; RESP 18; TEMP 36.9; O2SAT 95; BMI 42.0
--- OUTSIDE RECORDS SUMMARY | 2025-02-19 10:03 | XMS_ITS | Patient Health Record ---
[facility] Address [address] [place] [address] Care Team Providers Care Teles[employer] Representative Name Role Phone Mackenzie Duncan MD Primary Care Provider Unavaila ble Black, Amy Unavailable [phone] Allergies Allergen (clinical drug ingredient) Drug/Non Drug [...] remove mediation once a week with nail khmer remover or rubbing alcohol; Duration: 30 days [...] Problem Acquired hammer toe of right foot (0964290099678254) Hammer toe of right foot (M20.41) Active confirmed Problem Acquired hammer toe of left foot (5114231640533779) Hammer toe of left foot (M20.42) Active confirmed Problem Neuropathy (900359096) Neuropathy (G62.9) Active confirmed Problem Mononeuropathy of lower limb (060580654) Neuritis of left foot (G57.92) Active confirmed Vital Signs Blood pressure diastolic 85 mm Hg 12/05/2024 Height 5ft 4in in 12/05/2024 Blood pressure systolic 135 mm Hg 12/05/2024 Weight 265 lbs 12/05/2024 BMI 45.48 kg/m2 12/05/2024 Procedures Procedure Date Ordered Date Performed Result Body Sit e 74196-OQVQUFL NAIL, 6 OR MORE 12/05/2024 N/A Encounters Encounter Location Date Provider Diagnosis [facility] [address] [place] [address] 04/27/2024 Amy Black Ingrown nail L60.0 ; Neuritis M79.2 ; Metatarsalgia of left foot M77.42 ; Metatarsalgia of right foot M77.41 ; Hammer toe of left foot M20.42 ; Hammer toe of right foot M20.41 ; Pain in right foot M79.671 ; Pain in left toe(s) M79.675 ; Pain in right toe(s) M79.674 and Pain in left foot M79.[address] [address] 08/10/2024 Amy Black Neuritis M79.2 ; Neuropathy G62.9 ; Pain in right foot M79.671 ; Pain in left foot M79.672 ; Neuropathic pain M79.2 ; Metatarsalgia of left foot M77.42 and Metatarsalgia of right foot M77.[address] [address] 09/21/2024 Amy Black Neuritis M79.2 ; Neuropathy G62.9 ; Pain in right foot M79.671 ; Pain in left foot M79.672 ; Neuropathic pain M79.2 ; Pain in right toe(s) M79.674 ; Onychomycosis B35.1 ; Pain in left toe(s) M79.675 ; Metatarsalgia of left foot M77.42 and Metatarsalgia of right foot M77.[address] [address] 12/05/2024 Amy Black Neuritis M79.2 ; Neuropathy G62.9 ; Pain in right foot M79.671 ; Pain in left foot M79.672 ; Neuropathic pain M79.2 ; Pain in right toe(s) M79.674 ; Onychomycosis B35.1 ; Pain in left toe(s) M79.675 and Ingrown nail L60.[address] [address] 04/27/2024 Amy Black [address] [address] 09/21/2024 Amy Black Assessments Encounter Date Diagnosis [...] Treatment Pending Test Test Name Order Date [id number] NAIL, 6 OR MORE 12/05/2024 85409-Yopxwjuo Plate 11/22/2013 14641-Tzhzhwht Plate 02/01/2014 44970-Krjrfuxh Plate 05/02/2013 03059- Debride <25 sq cm 05/15/2013 72084 I&D ABSCESS- SIMPLE,SINGLE 014 77096 I&D ABSCESS- SIMPLE,SINGLE 013 Next Appt Details Provider Name:Amy Rodriguez , 03/15/2025 09:30:00 AM, [address] [place], [address], Insurance Providers Payer Name Payer Address Payer Phone Subscriber Number Group Number Insured Name Patient Relationship to Insured Coverage Start Date Coverage End Date [facility] [address] [place] [phone] [id number] Luc Hurley Spouse - patient is the spouse of the insured Medical (General) History Medical History History ICD Code gall bladder problems hypertension thyroid disorder chicken pox Anemia Knee Pain covid-19 Surgical History Surgery Date(Month/Year) gall stones 06/2012 gall bladder 2020
== END 2025-02-19 09:46 | disposition home or self-care (01) ==
LOC: HO.HMCC 09:17
PROVIDERS: PCP Internal Medicine; Visit Provider Internal Medicine
DX: I10 Essential (primary) hypertension (principal); Z68.41 Body mass index [BMI] 40.0-44.9, adult; I87.2 Venous insufficiency (chronic) (peripheral); E66.9 Obesity, unspecified; R73.9 Hyperglycemia, unspecified; E03.9 Hypothyroidism, unspecified

== ENCOUNTER 2025-04-27 10:55 | Outpatient (AMB) | payer OTHER, SELFPAY ==
--- NOTE | 2025-04-27 10:56 | A.OFFPC_ITS ---
Vital Signs 04/27/25 10:57 Height 5 ft 6 in Weight 259 lb BMI 41.8 BP 120/74 Blood Pressure Location Lt brachial Position Sitting Respiration 18 Pulse 78 Pulse Source Pulse Oximeter Temp 98.4 F Temp Source Oral Pulse Oximetry (%) 97 Oxygen Delivery Method Room Air Intake Visit Reasons: 2 months f/up Intake Note: Pt is here today for 2 months follow up visit. Allergies meloxicam (MELOXICAM) Allergy (Intermediate, Verified 04/27/25 11:02) HYPERTENSION, flactuating BP, elevated bp amlodipine Adverse Reaction (Intermediate, Verified 04/27/25 11:02) Edema Medication List - Last Reconciled 04/27/25 by Mackenzie Duncan MD acetaminophen 1,000 mg (2 x 500 mg) PO Q6H PRN albuterol sulfate 90 mcg/actuation 2 puffs inhalation Q6H PRN amlodipine 2.5 mg PO DAILY carbamide peroxide 6.5% (Debrox) 5 drps otic (ears) DAILY 4 days cetirizine (Zyrtec) 10 mg PO DAILY PRN furosemide (Lasix) 20 mg PO DAILY PRN furosemide (Lasix) 20 mg PO Q OTHER DAY sjuriife-kxiup-iitel-CF borate ([facility]) PO metoprolol succinate ER 75 mg (1.5 x 50 mg) PO DAILY naproxen 500 mg PO BID olmesartan-hydrochlorothiazide 40-25 mg 1 tab PO DAILY rosuvastatin (Crestor) 10 mg PO DAILY Synthroid (levothyroxine) 175 mcg PO QAM NS [vitamin b12 1,000 mg 5 tablets a day] vitamin D3-vitamin K2 125 mcg (5,000 unit)-100 mcg caps PO Zepbound (tirzepatide (weight loss)) 5 mg (0.5 mL) subcut QWEEK NS Tobacco use date assessed: 04/27/25 Dental Screening Dental Screen Date: 10/25/24 HPI 2 months f/up HPI Details Pt presents for f/u HTN, hyperlipid, obesity. Pt has been taking Zepbound for 4 months and lost only 1 lb. She has been decreasing caloric intake increasing physical activity and would like to try a higher dose of Zepbound. She complains of chronic lower back pain radiating to both lower extremities, tingling and numbness sensation and pain of both feet. Patient completed a course of physical therapy without significant improvement. She was seen by implementation specialist payroll who recommended obtaining lumbar spine MRI to evaluate for disc herniation. [facility] Medical History Thyroid nodule Annual physical exam (~02/17/22) Normal colonoscopy Hyperlipidemia Sleep apnea Menorrhagia Chronic iron deficiency anemia Multinodular goiter Hypothyroidism Anxiety and depression Obesity HTN (hypertension) Surgical History History of esophagogastroduodenoscopy (EGD) No pertinent past surgical history Family History Father No problems noted. Mother No problems noted. Sister No problems noted. Sister No problems noted. Son No problems noted. 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 1. Little interest or pleasure in doing things: several days 2. Feeling down, depressed, or hopeless: not at all 3. Trouble falling or staying asleep, or sleeping too much: not at all 4. Feeling tired or having little energy: several days 5. Poor appetite or overeating: not at all 6. Feeling bad about yourself - or that you are a failure or have let yourself or your family down: not at all 7. Trouble concentrating on things, such as reading the newspaper or watching television: not at all 8. Moving or speaking so slowly that other people could have noticed. Or the opposite - being so fidgety or restless that you have been moving around a lot more than usual: not at all 9. Thoughts that you would be better off or of hurting yourself in some way: not at all Total score: 2 Depression Screening Interpretation: Negative Depression Screening Done: Yes Source: Developed by Drs. Dominik Avelar, Lauryn Royal, Sundar Mukherjee and colleagues, with an educational belia from [employer]. Thrive Questionnaire Date Thrive assessed: 08/18/24 I am a: Patient What is your living situation today?: I have a steady place to live Within the past 12 months, did the food you bought not last and you didn't have the money to get more?: I choose not to answer this question Within the past 12 months, did you worry whether your food would run out before you got money to buy more?: I choose not to answer this question Do you have trouble paying for medicines?: I choose not to answer this question Do you have trouble getting transportation to medical appointments?: No Do you have trouble paying your heating and electricity bill?: No Do you have trouble taking care of your child, family member or friend?: No Do you have trouble with day-to-day activities such as bathing, preparing meals, shopping, managing finances, etc.?: No Are you currently unemployed and looking for a job?: No Are you interested in more education?: No Please select the resources that you would like help with: None Currently or been in a relationship where the following occur: I choose not to answer THRIVE Score: 0 TITO-7 AMB Questionnaire TITO-7 Date TITO - 7 assessed: 08/18/24 Feeling nervous, anxious, or on edge: 0 = Not at all Not being able to stop or control worryin = Not at all Worrying too much about different things: 0 = Not at all Trouble relaxin = Not at all Being so restless that it is hard to sit still: 0 = Not at all Becoming easily annoyed or irritable: 0 = Not at all Feeling afraid as if something awful might happen: 0 = Not at all Total TITO-7 score (0-4 normal; 5-9 mild; 10-14 moderate; 15-21 severe): 0 Source: Developed by Drs. Dominik Avelar, Sundar Arana and colleagues, with an educational belia from [employer]. Review of Systems Const All systems reviewed & are unremarkable except as noted in HPI and below Eyes Reports no additional complaints ENT Reports no additional complaints Card Reports no additional complaints Resp Reports no additional complaints GI Reports no additional complaints Reports no additional complaints Physical exam (Primary Care) Vital Signs: Last Vital Signs Temp 98.4 F 04/27/25 10:57 Pulse 78 04/27/25 10:57 Resp 18 04/27/25 10:57 BP 120/74 04/27/25 10:57 Pulse Ox 97 04/27/25 10:57 Oxygen Delivery Method Room Air 04/27/25 10:57 BMI result Body Mass Index 41.8 Tobacco/Smoking Status: Tobacco use Status Tobacco use date assessed 04/27/25 04/27/25 11:03 Patient Tobacco Use Status Never used Tobacco 04/27/25 11:03 e-Cigarette/Vaping Use Never Used 04/27/25 11:03 PHQ-9: PHQ-9 Score PHQ-9: Total score 2 04/27/25 11:03 Depression Screening Interpretation: Negative Thrive Assessment: Date of Thrive Assessment Date Thrive assessed 08/18/24 04/27/25 11:03 Currently or been in a relationship where the following occur: I choose not to answer Const General: no acute distress HENMT Head: Yes normal to inspection Eyes General: appearance normal, both eyes and all related structures Resp Effort & Inspection: normal respiratory effort Auscultation: clear to auscultation bilaterally Cardio Rhythm: regular rhythm Heart sounds: S1 normal heart sound present and S2 normal heart sound present Back/Spine/Pelvis Other: Paraspinal tenderness in lower lumbar region straight leg rising 40 degrees bilaterally, deep tendon reflexes 1+ bilaterally Coding Level of Care Code Est Pt Level 4 (06938) Diagnoses Lumbar radiculopathy M54.16 Obesity E66.9 HTN (hypertension) I10 Assessment & Plan Assessment & Plan (1) Lumbar radiculopathy: Code(s): M54.16 - Radiculopathy, lumbar region Category: Medical Plan: Obtain MRI lumbar spine to evaluate for disc herniation and spinal stenosis (2) Obesity: Comment: BMI 45.7 10/2024 Code(s): E66.9 - Obesity, unspecified Category: Medical Plan: Increase Zepbound to 7.5 mg weekly decreasing caloric intake increasing physical activity and weight loss discussed with the patient follow-up in 1 month (3) HTN (hypertension): Code(s): I10 - Essential (primary) hypertension Category: Medical Plan: Continue current medications Orders: Orders MR lumbar spine wo con Today M54.16 - Radiculopathy, lumbar region Medications: New Zepbound (tirzepatide (weight loss)) 7.5 mg (0.5 mL) subcut QWEEK 2 mL 1RF NS
[2025-04-27 10:57] VITALS: BP 120/74; PULSE 78; RESP 18; TEMP 36.9; O2SAT 97; BMI 41.8
--- OUTSIDE RECORDS SUMMARY | 2025-04-27 12:14 | XMS_ITS | Patient Health Record ---
[facility] Address [address] [place] [address] Care Team Providers Care Pet Care Attendant Name Role Phone Mackenzie Duncan MD Primary Care Provider Unavaila ble Black, Amy Unavailable [phone] Allergies Allergen (clinical drug ingredient) Drug/Non Drug [...] 1 tablet Orally Once a day Active Medrol 4 MG as directed Orally daily; Duration: 6 days 09/21/2024 Active Ciclopirox 8 % 1 application Externally Once a day- remove mediation once a week with nail danish remover or rubbing alcohol; Duration: 30 days 09/21/2024 Active Zepbound 5 MG/0.5ML Subcutaneous; Durati on: 28 Days Active amLODIPine Besylate 2.5 MG Oral; Duration: 30 Days Acti ve Levothyroxine Sodium 175 MCG 1 tablet in the morning on an empty stomach Orally Once a day; Duration: 30 day(s) 02/07/2024 Active Metoprolol & Diet Manage Prod Active Vitamin D3 Active Magnesium Active Gabapentin 300 MG 1 capsule Orally at bedtime; Duration: 30 days 08/10/2024 Not-Taking Vitamin B12 3000 MCG/ML as directed Sublingual Active Immunizations Vaccine Route Administration Date Status Comme nts Influenza Unknown 03/15/2025 Refused Social History Tobacco Use: Social History Observation [...] Problem Acquired hammer toe of right foot (1272611074879902) Hammer toe of right foot (M20.41) Active confirmed Problem Acquired hammer toe of left foot (9307975670328654) Hammer toe of left foot (M20.42) Active confirmed Problem Neuropathy (048169239) Neuropathy (G62.9) Active confirmed Problem Mononeuropathy of lower limb (550166952) Neuritis of left foot (G57.92) Active confirmed Problem Ulcer of toe of right foot (disorder) (62614673857407775 ) Skin ulcer of toe of right foot, limited to breakdown of skin (L97.511) Active confirmed Problem Ulcer of toe of left foot (disorder) (67019071294593923 ) Skin ulcer of toe of left foot, limited to breakdown of skin (L97.521) Active confirmed Vital Signs Blood pressure diastolic 85 mm Hg 03/15/2025 Height 5ft4in in 03/15/2025 Blood pressure systolic 132 mm Hg 03/15/2025 Weight 262 lbs 03/15/2025 BMI 44.97 kg/m2 03/15/2025 Procedures Procedure Date Ordered Date Performed Result Body Sit e 70900-WGQDREP NAIL, 6 OR MORE 12/05/2024 N/A 48591-PPNPWYD NAIL, 6 OR MORE 03/15/2025 N/A Encounters Encounter Location Date Provider Diagnosis [address] [address] 04/27/2024 Amy Black Ingrown nail L60.0 ; Neuritis M79.2 ; Metatarsalgia of left foot M77.42 ; Metatarsalgia of right foot M77.41 ; Hammer toe of left foot M20.42 ; Hammer toe of right foot M20.41 ; Pain in right foot M79.671 ; Pain in left toe(s) M79.675 ; Pain in right toe(s) M79.674 and Pain in left foot M79.[address] [address] 08/10/2024 Amy Black Neuritis M79.2 ; Neuropathy G62.9 ; Pain in right foot M79.671 ; Pain in left foot M79.672 ; Neuropathic pain M79.2 ; Metatarsalgia of left foot M77.42 and Metatarsalgia of right foot M77.[address] [address] 09/21/2024 Amy Black Neuritis M79.2 ; Neuropathy G62.9 ; Pain in right foot M79.671 ; Pain in left foot M79.672 ; Neuropathic pain M79.2 ; Pain in right toe(s) M79.674 ; Onychomycosis B35.1 ; Pain in left toe(s) M79.675 ; Metatarsalgia of left foot M77.42 and Metatarsalgia of right foot M77.[address] [address] 12/05/2024 Amy Black Neuritis M79.2 ; Neuropathy G62.9 ; Pain in right foot M79.671 ; Pain in left foot M79.672 ; Neuropathic pain M79.2 ; Pain in right toe(s) M79.674 ; Onychomycosis B35.1 ; Pain in left toe(s) M79.675 and Ingrown nail L60.[address] [address] 03/15/2025 Amy Rodriguez Neuropathy G62.9 ; Skin ulcer of toe of right foot, limited to breakdown of skin L97.511 ; Neuritis M79.2 ; Pain in right foot M79.671 ; Pain in left foot M79.672 ; Neuropathic pain M79.2 ; Pain in right toe(s) M79.674 ; Onychomycosis B35.1 ; Pain in left toe(s) M79.675 ; Skin ulcer of toe of left foot, limited to breakdown of skin L97.521 ; Metatarsalgia of left foot M77.42 and Metatarsalgia of right foot M77.[address] [address] 04/27/2024 Amyjosé luis Rodriguez [address] [address] 09/21/2024 Amy Rodriguez [address] [address] 03/15/2025 Amy Michael Assessments Encounter Date Diagnosis (ICD Code) Assessment Notes Treatment Notes Treatment Clinical Notes Section Notes 04/27/2024 Ingrown nail (ICD-10 - L60.0) 04/27/2024 Neuritis (ICD-10 - M79.2) 08/10/2024 Neuritis (ICD-10 - M79.2) 08/10/2024 Neuropathy (ICD-10 - G62.9) 09/21/2024 Neuritis (ICD-10 - M79.2) 12/05/2024 Neuritis (ICD-10 - M79.2) 03/15/2025 Neuropathy (ICD-10 - G62.9) e 03/15/2025 Skin ulcer of toe of right foot, limited to breakdown of skin (ICD-10 - L97.511) e 03/15/2025 Neuritis (ICD-10 - M79.2) e 12/05/2024 Neuropathy (ICD-10 - G62.9) 12/05/2024 Pain [...] Pain in left foot (ICD-10 - M79.672) 03/15/2025 Pain in right foot (ICD-10 - M79.671) e 03/15/2025 Pain in left foot (ICD-10 - M79.672) e 09/21/2024 Neuropathic pain (ICD-10 - M79.2) 12/05/2024 Neuropathic pain (ICD-10 - M79.2) 08/10/2024 Neuropathic pain (ICD-10 - M79.2) 04/27/2024 Hammer toe of left foot (ICD-10 - M20.42) 04/27/2024 Hammer toe of right foot (ICD-10 - M20.41) 08/10/2024 Metatarsalgia of left foot (ICD-10 - M77.42) 09/21/2024 Pain in right toe(s) (ICD-10 - M79.674) 12/05/2024 Pain in right toe(s) (ICD-10 - M79.674) 03/15/2025 Neuropathic pain (ICD-10 - M79.2) e 03/15/2025 Pain in right toe(s) (ICD-10 - M79.674) e 12/05/2024 Onychomycosis (ICD-10 - B35.1) 09/21/2024 Onychomycosis (ICD-10 - B35.1) 08/10/2024 Metatarsalgia of right foot (ICD-10 - M77.41) 04/27/2024 Pain in right foot (ICD-10 - M79.671) 04/27/2024 Pain in left toe(s) (ICD-10 - M79.675) 09/21/2024 Pain in left toe(s) (ICD-10 - M79.675) 12/05/2024 Pain in left toe(s) (ICD-10 - M79.675) 03/15/2025 Onychomycosis (ICD-10 - B35.1) e 12/05/2024 Ingrown nail (ICD-10 - L60.0) 03/15/2025 Pain in left toe(s) (ICD-10 - M79.675) e 09/21/2024 Metatarsalgia of left foot (ICD-10 - M77.42) 04/27/2024 Pain in right toe(s) (ICD-10 - M79.674) 04/27/2024 Pain in left foot (ICD-10 - M79.672) 09/21/2024 Metatarsalgia of right foot (ICD-10 - M77.41) 03/15/2025 Skin ulcer of toe of left foot, limited to breakdown of skin (ICD-10 - L97.521) e 03/15/2025 Metatarsalgia of left foot (ICD-10 - M77.42) e 03/15/2025 Metatarsalgia of right foot (ICD-10 - M77.41) e Plan Of Treatment Pending Test Test Name Order Date [id number] NAIL, 6 OR MORE 12/05/2024 80444-NRSOVAO NAIL, 6 OR MORE 03/15/2025 14343-Kshmcdev Plate 11/22/2013 45309-Wrzypuwa Plate 02/01/2014 98692-Ulhdikts Plate 05/02/2013 47103- Debride <25 sq cm 05/15/2013 09137 I&D ABSCESS- SIMPLE,SINGLE 014 [id number] I&D ABSCESS- SIMPLE,SINGLE 013 Next Appt Details Provider Name:Amy Rodriguez , 05/25/2025 02:00:00 PM, [address] [facility], [place], [address], Insurance Providers Payer Name Payer Address Payer Phone Subscriber Number Group Number Insured Name Patient Relationship to Insured Coverage Start Date Coverage End Date [facility] [address] [place] [phone] [id number] Luc Hurley Spouse - patient is the spouse of the insured Medical (General) History Medical History History ICD Code gall bladder problems hypertension thyroid disorder chicken pox Anemia Knee Pain covid-19 Surgical History Surgery Date(Month/Year) gall stones 06/2012 gall bladder 2020
== END 2025-04-27 11:18 | disposition home or self-care (01) ==
LOC: HO.HMCC 10:56
PROVIDERS: PCP Internal Medicine; Visit Provider Internal Medicine
DX: M54.16 Radiculopathy, lumbar region (principal); E66.9 Obesity, unspecified; I10 Essential (primary) hypertension; Z68.41 Body mass index [BMI] 40.0-44.9, adult

== ENCOUNTER 2025-05-04 10:22 | Outpatient (AMB) | payer OTHER, SELFPAY ==
[2025-05-04 10:24] VITALS: BP 136/80; PULSE 92; RESP 19; TEMP 36.8; O2SAT 97; BMI 41.8
--- NOTE | 2025-05-04 10:24 | MHC.PC.OV ---
Vital Signs 05/04/25 10:24 Height 5 ft 6 in Weight 259 lb BMI 41.8 BP 136/80 Blood Pressure Location Lt brachial Position Sitting Respiration 19 Pulse 92 Pulse Source Pulse Oximeter Temp 98.3 F Temp Source Oral Pulse Oximetry (%) 97 Oxygen Delivery Method Room Air Intake Visit Reasons: ear infection? Intake Note: Pt is here today for a sick visit. Pt c/o fluid and pain in her R ear. Allergies meloxicam (MELOXICAM) Allergy (Intermediate, Verified 05/04/25 10:28) HYPERTENSION, flactuating BP, elevated bp amlodipine Adverse Reaction (Intermediate, Verified 05/04/25 10:28) Edema Medication List - Last Reconciled 05/04/25 by Mackenzie Duncan MD acetaminophen 1,000 mg (2 x 500 mg) PO Q6H PRN albuterol sulfate 90 mcg/actuation 2 puffs inhalation Q6H PRN amlodipine 2.5 mg PO DAILY carbamide peroxide 6.5% (Debrox) 5 drps otic (ears) DAILY 4 days cetirizine (Zyrtec) 10 mg PO DAILY PRN furosemide (Lasix) 20 mg PO DAILY PRN furosemide (Lasix) 20 mg PO Q OTHER DAY owmzbtjq-ayfao-ctrqc-CF borate ([facility]) PO metoprolol succinate ER 75 mg (1.5 x 50 mg) PO DAILY naproxen 500 mg PO BID olmesartan-hydrochlorothiazide 40-25 mg 1 tab PO DAILY rosuvastatin (Crestor) 10 mg PO DAILY Synthroid (levothyroxine) 175 mcg PO QAM NS [vitamin b12 1,000 mg 5 tablets a day] vitamin D3-vitamin K2 125 mcg (5,000 unit)-100 mcg caps PO Tobacco use date assessed: 05/04/25 Dental Screening Dental Screen Date: 10/25/24 HPI ear infection? HPI Details Patient presents complaining of left ear discomfort fullness and brownish discharge for 3 days. Patient has been using Debrox for few days and her symptoms improved. She denies otalgia fever chills or sore throat. Hypertension is controlled on current medications [facility] Medical History Thyroid nodule Annual physical exam (~02/17/22) Normal colonoscopy Hyperlipidemia Sleep apnea Menorrhagia Chronic iron deficiency anemia Multinodular goiter Hypothyroidism Anxiety and depression Obesity HTN (hypertension) Surgical History History of esophagogastroduodenoscopy (EGD) No pertinent past surgical history Family History Father No problems noted. Mother No problems noted. Sister No problems noted. Sister No problems noted. Son No problems noted. 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 1. Little interest or pleasure in doing things: several days 2. Feeling down, depressed, or hopeless: not at all 3. Trouble falling or staying asleep, or sleeping too much: not at all 4. Feeling tired or having little energy: several days 5. Poor appetite or overeating: not at all 6. Feeling bad about yourself - or that you are a failure or have let yourself or your family down: not at all 7. Trouble concentrating on things, such as reading the newspaper or watching television: not at all 8. Moving or speaking so slowly that other people could have noticed. Or the opposite - being so fidgety or restless that you have been moving around a lot more than usual: not at all 9. Thoughts that you would be better off or of hurting yourself in some way: not at all Total score: 2 Depression Screening Interpretation: Negative Depression Screening Done: Yes Source: Developed by Drs. Dominik Avelar, Lauryn Royal, Sundar Mukherjee and colleagues, with an educational belia from [employer]. Thrive Questionnaire Date Thrive assessed: 08/18/24 I am a: Patient What is your living situation today?: I have a steady place to live Within the past 12 months, did the food you bought not last and you didn't have the money to get more?: I choose not to answer this question Within the past 12 months, did you worry whether your food would run out before you got money to buy more?: I choose not to answer this question Do you have trouble paying for medicines?: I choose not to answer this question Do you have trouble getting transportation to medical appointments?: No Do you have trouble paying your heating and electricity bill?: No Do you have trouble taking care of your child, family member or friend?: No Do you have trouble with day-to-day activities such as bathing, preparing meals, shopping, managing finances, etc.?: No Are you currently unemployed and looking for a job?: No Are you interested in more education?: No Please select the resources that you would like help with: None Currently or been in a relationship where the following occur: I choose not to answer THRIVE Score: 0 TITO-7 AMB Questionnaire TITO-7 Date TITO - 7 assessed: 08/18/24 Feeling nervous, anxious, or on edge: 0 = Not at all Not being able to stop or control worryin = Not at all Worrying too much about different things: 0 = Not at all Trouble relaxin = Not at all Being so restless that it is hard to sit still: 0 = Not at all Becoming easily annoyed or irritable: 0 = Not at all Feeling afraid as if something awful might happen: 0 = Not at all Total TITO-7 score (0-4 normal; 5-9 mild; 10-14 moderate; 15-21 severe): 0 Source: Developed by Drs. Dominik Avelar, Lauryn Royal, Sundar Mukherjee and colleagues, with an educational belia from [employer]. Review of Systems Const All systems reviewed & are unremarkable except as noted in HPI and below ENT Reports no additional complaints Card Reports no additional complaints Resp Reports no additional complaints GI Reports no additional complaints Physical exam (Primary Care) Vital Signs: Last Vital Signs Temp 98.3 F 05/04/25 10:24 Pulse 92 05/04/25 10:24 Resp 19 05/04/25 10:24 BP 136/80 05/04/25 10:24 Pulse Ox 97 05/04/25 10:24 Oxygen Delivery Method Room Air 05/04/25 10:24 BMI result Body Mass Index 41.8 Tobacco/Smoking Status: Tobacco use Status Tobacco use date assessed 05/04/25 05/04/25 10:29 Patient Tobacco Use Status Never used Tobacco 05/04/25 10:29 e-Cigarette/Vaping Use Never Used 05/04/25 10:29 PHQ-9: PHQ-9 Score PHQ-9: Total score 2 05/04/25 10:29 Depression Screening Interpretation: Negative Thrive Assessment: Date of Thrive Assessment Date Thrive assessed 08/18/24 05/04/25 10:29 Currently or been in a relationship where the following occur: I choose not to answer Const General: no acute distress HENMT Head: Yes normal to inspection Ears: TM's normal bilaterally Face and sinus: Yes normal facial exam Mouth: Normal oral and palatal mucosa present Neck Neck: Yes no lymphadenopathy and Yes supple Resp Effort & Inspection: normal respiratory effort Auscultation: clear to auscultation bilaterally Cardio Rhythm: regular rhythm Heart sounds: S1 normal heart sound present and S2 normal heart sound present Coding Level of Care Code Est Pt Level 4 (90952) Diagnoses DJD (degenerative joint disease), lumbosacral M47.817 Impacted cerumen of left ear H61.22 HTN (hypertension) I10 Assessment & Plan Assessment & Plan (1) DJD (degenerative joint disease), lumbosacral: Code(s): M47.817 - Spondylosis without myelopathy or radiculopathy, lumbosacral region Category: Medical Plan: For chronic lower back pain degenerative joint disease patient requested referral to physical therapy (2) Impacted cerumen of left ear: Code(s): H61.22 - Impacted cerumen, left ear Category: Medical Plan: Patient was advised to continue using Debrox drops at least once a week. She was advised not to use Q-tips to clean her ears (3) HTN (hypertension): Code(s): I10 - Essential (primary) hypertension Category: Medical Plan: Continue current medications Orders: Orders PT Evaluation and Treatment Today M47.817 - Spondylosis without myelopathy or radiculopathy, lumbosacral region Medications: Refilled carbamide peroxide 6.5% (Debrox) Use in both ears, allow to soak for 2 hours daily 5 drps otic (ears) DAILY 15 mL 0RF 4 days Discontinued Zepbound (tirzepatide (weight loss)) Discontinued Reason: Insurance Denied 7.5 mg (0.5 mL) subcut QWEEK 2 mL 1RF NS Zepbound (tirzepatide (weight loss)) Discontinued Reason: Insurance Denied 5 mg (0.5 mL) subcut QWEEK 2 mL 1RF NS
== END 2025-05-04 13:09 | disposition home or self-care (01) ==
LOC: HO.HMCC 10:22
PROVIDERS: PCP Internal Medicine; Visit Provider Internal Medicine
DX: M47.817 Spondylosis without myelopathy or radiculopathy, lumbosacral region (principal); H61.22 Impacted cerumen, left ear; I10 Essential (primary) hypertension

== ENCOUNTER 2025-06-14 09:56 | Outpatient (AMB) | payer OTHER, SELFPAY ==
[2025-06-14 09:59] VITALS: BP 122/80; PULSE 81; O2SAT 97; BMI 42.3
--- NOTE | 2025-06-14 09:59 | A.OFFPC_ITS ---
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 Accompanied by: Self / Same As Patient Allergies meloxicam (MELOXICAM) Allergy (Intermediate, Verified 06/14/25 10:00) HYPERTENSION, flactuating BP, elevated bp amlodipine Adverse Reaction (Intermediate, Verified 06/14/25 10:00) Edema Medication List - Last Reconciled 06/14/25 by Mackenzie Duncan MD acetaminophen 1,000 mg (2 x 500 mg) PO Q6H PRN albuterol sulfate 90 mcg/actuation 2 puffs inhalation Q6H PRN amlodipine 2.5 mg PO DAILY carbamide peroxide 6.5% (Debrox) 5 drps otic (ears) DAILY 4 days cetirizine (Zyrtec) 10 mg PO DAILY PRN furosemide (Lasix) 20 mg PO DAILY PRN furosemide (Lasix) 20 mg PO Q OTHER DAY aaucnvcw-tcfls-jtknb-CF borate ([facility]) PO metoprolol succinate ER 75 mg (1.5 x 50 mg) PO DAILY naproxen 500 mg PO BID olmesartan-hydrochlorothiazide 40-25 mg 1 tab PO DAILY rosuvastatin (Crestor) 10 mg PO DAILY Synthroid (levothyroxine) 175 mcg PO QAM NS [vitamin b12 1,000 mg 5 tablets a day] vitamin D3-vitamin K2 125 mcg (5,000 unit)-100 mcg caps PO Tobacco use date assessed: 05/04/25 Dental Screening Dental Screen Date: 10/25/24 HPI 1 mo follow up HPI Details Pt presents for f/u HTN, hyperlipid, hypothyroid, stable on meds. Pt c/o persistent LBP radiating to both lower extremities despite PT for 6 weeks. Patient also reports tingling and numbness sensation in right anterior thigh on and off. [facility] Medical History Thyroid nodule Annual physical exam (~02/17/22) Normal colonoscopy Hyperlipidemia Sleep apnea Menorrhagia Chronic iron deficiency anemia Multinodular goiter Hypothyroidism Anxiety and depression Obesity HTN (hypertension) Surgical History History of esophagogastroduodenoscopy (EGD) No pertinent past surgical history Family History Father No problems noted. Mother No problems noted. Sister No problems noted. Sister No problems noted. Son No problems noted. 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 [employer] Cognitive needs: No Hearing needs: No Vision needs: No Questionnaire Thrive Questionnaire Date Thrive assessed: 08/18/24 I am a: Patient What is your living situation today?: I have a steady place to live Within the past 12 months, did the food you bought not last and you didn't have the money to get more?: I choose not to answer this question Within the past 12 months, did you worry whether your food would run out before you got money to buy more?: I choose not to answer this question Do you have trouble paying for medicines?: I choose not to answer this question Do you have trouble getting transportation to medical appointments?: No Do you have trouble paying your heating and electricity bill?: No Do you have trouble taking care of your child, family member or friend?: No Do you have trouble with day-to-day activities such as bathing, preparing meals, shopping, managing finances, etc.?: No Are you currently unemployed and looking for a job?: No Are you interested in more education?: No Please select the resources that you would like help with: None Currently or been in a relationship where the following occur: I choose not to answer THRIVE Score: 0 TITO-7 AMB Questionnaire TITO-7 Date TITO - 7 assessed: 08/18/24 Source: Developed by Drs. Dominik Avelar, Lauryn Royal, Sundar Mukherjee and colleagues, with an educational belia from [employer]. Review of Systems Const All systems reviewed & are unremarkable except as noted in HPI and below Eyes Reports no additional complaints ENT Reports no additional complaints Card Reports no additional complaints Resp Reports no additional complaints GI Reports no additional complaints Reports no additional complaints Musc Reports no additional complaints Physical exam (Primary Care) Vital Signs: Last Vital Signs Pulse 81 06/14/25 09:59 BP 122/80 06/14/25 09:59 Pulse Ox 97 06/14/25 09:59 Oxygen Delivery Method Room Air 06/14/25 09:59 BMI result Body Mass Index 42.3 Tobacco/Smoking Status: Tobacco use Status Tobacco use date assessed 05/04/25 06/14/25 10:01 Patient Tobacco Use Status Never used Tobacco 06/14/25 10:01 e-Cigarette/Vaping Use Never Used 06/14/25 10:01 Thrive Assessment: Date of Thrive Assessment Date Thrive assessed 08/18/24 06/14/25 10:01 Currently or been in a relationship where the following occur: I choose not to answer Const General: no acute distress HENMT Head: Yes normal to inspection Neck Neck: Yes supple Resp Effort & Inspection: normal respiratory effort Auscultation: clear to auscultation bilaterally Cardio Rhythm: regular rhythm Heart sounds: S1 normal heart sound present and S2 normal heart sound present Back/Spine/Pelvis Other: Decreased range of motion and paraspinal tenderness in the lower lumbar region. Straight leg rising 90 degrees. bilaterally deep tendon reflexes 1+ bilaterally Coding Level of Care Code Est Pt Level 4 (42869) Diagnoses HTN (hypertension) I10 Hyperlipidemia E78.5 Hypothyroidism E03.9 Lumbar radiculopathy M54.16 Assessment & Plan Assessment & Plan (1) HTN (hypertension): Code(s): I10 - Essential (primary) hypertension Category: Medical Plan: Continue current medications (2) Hyperlipidemia: Code(s): E78.5 - Hyperlipidemia, unspecified Category: Medical Plan: Continue statin (3) Hypothyroidism: Comment: follow up with Endo Code(s): E03.9 - Hypothyroidism, unspecified Category: Medical Plan: Continue levothyroxine (4) Lumbar radiculopathy: Code(s): M54.16 - Radiculopathy, lumbar region Category: Medical Plan: For persistent symptomatic lumbar radiculopathy despite physical therapy MRI will be obtained to evaluate for disc herniation Orders: Orders Comprehensive [place]. Panel Fast 2 Months E03.9 - Hypothyroidism, unspecified, E78.5 - Hyperlipidemia, unspecified, I10 - Essential (primary) hypertension Complete Blood Count Auto Diff 2 Months E03.9 - Hypothyroidism, unspecified, E78.5 - Hyperlipidemia, unspecified, I10 - Essential (primary) hypertension Lipid Panel 2 Months E03.9 - Hypothyroidism, unspecified, E78.5 - Hyperlipidemia, unspecified, I10 - Essential (primary) hypertension TSH reflex Free T4 2 Months E03.9 - Hypothyroidism, unspecified, E78.5 - Hyperlipidemia, unspecified, I10 - Essential (primary) hypertension UA w Microscopic 2 Months E03.9 - Hypothyroidism, unspecified, E78.5 - Hyperlipidemia, unspecified, I10 - Essential (primary) hypertension Hemoglobin A1c 2 Months E03.9 - Hypothyroidism, unspecified, E78.5 - Hyperlipidemia, unspecified, I10 - Essential (primary) hypertension Microalbumin, Random (w Creat) 2 Months E03.9 - Hypothyroidism, unspecified, E78.5 - Hyperlipidemia, unspecified, I10 - Essential (primary) hypertension MR lumbar spine wo con Today M54.16 - Radiculopathy, lumbar region, R20.0 - Anesthesia of skin, R20.2 - Paresthesia of skin
== END 2025-06-14 10:40 | disposition home or self-care (01) ==
LOC: HO.HMCC 09:57
PROVIDERS: PCP Internal Medicine; Visit Provider Internal Medicine
DX: I10 Essential (primary) hypertension (principal); E78.5 Hyperlipidemia, unspecified; E03.9 Hypothyroidism, unspecified; M54.16 Radiculopathy, lumbar region